=== PATIENT | male | born 1950 | race Caucasian/White ===

== ENCOUNTER 2016-12-23 15:35 | Inpatient (IN) | payer MEDICARE ==
[2016-12-23] MEDS ORDERED: SODIUM CHLORIDE 0.9% 500 ML IV STA (17:02)
[2016-12-23] MEDS ORDERED: SODIUM CHLORIDE 0.9% 1,000 ML IV ONE (17:07)
[2016-12-23] MEDS ORDERED: HYDROmorphone 1 MG/ML 1 ML SYRINGE IVP STA ×2 (17:08→18:46)
--- NOTE | 2016-12-23 17:34 | XR ---
EXAMINATION TYPE: XR KUB DATE OF EXAM: 12/23/2016 5:26 PM COMPARISON: NONE INDICATION: Abdomen pain TECHNIQUE: Single view abdomen upright view FINDINGS: There is a nonspecific bowel gas pattern with air within small bowel loops in the left midabdomen. Si gnificant colonic bowel gas is not evident. No suspicious air-fluid levels or differential air-fluid levels are present. No free air is present. Psoas margins are normal. Calcification overlies the inferior left renal region. Surgical clips are within the left abdomen. IMPRESSION: 1. Nonspecific abdomen with small bowel loops containing air within the left midabdomen.
[2016-12-23] MEDS ORDERED: ONDANSETRON 4 MG/2 ML VIAL IVP STA (17:59)
[2016-12-23 18:08] LABS: Basophils % (A) 0 %; CH 31.3; CHCM 34.3; Eosinophils # (A) 0.1 k/uL (0-0.7); Eosinophils % (A) 1 %; HCT 44.7 % (39.0-53.0); HDW 2.77; Luc # (Auto) 0.11; Luc % (Auto) 1; Lymphocytes # (A) 1.1 k/uL (1.0-4.8); Lymphocytes % (A) 7 %; MCH 30.7 pg (25.0-35.0); MCHC 33.5 g/dL (31.0-37.0); MCV 91.8 fL (80.0-100.0); Mean Platelet Volume 6.9; Monocytes # (A) 0.4 k/uL (0-1.0); Monocytes % (A) 3 %; Neutrophils # (A) 13.6 k/uL (1.3-7.7); Neutrophils % (A) 88 %; RBC 4.87 m/uL (4.30-5.90); RDW 13.3 % (11.5-15.5); WBC 15.3 k/uL (3.8-10.6); WBC (Perox) 14.87
--- NOTE | 2016-12-23 18:12 | ED ---
Abdominal Pain HPI - General Chief Complaint: Abdominal Pain Stated Complaint: Abd Pain/Vomiting Time Seen by Provider: 12/23/16 17:01 Source: patient, RN notes reviewed Mode of arrival: ambulatory Limitations: no limitations - History of Present Illness Initial Comments: This a 66-year-old male present emergency department for nausea vomiting abdominal pain. Patient's symptoms primary started last night and progressed until today. Patient states he has these recurrent bouts of this every few months. Patient has been admitted for dehydration the past. Patient is concerned about dehydration secondary to having one kidney from nephrectomy from renal cancer. Patient denies any dysuria, hematuria. Patient denies constipation but states didn't slightly diarrhea. Patient denies chest pain, shortness breath, headache, dizziness. - Related Data Home Medications Medication Instructions Recorded Confirmed Clopidogrel [Plavix] 75 mg PO DAILY 05/29/15 12/23/16 Gabapentin 600 mg PO TID 05/29/15 12/23/16 Levothyroxine Sodium [Synthroid] 125 mcg PO DAILY 05/29/15 12/23/16 Lutein 10 mg PO DAILY 05/29/15 12/23/16 Simvastatin [Zocor] 20 mg PO HS 05/29/15 12/23/16 predniSONE 5 mg PO DAILY 05/29/15 12/23/16 Propylene Glycol/Peg 400/Pf 1 drop BOTH EYES BID PRN 10/23/15 12/23/16 [Systane 0.3-0.4% Eye Drops] fentaNYL 75MCG/HR PATCH [Duragesic 75 mcg TRANSDERM Q72H 10/23/15 12/23/16 75MCG/HR] traZODone HCL [Desyrel] 50 mg PO HS PRN 10/23/15 12/23/16 Allopurinol [Zyloprim] 300 mg PO DAILY 08/04/16 12/23/16 Losartan Potassium 100 mg PO DAILY 08/04/16 12/23/16 Acetaminophen-Codeine 300-30mg 1 tab PO DAILY PRN 12/23/16 12/23/16 [Tylenol w/codeine #3] Metoprolol Tartrate [Lopressor] 50 mg PO HS 12/23/16 12/23/16 Omeprazole 20 mg PO DAILY 12/23/16 12/23/16 Ondansetron [Zofran ODT] 8 mg PO Q8HR PRN 12/23/16 12/23/16 Allergies Allergy/AdvReac Type Severity Reaction Status Date / Time Sulfa (Sulfonamide Allergy Unknown Rash/Hives/ Verified 12/23/16 18:29 Antibiotics) Swelling Review of Systems ROS Statement: Those systems with pertinent positive or pertinent negative responses have been documented in the HPI. ROS Other: All systems not noted in ROS Statement are negative. Past Medical History Past Medical History: CVA/TIA, Hyperlipidemia, Hypertension, Musculoskeletal Disorder, Osteoarthritis (OA), Rheumatoid Arthritis (RA), Thyroid Disorder Additional Past Medical History / Comment(s): TIA (2002),CHRONIC RENAL FAILURE, - HEART MURMUR, BACK AND JOINT PAIN,DJD, HX OF GOUT , STATES HX OF THYROID TX WITH NUCLEAR MED., , STATES WEIGHT LOSS., MASS ON LEFT KIDNEY(HAD LT KIDNEY REMOVED 06/2015 D/T CANCER). 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 LEFT RADICAL NEPHRECTOMY JUN 2015, EGD Past Anesthesia/Blood Transfusion Reactions: No Reported Reaction Past Psychological History: No Psychological Hx Reported Additional Psychological History / Comment(s): PT IS INDEPENDANT, LIVES AT HOME WITH HIS .HAS 1 INDOOR DOG. 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 Smoking Status: Former smoker Past Alcohol Use History: Occasional Additional Past Alcohol Use History / Comment(s): STATES HE SMOKED CIGARS FOR A FEW YEARS WHEN CHILDREN WERE BORN. DRINKS 2-3 BEERS PER WEEK. Past Drug Use History: None Reported - Past Family History Father Family Medical History: Hypertension Additional Family Medical History / Comment(s): Gout Mother Family Medical History: Cancer, Memory Impairment Additional Family Medical History / Comment(s): BREAST CANCER Sister(s) Family Medical History: Cancer Additional Family Medical History / Comment(s): BREAST & BONE CANCER General Exam Limitations: no limitations General appearance: alert, in no apparent distress Head exam: Present: atraumatic, normocephalic, normal inspection Respiratory exam: Present: normal lung sounds bilaterally. Absent: respiratory distress, wheezes, rales, rhonchi, stridor Cardiovascular Exam: Present: regular rate, normal rhythm, normal heart sounds. Absent: systolic murmur, diastolic murmur, rubs, gallop, clicks GI/Abdominal exam: Present: soft, tenderness (mild to moderate diffuse), normal bowel sounds. Absent: distended, guarding, rebound, rigid Back exam: Absent: CVA tenderness (R), CVA tenderness (L) Course Vital Signs 12/23/16 15:55 Temperature 98.5 F Pulse Rate 79 Respiratory 20 Rate Blood Pressure 178/102 O2 Sat by Pulse 100 Oximetry Medical Decision Making - Lab Data Result diagrams: 12/23/16 17:54 12/23/16 17:54 Lab Results 12/23/16 12/23/16 Range/Units 17:54 17:54 WBC 15.3 H (3.8-10.6) k/uL RBC 4.87 (4.30-5.90) m/uL Hgb 15.0 (13.0-17.5) gm/dL Hct 44.7 (39.0-53.0) % MCV 91.8 (80.0-100.0) fL MCH 30.7 (25.0-35.0) pg MCHC 33.5 (31.0-37.0) g/dL RDW 13.3 (11.5-15.5) % Plt Count 288 (150-450) k/uL Neutrophils % 88 % Lymphocytes % 7 % Monocytes % 3 % Eosinophils % 1 % Basophils % 0 % Neutrophils # 13.6 H (1.3-7.7) k/uL Lymphocytes # 1.1 (1.0-4.8) k/uL Monocytes # 0.4 (0-1.0) k/uL Eosinophils # 0.1 (0-0.7) k/uL Basophils # 0.0 (0-0.2) k/uL Sodium 141 (137-145) mmol/L Potassium 4.4 (3.5-5.1) mmol/L Chloride 102 (98-107) mmol/L Carbon Dioxide 20 L (22-30) mmol/L Anion Gap 19 mmol/L BUN 22 H (9-20) mg/dL Creatinine 1.43 H (0.66-1.25) mg/dL Est GFR (MDRD) Af Amer >60 (>60 ml/min/1.73 sqM) Est GFR (MDRD) Non-Af 50 (>60 ml/min/1.73 sqM) Glucose 118 H (74-99) mg/dL Calcium 10.5 H (8.4-10.2) mg/dL Total Bilirubin 1.0 (0.2-1.3) mg/dL AST 38 (17-59) U/L ALT 18 L (21-72) U/L Alkaline Phosphatase 91 (38-126) U/L Total Protein 8.7 H (6.3-8.2) g/dL Albumin 5.2 H (3.5-5.0) g/dL Amylase 96 (30-110) U/L Lipase 164 (23-300) U/L Disposition Clinical Impression: Intractable nausea and vomiting, Dehydration, Diverticulitis Disposition: ADMITTED IP TO THIS [facility] Condition: Stable Referrals: Candace Butcher III, MD [Primary Care Provider] - 1-2 days
[2016-12-23 18:20] LABS: ALT 18 U/L (21-72); AST 38 U/L (17-59); Alkaline Phosphatase 91 U/L (38-126); Amylase 96 U/L (30-110); Anion Gap 19 mmol/L; Blood Urea Nitrogen 22 mg/dL (9-20); Calcium 10.5 mg/dL (8.4-10.2); Carbon Dioxide 20 mmol/L (22-30); Chloride 102 mmol/L (98-107); Glucose 118 mg/dL (74-99); Non-African American GFR(MDRD) 50 (>60 ml/min/1.73 sqM); Potassium 4.4 mmol/L (3.5-5.1); Sodium 141 mmol/L (137-145); Total Protein 8.7 g/dL (6.3-8.2)
--- NOTE | 2016-12-23 18:52 | CT ---
EXAMINATION TYPE: CT abdomen pelvis wo con DATE OF EXAM: 12/23/2016 6:32 PM COMPARISON: 08/03/2016 INDICATION: Abdominal pain, diarrhea, and vomiting. DLP: 2715 mGycm, Automated exposure control for dose reduction was used. CONTRAST: 0 mL of Omnipaque 300. Study performed without Oral Contrast TECHNIQUE: Axial images were obtained from above the diaphragm to the pubic rami in the axial plane a t 5 mm thick sections. Reconstructed images are reviewed on the computer in the coronal plane. FINDINGS: Limited CT sections are obtained the lung bases. The lung bases are clear. CT ABDOMEN: Liver: There are 2 hypodensities within the superior right lobe liver measuring 2.4 cm and 5 Hounsfie ld is 2.7 cm the Hounsfield units. The harris are somewhat irregular although this could be considered within the differential. Confirmation with ultrasound is recommended. Liver otherwise appears normal . Spleen: Calcified granuloma is at inferior hilum spleen otherwise appears unremarkable. Pancreas: Normal Adrenal glands: The adrenal glands are normal. Gallbladder: Normal Kidneys: \ Left kidney is surgically absent. Right kidney: No masses are evident. No hydronephrosis is present. No cysts are present. Delayed i mages were obtained through the kidneys, which remain unremarkable. Aorta: Vascular calcification is within the aorta. Inferior vena cava: Normal. CT PELVIS: There appear to be some diverticuli within the region of the cecum. Mild inflammatory changes present . Correlate for mild diverticulitis. Correlate with location of the patient's pain. Appendix: Normal as visualized. Urinary bladder: Decompressed with limited evaluation. Genitourinary structures: Prostate is visualized appears normal Osseous structures: No suspicious lytic or sclerotic lesions. Some mild facet degenerative changes pr esent. IMPRESSIONS: 1. A few diverticuli with some mild inflammatory changes in the right lower quadrant at the level of the cecum. Correlate for mild diverticulitis. 2. The adjacent appendix appears normal without adjacent inflammatory change. 3. Suspected hepatic cysts present previously. 4. Post left nephrectomy
[2016-12-23] MEDS ORDERED: metroNIDAZOLE-NS PMX 500 MG in SALINE 1 100ML.BAG IVPB STA (19:03)
[2016-12-23] MEDS ORDERED: LEVOFLOXACIN 500MG-D5W PMX 500 MG in DEXTROSE/WATER 1 100ML.BAG IVPB STA (19:03)
[2016-12-23] MEDS ORDERED: HYDROmorphone 1 MG/ML 1 ML SYRINGE IV PRN (19:08)
[2016-12-23] MEDS ORDERED: ONDANSETRON 4 MG/2 ML VIAL IVP PRN (19:08)
[2016-12-23] MEDS ORDERED: NALOXONE 0.4 MG/ML 1 ML VIAL IV PRN (19:08)
[2016-12-23] MEDS ORDERED: ACETAMINOPHEN TAB 500 MG TAB PO STA (19:21)
[2016-12-23] MEDS ORDERED: METOPROLOL TARTRATE 50 MG TAB PO STA (19:21)
[2016-12-23] MEDS ORDERED: ARTIFICIAL TEARS-HYPROMELLOSE DROPS 15 ML BTL BOTH EYES PRN (22:37)
[2016-12-23] MEDS ORDERED: traZODone HCL 50 MG TAB PO PRN (22:37)
[2016-12-23] MEDS ORDERED: HYDROmorphone 1 MG/ML 1 ML SYRINGE IVP PRN ×2 (22:45)
[2016-12-23] MEDS: SODIUM CHLORIDE 0.9% 1,000 ML IV SCH (23:04)
[2016-12-23] MEDS: GABAPENTIN 300 MG CAP PO SCH (23:44)
[2016-12-24] MEDS ORDERED: hydrALAZINE HCL 20 MG/ML 1 ML VIAL IVP PRN (00:18)
[2016-12-24] MEDS ORDERED: HYDROmorphone 1 MG/ML 1 ML SYRINGE IVP PRN (00:20)
[2016-12-24] MEDS: Acetaminophen-Codeine 300-30mg TAB PO PRN ×2 (02:56→13:39)
[2016-12-24 03:17] LABS: Appearance,Urine Clear (Clear); Bilirubin,Urine Negative (Negative); Glucose,Urine (UA) Negative (Negative); Ketones,Urine 2+ (Negative); Leukocyte Esterase,Urine Negative (Negative); Nitrite,Urine Negative (Negative); Protein,Urine Trace (Negative); Specific Gravity,Urine 1.015 (1.001-1.035); UA Billing (MACRO vs. MICRO) CHEM; Urobilinogen,Urine <2.0 mg/dL (<2.0)
[2016-12-24] MEDS: SODIUM CHLORIDE 0.9% 1,000 ML IV SCH ×2 (05:51→16:00)
[2016-12-24] MEDS: LEVOTHYROXINE 125 MCG TAB PO SCH (05:51)
[2016-12-24] MEDS ORDERED: NON-FORMULARY DRUG (Lutein [Lutein] 10 MG) PO SCH (09:00)
[2016-12-24] MEDS: predniSONE 5 MG TAB PO SCH (09:07)
[2016-12-24] MEDS: LOSARTAN 50 MG TAB PO SCH (09:07)
[2016-12-24] MEDS: PANTOPRAZOLE 40 MG TABLET PO SCH (09:07)
[2016-12-24] MEDS: CLOPIDOGREL 75 MG TAB PO SCH (09:07)
[2016-12-24] MEDS: metroNIDAZOLE-NS PMX 500 MG in SALINE 1 100ML.BAG IVPB SCH ×3 (09:07→23:31)
[2016-12-24] MEDS: GABAPENTIN 300 MG CAP PO SCH ×3 (09:07→21:47)
[2016-12-24] MEDS: ALLOPURINOL 300 MG TAB PO SCH (09:07)
--- NOTE | 2016-12-24 19:17 | HP ---
DATE OF SERVICE: 12/24/2016 HISTORY OF PRESENT ILLNESS: Mr. Moise is a 66-year-old male with a past medical history of hypertension, hyperlipidemia, osteoarthritis, rheumatoid arthritis, thyroid disorder, coming to the hospital with a chief complaint of lower abdominal pain along with nausea and vomiting for the past 1 day. Patient states that he has been throwing up a couple of times and he is also worried that he might be dehydrated secondary to having only 1 kidney from a nephrectomy due to renal cell cancer in the past. Patient denies having any dysuria or hematuria. Patient denies having any diarrhea or constipation. He denies having any chest pain, shortness of breath, headache, dizziness. REVIEW OF SYSTEMS: Congestion. No fever, chills or rigors. RESPIRATORY: No cough. No difficulty in breathing. CARDIAC: No chest pain or palpitations. GI: As per HPI. : No dysuria or hematuria. HEMATOLOGIC: No history of easy bruising or recurrent infections. ENDOCRINE: Positive for thyroid disorder. IMMUNOLOGY/ALLERGY: No history of any chronic immune deficiencies. PSYCHIATRIC: No significant psychiatric history in the past. All 13 review of systems are done and negative except for the ones mentioned in the HPI. PAST MEDICAL HISTORY: Significant for hypertension and hyperlipidemia, musculoskeletal disorder, rheumatoid arthritis, thyroid disorder. PAST SURGICAL HISTORY: Positive for hemorrhoidectomy, amputation of the digits of the right hand from burs and skin graft in 1971, bunionectomy and left radical nephrectomy in June 2015. ALLERGIES TO SULFA DRUGS. Patient's home medications: 1. He is on Synthroid 100 mcg p.o. daily. 2. Gabapentin 600 mg p.o. 3 times a day. 3. Zocor 20 mg p.o. q.h.s. 4. Plavix 75 mg p.o. daily. 5. Prednisone 5 mg p.o. daily. 6. Lutein 10 mg p.o. daily. 7. Fentanyl patch 75 mcg q.72 hours. 8. GoLYTELY. 9. Trazodone 750 mg p.o. q.h.s. 10. Losartan 100 mg p.o. daily. 11. Allopurinol 300 mg p.o. daily. 12. Zofran 8 mg p.o. q.8 hours p.r.n. for his nausea and vomiting. 13. Omeprazole 20 mg p.o. daily. 14. Lopressor 50 mg p.o. q.h.s. 15. Tylenol No. 3, 1 tablet daily p.r.n. for pain. FAMILY HISTORY: Positive for breast cancer in his mother. SOCIAL HISTORY: He is a former smoker. Occasional alcohol and no history of intravenous drug abuse. On examination, patient's vitals: Blood pressure is 179/100, heart rate 67, respiratory rate 20, saturating at 100% on room air, temperature 100.3. GENERAL: The patient is a well-developed, well-nourished male; lying comfortably in bed, appears to be no acute distress. HEAD: Atraumatic, normocephalic. EYES: Pupils round and reactive to light. NECK: No JVD. No thyromegaly. CARDIOVASCULAR: S1, S2 heard. No additional sounds. RESPIRATORY: Bilateral breath sounds are positive. No wheeze or crackles. ABDOMEN: Soft. Tenderness positive in the suprapubic area and both in the right and left lower quadrants. Hyperactive bowel sounds. EXTREMITIES: No cyanosis. No clubbing. No edema. WELD FITTER: Alert, awake, oriented x3. No focal neurological deficits. SKIN: No rash. PSYCHIATRIC: Appropriate mood and affect. Patient's labs: White count of 15.3, hemoglobin is 15, platelets of 288. Sodium 141, potassium 4.4, chloride 102, bicarb 20, BUN 22, creatinine 1.43. UA is positive for trace protein and 2+ ketones. Patient also had CAT scan of his abdomen and pelvis showing diverticulitis with some mild inflammatory changes in the right lower quadrant at the level of cecum, correlate for mild diverticulitis and a suspected hepatic cyst present previously ASSESSMENT AND PLAN: 1. Sepsis secondary to acute diverticulitis. 2. Acute diverticulitis at the level of cecum. 3. Acute kidney injury, most likely secondary to dehydration. 4. History of renal cell cancer, status post left nephrectomy. 5. Hypothyroidism. 6. Hypertension. 7. Hyperlipidemia. 8. History of rheumatoid arthritis. 9. History of constipation. 10. History of gastroesophageal reflux disease. PLAN: The plan is to continue the patient on IV fluids and IV antibiotics in the form of Flagyl and Levaquin. Will continue with the rest of his home medication regimen. Patient shows some improvement in his lower abdominal symptoms. He is currently on a liquid diet. We will advance diet as tolerated. Anticipate discharge 24 to 48 hours.
[2016-12-24] MEDS ORDERED: Acetaminophen-Codeine 300-30mg TAB PO STA (21:04)
[2016-12-24] MEDS: METOPROLOL TARTRATE 50 MG TAB PO SCH (21:46)
[2016-12-24] MEDS: ATORVASTATIN 10 MG TAB PO SCH (21:46)
[2016-12-24] MEDS: LEVOFLOXACIN 500MG-D5W PMX 500 MG in DEXTROSE/WATER 1 100ML.BAG IVPB SCH (21:46)
[2016-12-25] MEDS: SODIUM CHLORIDE 0.9% 1,000 ML IV SCH ×3 (05:08→20:24)
[2016-12-25] MEDS: LEVOTHYROXINE 125 MCG TAB PO SCH (06:37)
[2016-12-25] MEDS: GABAPENTIN 300 MG CAP PO SCH ×3 (07:26→20:23)
[2016-12-25] MEDS: predniSONE 5 MG TAB PO SCH (07:26)
[2016-12-25] MEDS: CLOPIDOGREL 75 MG TAB PO SCH (07:26)
[2016-12-25] MEDS: metroNIDAZOLE-NS PMX 500 MG in SALINE 1 100ML.BAG IVPB SCH ×3 (07:26→23:54)
[2016-12-25] MEDS: ALLOPURINOL 300 MG TAB PO SCH (07:26)
[2016-12-25] MEDS: LOSARTAN 50 MG TAB PO SCH (07:26)
[2016-12-25] MEDS: PANTOPRAZOLE 40 MG TABLET PO SCH (07:26)
[2016-12-25] MEDS: Acetaminophen-Codeine 300-30mg TAB PO PRN ×2 (07:28→20:26)
[2016-12-25 09:43] LABS: Basophils % (A) 0 %; CH 30.9; CHCM 32.9; Eosinophils # (A) 0.2 k/uL (0-0.7); Eosinophils % (A) 3 %; HCT 38.3 % (39.0-53.0); HDW 2.63; HGB 12.5 gm/dL (13.0-17.5); Luc % (Auto) 1; Lymphocytes % (A) 12 %; MCH 30.8 pg (25.0-35.0); MCHC 32.6 g/dL (31.0-37.0); MCV 94.3 fL (80.0-100.0); Mean Platelet Volume 7.1; Monocytes # (A) 0.4 k/uL (0-1.0); Monocytes % (A) 5 %; Neutrophils # (A) 6.7 k/uL (1.3-7.7); Neutrophils % (A) 79 %; RBC 4.06 m/uL (4.30-5.90); RDW 13.2 % (11.5-15.5); WBC 8.5 k/uL (3.8-10.6); WBC (Perox) 8.89
[2016-12-25 10:06] LABS: Calcium 9.3 mg/dL (8.4-10.2); Potassium 4.5 mmol/L (3.5-5.1)
--- NOTE | 2016-12-25 18:39 | PN ---
DATE OF SERVICE: 12/25/2016 INTERVAL HISTORY: Mr. Moise is a 66-year-old male with a past medical history of hypertension, hyperlipidemia, osteoarthritis, and rheumatoid arthritis, thyroid disorder, admitted to the hospital with a chief complaint of lower abdominal pain, nausea and vomiting. The patient had a CT scan of the abdomen showing diverticulitis for which he is on IV antibiotics. Today the patient is lying comfortably in the bed. He is on a liquid diet and was able to tolerate it without any issues. He states that his abdominal pain is much better and his pain is 4/10 currently. Denies having any nausea, vomiting, or diarrhea. REVIEW OF SYSTEMS: CONSTITUTIONAL: Denies having fever, chills, or rigors. RESPIRATORY: No cough. No difficulty breathing. CARDIOVASCULAR: No chest pain or palpitations. : No dysuria or hematuria. Patient's medications have been reviewed. On examination, patient's vital signs temperature 99, heart rate 61, respiratory 20, blood pressure 156/75, saturating at 98% on room air. GENERAL EXAMINATION: Patient appears to be no acute distress. HEAD: Atraumatic. Normocephalic. EYES: Pupils round, and reactive to light. NECK: No JVD. No thyromegaly. CARDIOVASCULAR: S1, S2 heard. RESPIRATORY: Bilateral breath sounds are positive. No wheeze or crackles. ABDOMEN: Soft. No tenderness in the lower abdominal region. Bowel sounds are hyperactive. EXTREMITIES: No cyanosis, no clubbing, no edema. DIRECTOR OF SPECIAL SERVICES: Alert, awake and oriented x3. SKIN: No rashes. PSYCHIATRIC: Appropriate mood and affect. Patient's labs: White count of 8.5, hemoglobin is 12.5, platelets of 213. Sodium 144, potassium 4.5, chloride 110, bicarb 23, BUN 17, creatinine 1.45. ASSESSMENT AND PLAN: 1. Sepsis secondary to acute diverticulitis. 2. History of diverticulitis at the level of the cecum. 3. Chronic kidney disease stage III. 4. History of renal cell cancer, status post left nephrectomy. 5. Hypothyroidism. 6. Hypertension. 7. Hyperlipidemia. 8. History of rheumatoid arthritis. 9. History of constipation. 10. History of gastroesophageal reflux disease. PLAN: The plan is to continue the patient on IV antibiotics in the form of Levaquin and Flagyl. Patient is being escalated to soft diet and continue with the rest of his medication regimen and further recommendations to follow depending on the progress of the patient.
[2016-12-25] MEDS: METOPROLOL TARTRATE 50 MG TAB PO SCH (20:22)
[2016-12-25] MEDS: LEVOFLOXACIN 500MG-D5W PMX 500 MG in DEXTROSE/WATER 1 100ML.BAG IVPB SCH (20:22)
[2016-12-25] MEDS: ATORVASTATIN 10 MG TAB PO SCH (20:22)
[2016-12-26 00:13] VITALS: RESP 18
[2016-12-26] MEDS: Acetaminophen-Codeine 300-30mg TAB PO PRN (03:30)
[2016-12-26] MEDS: LEVOTHYROXINE 125 MCG TAB PO SCH (06:26)
[2016-12-26 07:43] VITALS: BP 137/83; PULSE 54; TEMP 98.5
[2016-12-26] MEDS: CLOPIDOGREL 75 MG TAB PO SCH (08:03)
[2016-12-26] MEDS: metroNIDAZOLE-NS PMX 500 MG in SALINE 1 100ML.BAG IVPB SCH (08:03)
[2016-12-26] MEDS: PANTOPRAZOLE 40 MG TABLET PO SCH (08:03)
[2016-12-26] MEDS: LOSARTAN 50 MG TAB PO SCH (08:03)
[2016-12-26] MEDS: SODIUM CHLORIDE 0.9% 1,000 ML IV SCH (08:03)
[2016-12-26] MEDS: GABAPENTIN 300 MG CAP PO SCH (08:04)
[2016-12-26] MEDS: ALLOPURINOL 300 MG TAB PO SCH (08:04)
[2016-12-26] MEDS: predniSONE 5 MG TAB PO SCH (08:04)
[2016-12-26 09:16] LABS: Anion Gap 11 mmol/L; Blood Urea Nitrogen 17 mg/dL (9-20); Calcium 9.1 mg/dL (8.4-10.2); Carbon Dioxide 24 mmol/L (22-30); Chloride 108 mmol/L (98-107); Glucose 125 mg/dL (74-99); Non-African American GFR(MDRD) 50 (>60 ml/min/1.73 sqM); Sodium 143 mmol/L (137-145)
[2016-12-26 09:32] LABS: Basophils % (A) 1 %; CH 31.1; CHCM 32.6; Eosinophils # (A) 0.3 k/uL (0-0.7); Eosinophils % (A) 4 %; HCT 39.7 % (39.0-53.0); HDW 2.63; HGB 12.6 gm/dL (13.0-17.5); Luc # (Auto) 0.12; Luc % (Auto) 2; Lymphocytes # (A) 1.2 k/uL (1.0-4.8); Lymphocytes % (A) 18 %; MCH 30.3 pg (25.0-35.0); MCHC 31.6 g/dL (31.0-37.0); MCV 95.7 fL (80.0-100.0); Mean Platelet Volume 7.1; Monocytes # (A) 0.3 k/uL (0-1.0); Monocytes % (A) 4 %; Neutrophils # (A) 4.6 k/uL (1.3-7.7); Neutrophils % (A) 71 %; RBC 4.15 m/uL (4.30-5.90); RDW 13.4 % (11.5-15.5); WBC 6.5 k/uL (3.8-10.6); WBC (Perox) 6.87
--- NOTE | 2016-12-26 12:06 | P.CONS ---
History of Present Illness - Reason for Consult Consult date: 12/25/16 - History of Present Illness The patient is a 66-year-old male who presented with lower abdominal pain as well as nausea and vomiting of [address] of the abdomen showed diverticulosis with mild inflammatory changes on the right side and cecum. The patient was admitted with the working diagnosis of acute diverticulitis and were asked to see him for concomitant management and future follow-up. The patient already feels improved compared to his admission and he still has some right lower abdominal pains. Has been tolerating liquid diet. Denies any bleeding. Review of Systems Constitutional: Denied fever, chills or unintentional weight loss Neurologic: Has history of headaches but no double vision or other sensory or motor changes. Has history of TIA HEENT. Normal Cardiopulmonary: Denied chest pains, shortness of breath or palpitations. History of HTN and hyperlipidemia Gastrointestinal: See present illness above Genitourinary: History of renal cell carcinoma status post nephrectomy Endocrine: No diabetes, has history of thyroid disease Musculoskeletal: No joint pain or swelling. Has history of OA and RA Skin: No rashes Psychiatric: No anxiety or depression Past Medical History Past Medical History: CVA/TIA, Hyperlipidemia, Hypertension, Musculoskeletal Disorder, Osteoarthritis (OA), Rheumatoid Arthritis (RA), Thyroid Disorder Additional Past Medical History / Comment(s): TIA (2002),CHRONIC RENAL FAILURE, - HEART MURMUR, BACK AND JOINT PAIN,DJD, HX OF GOUT , STATES HX OF THYROID TX WITH NUCLEAR MED., , , MASS ON LEFT KIDNEY(HAD LT KIDNEY REMOVED 06/2015 D/T CANCER). 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 LEFT RADICAL NEPHRECTOMY JUN 2015, EGD Past Anesthesia/Blood Transfusion Reactions: No Reported Reaction Past Psychological History: No Psychological Hx Reported Additional Psychological History / Comment(s): PT IS INDEPENDANT, LIVES AT HOME WITH HIS .HAS 1 INDOOR DOG. 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 Smoking Status: Former smoker Past Alcohol Use History: Occasional Additional Past Alcohol Use History / Comment(s): STATES HE SMOKED CIGARS FOR A FEW YEARS WHEN CHILDREN WERE BORN. DRINKS 2-3 BEERS PER WEEK. Past Drug Use History: None Reported - Past Family History Father Family Medical History: Hypertension Additional Family Medical History / Comment(s): Gout Mother Family Medical History: Cancer, Memory Impairment Additional Family Medical History / Comment(s): BREAST CANCER Sister(s) Family Medical History: Cancer Additional Family Medical History / Comment(s): BREAST & BONE CANCER Medications and Allergies Home Medications Medication Instructions Recorded Confirmed Type Clopidogrel [Plavix] 75 mg PO DAILY 05/29/15 12/23/16 History Gabapentin 600 mg PO TID 05/29/15 12/23/16 History Levothyroxine Sodium [Synthroid] 125 mcg PO DAILY 05/29/15 12/23/16 History Lutein 10 mg PO DAILY 05/29/15 12/23/16 History Simvastatin [Zocor] 20 mg PO HS 05/29/15 12/23/16 History predniSONE 5 mg PO DAILY 05/29/15 12/23/16 History Propylene Glycol/Peg 400/Pf 1 drop BOTH EYES BID PRN 10/23/15 12/23/16 History [Systane 0.3-0.4% Eye Drops] fentaNYL 75MCG/HR PATCH [Duragesic 75 mcg TRANSDERM Q72H 10/23/15 12/23/16 History 75MCG/HR] traZODone HCL [Desyrel] 50 mg PO HS PRN 10/23/15 12/23/16 History Allopurinol [Zyloprim] 300 mg PO DAILY 08/04/16 12/23/16 History Losartan Potassium 100 mg PO DAILY 08/04/16 12/23/16 History Acetaminophen-Codeine 300-30mg 1 tab PO DAILY PRN 12/23/16 12/23/16 History [Tylenol w/codeine #3] Metoprolol Tartrate [Lopressor] 50 mg PO HS 12/23/16 12/23/16 History Omeprazole 20 mg PO DAILY 12/23/16 12/23/16 History Ondansetron [Zofran ODT] 8 mg PO Q8HR PRN 12/23/16 12/23/16 History Allergies Allergy/AdvReac Type Severity Reaction Status Date / Time Sulfa (Sulfonamide Allergy Unknown Rash/Hives/ Verified 12/23/16 18:29 Antibiotics) Swelling Physical Exam Vitals: Vital Signs Temp Pulse Resp BP Pulse Ox 12/25/16 20:22 72 144/77 12/25/16 15:00 99.0 F 61 20 156/75 98 12/25/16 07:00 98.5 F 56 L 20 141/76 98 Intake and Output 12/25/16 12/25/16 12/25/16 06:59 14:59 22:59 Intake Total 100 960 Balance 100 960 Intake: Oral 100 960 Other: Voiding Method Toilet Toilet Toilet # Voids 1 2 General: Appeared stated age, very pleasant, in no acute distress Head and neck: Normocephalic and atraumatic. Conjunctivae pink and sclerae not icteric. No masses in the neck or tracheal shifts. No adenopathy or thyromegaly Lungs: Clear to auscultation with no dullness to percussion Heart: Regular, no abnormal sounds, murmurs, gallops or friction rubs Abdomen: Soft. Mild tenderness in the right lower quadrant no guarding or rebound. Bowel sounds present. No masses felt on her again or any organomegalies Extremities: No clubbing, cyanosis or edema Neurologic: Alert and oriented 3. Cranial nerves grossly intact. No gross sensory or motor abnormalities. Results CBC & Chem 7: 12/26/16 08:18 12/26/16 08:18 Labs: Abnormal Lab Results - Last 24 Hours (Table) 12/25/16 12/25/16 Range/Units 09:13 09:13 RBC 4.06 L (4.30-5.90) m/uL Hgb 12.5 L (13.0-17.5) gm/dL Hct 38.3 L (39.0-53.0) % Chloride 110 H (98-107) mmol/L Creatinine 1.45 H (0.66-1.25) mg/dL Microbiology - Last 24 Hours (Table) 12/23/16 19:52 Blood Culture - Preliminary Blood No Growth after 24 hours Assessment and Plan Plan: This 66-year-old male presenting with clinical picture consistent with acute diverticulitis. He is already responding to current management with antibiotics and tolerating liquid diet. Agree with your current management. Will continue with the same and I would recommend a colonoscopy in around 6-8 weeks.
--- NOTE | 2016-12-27 20:07 | DS ---
DATE OF ADMISSION: 12/23/2016 DATE OF DISCHARGE: 12/26/2016 FINAL DIAGNOSES: 1. Acute diverticulitis with possible acute sepsis, present on admission. 2. History of diverticulitis at the level of the cecum. 3. History of renal cell cancer status post left nephrectomy. 4. Hypothyroidism. 5. Hypertension, essential. 6. Hyperlipidemia. 7. History of rheumatoid arthritis. 8. History of constipation. 9. History of gastroesophageal reflux disease. 10. FULL CODE. DISCHARGE DISPOSITION: Patient will be discharged in a stable condition with guarded prognosis. This 66-year-old gentleman with a past medical history of multiple medical problems, admitted to the hospital with features of acute diverticulitis and sepsis. The patient treated with antibiotics. Improved significantly. Gastroenterology saw the patient. On exam, vital signs stable. CARDIOVASCULAR: S1, S2 muffled. ABDOMEN: Soft. CENTRAL NERVOUS SYSTEM: No focal deficits. LABORATORY DATA: WBC normal at 6.5, creatinine 1.41. DISCHARGE MEDICATIONS AND ADVICE: 1. Diet is cardiac. 2. Activity limited until follow-up. 3. Follow-up with Dr. Butcher in 2 to 3 days. 4. Follow up with Dr. Nava as advised. Medications will be as follows: 1. Tylenol #3 1 tablet p.o. daily p.r.n. 2. Zyloprim 300 mg p.o. daily. 3. Cipro 500 mg p.o. b.i.d. for one week. 4. Plavix 75 milligrams p.o. daily. 5. Fentanyl patch 70 mcg q.72h. 6. Gabapentin 600 mg p.o. t.i.d. 7. Synthroid 125 mcg p.o. daily. 8. Losartan 100 mg p.o. daily. 9. Lutein 10 mg p.o. daily. 10. Lopressor 50 mg p.o. q.h.s. 11. Flagyl 500 mg p.o. t.i.d. for one week. 12. Omeprazole 20 mg p.o. daily. 13. Zofran 8 mg p.o. q.8 p.r.n. 14. Prednisone 5 mg p.o. daily. 15. glycol one drop both eyes. 16. Zocor 20 mg q.h.s. 17. Trazodone 50 mg q.h.s. p.r.n. Once again, the patient will be discharged in a stable condition with guarded prognosis. DIOR
== END 2016-12-26 12:12 | disposition home or self-care (01) | DRG 872 ==
LOC: EC 15:35 → 4MS4W 19:32
PROVIDERS: ADMIT Internal Medicine; ATTEND Internal Medicine
DX: A41.9 Sepsis, unspecified organism (principal); N17.9 Acute kidney failure, unspecified; K57.32 Diverticulitis of large intestine without perforation or abscess without bleeding; N18.3 Chronic kidney disease, stage 3 (moderate); I12.9 Hypertensive chronic kidney disease with stage 1 through stage 4 chronic kidney disease, or unspecified chronic kidney disease; E78.5 Hyperlipidemia, unspecified; M06.9 Rheumatoid arthritis, unspecified; M19.91 Primary osteoarthritis, unspecified site; K21.9 Gastro-esophageal reflux disease without esophagitis; E03.9 Hypothyroidism, unspecified; M20.001 Unspecified deformity of right finger(s); Z85.528 Personal history of other malignant neoplasm of kidney; Z90.5 Acquired absence of kidney; Z88.2 Allergy status to sulfonamides; Z79.51 Long term (current) use of inhaled steroids; Z79.891 Long term (current) use of opiate analgesic; Z79.02 Long term (current) use of antithrombotics/antiplatelets; Z79.899 Other long term (current) drug therapy; Z87.891 Personal history of nicotine dependence; Z86.73 Personal history of transient ischemic attack (TIA), and cerebral infarction without residual deficits; M10.9 Gout, unspecified; E86.0 Dehydration
CPT/HCPCS: 36415; 74000; 74176; 80048; 80053; 81003; 82150; 83690; 85025; 87040

== ENCOUNTER 2017-02-24 21:37 | Inpatient (IN) | payer MEDICARE ==
[2017-02-24] MEDS ORDERED: HYDROmorphone 1 MG/ML 1 ML SYRINGE IVP STA (22:45)
[2017-02-24] MEDS ORDERED: SODIUM CHLORIDE 0.9% 1,000 ML IV STA (22:45)
[2017-02-24] MEDS ORDERED: ONDANSETRON 4 MG/2 ML VIAL IVP STA (22:45)
[2017-02-24] MEDS ORDERED: RX INFO: IV CONTRAST WAS GIVEN 1 EACH MISC MISCELLANE PRN (22:45)
--- NOTE | 2017-02-24 23:00 | ED ---
General Adult HPI - General Chief complaint: Nausea/Vomiting/Diarrhea Stated complaint: bronchitis/vomiting Time Seen by Provider: 02/24/17 22:36 Source: patient, RN notes reviewed Mode of arrival: ambulatory Limitations: no limitations - History of Present Illness Initial comments: 67-year-old male presents to the emergency department with a chief complaint of nausea vomiting and abdominal pain. Patient has had these symptoms for the past day. Patient states his upper abdomen hurts that he isn't throwing up. Patient states she is currently in a straight antibiotic for bronchitis that he was diagnosed with a few days ago. Patient does admit to history of diverticulitis. Patient states he hasn't had any fever chills with this. Patient states that he just does not feel very well and he was concerned. Patient denies any changes in bowel or bladder habits or any flank pain. Patient denies any recent fever, chills, shortness of breath, chest pain, back pain, numbness or tingling, dysuria or hematuria, constipation or diarrhea, headaches or visual changes, or any other current symptoms. - Related Data Home Medications Medication Instructions Recorded Confirmed Clopidogrel [Plavix] 75 mg PO DAILY 05/29/15 12/23/16 Gabapentin 600 mg PO TID 05/29/15 12/23/16 Levothyroxine Sodium [Synthroid] 125 mcg PO DAILY 05/29/15 12/23/16 Lutein 10 mg PO DAILY 05/29/15 12/23/16 Simvastatin [Zocor] 20 mg PO HS 05/29/15 12/23/16 predniSONE 5 mg PO DAILY 05/29/15 12/23/16 Propylene Glycol/Peg 400/Pf 1 drop BOTH EYES BID PRN 10/23/15 12/23/16 [Systane 0.3-0.4% Eye Drops] fentaNYL 75MCG/HR PATCH [Duragesic 75 mcg TRANSDERM Q72H 10/23/15 12/23/16 75MCG/HR] traZODone HCL [Desyrel] 50 mg PO HS PRN 10/23/15 12/23/16 Allopurinol [Zyloprim] 300 mg PO DAILY 08/04/16 12/23/16 Losartan Potassium 100 mg PO DAILY 08/04/16 12/23/16 Acetaminophen-Codeine 300-30mg 1 tab PO DAILY PRN 12/23/16 12/23/16 [Tylenol w/codeine #3] Metoprolol Tartrate [Lopressor] 50 mg PO HS 12/23/16 12/23/16 Omeprazole 20 mg PO DAILY 12/23/16 12/23/16 Ondansetron [Zofran ODT] 8 mg PO Q8HR PRN 12/23/16 12/23/16 Previous Rx's Medication Instructions Recorded Ciprofloxacin HCl [Cipro] 500 mg PO Q12HR #14 tablet 12/26/16 metroNIDAZOLE [Flagyl] 500 mg PO TID #21 tab 12/26/16 Allergies Allergy/AdvReac Type Severity Reaction Status Date / Time Sulfa (Sulfonamide Allergy Unknown Rash/Hives/ Verified 02/24/17 22:12 Antibiotics) Swelling Review of Systems ROS Statement: Those systems with pertinent positive or pertinent negative responses have been documented in the HPI. ROS Other: All systems not noted in ROS Statement are negative. Past Medical History Past Medical History: CVA/TIA, Hyperlipidemia, Hypertension, Musculoskeletal Disorder, Osteoarthritis (OA), Rheumatoid Arthritis (RA), Thyroid Disorder Additional Past Medical History / Comment(s): TIA (2002),CHRONIC RENAL FAILURE, - HEART MURMUR, BACK AND JOINT PAIN,DJD, HX OF GOUT , STATES HX OF THYROID TX WITH NUCLEAR MED., , , MASS ON LEFT KIDNEY(HAD LT KIDNEY REMOVED 06/2015 D/T CANCER). 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 LEFT RADICAL NEPHRECTOMY JUN 2015, EGD Past Anesthesia/Blood Transfusion Reactions: No Reported Reaction Past Psychological History: No Psychological Hx Reported Smoking Status: Former smoker Past Alcohol Use History: Occasional Past Drug Use History: None Reported - Past Family History Father Family Medical History: Hypertension Additional Family Medical History / Comment(s): Gout Mother Family Medical History: Cancer, Memory Impairment Additional Family Medical History / Comment(s): BREAST CANCER Sister(s) Family Medical History: Cancer Additional Family Medical History / Comment(s): BREAST & BONE CANCER General Exam - General Exam Comments Initial Comments: General: The patient is awake and alert, in no distress, and does not appear acutely ill. Eye: Pupils are equal, round and reactive to light, extra-ocular movements are intact; there is normal conjunctiva bilaterally. No signs of icterus. Ears, nose, mouth and throat: There are moist mucous membranes and no oral lesions. Neck: The neck is supple, there is no tenderness. Cardiovascular: There is a regular rate and rhythm. No murmur, rub or gallop is appreciated. Respiratory: Lungs are clear to auscultation, respirations are non-labored, breath sounds are equal. No wheezes, stridor, rales, or rhonchi. Gastrointestinal: Soft, non-distended, non-tender abdomen without masses or organomegaly noted. There is no rebound or guarding present. No CVA tenderness. Bowel sounds are unremarkable. Back: There is no tenderness to palpation in the midline. There is no obvious deformity. No rashes noted. Musculoskeletal: Normal ROM, no tenderness, There is no pedal edema. There is no calf tenderness or swelling. Sensation intact. Pulses equal bilaterally 2+. Neurological: CN II-XII intact, There are no obvious motor or sensory deficits. Coordination appears grossly intact. Speech is normal. Skin: Skin is warm and dry and no rashes or lesions are noted. Psychiatric: Cooperative, appropriate mood & affect, normal judgment. Limitations: no limitations Course Vital Signs 02/24/17 02/24/17 22:09 23:54 Temperature 99.1 F 98.3 F Pulse Rate 63 70 Respiratory 18 16 Rate Blood Pressure 181/90 132/67 O2 Sat by Pulse 100 99 Oximetry Medical Decision Making - Medical Decision Making 67-year-old male presents emergency department with a chief complaint of abdominal pain nausea vomiting. At this time patient's CAT scan is showing suspicion for diverticulitis. The patient has a mildly elevated lactic acid. This is most likely due to the vomiting and not dealing with sepsis at this time. This time the patient does not meet sepsis criteria. This time patient will be started on antibiotics and he will be admitted for continued care. Patient is agreeable with this plan. [facility] - Lab Data Result diagrams: 02/25/17 00:04 02/25/17 00:04 Lab Results 02/24/17 02/24/17 02/25/17 Range/Units 00:04 23:00 00:04 WBC 9.8 (3.8-10.6) k/uL RBC 4.13 L (4.30-5.90) m/uL Hgb 12.7 L (13.0-17.5) gm/dL Hct 36.5 L (39.0-53.0) % MCV 88.2 D (80.0-100.0) fL MCH 30.7 (25.0-35.0) pg MCHC 34.8 (31.0-37.0) g/dL RDW 13.1 (11.5-15.5) % Plt Count 261 (150-450) k/uL Neutrophils % 82 % Lymphocytes % 11 % Monocytes % 6 % Eosinophils % 0 % Basophils % 0 % Neutrophils # 8.1 H (1.3-7.7) k/uL Lymphocytes # 1.0 (1.0-4.8) k/uL Monocytes # 0.6 (0-1.0) k/uL Eosinophils # 0.0 (0-0.7) k/uL Basophils # 0.0 (0-0.2) k/uL PT (9.0-12.0) sec INR (<1.2) APTT (22.0-30.0) sec Sodium (137-145) mmol/L Potassium (3.5-5.1) mmol/L Chloride (98-107) mmol/L Carbon Dioxide (22-30) mmol/L Anion Gap mmol/L BUN (9-20) mg/dL Creatinine (0.66-1.25) mg/dL Est GFR (MDRD) Af Amer (>60 ml/min/1.73 sqM) Est GFR (MDRD) Non-Af (>60 ml/min/1.73 sqM) Glucose (74-99) mg/dL Plasma Lactic Acid Yusuf (0.7-2.0) mmol/L Calcium (8.4-10.2) mg/dL Total Bilirubin (0.2-1.3) mg/dL AST (17-59) U/L ALT (21-72) U/L Alkaline Phosphatase (38-126) U/L Total Protein (6.3-8.2) g/dL Albumin (3.5-5.0) g/dL Urine Color Yellow Urine Appearance Clear (Clear) Urine pH 7.0 (5.0-8.0) Ur Specific [place] 1.017 (1.001-1.035) Urine Protein Trace H (Negative) Urine Glucose (UA) Negative (Negative) Urine Ketones Trace H (Negative) Urine Blood Negative (Negative) Urine Nitrite Negative (Negative) Urine Bilirubin Negative (Negative) Urine Urobilinogen <2.0 (<2.0) mg/dL Ur Leukocyte Esterase Negative (Negative) Blood Type O Positive Blood Type Recheck No Antibody Screen NEGATIVE Spec Expiration Date 02/27/2017230302/25/17 02/25/17 02/25/17 Range/Units 00:04 00:04 00:04 WBC (3.8-10.6) k/uL RBC (4.30-5.90) m/uL Hgb (13.0-17.5) gm/dL Hct (39.0-53.0) % MCV (80.0-100.0) fL MCH (25.0-35.0) pg MCHC (31.0-37.0) g/dL RDW (11.5-15.5) % Plt Count (150-450) k/uL Neutrophils % % Lymphocytes % % Monocytes % % Eosinophils % % Basophils % % Neutrophils # (1.3-7.7) k/uL Lymphocytes # (1.0-4.8) k/uL Monocytes # (0-1.0) k/uL Eosinophils # (0-0.7) k/uL Basophils # (0-0.2) k/uL PT 10.8 (9.0-12.0) sec INR 1.1 (<1.2) APTT 18.0 L (22.0-30.0) sec Sodium 143 (137-145) mmol/L Potassium 4.0 (3.5-5.1) mmol/L Chloride 107 (98-107) mmol/L Carbon Dioxide 21 L (22-30) mmol/L Anion Gap 15 mmol/L BUN 22 H (9-20) mg/dL Creatinine 1.70 H (0.66-1.25) mg/dL Est GFR (MDRD) Af Amer 49 (>60 ml/min/1.73 sqM) Est GFR (MDRD) Non-Af 41 (>60 ml/min/1.73 sqM) Glucose 123 H (74-99) mg/dL Plasma Lactic Acid Yusuf 2.4 H* (0.7-2.0) mmol/L Calcium 9.7 (8.4-10.2) mg/dL Total Bilirubin 0.6 (0.2-1.3) mg/dL AST 26 (17-59) U/L ALT 31 (21-72) U/L Alkaline Phosphatase 84 (38-126) U/L Total Protein 6.8 (6.3-8.2) g/dL Albumin 4.2 (3.5-5.0) g/dL Urine Color Urine Appearance (Clear) Urine pH (5.0-8.0) Ur Specific [place] (1.001-1.035) Urine Protein (Negative) Urine Glucose (UA) (Negative) Urine Ketones (Negative) Urine Blood (Negative) Urine Nitrite (Negative) Urine Bilirubin (Negative) Urine Urobilinogen (<2.0) mg/dL Ur Leukocyte Esterase (Negative) Blood Type Blood Type Recheck Antibody Screen Spec Expiration Date - Radiology Data Radiology results: report reviewed, image reviewed Disposition Clinical Impression: Acute diverticulitis, Elevated lactic acid level, Pulmonary nodule Disposition: ADMITTED IP TO THIS [facility] Condition: Stable Referrals: Candace Butcher III, MD [Primary Care Provider] - 1-2 days Time of Disposition: : Decision Date: 02/25/17 Decision Time: :
[2017-02-24 23:12] LABS: Appearance,Urine Clear (Clear); Bilirubin,Urine Negative (Negative); Glucose,Urine (UA) Negative (Negative); Ketones,Urine Trace (Negative); Leukocyte Esterase,Urine Negative (Negative); Nitrite,Urine Negative (Negative); Protein,Urine Trace (Negative); Specific Gravity,Urine 1.017 (1.001-1.035); UA Billing (MACRO vs. MICRO) CHEM; Urobilinogen,Urine <2.0 mg/dL (<2.0)
[2017-02-25 00:24] LABS: Calcium 9.7 mg/dL (8.4-10.2); Total Bilirubin 0.6 mg/dL (0.2-1.3); Total Protein 6.8 g/dL (6.3-8.2)
[2017-02-25 00:27] LABS: Basophils % (A) 0 %; CH 30.6; CHCM 34.8; Eosinophils % (A) 0 %; HCT 36.5 % (39.0-53.0); HGB 12.7 gm/dL (13.0-17.5); Luc # (Auto) 0.12; Luc % (Auto) 1; Lymphocytes % (A) 11 %; MCH 30.7 pg (25.0-35.0); MCHC 34.8 g/dL (31.0-37.0); Mean Platelet Volume 7.1; Monocytes # (A) 0.6 k/uL (0-1.0); Monocytes % (A) 6 %; Neutrophils # (A) 8.1 k/uL (1.3-7.7); Neutrophils % (A) 82 %; RBC 4.13 m/uL (4.30-5.90); RDW 13.1 % (11.5-15.5); WBC 9.8 k/uL (3.8-10.6)
[2017-02-25 00:35] LABS: MCV 88.2 fL (80.0-100.0)
[2017-02-25 00:38] LABS: INR 1.1 (<1.2); Prothrombin Time 10.8 sec (9.0-12.0)
[2017-02-25] MEDS ORDERED: METOCLOPRAMIDE 5 MG/ML 2 ML VIAL IVP STA (01:06)
[2017-02-25] MEDS ORDERED: SODIUM CHLORIDE 0.9% 500 ML IV STA (01:06)
[2017-02-25] MEDS ORDERED: FAMOTIDINE 20 MG/2 ML VIAL IV STA ×2 (02:06→02:09)
--- NOTE | 2017-02-25 02:13 | CT ---
EXAM: CT Abdomen and Pelvis Without Intravenous Contrast CLINICAL HISTORY: Reason: Pain TECHNIQUE: Axial computed tomography images of the abdomen and pelvis without intravenous contrast. CTDI is 5.8 mGy and DLP is 275.9 mGy-cm. This CT exam was performed using one or more of the following dose reduction techniques: automated exposure control, adjustment of the mA and/or kV according to patient size, and/or use of iterative reconstruction technique. COMPARISON: CT abdomen and pelvis 12/23/2016. FINDINGS: Lower thorax: 24 x 14 x 12 mm right lower lobe nodule with a few adjacent micronodules. Subtle groundglass opacities in the perihilar right lower lobe. Although findings may be infectious/inflammatory, clinical correlation and follow-up for resolution recommended to exclude a neoplastic process. ABDOMEN: Liver: Hepatic cysts. Otherwise, unremarkable. Gallbladder and bile ducts: Unremarkable. No calcified stones. No ductal dilation. Pancreas: Unremarkable. No ductal dilation. Spleen: Accessory splenule. Otherwise, unremarkable. Adrenals: Unremarkable right adrenal gland. Absent left adrenal gland. Kidneys and ureters: Malrotated right kidney with a slightly more prominent extrarenal pelvis compared to prior exam. Normal size ureter. No radiopaque obstructing stone. Persistent mild nonspecific perinephric fat stranding; recommend correlation with urinalysis if concern for pyelonephritis. Absent left kidney. Stomach and bowel: Mild fat stranding surrounding the ascending colon suggestive of a low-grade diverticulitis. No evidence for perforation or abscess. Appendix: No findings to suggest acute appendicitis. PELVIS: Bladder: Unremarkable. No stones. Reproductive: Unremarkable as visualized. ABDOMEN and PELVIS: Intraperitoneal space: Unremarkable. No free air. No significant fluid collection. Bones/joints: Mild degenerative changes of the osseous structures. No acute fracture. Soft tissues: Unremarkable. Vasculature: Mild atherosclerotic calcifications of the aorta and major branch vessels. No abdominal aortic aneurysm. Lymph nodes: Unremarkable. No enlarged lymph nodes. IMPRESSION: 1. 24 x 14 x 12 mm right lower lobe nodule with a few adjacent micronodules. Subtle groundglass opacities in the perihilar right lower lobe. Although findings may be infectious/inflammatory, clinical correlation and follow-up for resolution recommended to exclude a neoplastic process. 2. Mild fat stranding surrounding the ascending colon suggestive of a low-grade diverticulitis. No evidence for perforation or abscess. 3. Malrotated right kidney with a slightly more prominent extrarenal pelvis compared to prior exam. Normal size ureter. No radiopaque obstructing stone. Persistent mild nonspecific perinephric fat stranding; recommend correlation with urinalysis if concern for pyelonephritis. 4. Left nephrectomy and adrenalectomy.
--- NOTE | 2017-02-25 02:17 | XR ---
EXAM: XR Chest, 2 Views CLINICAL HISTORY: Reason: cough TECHNIQUE: Frontal and lateral views of the chest. COMPARISON: Chest x-ray 01/09/2016, CT of the abdomen and pelvis 02/25/2017. FINDINGS: Lungs: Subtle right basilar airspace disease better visualized on concurrent CT of the abdomen and pelvis. Pleural space: Unremarkable. No pneumothorax. Heart: Unremarkable. No cardiomegaly. Mediastinum: Unremarkable. Bones/joints: Unremarkable. IMPRESSION: Subtle right basilar airspace disease better visualized on concurrent CT of the abdomen and pelvis.
[2017-02-25] MEDS ORDERED: IBUPROFEN 400 MG TAB PO PRN (02:27)
[2017-02-25] MEDS ORDERED: NALOXONE 0.4 MG/ML 1 ML VIAL IV PRN (02:27)
[2017-02-25] MEDS ORDERED: ONDANSETRON 4 MG/2 ML VIAL IVP PRN (02:27)
[2017-02-25] MEDS ORDERED: HYDROmorphone 1 MG/ML 1 ML SYRINGE IV PRN (02:27)
[2017-02-25] MEDS ORDERED: ACETAMINOPHEN TAB 325 MG TAB PO PRN (02:27)
[2017-02-25] MEDS ORDERED: LEVOFLOXACIN 750MG-D5W PMX 750 MG in DEXTROSE/WATER 1 150ML.BAG IVPB STA (02:28)
[2017-02-25] MEDS ORDERED: SODIUM CHLORIDE 0.9% 1,000 ML IV SCH (02:30)
[2017-02-25] MEDS ORDERED: metroNIDAZOLE-NS PMX 500 MG in SALINE 1 100ML.BAG IVPB STA (02:49)
[2017-02-25] MEDS: HYDROcodone/APAP 5-325MG 1 EACH TAB PO PRN ×2 (03:15→08:38)
[2017-02-25 03:47] VITALS: BMI 21.5
[2017-02-25 08:36] VITALS: BP 106/63; PULSE 76; RESP 14; TEMP 98
[2017-02-25] MEDS ORDERED: FAMOTIDINE 20 MG TAB PO SCH (09:00)
--- NOTE | 2017-02-25 11:09 | CT ---
EXAMINATION TYPE: CT brain wo con DATE OF EXAM: 02/25/2017 COMPARISON: 10/25/2015 HISTORY: ARAUJO CT DLP: 1052.[address] of the brain was performed. The ventricles, basal cisterns and sulci overlying the cerebral convexities demonstrate mild enlargem ent. Stable anterior middle cranial fossa arachnoid cyst. There is no evidence for intracranial hemorrhage or sulcal effacement. There is decreased attenuation about the periventricular white matter and deep white matter of both c erebral hemispheres, compatible with chronic small vessel ischemia. Differential diagnosis does inclu de demyelination. No mass effects are seen.No midline shift. Osseous calvarium is intact. If symptoms persist consider MRI. IMPRESSION: 1. Age related atrophic and chronic small vessel ischemic change without acute intracranial process s een at this time.
--- NOTE | 2017-02-25 11:47 | P.HPIM ---
History of Present Illness 67-year-old male presents to the emergency department with a chief complaint of nausea vomiting and abdominal pain. Patient has had these symptoms for the past day. Patient states his upper abdomen hurts that he isn't throwing up. Patient does admit to history of diverticulitis. Patient states he hasn't had any fever chills with this. Patient states that he just does not feel very well and he was concerned. Patient denies any changes in bowel or bladder habits or any flank pain. Patient denies any recent fever, chills, shortness of breath, chest pain, back pain, numbness or tingling, dysuria or hematuria, constipation or diarrhea, headaches or visual changes, or any other current symptoms. Patient is found to have mild diverticulitis in the on the right side and patient's abdominal pain is in the suprapubic area and right lower quadrant. UA is essentially within normal limits patient is significant improvement in pain. Patient was given IV fluids overnight and patient will be discharged today. Patient had a CT of the head because of his 3 months history of headache and concerns of metastatic disease to the brain CT of the head is essentially negative. Patient is found to have a nodular lesion in the lung for which patient will follow with Dr. Taylor as outpatient. Patient was made aware of these findings. Review of Systems REVIEW OF SYSTEMS: CONSTITUTIONAL: No fever, no malaise, no fatigue. HEENT: No recent visual problems or hearing problems. Denied any sore throat. CARDIOVASCULAR: No chest pain, orthopnea, PND, no palpitations, no syncope. PULMONARY: No shortness of breath, no cough, no hemoptysis. GASTROINTESTINAL: As described in HPI NEUROLOGICAL: No headaches, no weakness, no numbness. HEMATOLOGICAL: Denies any bleeding or petechiae. GENITOURINARY: Denies any burning micturition, frequency, or urgency. MUSCULOSKELETAL/RHEUMATOLOGICAL: Denies any joint pain, swelling, or any muscle pain. ENDOCRINE: Denies any polyuria or polydipsia. The rest of the 14-point review of systems is negative. Past Medical History Past Medical History: CVA/TIA, Hyperlipidemia, Hypertension, Musculoskeletal Disorder, Osteoarthritis (OA), Rheumatoid Arthritis (RA), Thyroid Disorder Additional Past Medical History / Comment(s): TIA (2002),CHRONIC RENAL FAILURE, - HEART MURMUR, BACK AND JOINT PAIN,DJD, HX OF GOUT , STATES HX OF THYROID TX WITH NUCLEAR MED., , , MASS ON LEFT KIDNEY(HAD LT KIDNEY REMOVED 06/2015 D/T CANCER). 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 LEFT RADICAL NEPHRECTOMY JUN 2015, EGD Past Anesthesia/Blood Transfusion Reactions: No Reported Reaction Past Psychological History: No Psychological Hx Reported Additional Psychological History / Comment(s): PT IS INDEPENDANT, LIVES AT HOME WITH HIS .HAS 1 INDOOR DOG. 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 Smoking Status: Former smoker Past Alcohol Use History: Occasional Additional Past Alcohol Use History / Comment(s): STATES HE SMOKED CIGARS FOR A FEW YEARS WHEN CHILDREN WERE BORN. DRINKS 2-3 BEERS PER WEEK. Past Drug Use History: None Reported - Past Family History Father Family Medical History: Hypertension Additional Family Medical History / Comment(s): Gout Mother Family Medical History: Cancer, Memory Impairment Additional Family Medical History / Comment(s): BREAST CANCER Sister(s) Family Medical History: Cancer Additional Family Medical History / Comment(s): BREAST & BONE CANCER Medications and Allergies Home Medications Medication Instructions Recorded Confirmed Type Clopidogrel [Plavix] 75 mg PO DAILY 05/29/15 12/23/16 History Gabapentin 600 mg PO TID 05/29/15 12/23/16 History Levothyroxine Sodium [Synthroid] 125 mcg PO DAILY 05/29/15 12/23/16 History Lutein 10 mg PO DAILY 05/29/15 12/23/16 History Simvastatin [Zocor] 20 mg PO HS 05/29/15 12/23/16 History predniSONE 5 mg PO DAILY 05/29/15 12/23/16 History Propylene Glycol/Peg 400/Pf 1 drop BOTH EYES BID PRN 10/23/15 12/23/16 History [Systane 0.3-0.4% Eye Drops] fentaNYL 75MCG/HR PATCH [Duragesic 75 mcg TRANSDERM Q72H 10/23/15 12/23/16 History 75MCG/HR] traZODone HCL [Desyrel] 50 mg PO HS PRN 10/23/15 12/23/16 History Allopurinol [Zyloprim] 300 mg PO DAILY 08/04/16 12/23/16 History Losartan Potassium 100 mg PO DAILY 08/04/16 12/23/16 History Acetaminophen-Codeine 300-30mg 1 tab PO DAILY PRN 12/23/16 12/23/16 History [Tylenol w/codeine #3] Metoprolol Tartrate [Lopressor] 50 mg PO HS 12/23/16 12/23/16 History Omeprazole 20 mg PO DAILY 12/23/16 12/23/16 History Ondansetron [Zofran ODT] 8 mg PO Q8HR PRN 12/23/16 12/23/16 History Allergies Allergy/AdvReac Type Severity Reaction Status Date / Time Sulfa (Sulfonamide Allergy Unknown Rash/Hives/ Verified 02/24/17 22:12 Antibiotics) Swelling Physical Exam Vitals: Vital Signs Temp Pulse Pulse Resp BP BP Pulse Ox 02/25/17 07:00 98 F 76 14 106/63 100 02/25/17 03:31 98.3 F 78 16 134/68 100 02/25/17 03:00 97.6 F 62 16 172/78 98 02/25/17 02:59 97.9 F 68 16 118/60 97 02/25/17 02:39 97.8 F 70 16 128/67 98 02/24/17 23:54 98.3 F 70 16 132/67 99 02/24/17 22:09 99.1 F 63 18 181/90 100 Intake and Output 02/24/17 02/25/17 02/25/17 22:59 06:59 14:59 Other: # Voids 1 3 Weight 68.039 kg 68.039 kg PHYSICAL EXAMINATION: GENERAL: The patient is alert and oriented x3, not in any acute distress. Well developed, well nourished. HEENT: Pupils are round and equally reacting to light. EOMI. No scleral icterus. No conjunctival pallor. Normocephalic, atraumatic. No pharyngeal erythema. No thyromegaly. CARDIOVASCULAR: S1 and S2 present. No murmurs, rubs, or gallops. PULMONARY: Chest is clear to auscultation, no wheezing or crackles. ABDOMEN: Soft, nontender, nondistended, normoactive bowel sounds. No palpable organomegaly. MUSCULOSKELETAL: No joint swelling or deformity. EXTREMITIES: No cyanosis, clubbing, or pedal edema. NEUROLOGICAL: Gross neurological examination did not reveal any focal deficits. SKIN: No rashes. Results CBC & Chem 7: 02/25/17 00:04 02/25/17 00:04 Labs: Abnormal Lab Results - Last 24 Hours (Table) 02/24/17 02/25/17 02/25/17 Range/Units 23:00 00:04 00:04 RBC 4.13 L (4.30-5.90) m/uL Hgb 12.7 L (13.0-17.5) gm/dL Hct 36.5 L (39.0-53.0) % Neutrophils # 8.1 H (1.3-7.7) k/uL APTT (22.0-30.0) sec Carbon Dioxide 21 L (22-30) mmol/L BUN 22 H (9-20) mg/dL Creatinine 1.70 H (0.66-1.25) mg/dL Glucose 123 H (74-99) mg/dL Plasma Lactic Acid Yusuf (0.7-2.0) mmol/L Urine Protein Trace H (Negative) Urine Ketones Trace H (Negative) 02/25/17 02/25/17 Range/Units 00:04 00:04 RBC (4.30-5.90) m/uL Hgb (13.0-17.5) gm/dL Hct (39.0-53.0) % Neutrophils # (1.3-7.7) k/uL APTT 18.0 L (22.0-30.0) sec Carbon Dioxide (22-30) mmol/L BUN (9-20) mg/dL Creatinine (0.66-1.25) mg/dL Glucose (74-99) mg/dL Plasma Lactic Acid Yusuf 2.4 H* (0.7-2.0) mmol/L Urine Protein (Negative) Urine Ketones (Negative) Microbiology - Last 24 Hours (Table) 02/24/17 23:00 Urine Culture - Preliminary Urine,Voided Thrombosis Risk Factor Assmnt - Choose All That Apply Each Risk Factor Represents 2 Points: Age 61-74 years Thrombosis Risk Factor Assessment Total Risk Factor Score: 2 Thrombosis Risk Factor Assessment Level: Low Risk Assessment and Plan Plan: 1 abdominal pain and nausea vomiting: Secondary to possible diverticulitis patient will be discharged on 5 days of antibiotic metronidazole and levofloxacin. Patient's symptoms completely resolved at this point of time. #2 acute renal failure on chronic kidney disease stage III: Patient chronic kidney disease secondary to possible hypertensive nephrosclerosis and acute renal failure is secondary to prerenal azotemia from intravascular volume depletion which appears to have improved. Patient baseline creatinine is 1.4 when he came in it was 1.7. #3 nodular lesion in the lung: Patient will follow Dr. Taylor for that and patient was made aware of these findings, this can be a metastatic disease from his renal cell cancer. Which stated to be further looked into. As an outpatient #4 hypothyroidism #5 gastroesophageal reflux disease #6 essential hypertension
--- NOTE | 2017-02-25 11:48 | P.DS ---
Providers Date of admission: 02/25/17 02:25 Attending physician: James Garza Primary care physician: Candace Yao [facility] Course: Please refer to HPI Patient Condition at Discharge: Stable Plan - Discharge Summary New Discharge Prescriptions: New Levofloxacin [Levaquin] 500 mg PO DAILY #5 tab metroNIDAZOLE [Flagyl] 500 mg PO TID #15 tab Discontinued Ciprofloxacin HCl [Cipro] 500 mg PO Q12HR #14 tablet metroNIDAZOLE [Flagyl] 500 mg PO TID #21 tab No Action Levothyroxine Sodium [Synthroid] 125 mcg PO DAILY Gabapentin 600 mg PO TID Simvastatin [Zocor] 20 mg PO HS Clopidogrel [Plavix] 75 mg PO DAILY predniSONE 5 mg PO DAILY Lutein 10 mg PO DAILY fentaNYL 75MCG/HR PATCH [Duragesic 75MCG/HR] 75 mcg TRANSDERM Q72H Propylene Glycol/Peg 400/Pf [Systane 0.3-0.4% Eye Drops] 1 drop BOTH EYES BID PRN PRN Reason: Dry Eye(S) traZODone HCL [Desyrel] 50 mg PO HS PRN PRN Reason: Insomnia Losartan Potassium 100 mg PO DAILY Allopurinol [Zyloprim] 300 mg PO DAILY Ondansetron [Zofran ODT] 8 mg PO Q8HR PRN PRN Reason: Nausea Omeprazole 20 mg PO DAILY Metoprolol Tartrate [Lopressor] 50 mg PO HS Acetaminophen-Codeine 300-30mg [Tylenol w/codeine #3] 1 tab PO DAILY PRN PRN Reason: Headache Discharge Medication List Clopidogrel [Plavix] 75 mg PO DAILY 05/29/15 [History] Gabapentin 600 mg PO TID 05/29/15 [History] Levothyroxine Sodium [Synthroid] 125 mcg PO DAILY 05/29/15 [History] Lutein 10 mg PO DAILY 05/29/15 [History] Simvastatin [Zocor] 20 mg PO HS 05/29/15 [History] predniSONE 5 mg PO DAILY 05/29/15 [History] Propylene Glycol/Peg 400/Pf [Systane 0.3-0.4% Eye Drops] 1 drop BOTH EYES BID PRN 10/23/15 [History] fentaNYL 75MCG/HR PATCH [Duragesic 75MCG/HR] 75 mcg TRANSDERM Q72H 10/23/15 [ History] traZODone HCL [Desyrel] 50 mg PO HS PRN 10/23/15 [History] Allopurinol [Zyloprim] 300 mg PO DAILY 08/04/16 [History] Losartan Potassium 100 mg PO DAILY 08/04/16 [History] Acetaminophen-Codeine 300-30mg [Tylenol w/codeine #3] 1 tab PO DAILY PRN [History] Metoprolol Tartrate [Lopressor] 50 mg PO HS 12/23/16 [History] Omeprazole 20 mg PO DAILY 12/23/16 [History] Ondansetron [Zofran ODT] 8 mg PO Q8HR PRN 12/23/16 [History] Levofloxacin [Levaquin] 500 mg PO DAILY #5 tab 02/25/17 [Rx] metroNIDAZOLE [Flagyl] 500 mg PO TID #15 tab 02/25/17 [Rx] Follow up Appointment(s)/Referral(s): Candace Butcher III, MD [Primary Care Provider] - 3 Days Earnest Taylor MD [STAFF PHYSICIAN] - 1 Week Discharge Disposition: HOME SELF-CARE
[2017-02-25] MEDS ORDERED: metroNIDAZOLE-NS PMX 500 MG in SALINE 1 100ML.BAG IVPB SCH (16:00)
[2017-02-26] MEDS ORDERED: LEVOFLOXACIN 750MG-D5W PMX 750 MG in DEXTROSE/WATER 1 150ML.BAG IVPB SCH (09:00)
== END 2017-02-25 13:25 | disposition home or self-care (01) | DRG 392 ==
LOC: EC 21:37 → 5ONC 02-25 02:25
PROVIDERS: ADMIT Internal Medicine; ATTEND Internal Medicine
DX: K57.32 Diverticulitis of large intestine without perforation or abscess without bleeding (principal); N17.9 Acute kidney failure, unspecified; E78.5 Hyperlipidemia, unspecified; Z86.73 Personal history of transient ischemic attack (TIA), and cerebral infarction without residual deficits; Z87.891 Personal history of nicotine dependence; M06.9 Rheumatoid arthritis, unspecified; M19.91 Primary osteoarthritis, unspecified site; M10.9 Gout, unspecified; J40 Bronchitis, not specified as acute or chronic; I12.9 Hypertensive chronic kidney disease with stage 1 through stage 4 chronic kidney disease, or unspecified chronic kidney disease; N18.3 Chronic kidney disease, stage 3 (moderate); E03.9 Hypothyroidism, unspecified; K21.9 Gastro-esophageal reflux disease without esophagitis; R91.1 Solitary pulmonary nodule; Z89.021 Acquired absence of right finger(s); Z79.02 Long term (current) use of antithrombotics/antiplatelets; Z79.52 Long term (current) use of systemic steroids; Z79.899 Other long term (current) drug therapy; Z90.5 Acquired absence of kidney; Z85.528 Personal history of other malignant neoplasm of kidney; Z88.2 Allergy status to sulfonamides
CPT/HCPCS: 36415; 70450; 71020; 74176; 80053; 81003; 83605; 85025; 85610; 85730; 86850; 86900; 86901; 87040; 87086

== ENCOUNTER → 2017-03-10 | Outpatient (CLI) | payer MEDICARE ==
--- NOTE | 2017-03-10 12:05 | CT ---
EXAMINATION TYPE: CT chest wo con DATE OF EXAM: 03/10/2017 COMPARISON: Chest radiograph dated 02/25/[address] abdomen pelvis dated 02/23/2017 HISTORY: Other non specific abnormal finding of lung CT DLP: 187.30 mGycm. Automated Exposure Control for Dose Reduction was Utilized. TECHNIQUE: CT scan of the thorax is performed without IV contrast. FINDINGS: LUNGS: Within the posterior basilar segment of the right lower lobe there is a 7 mm spiculated solid pulmonary nodule the context subpleural surface creating mild reactive pleural thickening. Adjacent t o this on series 4 image 53 there is a focal area of groundglass opacity measuring 1.0 cm. Lateral to the inferior aspect of the solid pulmonary nodule there is a cluster of nodular opacities all measur ing 1 mm also seen within the right lower lobe on series 4 image 56 and series 6 image 39 near the di aphragmatic inferior pleural surface. All of these findings have decreased in density in comparison t o the prior examination and the previously seen right infrahilar groundglass opacity has resolved. Es sentially 2 mm pulmonary nodule present within the right lower lobe on series 4 image 48 was not visu alized on the prior exam given the region of interest. Subtle and mild underlying central emphysemato us changes are seen in the lung apices. There is no pleural effusion or pneumothorax seen. The trac heobronchial tree is patent. MEDIASTINUM: Lack of IV contrast is noted to limit evaluation for mediastinal and especially hilar ad enopathy, however there are no definitive greater than 1 cm hilar or mediastinal lymph nodes. No ca rdiomegaly or pericardial effusion is seen. OTHER: Surgical clips are seen in the right retroperitoneum and there is surgical absence of the left kidney. Fluid attenuated hepatic cysts appear stable. IMPRESSION: Spiculated, solid 7 mm right lower lobe pulmonary nodule with adjacent pleural reaction a nd adjacent smaller nodules as well as focal groundglass opacity. These have decreased in density fro m the prior exam and there is resolution of the previously seen adjacent right infrahilar groundglass opacity. Therefore the possibility of inflammatory/infectious pulmonary nodules are possible. Given this, short-term follow-up examination is recommended in 3-6 months for reevaluation. 2. No evidence of hilar adenopathy.
== END | disposition home or self-care (01) ==
LOC: RADCTMAIN 11:03
PROVIDERS: ATTEND Family Medicine
DX: R91.8 Other nonspecific abnormal finding of lung field (principal)
CPT/HCPCS: 71250

== ENCOUNTER → 2017-05-08 | Outpatient (CLI) | payer MEDICARE ==
--- NOTE | 2017-05-08 10:11 | NM ---
EXAMINATION TYPE: NM gastric emptying study DATE OF EXAM: 05/08/2017 COMPARISON: NONE HISTORY: Nausea and vomiting Following administration of 1.5 mCi Tc 99m Sulfur Colloid with 1 cup of oatmeal projection images of the abdomen were obtained 5 minutes post ingestion. When possible, both anterior and posterior projec tion images were obtained to allow the calculation of the geometric mean activity. Clearance: 64 % Half-life: 6 min Gastroesophagel reflux: None IMPRESSION: Gastric emptying: No evidence of delayed gastric emptying Gastroesophageal reflux: None Gastric emptying normal percentage values: 30 minutes: <70% of retention (> 30% emptying) suggests abnormally fast emptying. 60 minutes: <90% retention (>10% emptying) is normal; less than 30% retention (>70% emptying) suggest s abnormally rapid empying. 90 minutes: <65% retention (> 35% emptying) is normal. 120 minutes: <60% retention (> 40% emptying) is normal. 180 minutes: <30% retention (> 70% emptying) is normal. Gastric emptying T-1/2: Solid: The normal range is 60-105 minutes Liquid only: Normal range is 10-45 minutes. Liquid only-children: At 60 minutes, normal range is 44-58 % . Liquid only-infants: At 60 minutes, normal range is 32-64 %. Additional references: Gastric Emptying Scintigraphy [email or web address]://[email or web address]
== END | disposition home or self-care (01) ==
LOC: RADNMMAIN 06:48
PROVIDERS: ATTEND Internal Medicine Gastroenterology
DX: R11.2 Nausea with vomiting, unspecified (principal)
CPT/HCPCS: 78264; A9541

== ENCOUNTER 2017-06-05 13:45 | Inpatient (IN) | payer MEDICARE ==
[2017-06-05] MEDS ORDERED: SODIUM CHLORIDE 0.9% 1,000 ML IV STA (14:43)
[2017-06-05] MEDS ORDERED: ONDANSETRON 4 MG/2 ML VIAL IVP STA (14:43)
[2017-06-05] MEDS ORDERED: HYDROmorphone 1 MG/ML 1 ML SYRINGE IVP STA ×2 (14:43→18:45)
[2017-06-05] MEDS ORDERED: SODIUM CHLORIDE 0.9% 500 ML IV STA ×2 (14:43→17:14)
--- NOTE | 2017-06-05 15:01 | ED ---
Abdominal Pain HPI - General Chief Complaint: Abdominal Pain Stated Complaint: Abd Pain Time Seen by Provider: 06/05/17 14:38 Source: patient, RN notes reviewed Mode of arrival: wheelchair Limitations: no limitations - History of Present Illness Initial Comments: This is a 67-year-old male with a history of diverticulitis also a history of left nephrectomy for renal cell cancer in the past who states she's had to 3 days of mid abdominal pain with multiple episodes of nausea vomiting perhaps as many as 20. He's had fevers chills no sweats he states she's had no diarrhea he had a normal bowel movement this morning. The pain he states is 10/10 right now. He does feel somewhat different than his previous episode of diverticulitis. He states he hasn't had no history kidney stones. He voices no other complaints this time he has had decreased intake of fluids and food and doesn't show lightheaded. Does complain of a headache MD Complaint: abdominal pain - Related Data Home Medications Medication Instructions Recorded Confirmed Clopidogrel [Plavix] 75 mg PO DAILY 05/29/15 06/05/17 Levothyroxine Sodium [Synthroid] 125 mcg PO DAILY 05/29/15 06/05/17 Lutein 10 mg PO DAILY 05/29/15 06/05/17 Simvastatin [Zocor] 20 mg PO HS 05/29/15 06/05/17 traZODone HCL [Desyrel] 50 mg PO HS PRN 10/23/15 06/05/17 Losartan Potassium 100 mg PO DAILY 08/04/16 06/05/17 Metoprolol Tartrate [Lopressor] 50 mg PO HS 12/23/16 06/05/17 Omeprazole 20 mg PO DAILY 12/23/16 06/05/17 fentaNYL 25MCG/HR PATCH [Duragesic 1 patch TRANSDERM Q72H 06/05/17 06/05/17 25MCG/HR] Allergies Allergy/AdvReac Type Severity Reaction Status Date / Time Sulfa (Sulfonamide Allergy Unknown Rash/Hives/ Verified 06/05/17 15:20 Antibiotics) Swelling Review of Systems ROS Statement: Those systems with pertinent positive or pertinent negative responses have been documented in the HPI. ROS Other: All systems not noted in ROS Statement are negative. Past Medical History Past Medical History: CVA/TIA, Hyperlipidemia, Hypertension, Musculoskeletal Disorder, Osteoarthritis (OA), Rheumatoid Arthritis (RA), Thyroid Disorder Additional Past Medical History / Comment(s): TIA (2002),CHRONIC RENAL FAILURE, - HEART MURMUR, BACK AND JOINT PAIN,DJD, HX OF GOUT , STATES HX OF THYROID TX WITH NUCLEAR MED., , , MASS ON LEFT KIDNEY(HAD LT KIDNEY REMOVED 06/2015 D/T CANCER). 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 LEFT RADICAL NEPHRECTOMY JUN 2015, EGD Past Anesthesia/Blood Transfusion Reactions: No Reported Reaction Past Psychological History: No Psychological Hx Reported Smoking Status: Former smoker Past Alcohol Use History: None Reported Past Drug Use History: None Reported - Past Family History Father Family Medical History: Hypertension Additional Family Medical History / Comment(s): Gout Mother Family Medical History: Cancer, Memory Impairment Additional Family Medical History / Comment(s): BREAST CANCER Sister(s) Family Medical History: Cancer Additional Family Medical History / Comment(s): BREAST & BONE CANCER General Exam - General Exam Comments Initial Comments: This is a well-developed well-nourished awake alert oriented 3 male Limitations: no limitations General appearance: alert, in no apparent distress Head exam: Present: atraumatic, normocephalic, normal inspection Eye exam: Present: normal appearance, PERRL, EOMI. Absent: scleral icterus, conjunctival injection, periorbital swelling ENT exam: Present: mucous membranes dry Neck exam: Present: normal inspection. Absent: tenderness, meningismus, lymphadenopathy Respiratory exam: Present: normal lung sounds bilaterally. Absent: respiratory distress, wheezes, rales, rhonchi, stridor Cardiovascular Exam: Present: regular rate, normal rhythm, normal heart sounds. Absent: systolic murmur, diastolic murmur, rubs, gallop, clicks GI/Abdominal exam: Present: soft, tenderness (Mid abdominal tenderness with some voluntary guarding no definite rebound), normal bowel sounds. Absent: distended, guarding, rebound, rigid Rectal exam: Present: deferred Extremities exam: Present: normal inspection, full ROM, normal capillary refill. Absent: tenderness, pedal edema, joint swelling, calf tenderness Back exam: Present: normal inspection Neurological exam: Present: alert, oriented X3, CN II-XII intact Psychiatric exam: Present: normal affect, normal mood Skin exam: Present: warm, dry, intact, normal color. Absent: rash Course Vital Signs 06/05/17 06/05/17 06/05/17 14:01 16:21 18:55 Temperature 100.1 F H 98.9 F 98.3 F Pulse Rate 62 65 68 Respiratory 18 16 18 Rate Blood Pressure 182/89 137/81 195/94 O2 Sat by Pulse 100 99 98 Oximetry Medical Decision Making - Medical Decision Making Patient in transfer pain medications and he still has persistent pain he will be admitted with GI consultation. He does not seem to have a surgical abdomen at this time GI will be consulted - Lab Data Result diagrams: 06/05/17 15:12 06/05/17 15:12 Lab Results 06/05/17 06/05/17 06/05/17 Range/Units 15:12 15:12 15:12 WBC 9.5 (3.8-10.6) k/uL RBC 4.55 (4.30-5.90) m/uL Hgb 14.3 (13.0-17.5) gm/dL Hct 42.1 (39.0-53.0) % MCV 92.5 (80.0-100.0) fL MCH 31.5 (25.0-35.0) pg MCHC 34.0 (31.0-37.0) g/dL RDW 12.4 (11.5-15.5) % Plt Count 268 (150-450) k/uL Neutrophils % 82 % Lymphocytes % 11 % Monocytes % 5 % Eosinophils % 1 % Basophils % 0 % Neutrophils # 7.9 H (1.3-7.7) k/uL Lymphocytes # 1.0 (1.0-4.8) k/uL Monocytes # 0.5 (0-1.0) k/uL Eosinophils # 0.1 (0-0.7) k/uL Basophils # 0.0 (0-0.2) k/uL Sodium 139 (137-145) mmol/L Potassium 4.3 (3.5-5.1) mmol/L Chloride 100 (98-107) mmol/L Carbon Dioxide 23 (22-30) mmol/L Anion Gap 16 mmol/L BUN 19 (9-20) mg/dL Creatinine 1.46 H (0.66-1.25) mg/dL Est GFR (MDRD) Af Amer 59 (>60 ml/min/1.73 sqM) Est GFR (MDRD) Non-Af 48 (>60 ml/min/1.73 sqM) Glucose 104 H (74-99) mg/dL Lactic Ac Sepsis Rflx Plasma Lactic Acid Yusuf 2.6 H* (0.7-2.0) mmol/L Calcium 10.0 (8.4-10.2) mg/dL Total Bilirubin 0.9 (0.2-1.3) mg/dL AST 38 (17-59) U/L ALT 28 (21-72) U/L Alkaline Phosphatase 93 (38-126) U/L Total Protein 8.4 H (6.3-8.2) g/dL Albumin 5.1 H (3.5-5.0) g/dL Amylase 100 (30-110) U/L Lipase 97 (23-300) U/L Urine Color Urine Appearance (Clear) Urine pH (5.0-8.0) Ur Specific [place] (1.001-1.035) Urine Protein (Negative) Urine Glucose (UA) (Negative) Urine Ketones (Negative) Urine Blood (Negative) Urine Nitrite (Negative) Urine Bilirubin (Negative) Urine Urobilinogen (<2.0) mg/dL Ur Leukocyte Esterase (Negative) 06/05/17 06/05/17 Range/Units 16:01 16:10 WBC (3.8-10.6) k/uL RBC (4.30-5.90) m/uL Hgb (13.0-17.5) gm/dL Hct (39.0-53.0) % MCV (80.0-100.0) fL MCH (25.0-35.0) pg MCHC (31.0-37.0) g/dL RDW (11.5-15.5) % Plt Count (150-450) k/uL Neutrophils % % Lymphocytes % % Monocytes % % Eosinophils % % Basophils % % Neutrophils # (1.3-7.7) k/uL Lymphocytes # (1.0-4.8) k/uL Monocytes # (0-1.0) k/uL Eosinophils # (0-0.7) k/uL Basophils # (0-0.2) k/uL Sodium (137-145) mmol/L Potassium (3.5-5.1) mmol/L Chloride (98-107) mmol/L Carbon Dioxide (22-30) mmol/L Anion Gap mmol/L BUN (9-20) mg/dL Creatinine (0.66-1.25) mg/dL Est GFR (MDRD) Af Amer (>60 ml/min/1.73 sqM) Est GFR (MDRD) Non-Af (>60 ml/min/1.73 sqM) Glucose (74-99) mg/dL Lactic Ac Sepsis Rflx Y Plasma Lactic Acid Yusuf (0.7-2.0) mmol/L Calcium (8.4-10.2) mg/dL Total Bilirubin (0.2-1.3) mg/dL AST (17-59) U/L ALT (21-72) U/L Alkaline Phosphatase (38-126) U/L Total Protein (6.3-8.2) g/dL Albumin (3.5-5.0) g/dL Amylase (30-110) U/L Lipase (23-300) U/L Urine Color Yellow Urine Appearance Clear (Clear) Urine pH 7.0 (5.0-8.0) Ur Specific [place] 1.018 (1.001-1.035) Urine Protein Trace H (Negative) Urine Glucose (UA) Negative (Negative) Urine Ketones 1+ H (Negative) Urine Blood Negative (Negative) Urine Nitrite Negative (Negative) Urine Bilirubin Negative (Negative) Urine Urobilinogen <2.0 (<2.0) mg/dL Ur Leukocyte Esterase Negative (Negative) - Radiology Data Radiology results: image reviewed Interpreted by me: I did review the imaging and reports no evidence of acute findings to explain the patient's current presentation. Disposition Clinical Impression: Intractable abdominal pain Disposition: ADMITTED IP TO THIS HOSP Condition: Stable Referrals: Candace Butcher III, MD [Primary Care Provider] - 1-2 days
[2017-06-05 15:57] LABS: Potassium 4.3 mmol/L (3.5-5.1); Total Bilirubin 0.9 mg/dL (0.2-1.3); Total Protein 8.4 g/dL (6.3-8.2)
--- NOTE | 2017-06-05 15:57 | XR ---
EXAMINATION TYPE: XR KUB DATE OF EXAM: 06/05/2017 COMPARISON: 01/08/2016 HISTORY: Abdominal pain TECHNIQUE: One view abdominal series FINDINGS: The osseous structures are intact. The bowel gas pattern is nonspecific. Postsurgical changes are no sukhdeep. Hypertrophic and degenerative change of the spine. Arthropathy of the hips. Calcification along the inferior margin the right pelvic basin is nonspecific.. IMPRESSION: 1. Nonspecific abdomen.
[2017-06-05 15:59] LABS: Basophils % (A) 0 %; CH 31.9; CHCM 34.6; Eosinophils # (A) 0.1 k/uL (0-0.7); Eosinophils % (A) 1 %; HCT 42.1 % (39.0-53.0); HDW 2.86; HGB 14.3 gm/dL (13.0-17.5); Luc # (Auto) 0.07; Luc % (Auto) 1; Lymphocytes % (A) 11 %; MCH 31.5 pg (25.0-35.0); MCV 92.5 fL (80.0-100.0); Monocytes # (A) 0.5 k/uL (0-1.0); Monocytes % (A) 5 %; Neutrophils # (A) 7.9 k/uL (1.3-7.7); Neutrophils % (A) 82 %; RBC 4.55 m/uL (4.30-5.90); RDW 12.4 % (11.5-15.5); WBC 9.5 k/uL (3.8-10.6); WBC (Perox) 9.06
[2017-06-05 16:22] LABS: Appearance,Urine Clear (Clear); Bilirubin,Urine Negative (Negative); Glucose,Urine (UA) Negative (Negative); Ketones,Urine 1+ (Negative); Leukocyte Esterase,Urine Negative (Negative); Nitrite,Urine Negative (Negative); Protein,Urine Trace (Negative); Specific Gravity,Urine 1.018 (1.001-1.035); UA Billing (MACRO vs. MICRO) CHEM; Urobilinogen,Urine <2.0 mg/dL (<2.0)
--- NOTE | 2017-06-05 16:56 | CT ---
EXAMINATION TYPE: CT abdomen pelvis wo con DATE OF EXAM: 06/05/2017 COMPARISON: NONE INDICATION: Umbilical area pain DLP: 554 mGycm, Automated exposure control for dose reduction was used. CONTRAST: 0 mL of Omnipaque 350. Study performed without Oral Contrast TECHNIQUE: Axial images were obtained from above the diaphragm to the pubic rami in the axial plane a t 5 mm thick sections. Reconstructed images are reviewed on the computer in the coronal plane. FINDINGS: Limited CT sections are obtained the lung bases. The lung bases are clear. CT ABDOMEN: Liver: There are 2 large cysts on the superior lateral right lobe liver measuring 1.8 cm and 5 Hounsf ield units and 2.6 cm and 0 Hounsfield units. An additional hypodensity may be present measuring 0.5 cm near the ligamentum teres could be an additional cyst.. Spleen: Normal Pancreas: Normal Adrenal glands: The adrenal glands are normal. Left adrenal gland is difficult to identify due to the left nephrectomy. Gallbladder: Normal Kidneys: Left kidney is been surgically removed. The right kidney appears unremarkable without masses cysts or hydronephrosis. There is some malrotation present.. No renal stones are identified. No hydr oureter is evident. Aorta: Vascular calcification is within the aorta. Inferior vena cava: Normal. CT PELVIS: Loops of bowel within the abdomen and pelvis are normal. Study is performed without oral contrast limiting evaluation of the loops of bowel. Appendix: Not identified Urinary bladder: Decompressed with limited evaluation. Some wall thickening is not excluded which can be related to the decompression. Other abnormality is not excluded. Genitourinary structures: Prostate appears slightly prominent. Osseous structures: No suspicious lytic or sclerotic lesions. No suspicious adenopathy is evident. IMPRESSIONS: 1. Status post left nephrectomy. No recurrent masses or metastatic disease is identified. 2. Noncontrast study appears unremarkable. No suspicious changes to account for periumbilical pain is identified. 3. Hepatic cysts.
[2017-06-05] MEDS ORDERED: KETOROLAC 30 MG/ML 1 ML VIAL IVP STA (17:38)
[2017-06-05] MEDS ORDERED: DICYCLOMINE 10 MG/ML 2 ML AMP IM STA (18:08)
[2017-06-05] MEDS ORDERED: LORazepam 2 MG/ML INJ IV STA (18:45)
[2017-06-05] MEDS ORDERED: NALOXONE 0.4 MG/ML 1 ML VIAL IV PRN (19:11)
[2017-06-05 21:01] VITALS: BMI 20.8
[2017-06-05] MEDS: traZODone HCL 50 MG TAB PO PRN (22:17)
[2017-06-05] MEDS: SODIUM CHLORIDE 0.9% 1,000 ML IV SCH (22:17)
[2017-06-05] MEDS: METOPROLOL TARTRATE 50 MG TAB PO SCH (22:17)
[2017-06-06] MEDS: ONDANSETRON 4 MG/2 ML VIAL IVP PRN ×3 (00:08→14:28)
[2017-06-06] MEDS: HYDROmorphone 1 MG/ML 1 ML SYRINGE IVP PRN ×7 (00:08→22:29)
[2017-06-06 02:14] LABS: Appearance,Urine Clear (Clear); Bilirubin,Urine Negative (Negative); Glucose,Urine (UA) Negative (Negative); Ketones,Urine Trace (Negative); Leukocyte Esterase,Urine Negative (Negative); Nitrite,Urine Negative (Negative); PH, Urine 6.5 (5.0-8.0); Protein,Urine Negative (Negative); Specific Gravity,Urine 1.011 (1.001-1.035); UA Billing (MACRO vs. MICRO) CHEM; Urobilinogen,Urine <2.0 mg/dL (<2.0)
--- NOTE | 2017-06-06 05:52 | HP ---
HISTORY AND PHYSICAL DATE OF SERVICE: 06/05/2017 CHIEF COMPLAINT: Abdominal pain. HISTORY OF PRESENT ILLNESS: This 67-year-old gentleman with a past medical history of multiple medical problems including hypertension, hyperlipidemia, history of rheumatoid arthritis, history of osteoarthritis being followed by Dr. Butcher in the outpatient setting also had previous nausea and vomiting. The patient was recently admitted about 3 months ago in [facility] with complaints of the features of diverticulitis and chronic kidney disease was recently admitted with complaints abdominal pain, nausea, vomiting and possibility of diverticulitis was considered. The patient was discharged on antibiotics. Currently patient was complaining of recurrent nausea, vomiting, and reporting additional 10 to 15 pounds of weight loss and plasma lactic acid found to be 2.6, creatinine was found to be 1.46. The patient admitted for further evaluation and treatment. There is no history of fever, rigors. No history of headache, loss of consciousness or seizures. PAST MEDICAL HISTORY: History of CVA, TIA, hypertension, hyperlipidemia, history of DJD, history of hemorrhoidectomy. MEDICATIONS: Medications prior to admission include: 1. Lopressor 50 mg q.h.s. 2. Lutein 10 mg daily. 3. Losartan 100 mg daily. 4. Synthroid 125 mcg p.o. daily. 5. Plavix 75 mg daily. 6. Desyrel 50 mg q.h.s. 7. Duragesic patch q.72 hours. 8. Zocor 20 mg q.h.s. 9. Omeprazole 20 mg daily. ALLERGIES: SULFA. FAMILY HISTORY: History of cancer, memory impairment, breast cancer. SOCIAL HISTORY: Previous history of smoking. Occasional alcohol intake. No substance abuse. REVIEW OF SYSTEMS: ENT: No diminished hearing or diminished vision. CARDIOVASCULAR SYSTEM: No angina. RESPIRATORY SYSTEM: As mentioned earlier. GI: As mentioned earlier. : No dysuria. NERVOUS SYSTEM: No numbness or weakness. ALLERGY/IMMUNOLOGY: No asthma or hayfever. MUSCULOSKELETAL: As mentioned earlier. HEMATOLOGY: No history of anemia. ENDOCRINE: No history of diabetes. CONSTITUTIONAL: As mentioned earlier. DERMATOLOGY: Negative. RHEUMATOLOGY: Negative. PSYCHIATRY: As mentioned earlier. PHYSICAL EXAM: Patient is alert and oriented x3. Pulse is 71, blood pressure 120/74, respiration 16, temperature 97.7, pulse ox 100% on room air. HEENT: Conjunctivae normal. Oral mucosa moist. Neck is no jugular venous distention. No carotid bruit. No lymph node enlargement. CARDIOVASCULAR: S1 and S2 muffled. No S3, no S4. RESPIRATORY: Breath sounds diminished at the bases. No rhonchi, no crackles. ABDOMEN: Soft, status post surgery for kidney surgery, kidney removal on the left side. Otherwise minimal tenderness and discomfort in the epigastrium. No mass palpable. No ascites. LEGS: No edema, no swelling. NERVOUS SYSTEM: Higher functions as mentioned earlier. Moves all 4 limbs. No focal motor or sensory deficits. LYMPHATICS: No lymphadenopathy of the neck, axillae or groin. SKIN: No ulcers, rashes or bleeding. LABS: CBC within normal limits. Sodium 139, potassium 43. Creatinine is 1.46. Lactic acid 2.6. ASSESSMENT: 1. Recurrent nausea and vomiting for evaluation, rule out acute gastritis. 2. Acute renal failure possibly prerenal uremia. 3. Increased plasma lactic acid, improved with secondary dehydration, improved with hydration. 4. Hypertension. 5. Hyperlipidemia. 6. Degenerative joint disease. 7. Rheumatoid arthritis. 8. History of hypothyroidism. 9. History of chronic renal failure stage III. RECOMMENDATION AND DISCUSSION: Recommend continue the current medication, continue symptomatic treatment. Otherwise at this time I would also recommend proton pump inhibitors. Gastroenterology consultation for consideration of endoscopies upper and lower. Otherwise repeat labs will be ordered. CAT scan noted. The overall prognosis guarded because of the multiple complex medical issues, which I discussed at length with the patient at bedside. See orders for details. Further recommendations to follow. Please send a copy of dictation forwarded to Dr. Butcher also who is the primary physician. Home medications will be continued. MMODL / IJN: [id number] / [facility]
[2017-06-06] MEDS: LEVOTHYROXINE 125 MCG TAB PO SCH (06:29)
[2017-06-06] MEDS: SODIUM CHLORIDE 0.9% 1,000 ML IV SCH ×3 (06:30→20:12)
[2017-06-06] MEDS: LOSARTAN 50 MG TAB PO SCH (07:28)
[2017-06-06] MEDS: PANTOPRAZOLE 40 MG/10 ML VIAL IV SCH (07:28)
[2017-06-06] MEDS: CLOPIDOGREL 75 MG TAB PO SCH (07:28)
[2017-06-06] MEDS ORDERED: NON-FORMULARY DRUG (Lutein [Lutein] 10 MG) PO SCH (09:00)
[2017-06-06 09:38] LABS: Basophils % (A) 1 %; CH 31.6; CHCM 33.4; Eosinophils # (A) 0.2 k/uL (0-0.7); Eosinophils % (A) 4 %; HCT 36.2 % (39.0-53.0); HGB 11.6 gm/dL (13.0-17.5); Luc # (Auto) 0.11; Luc % (Auto) 2; Lymphocytes # (A) 1.4 k/uL (1.0-4.8); Lymphocytes % (A) 25 %; MCH 30.5 pg (25.0-35.0); MCV 95.2 fL (80.0-100.0); Mean Platelet Volume 6.6; Monocytes # (A) 0.4 k/uL (0-1.0); Monocytes % (A) 8 %; Neutrophils # (A) 3.4 k/uL (1.3-7.7); Neutrophils % (A) 61 %; RDW 12.4 % (11.5-15.5); WBC 5.6 k/uL (3.8-10.6); WBC (Perox) 5.87
[2017-06-06 10:33] LABS: Anion Gap 7 mmol/L; Blood Urea Nitrogen 17 mg/dL (9-20); C Reactive Protein <5.0 mg/L (<10.0); Calcium 8.6 mg/dL (8.4-10.2); Carbon Dioxide 23 mmol/L (22-30); Chloride 109 mmol/L (98-107); Glucose 79 mg/dL (74-99); Non-African American GFR(MDRD) 55 (>60 ml/min/1.73 sqM); Potassium 4.4 mmol/L (3.5-5.1); Sodium 139 mmol/L (137-145)
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
--- NOTE | 2017-06-06 13:12 | CT ---
EXAMINATION TYPE: CT brain wo con DATE OF EXAM: 06/06/2017 COMPARISON: 02/25/2017 HISTORY: 67-year-old male Headache TECHNIQUE: Examination was done in axial plane without intravenous contrast. Coronal and sagittal r econstructions performed. CT DLP: 1121 mGycm Automated exposure control for dose reduction was used. FINDINGS: There is no evidence of acute intracranial hemorrhage, acute ischemic changes, or extra-axial fluid collection. There is no effacement of cerebral sulci or basal subarachnoid cisterns. There is no hy drocephalus. There is no midline shift. Amador-white matter distinction is preserved. CSF density lesion along the anterior aspect of the left middle cranial fossa measures 4.2 x 2.0 x 3. 3 cm, unchanged from 02/25/2017. Mild adjacent mass effect onto the left temporal lobe. No herniation or midline shift. Mild patchy periventricular white matter hypodensities are unchanged likely relating to chronic small vessel ischemic disease. Leftward nasal septal deviation. Orbits and globes are intact. Mastoid air cells well pneumatized IMPRESSION: Stable 4.2 cm arachnoid cyst in the left middle cranial fossa. Similar slight mass effect onto the ad jacent temporal lobe parenchyma. No acute intracranial abnormality seen.
[2017-06-06 13:34] LABS: Erythrocyte Sedimentation Rate 8 mm/hr (0-15)
--- NOTE | 2017-06-06 16:54 | P.PN ---
Subjective Progress Note Date: 06/06/17 Progress note being dictated for Dr. Mota. Interval history: This a 67-year-old gentleman admitted with recurrent nausea vomiting, possible acute gastritis, acute renal failure and multiple other medical issues in a patient with history of renal cell carcinoma with nephrectomy, diverticulosis. Maintained on gentle IV fluid hydration with improving renal function, 1.3. Complains of umbilical discomfort, radiating up to mid epigastric region with fluctuating intensities, persistent nausea. Evaluated by GI with recommendations noted. T-max 100.1, normal WBC. Hemoglobin 11.6. Denies chest pain, palpitations or increasing shortness of breath. Complained of headache this morning, brain CT nonacute. Objective - Vital Signs Vital signs: Vital Signs Temp 97.2 F L 06/06/17 15:22 Pulse 55 L 06/06/17 15:22 Resp 15 06/06/17 15:22 BP 133/83 06/06/17 15:22 Pulse Ox 98 06/06/17 15:22 Intake & Output 06/05/17 06/06/17 06/06/17 18:59 06:59 18:59 Weight 63.503 kg 66 kg 66 kg Other: Voiding Method Toilet Toilet Urinal Urinal # Voids 1 2 - Exam PHYSICAL EXAM: VITAL SIGNS: [As above] GENERAL: Sitting up in bed, no acute distress HEENT: Conjunctivae normal. eyes normal. NECK: No JVD. No thyroid enlargement. No LNs CARDIOVASCULAR: S1, S2 muffled. No murmur RESPIRATION: Breath sounds diminished in the bases. No rhonchi or crackles. No bronchial breathing. ABDOMEN: Soft, nondistended, minimal umbilicus tenderness . No guarding. no masses palpable.Bowel sounds heard. LEGS: No edema. no swelling PSYCHIATRY: Alert and oriented -3, mood and affect normal. NERVOUS SYSTEM: Cranial N 2-12 grossly normal. Moves all 4 limbs. Diffuse weakness No focal deficits. No sensory deficit. Skin: no ulcer no rash Joints: No active swelling. No inflammation. Lymphatic system. No LN neck axilla or groin. - Labs CBC & Chem 7: 06/06/17 09:09 06/06/17 09:06 Labs: Abnormal Lab Results - Last 24 Hours (Table) 06/06/17 06/06/17 06/06/17 Range/Units 01:45 09:06 09:09 RBC 3.80 L (4.30-5.90) m/uL Hgb 11.6 L (13.0-17.5) gm/dL Hct 36.2 L (39.0-53.0) % Chloride 109 H (98-107) mmol/L Creatinine 1.30 H (0.66-1.25) mg/dL Urine Ketones Trace H (Negative) Urine Opiates Screen Detected H (NotDetected) U Benzodiazepines Scrn Detected H (NotDetected) U Marijuana (THC) Screen Detected H (NotDetected) Assessment and Plan Assessment: 1. [ Recurrent nausea, vomiting for evaluation, rule out acute gastritis]. 2. [ Acute renal failure possibly prerenal, uremia]. 3. [ Increased plasma lactic acid, with secondary dehydration, improved with IV fluid hydration]. 4. [ Hypertension]. 5. [ Hyperlipidemia]. 6. [ Chronic renal failure, stage III]. Plan: Plan: Continue on current medication regime, PPI, monitoring and symptomatic treatment. EGD pending. Close monitoring of hemoglobin, renal function with repeat labs ordered for a.m. Follow closely with GI. Further recommendations to follow. The impression and plan of care has been dictated as directed. : I performed a history and examination of this patient, discussed the same with the dictator. I agree with the dictator's note ,documented as a scribe. Any additional findings or plans will be noted.
[2017-06-06] MEDS: ATORVASTATIN 10 MG TAB PO SCH (20:12)
[2017-06-06] MEDS: METOPROLOL TARTRATE 50 MG TAB PO SCH (20:13)
[2017-06-06] MEDS: traZODone HCL 50 MG TAB PO PRN (21:35)
[2017-06-07] MEDS: SODIUM CHLORIDE 0.9% 1,000 ML IV SCH ×3 (05:21→20:09)
[2017-06-07] MEDS: LACTATED RINGERS 1,000 ML IV SCH (06:21)
[2017-06-07] MEDS: HYDROmorphone 1 MG/ML 1 ML SYRINGE IVP PRN ×5 (08:26→23:37)
[2017-06-07] MEDS: ONDANSETRON 4 MG/2 ML VIAL IVP PRN ×2 (08:26→16:33)
[2017-06-07 08:27] LABS: Basophils % (A) 1 %; CH 31.2; CHCM 32.9; Eosinophils # (A) 0.2 k/uL (0-0.7); Eosinophils % (A) 5 %; HCT 36.4 % (39.0-53.0); HDW 2.59; HGB 11.4 gm/dL (13.0-17.5); Luc # (Auto) 0.09; Luc % (Auto) 2; Lymphocytes % (A) 22 %; MCH 29.8 pg (25.0-35.0); MCHC 31.3 g/dL (31.0-37.0); MCV 95.3 fL (80.0-100.0); Mean Platelet Volume 7.5; Monocytes # (A) 0.3 k/uL (0-1.0); Monocytes % (A) 7 %; Neutrophils % (A) 64 %; RBC 3.82 m/uL (4.30-5.90); RDW 13.7 % (11.5-15.5); WBC 4.7 k/uL (3.8-10.6); WBC (Perox) 4.79
[2017-06-07 08:32] LABS: Anion Gap 6 mmol/L; Blood Urea Nitrogen 12 mg/dL (9-20); Calcium 8.3 mg/dL (8.4-10.2); Carbon Dioxide 24 mmol/L (22-30); Chloride 110 mmol/L (98-107); Glucose 82 mg/dL (74-99); Non-African American GFR(MDRD) 54 (>60 ml/min/1.73 sqM); Potassium 3.8 mmol/L (3.5-5.1); Sodium 140 mmol/L (137-145)
[2017-06-07] MEDS: PANTOPRAZOLE 40 MG/10 ML VIAL IV SCH (09:00)
[2017-06-07] MEDS: CLOPIDOGREL 75 MG TAB PO SCH (09:38)
[2017-06-07] MEDS: LEVOTHYROXINE 125 MCG TAB PO SCH (09:38)
[2017-06-07] MEDS: LOSARTAN 50 MG TAB PO SCH (09:39)
[2017-06-07] MEDS ORDERED: PROPOFOL 10 MG/ML 20 ML VIAL IV ONE (11:58)
[2017-06-07] MEDS ORDERED: LIDOCAINE 1% INJ 10MG/ML (20 ML MDV) ONE (11:58)
[2017-06-07] MEDS ORDERED: IV FLUID CONTINUATION 1,000 ML IV ONE (11:59)
--- NOTE | 2017-06-07 12:16 | P.PCN ---
Date of Procedure: 06/07/17 Procedure(s) Performed: BRIEF HISTORY: Patient is a 67-year-old, pleasant, white male, scheduled for an upper endoscopy as a part of evaluation of diffuse abdominal pain mostly in the periumbilical area for the last 1 year duration. He has almost 40 pound weight loss since onset of the symptoms. Recent CT of abdomen and pelvis was unremarkable. He is hence scheduled for an upper endoscopy to evaluate further. PROCEDURE PERFORMED: Esophagogastroduodenoscopy and biopsy. PREOPERATIVE DIAGNOSIS: . Chronic periumbilical abdominal pain and progressive weight loss of 1 year duration. IV sedation per anesthesia. PROCEDURE: After informed consent was obtained, the patient was brought into the endoscopy unit. IV sedation was administered by Anesthesia under continuous monitoring. Initially the Olympus GIF-140 video endoscope was inserted into the mouth. Esophagus intubated without any difficulty. It was gradually advanced into the stomach and duodenum and carefully examined. The bulb and the second part of the duodenum appeared normal. Biopsies were done from this area to rule out celiac disease. The scope at this time was withdrawn to the stomach, adequately insufflated with air, and upon careful examination, mucosa of the antrum, had mild patchy areas of erythema and biopsies were done from this area. The body, cardia and the fundus appeared normal. The scope was then withdrawn into the esophagus. The GE junction was located at 39 cm from the incisors. The esophagus appeared normal. There were no erosions or ulcerations seen and the patient tolerated the procedure well. IMPRESSION: 1. Mild antral gastritis. 2. No evidence of esophagitis, peptic ulcer disease or gastric outlet obstruction. RECOMMENDATIONS: The findings of this examination were discussed with the patient . At this time will schedule him for a small bowel series to investigate further and if this is negative ,will consider a CTA to rule out chronic mesenteric ischemia.
--- NOTE | 2017-06-07 13:21 | XR ---
EXAMINATION TYPE: XR KUB DATE OF EXAM: 06/07/2017 COMPARISON: 06/05/2017 HISTORY: Pain TECHNIQUE: One view abdominal series FINDINGS: The osseous structures are intact. The bowel gas pattern is nonspecific. There is dilated small and large bowel loops extending into the pelvis. Air is seen in the rectum. Arthropathy of the hips. Vasc ular calcifications. Previous surgery noted. Degenerative change of the spine. IMPRESSION: 1. Dilated small and large bowel loops have progressed from the previous exam. Ileus or enteritis in the differential. Partial obstructive pattern not excluded.
--- NOTE | 2017-06-07 14:55 | MR ---
EXAMINATION TYPE: MR brain wo con DATE OF EXAM: 06/07/2017 COMPARISON: CT brain from yesterday. MRI brain from January 23, 2016 HISTORY: arachnoid cyst- mass effect admitted for headache with nausea and vomiting and abnormal rece nt CT. TECHNIQUE: Multiplanar, multisequence imaging of the brain and brainstem is performed without IV cont rast. FINDINGS: Diffusion weighted images demonstrate no evidence of a recent infarct or other diffusion abnormality. The ventricular system and cisternal spaces are normal in size and appearance. The brain volume is a ge appropriate. There is redemonstration of scattered foci of T2 hyperintensity seen throughout the d eep and periventricular white matter. Lesions are nonspecific in appearance and distribution. There i s redemonstration of anterior middle cranial fossa lesion isointense to CSF with mass effect on anter ior aspect of the temporal lobe, this measures 3.5 cm transversely by 2.6 cm anterior posterior dimen [place] on axial image 12 x 3.2 cm craniocaudal dimension on coronal image 9, lesion is consistent with moderate size arachnoid cyst without significant change from prior MRI January 23, 2016. Midline structures demonstrate normal morphology. The craniocervical junction appears within normal limits. Normal vascular flow voids are present. The visualized sinuses are clear and the globes are i ntact. IMPRESSION: Stable moderate size anterior left temporal arachnoid cyst. Stable mild nonspecific white matter changes. No suspicious new findings since prior MRI.
[2017-06-07] MEDS: ATORVASTATIN 10 MG TAB PO SCH (20:09)
[2017-06-07] MEDS: METOPROLOL TARTRATE 50 MG TAB PO SCH (20:09)
[2017-06-07] MEDS ORDERED: ARTIFICIAL TEARS-HYPROMELLOSE DROPS 15 ML BTL BOTH EYES PRN (23:45)
[2017-06-08] MEDS: SODIUM CHLORIDE 0.9% 1,000 ML IV SCH ×3 (03:53→18:42)
[2017-06-08] MEDS: LACTATED RINGERS 1,000 ML IV SCH (05:42)
[2017-06-08] MEDS: LEVOTHYROXINE 125 MCG TAB PO SCH (06:15)
[2017-06-08] MEDS: PANTOPRAZOLE 40 MG/10 ML VIAL IV SCH (07:34)
[2017-06-08] MEDS: LOSARTAN 50 MG TAB PO SCH (07:34)
[2017-06-08] MEDS: CLOPIDOGREL 75 MG TAB PO SCH (07:34)
--- NOTE | 2017-06-08 08:10 | P.PN ---
Subjective Progress Note Date: 06/07/17 Progress note being dictated for Dr. Mota. Interval history: This a 67-year-old gentleman admitted with recurrent nausea vomiting, possible acute gastritis, acute renal failure and multiple other medical issues in a patient with history of renal cell carcinoma with nephrectomy, diverticulosis. Maintained on gentle IV fluid hydration with improving renal function, 1.3. Complains of umbilical discomfort, radiating up to mid epigastric region with fluctuating intensities, persistent nausea. Evaluated by GI with recommendations noted. T-max 100.1, normal WBC. Hemoglobin 11.6. Denies chest pain, palpitations or increasing shortness of breath. 06/07/2017. Persistent periumbilical abdominal pain. Maintained on IV fluid hydration, creatinine remains at 1.3. KUB reporting progressed dilated small and large bowel loops, possible ileus, enteritis or partial obstruction. Underwent EGD with GI, reporting mild antral gastritis, no esophagitis peptic ulcer disease or gastric outlet obstruction. Brain CT reporting stable 4.2 cm arachnoid cyst in the left middle cranial fossa, similar slight mass effect of the adjacent temporal lobe parenychema. No acute intracranial abnormality noted. MRI pending. Review of systems: CONSTITUTIONAL: No fever, no malaise, positive fatigue. HEENT: No recent visual problems or hearing problems. Denied any sore throat. CARDIOVASCULAR: No chest pain, orthopnea, PND, no palpitations, no syncope. PULMONARY: No shortness of breath, no cough, no hemoptysis. GASTROINTESTINAL: No diarrhea, no nausea, no vomiting, . Umbilical Active Medications Artificial Tears (Artificial Tear Drops) 1 drops BOTH EYES TID PRN PRN Reason: Dry Eye(s) Atorvastatin Calcium (Lipitor) 10 mg PO HS [facility] Last Admin: 06/07/17 20:09 Dose: 10 mg Clopidogrel Bisulfate (Plavix) 75 mg PO DAILY [facility] Last Admin: 06/08/17 07:34 Dose: 75 mg Fentanyl (Duragesic 25mcg/Hr Patch) 1 patch TRANSDERM Q72H [facility] Last Admin: 06/06/17 07:28 Dose: 1 patch Hydromorphone HCl (Dilaudid) 1 mg IVP Q3HR PRN PRN Reason: Severe Pain Last Admin: 06/07/17 23:37 Dose: 1 mg Sodium Chloride (Saline 0.9%) 1,000 mls @ 125 mls/hr IV .Q8H [facility] Last Admin: 06/08/17 03:53 Dose: 125 mls/hr Lactated Ringer's (Lactated Ringers) 1,000 mls @ 20 mls/hr IV .Q24H [facility] Last Admin: 06/08/17 05:42 Dose: Not Given Levothyroxine Sodium (Synthroid) 125 mcg PO DAILY@0630 [facility] Last Admin: 06/08/17 06:15 Dose: 125 mcg Losartan Potassium (Cozaar) 100 mg PO DAILY [facility] Last Admin: 06/08/17 07:34 Dose: 100 mg Metoprolol Tartrate (Lopressor) 50 mg PO HS [facility] Last Admin: 06/07/17 20:09 Dose: 50 mg Naloxone HCl (Narcan) 0.2 mg IV Q2M PRN PRN Reason: Opioid Reversal Ondansetron HCl (Zofran) 4 mg IVP Q8HR PRN PRN Reason: Nausea And Vomiting Last Admin: 06/07/17 16:33 Dose: 4 mg Pantoprazole Sodium (Protonix) 40 mg IV DAILY [facility] Last Admin: 06/08/17 07:34 Dose: 40 mg Trazodone HCl (Desyrel) 50 mg PO HS PRN PRN Reason: Insomnia Last Admin: 06/06/17 21:35 Dose: 50 mg abdominal pain. Normoactive bowel sounds. NEUROLOGICAL: No headaches, no weakness, no numbness. HEMATOLOGICAL: Denies any bleeding or petechiae. GENITOURINARY: Denies any burning micturition, frequency, or urgency. MUSCULOSKELETAL/RHEUMATOLOGICAL: Denies any joint pain, swelling, or any muscle pain. ENDOCRINE: Denies any polyuria or polydipsia. PSYCHIATRIC: No anxiety, no depression The rest of the 14 point review of systems is negative Objective - Vital Signs Vital signs: Vital Signs Temp 96.9 F L 06/07/17 12:00 Pulse 66 06/07/17 12:00 Resp 18 06/07/17 12:00 BP 146/74 06/07/17 12:00 Pulse Ox 98 06/07/17 12:00 Intake & Output 06/06/17 06/07/17 06/07/17 18:59 06:59 18:59 Intake Total 500 200 Balance 500 200 Weight 66 kg Intake: IV 200 Oral 500 Other: Voiding Method Toilet Toilet Urinal Urinal # Voids 2 2 - Exam PHYSICAL EXAM: VITAL SIGNS: [As above] GENERAL: Sitting up in bed, no acute distress HEENT: Conjunctivae normal. eyes normal. NECK: No JVD. No thyroid enlargement. No LNs CARDIOVASCULAR: S1, S2 muffled. No murmur RESPIRATION: Breath sounds diminished in the bases. No rhonchi or crackles. No bronchial breathing. ABDOMEN: Soft, nondistended, minimal umbilicus tenderness . No guarding. no masses palpable.Bowel sounds heard. LEGS: No edema. no swelling PSYCHIATRY: Alert and oriented -3, mood and affect normal. NERVOUS SYSTEM: Cranial N 2-12 grossly normal. Moves all 4 limbs. Diffuse weakness No focal deficits. No sensory deficit. Skin: no ulcer no rash Joints: No active swelling. No inflammation. Lymphatic system. No LN neck axilla or groin. - Labs CBC & Chem 7: 06/07/17 08:01 06/07/17 08:01 Labs: Abnormal Lab Results - Last 24 Hours (Table) 06/07/17 06/07/17 Range/Units 08:01 08:01 RBC 3.82 L (4.30-5.90) m/uL Hgb 11.4 L (13.0-17.5) gm/dL Hct 36.4 L (39.0-53.0) % Chloride 110 H (98-107) mmol/L Creatinine 1.32 H (0.66-1.25) mg/dL Calcium 8.3 L (8.4-10.2) mg/dL Microbiology - Last 24 Hours (Table) 06/05/17 15:12 Blood Culture - Preliminary Blood No Growth after 24 hours Assessment and Plan Assessment: 1. [ Recurrent nausea, vomiting for evaluation, mild antral gastritis as per EGD. No esophagitis, peptic ulcer disease or gastric outlet obstruction.]. 2. [ Acute renal failure possibly prerenal, uremia]. 3. [ Increased plasma lactic acid, with secondary dehydration, improved with IV fluid hydration]. 4. [ Hypertension]. 5. [ Hyperlipidemia]. 6. [ Chronic renal failure, stage III]. Plan: Plan: Continue on current medication regime, PPI, monitoring and symptomatic treatment. MRI pending. ESR, CRP ordered. Small bowel series from possible CTA to rule out chronic mesenteric ischemia as per GI .Close monitoring of hemoglobin, renal function with repeat labs ordered for a.m. Follow closely with GI. Further recommendations to follow. The impression and plan of care has been dictated as directed. : I performed a history and examination of this patient, discussed the same with the dictator. I agree with the dictator's note ,documented as a scribe. Any additional findings or plans will be noted.
--- NOTE | 2017-06-08 09:02 | CONS ---
CONSULTATION DATE OF CONSULTATION: 06/07/2017 CHIEF COMPLAINT: Headache. HISTORY OF PRESENT ILLNESS: The patient is a pleasant 67-year-old, male, who is being evaluated today on 06/07/2017 by the Neurology Service per the request of Dr. Mota for headaches. The patient states that he has been having frequent headaches for several years. The headaches are almost daily and they occur in the frontal region. He describes them as a pressure pain and rates them anywhere from 5 to 10/10 in intensity when present. He denies any associated symptoms with the headaches. He has been worked up in the past according to him and it showed "a benign finding". A CT scan of the brain was done on this admission which showed evidence of an arachnoid cyst in the hoahaoism region measuring approximately 4 cm. This was felt to be unchanged when compared to his February 2017 study. An MRI of the brain was done, which showed similar findings. His CBC showed mild anemia with a hemoglobin of 11.5 and hematocrit of 36% and his basic metabolic profile was normal except for slightly elevated creatinine at 1.32. His urinalysis was negative and his urine drug screen was positive for opiates, benzodiazepine, and marijuana. The patient was admitted to [facility] for abdominal pain and he is being worked up for this by Gastroenterology. He did not come to the emergency room for the headaches. He does report a history of hypertension, which is mildly to moderately controlled on medications. His blood pressure does run up to 160s systolically on medications. PAST MEDICAL HISTORY: Recurrent headaches, history of transient ischemic attacks, hypertension, dyslipidemia, degenerative joint disease, history of hemorrhoidectomy. He also has history of hypothyroidism, gastroesophageal reflux disease, and dyslipidemia. FAMILY HISTORY: Positive for cancer. SOCIAL HISTORY: The patient is a former smoker. He occasionally drinks alcohol. He denies any drug use. HOME MEDICATIONS: Reviewed in the chart. ALLERGIES: SULFA DRUGS. REVIEW OF SYSTEMS: CONSTITUTIONAL: Negative. EYES: Negative. ENT: Negative. CARDIOVASCULAR: Negative. RESPIRATORY: Negative. NEUROLOGICAL: As mentioned above. GASTROINTESTINAL: As mentioned above. GENITOURINARY: Negative. ENDOCRINE: Positive for hypothyroidism. DERMATOLOGICAL: Negative. MUSCULOSKELETAL: Positive for occasional joint pain and low back pain. PSYCHIATRIC: Negative. PHYSICAL EXAM: Vital signs show a temperature of 96.6, pulse 71, respiration 16, blood pressure 160/85. GENERAL APPEARANCE: The patient is a well-developed male, who appears to be in no acute distress. HEENT: Normocephalic, atraumatic, no facial asymmetry is seen. Neck is supple with no masses felt. CARDIOVASCULAR: Regular rate and rhythm. ABDOMEN: Nontender, nondistended. EXTREMITIES: Showed no edema or clubbing. NEUROLOGICAL EXAM: The patient is alert, aware and oriented x3. Speech and language are normal. Strength is full in all 4 extremities. Sensory exam was normal to light touch in all 4 extremities. No tremors or seizure-like activity is seen. No facial asymmetry is noticed on cranial nerve testing. IMPRESSION: 1. Recurrent headaches. 2. Arachnoid cyst. 3. Abdominal pain. 4. Renal insufficiency. RECOMMENDATION: The patient's CT scan of the brain and MRI of the brain findings are benign. I do not believe his arachnoid cyst is causing his headaches. His headaches are mostly frontal and is either idiopathic or due to uncontrolled hypertension. His blood pressure does frequently run into the 160s systolically. I do recommend medication adjustments. If he continues to have frequent headaches, further outpatient treatments will be discussed with him, including SPG blocks. No further inpatient neurological workup is needed. I will continue to follow with you as needed. Thank you for allowing me to participate in the care of your patient. If you have any questions, please feel free to contact me. MMODL / IJN: [id number] /
--- NOTE | 2017-06-08 10:14 | P.PN ---
Subjective Progress Note Date: 06/08/17 Progress note being dictated for Dr. Mota. Interval history: This a 67-year-old gentleman admitted with recurrent nausea vomiting, possible acute gastritis, acute renal failure and multiple other medical issues in a patient with history of renal cell carcinoma with nephrectomy, diverticulosis. Maintained on gentle IV fluid hydration with improving renal function, 1.3. Complains of umbilical discomfort, radiating up to mid epigastric region with fluctuating intensities, persistent nausea. Evaluated by GI with recommendations noted. T-max 100.1, normal WBC. Hemoglobin 11.6. Denies chest pain, palpitations or increasing shortness of breath. 06/07/2017. Persistent periumbilical abdominal pain. Maintained on IV fluid hydration, creatinine remains at 1.3. KUB reporting progressed dilated small and large bowel loops, possible ileus, enteritis or partial obstruction. Underwent EGD with GI, reporting mild antral gastritis, no esophagitis peptic ulcer disease or gastric outlet obstruction. Brain CT reporting stable 4.2 cm arachnoid cyst in the left middle cranial fossa, similar slight mass effect of the adjacent temporal lobe parenychema. No acute intracranial abnormality noted. MRI pending. 06/08/2017 NPO, awaiting small bowel follow-through this morning. ESR, CRP WNL. Brain MRI reporting stable arachnoid cyst, stable mild nonspecific white matter changes, no suspicious findings compared to prior MRI of January 2016. Afebrile. Review of systems: CONSTITUTIONAL: No fever, no malaise, positive fatigue. HEENT: No recent visual problems or hearing problems. Denied any sore throat. CARDIOVASCULAR: No chest pain, orthopnea, PND, no palpitations, no syncope. PULMONARY: No shortness of breath, no cough, no hemoptysis. GASTROINTESTINAL: No diarrhea, no nausea, no vomiting, . Umbilical abdominal pain. Normoactive bowel sounds. NEUROLOGICAL: No headaches, no weakness, no numbness. HEMATOLOGICAL: Denies any bleeding or petechiae. GENITOURINARY: Denies any burning micturition, frequency, or urgency. MUSCULOSKELETAL/RHEUMATOLOGICAL: Denies any joint pain, swelling, or any muscle pain. ENDOCRINE: Denies any polyuria or polydipsia. PSYCHIATRIC: No anxiety, no depression The rest of the 14 point review of systems is negative Active Medications Generic Name Dose Route Start Last Admin Trade Name Freq PRN Reason Stop Dose Admin Artificial Tears 1 drops 06/07/17 23:45 Artificial Tear Drops BOTH EYES TID PRN Dry Eye(s) Atorvastatin Calcium 10 mg 06/06/17 21:00 06/07/17 20:09 Lipitor PO 10 mg HS [facility] Administration Clopidogrel Bisulfate 75 mg 06/06/17 09:00 06/08/17 07:34 Plavix PO 75 mg DAILY [facility] Administration Fentanyl 1 patch 06/06/17 09:00 06/06/17 07:28 Duragesic 25mcg/Hr Patch TRANSDERM 1 patch Q72H [facility] Administration Hydromorphone HCl 1 mg 06/05/17 19:11 06/07/17 23:37 Dilaudid IVP 1 mg Q3HR PRN Administration Severe Pain Sodium Chloride 1,000 mls @ 125 mls/hr 06/05/17 19:15 06/08/17 03:53 Saline 0.9% IV 125 mls/hr .Q8H [facility] Administration Lactated Ringer's 1,000 mls @ 20 mls/hr 06/07/17 06:12 06/08/17 05:42 Lactated Ringers IV Not Given .Q24H [facility] Levothyroxine Sodium 125 mcg 06/06/17 06:30 06/08/17 06:15 Synthroid PO 125 mcg DAILY@0630 [facility] Administration Losartan Potassium 100 mg 06/06/17 09:00 06/08/17 07:34 Cozaar PO 100 mg DAILY [facility] Administration Metoprolol Tartrate 50 mg 06/05/17 21:45 06/07/17 20:09 Lopressor PO 50 mg HS [facility] Administration Naloxone HCl 0.2 mg 06/05/17 19:11 Narcan IV Q2M PRN Opioid Reversal Ondansetron HCl 4 mg 06/05/17 19:11 06/07/17 16:33 Zofran IVP 4 mg Q8HR PRN Administration Nausea And Vomiting Pantoprazole Sodium 40 mg 06/06/17 09:00 06/08/17 07:34 Protonix IV 40 mg DAILY [facility] Administration Trazodone HCl 50 mg 06/05/17 21:31 06/06/17 21:35 Desyrel PO 50 mg HS PRN Administration Insomnia Objective - Vital Signs Vital signs: Vital Signs Temp 98.2 F 06/08/17 07:00 Pulse 57 L 06/08/17 07:00 Resp 16 06/08/17 07:00 BP 142/83 06/08/17 07:00 Pulse Ox 98 06/08/17 07:00 Intake & Output 06/07/17 06/08/17 06/08/17 18:59 06:59 18:59 Intake Total 200 0 Output Total 200 Balance 200 -200 Intake: IV 200 Oral 0 Output: Urine 200 Other: Voiding Method Toilet Urinal # Voids 1 2 - Exam PHYSICAL EXAM: VITAL SIGNS: [As above] GENERAL: Sitting up in bed, no acute distress HEENT: Conjunctivae normal. eyes normal. NECK: No JVD. No thyroid enlargement. No LNs CARDIOVASCULAR: S1, S2 muffled. No murmur RESPIRATION: Breath sounds diminished in the bases. No rhonchi or crackles. No bronchial breathing. ABDOMEN: Soft, nondistended, minimal umbilicus tenderness . No guarding. no masses palpable.Bowel sounds heard. LEGS: No edema. no swelling PSYCHIATRY: Alert and oriented -3, mood and affect normal. NERVOUS SYSTEM: Cranial N 2-12 grossly normal. Moves all 4 limbs. Diffuse weakness No focal deficits. No sensory deficit. Skin: no ulcer no rash Joints: No active swelling. No inflammation. Lymphatic system. No LN neck axilla or groin. - Labs CBC & Chem 7: 06/07/17 08:01 06/07/17 08:01 Labs: Microbiology - Last 24 Hours (Table) 06/05/17 15:12 Blood Culture - Preliminary Blood No Growth after 48 hours Assessment and Plan Assessment: 1. [ Recurrent nausea, vomiting for evaluation, mild antral gastritis as per EGD. No esophagitis, peptic ulcer disease or gastric outlet obstruction.]. 2. [ Acute renal failure possibly prerenal, uremia]. 3. [ Increased plasma lactic acid, with secondary dehydration, improved with IV fluid hydration]. 4. [ Hypertension]. 5. [ Hyperlipidemia]. 6. [ Chronic renal failure, stage III]. Plan: Plan: Continue on current medication regime, PPI, monitoring and symptomatic treatment. Labs pending Small bowel follow-through pending. Close monitoring of renal function with repeat labs ordered for a.m. Follow closely with GI. Further recommendations to follow. The impression and plan of care has been dictated as directed. : I performed a history and examination of this patient, discussed the same with the dictator. I agree with the dictator's note ,documented as a scribe. Any additional findings or plans will be noted.
[2017-06-08] MEDS: ONDANSETRON 4 MG/2 ML VIAL IVP PRN ×2 (10:40→19:32)
[2017-06-08] MEDS: HYDROmorphone 1 MG/ML 1 ML SYRINGE IVP PRN ×3 (10:43→19:30)
--- NOTE | 2017-06-08 11:22 | FL ---
Small bowel follow-through HISTORY: Periumbilical abdominal pain, weight loss 57 seconds of fluoroscopy time supplied 6 images obtained The animal stunner film shows surgical clips in left hemiabdomen. Vascular calcifications are present. Followi ng ingestion of barium there is normal transit within the small bowel. Small bowel folds are normal. There is no obstruction to flow or extravasation, no evident fistula formation. No fixation of bowel loops. Terminal ileum is normal. IMPRESSION: There is no evident obstruction.
[2017-06-08 11:34] LABS: Basophils % (A) 1 %; CH 31.9; Eosinophils # (A) 0.2 k/uL (0-0.7); Eosinophils % (A) 4 %; HCT 38.5 % (39.0-53.0); HDW 2.82; HGB 12.6 gm/dL (13.0-17.5); Luc # (Auto) 0.09; Luc % (Auto) 1; Lymphocytes # (A) 1.1 k/uL (1.0-4.8); Lymphocytes % (A) 17 %; MCH 30.8 pg (25.0-35.0); MCHC 32.7 g/dL (31.0-37.0); MCV 94.1 fL (80.0-100.0); Mean Platelet Volume 6.7; Monocytes # (A) 0.4 k/uL (0-1.0); Monocytes % (A) 6 %; Neutrophils # (A) 4.5 k/uL (1.3-7.7); Neutrophils % (A) 72 %; RBC 4.09 m/uL (4.30-5.90); RDW 12.3 % (11.5-15.5); WBC 6.3 k/uL (3.8-10.6); WBC (Perox) 6.51
[2017-06-08 12:06] LABS: Anion Gap 8 mmol/L; Blood Urea Nitrogen 9 mg/dL (9-20); Calcium 8.7 mg/dL (8.4-10.2); Carbon Dioxide 26 mmol/L (22-30); Chloride 106 mmol/L (98-107); Glucose 81 mg/dL (74-99); Non-African American GFR(MDRD) 55 (>60 ml/min/1.73 sqM); Potassium 4.4 mmol/L (3.5-5.1); Sodium 140 mmol/L (137-145)
--- NOTE | 2017-06-08 13:15 | P.PN ---
Subjective Progress Note Date: 06/08/17 Principal diagnosis: Periumbilical abdominal pain Two-year history of intermittent chronic abdominal pain mostly in the periumbilical region. Status post EGD yesterday with evidence of mild antral gastritis. No evidence of peptic ulcer disease or gastric outlet obstruction. Small bowel series no evidence of obstruction. Pain is still present mildly improved. Objective - Vital Signs Vital signs: Vital Signs Temp 98.2 F 06/08/17 07:00 Pulse 57 L 06/08/17 07:00 Resp 16 06/08/17 07:00 BP 142/83 06/08/17 07:00 Pulse Ox 98 06/08/17 07:00 Intake & Output 06/07/17 06/08/17 06/08/17 18:59 06:59 18:59 Intake Total 200 0 Output Total 200 Balance 200 -200 Weight 66 kg Intake: IV 200 Oral 0 Output: Urine 200 Other: Voiding Method Toilet Urinal # Voids 1 2 - Exam General appearance: The patient is alert, oriented, in no acute distress. HET: Head is normocephalic and atraumatic. Pupils are equal and reactive. Oropharynx is clear without lesions. Neck: Supple without lymphadenopathy. Trachea midline. Heart: S1 S2. Regular rate and rhythm. Lungs: No crackles or wheezes are heard. Abdomen: Soft, mild periumbilical tenderness, nondistended with bowel sounds. No peritoneal signs. No palpable organomegaly or masses. Extremities: Normal skin color and turgor. No cyanosis, rash, ulceration, clubbing, or edema. Radial and pedal pulses are 2/4 bilaterally. Neurological: No focal deficits. Strength and sensation are grossly intact. - Labs CBC & Chem 7: 06/08/17 11:15 06/08/17 11:15 Labs: Abnormal Lab Results - Last 24 Hours (Table) 06/08/17 06/08/17 Range/Units 11:15 11:15 RBC 4.09 L (4.30-5.90) m/uL Hgb 12.6 L (13.0-17.5) gm/dL Hct 38.5 L (39.0-53.0) % Creatinine 1.30 H (0.66-1.25) mg/dL Microbiology - Last 24 Hours (Table) 06/05/17 15:12 Blood Culture - Preliminary Blood No Growth after 48 hours Assessment and Plan (1) Abdominal pain Narrative/Plan: 67-year-old male with history of diverticulosis renal cell carcinoma with nephrectomy admitted with persistent periumbilical abdominal pain 2 years duration with intermittent nausea vomiting without bleeding. Etiology of pain is unclear. Differentials to consider is vascular abnormalities such as nonocclusive mesenteric ischemia. Status post EGD with no evidence of peptic ulcer disease or gastric outlet obstruction. Small bowel series no evidence of obstruction. Current Visit: No Status: Acute Code(s): R10.9 - UNSPECIFIED ABDOMINAL PAIN SNOMED Code(s): 40954424 Plan: 1. CT angiography not preferred secondary to history of nephrectomy and creatinine 1.3. today. Will order MRA abdomen. Case discussed with radiologist Dr. Burns. 2. Diet as tolerated. 3. We'll continue to follow. Assessment and plan a care discussed with Dr. Nava
--- NOTE | 2017-06-08 15:55 | MR ---
MR angiogram of the abdomen without contrast history: Periumbilical pain Multiplanar multisequence imaging obtained through the abdominal aorta. Patient refused intravenous c ontrast. Correlation to CT scan 06/05/2017. Extensive artifact present on the exam. Abdominal aorta is patent. Inferior vena cava is patent. Lack of contrast limits the evaluation howev er. Celiac axis and superior mesenteric artery are thought to be patent, difficult to exclude proxima l stenosis on the basis of this exam however. Patient is status post left nephrectomy. Right kidney shows probable extrarenal pelvis. Cystic foci a re present within the liver as noted on CT. IMPRESSION: Exam is limited by lack of contrast.
--- NOTE | 2017-06-08 17:29 | PN ---
PROGRESS NOTE DATE OF SERVICE: 06/08/2017 This 67-year-old gentleman admitted with recurrent nausea is being closely monitored. Seen and evaluated the patient with the nurse practitioner. Please see nurse practitioner notes and impression documented as scribe for further information. The Ct scan of the brain noted. The patient also had a MRI angio which was limited because of the lack of contrast at this time. Small-bowel follow-through x-ray was also done which showed no evidence of any obstruction. MMODL / IJN: [id number] /
[2017-06-08] MEDS: ATORVASTATIN 10 MG TAB PO SCH (21:08)
[2017-06-08] MEDS: METOPROLOL TARTRATE 50 MG TAB PO SCH (21:08)
[2017-06-09] MEDS: ONDANSETRON 4 MG/2 ML VIAL IVP PRN ×3 (04:50→21:41)
[2017-06-09] MEDS: HYDROmorphone 1 MG/ML 1 ML SYRINGE IVP PRN ×7 (04:50→23:01)
[2017-06-09] MEDS: LEVOTHYROXINE 125 MCG TAB PO SCH (06:47)
[2017-06-09] MEDS: SODIUM CHLORIDE 0.9% 1,000 ML IV SCH ×3 (06:48→20:01)
[2017-06-09] MEDS: LACTATED RINGERS 1,000 ML IV SCH (06:49)
[2017-06-09] MEDS: PANTOPRAZOLE 40 MG/10 ML VIAL IV SCH (07:37)
[2017-06-09] MEDS: CLOPIDOGREL 75 MG TAB PO SCH (07:37)
[2017-06-09] MEDS: LOSARTAN 50 MG TAB PO SCH (07:37)
[2017-06-09 07:57] LABS: Basophils % (A) 1 %; CH 31.5; CHCM 34.1; Eosinophils # (A) 0.3 k/uL (0-0.7); Eosinophils % (A) 6 %; HCT 34.4 % (39.0-53.0); HDW 2.84; HGB 11.2 gm/dL (13.0-17.5); Luc # (Auto) 0.08; Luc % (Auto) 2; Lymphocytes # (A) 1.2 k/uL (1.0-4.8); Lymphocytes % (A) 24 %; MCH 30.3 pg (25.0-35.0); MCHC 32.6 g/dL (31.0-37.0); MCV 92.8 fL (80.0-100.0); Mean Platelet Volume 7.3; Monocytes # (A) 0.5 k/uL (0-1.0); Monocytes % (A) 9 %; Neutrophils % (A) 59 %; RBC 3.71 m/uL (4.30-5.90); RDW 12.3 % (11.5-15.5); WBC (Perox) 5.12
[2017-06-09 08:55] LABS: Anion Gap 5 mmol/L; Blood Urea Nitrogen 8 mg/dL (9-20); Calcium 8.1 mg/dL (8.4-10.2); Carbon Dioxide 27 mmol/L (22-30); Chloride 108 mmol/L (98-107); Glucose 76 mg/dL (74-99); Non-African American GFR(MDRD) 53 (>60 ml/min/1.73 sqM); Potassium 3.9 mmol/L (3.5-5.1); Sodium 140 mmol/L (137-145)
[2017-06-09] MEDS ORDERED: ACETAMINOPHEN TAB 325 MG TAB PO PRN (09:46)
[2017-06-09] MEDS: ATORVASTATIN 10 MG TAB PO SCH (20:00)
[2017-06-09] MEDS: METOPROLOL TARTRATE 50 MG TAB PO SCH (20:00)
[2017-06-09] MEDS: traZODone HCL 50 MG TAB PO PRN (23:35)
[2017-06-10] MEDS: SODIUM CHLORIDE 0.9% 1,000 ML IV SCH ×2 (03:53→07:46)
[2017-06-10] MEDS: LACTATED RINGERS 1,000 ML IV SCH (05:40)
[2017-06-10] MEDS: LEVOTHYROXINE 125 MCG TAB PO SCH (06:39)
[2017-06-10] MEDS: HYDROmorphone 1 MG/ML 1 ML SYRINGE IVP PRN ×3 (06:40→13:41)
[2017-06-10] MEDS: CLOPIDOGREL 75 MG TAB PO SCH (07:46)
[2017-06-10] MEDS: LOSARTAN 50 MG TAB PO SCH (07:46)
[2017-06-10] MEDS: ONDANSETRON 4 MG/2 ML VIAL IVP PRN (07:46)
[2017-06-10] MEDS: PANTOPRAZOLE 40 MG/10 ML VIAL IV SCH (07:46)
[2017-06-10 07:55] VITALS: BP 112/59; PULSE 76; RESP 16; TEMP 97.4
[2017-06-10 08:09] LABS: Basophils % (A) 1 %; CH 31.6; Eosinophils # (A) 0.2 k/uL (0-0.7); Eosinophils % (A) 5 %; HCT 34.4 % (39.0-53.0); HDW 2.88; HGB 11.2 gm/dL (13.0-17.5); Luc # (Auto) 0.09; Luc % (Auto) 2; Lymphocytes # (A) 1.2 k/uL (1.0-4.8); Lymphocytes % (A) 23 %; MCH 30.5 pg (25.0-35.0); MCHC 32.6 g/dL (31.0-37.0); MCV 93.4 fL (80.0-100.0); Mean Platelet Volume 6.9; Monocytes # (A) 0.4 k/uL (0-1.0); Monocytes % (A) 8 %; Neutrophils % (A) 62 %; RBC 3.68 m/uL (4.30-5.90); RDW 12.3 % (11.5-15.5); WBC 4.9 k/uL (3.8-10.6); WBC (Perox) 5.13
[2017-06-10 08:27] LABS: Anion Gap 6 mmol/L; Blood Urea Nitrogen 9 mg/dL (9-20); Calcium 8.4 mg/dL (8.4-10.2); Carbon Dioxide 29 mmol/L (22-30); Chloride 105 mmol/L (98-107); Glucose 79 mg/dL (74-99); Non-African American GFR(MDRD) 54 (>60 ml/min/1.73 sqM); Potassium 3.8 mmol/L (3.5-5.1); Sodium 140 mmol/L (137-145)
--- NOTE | 2017-06-10 09:19 | PN ---
PROGRESS NOTE DATE OF SERVICE: June 10, 2017. REQUESTING PHYSICIAN: Dr. Mota. Patient is a 67-year-old pleasant white male admitted to the hospital with chronic epigastric periumbilical abdominal pain associated with nausea, progressive weight loss on and off for the last several months duration. He lost 30 pounds since the beginning of this year. As a part of workup, he had an upper endoscopy done by me 3 days ago showed mild gastritis. Subsequently, he had a small bowel series that was normal. He had a CT of the abdomen and pelvis at the time of admission the hospital that was unremarkable. He also had MR angiogram to evaluate for chronic mesenteric ischemia and though it was a limited study it was unremarkable. The patient states that he has poor appetite. He feels like his mouth is dry. He complains of some early satiety. This morning he is feeling better. PHYSICAL EXAMINATION: Appears comfortable, no apparent distress. VITAL SIGNS: Stable. Blood pressure is 135/51, pulse 58, temperature 97.8. HEENT Examination unremarkable. Conjunctivae pink. Sclerae anicteric. Oral cavity no lesions. Neck: No jugular venous distention or lymph node enlargement. Chest was clear to auscultation. HEART: Regular rate and rhythm. ABDOMEN: Soft, nontender, nondistended. Bowel sounds are positive. No organomegaly. Extremities no pedal edema. Skin no rashes. NEUROLOGIC: Alert and oriented x3. No focal deficits. LABS: WBC 4.9, hemoglobin 11.2, platelets are normal. Basic metabolic panel is within normal limits. IMPRESSION: Chronic postprandial abdominal pain with intermittent nausea, decreased appetite and progressive weight loss of 30 pounds since the onset of these symptoms a year ago. The patient had recent EGD, small bowel series, CT of the abdomen as well as MRA of the abdomen results with the patient. All workup so far has been negative. The patient is somewhat better today. RECOMMENDATION: He can be discharged home with outpatient follow up in 2-3 weeks. In the meantime, I advised him to be on small frequent meals, try to take some nutritional supplements in the form of Ensure every day and he will be seen in the office in 3-4 weeks. Thank you for this consultation. MMODL / IJN: [id number] /
--- NOTE | 2017-06-10 11:54 | P.PN ---
Subjective Progress Note Date: 06/09/17 Principal diagnosis: Abdominal pain Interval history: This a 67-year-old gentleman admitted with recurrent nausea vomiting, possible acute gastritis, acute renal failure and multiple other medical issues in a patient with history of renal cell carcinoma with nephrectomy, diverticulosis. Maintained on gentle IV fluid hydration with improving renal function, 1.3. Complains of umbilical discomfort, radiating up to mid epigastric region with fluctuating intensities, persistent nausea. Evaluated by GI with recommendations noted. T-max 100.1, normal WBC. Hemoglobin 11.6. Denies chest pain, palpitations or increasing shortness of breath. 06/07/2017. Persistent periumbilical abdominal pain. Maintained on IV fluid hydration, creatinine remains at 1.3. KUB reporting progressed dilated small and large bowel loops, possible ileus, enteritis or partial obstruction. Underwent EGD with GI, reporting mild antral gastritis, no esophagitis peptic ulcer disease or gastric outlet obstruction. Brain CT reporting stable 4.2 cm arachnoid cyst in the left middle cranial fossa, similar slight mass effect of the adjacent temporal lobe parenychema. No acute intracranial abnormality noted. MRI pending. 06/08/2017 NPO, awaiting small bowel follow-through this morning. ESR, CRP WNL. Brain MRI reporting stable arachnoid cyst, stable mild nonspecific white matter changes, no suspicious findings compared to prior MRI of January 2016. Afebrile. 06/09/2017 Patient was started on clear liquid diet. MRA of the abdomen for possible mesenteric ischemia is limited study but unremarkable. Nausea and abdominal pain is better. We'll advance her diet as tolerated. GI is following. No fever no chills. No acute overnight issues. All other review of systems negative except above Current medications reviewed. Objective - Vital Signs Vital signs: Vital Signs Temp 96.8 F L 06/09/17 18:31 Pulse 60 06/09/17 18:31 Resp 18 06/09/17 18:31 BP 152/94 06/09/17 18:31 Pulse Ox 100 06/09/17 18:31 Intake & Output 06/09/17 06/09/17 06/10/17 06:59 18:59 06:59 Intake Total 590 Balance 590 Intake: Oral 590 Other: Voiding Method Toilet Urinal # Voids 3 1 - Exam GENERAL: Sitting up in bed, no acute distress HEENT: Conjunctivae normal. eyes normal. NECK: No JVD. No thyroid enlargement. No LNs CARDIOVASCULAR: S1, S2 muffled. No murmur RESPIRATION: Breath sounds diminished in the bases. No rhonchi or crackles. No bronchial breathing. ABDOMEN: Soft, nondistended, minimal umbilicus tenderness . No guarding. no masses palpable.Bowel sounds heard. LEGS: No edema. no swelling PSYCHIATRY: Alert and oriented -3, mood and affect normal. NERVOUS SYSTEM: Cranial N 2-12 grossly normal. Moves all 4 limbs. Diffuse weakness No focal deficits. No sensory deficit. Skin: no ulcer no rash Joints: No active swelling. No inflammation. Lymphatic system. No LN neck axilla or groin. - Labs CBC & Chem 7: 06/10/17 07:38 06/10/17 07:38 Labs: Abnormal Lab Results - Last 24 Hours (Table) 06/09/17 06/09/17 Range/Units 07:27 07:27 RBC 3.71 L (4.30-5.90) m/uL Hgb 11.2 L (13.0-17.5) gm/dL Hct 34.4 L (39.0-53.0) % Chloride 108 H (98-107) mmol/L BUN 8 L (9-20) mg/dL Creatinine 1.35 H (0.66-1.25) mg/dL Calcium 8.1 L (8.4-10.2) mg/dL Microbiology - Last 24 Hours (Table) 06/05/17 15:12 Blood Culture - Preliminary Blood No Growth after 96 hours Assessment and Plan Assessment: 1. [ Recurrent nausea, vomiting and periumbilical abdominal pain., mild antral gastritis as per EGD. No esophagitis, peptic ulcer disease or gastric outlet obstruction.]. Patient had small bowel follow-through and MRA of the abdomen negative for any mesenteric ischemia. 2. [ Acute renal failure possibly prerenal, uremia]. 3. [ Increased plasma lactic acid, with secondary dehydration, improved with IV fluid hydration]. 4. [ Hypertension]. 5. [ Hyperlipidemia]. 6. [ Chronic renal failure, stage III]. Plan: Plan: Continue on current medication regime, PPI, monitoring and symptomatic treatment. . Close monitoring of renal function with repeat labs ordered for a.m. Follow closely with GI. Patient was started on liquid diet and advance as tolerated. Patient advised to take smaller quantities more frequently. Further recommendations to follow. Time with Patient: Greater than 30
--- NOTE | 2017-07-24 22:11 | P.DS ---
Providers Date of admission: 06/07/17 08:09 Expected date of discharge: 06/10/17 Attending physician: Obi Mota Consults: 06/05/17 19:12 Consult Physician Routine Consulting Provider: Lenora Nava Consult Reason/Comments: Intractable abdominal pain Do you want consulting provider notified?: Yes 06/07/17 11:29 Consult Physician Routine Consulting Provider: Christopher Mcguire Consult Reason/Comments: arachnoid cyst, mass effect?? Do you want consulting provider notified?: Yes Primary care physician: Candace Yao [facility] Course: Discharge diagnosis 1. [ Recurrent nausea, vomiting and periumbilical abdominal pain., mild antral gastritis as per EGD. No esophagitis, peptic ulcer disease or gastric outlet obstruction.]. Patient had small bowel follow-through and MRA of the abdomen negative for any mesenteric ischemia. 2. [ Acute renal failure possibly prerenal, uremia]. 3. [ Increased plasma lactic acid, with secondary dehydration, improved with IV fluid hydration]. 4. [ Hypertension]. 5. [ Hyperlipidemia]. 6. [ Chronic renal failure, stage III]. Hospital course Interval history: with history of renal cell carcinoma with nephrectomy, diverticulosis. Maintained on gentle IV fluid hydration with improving renal function, 1.3. Complains of umbilical discomfort, radiating up to mid epigastric region with fluctuating intensities, persistent nausea. Evaluated by GI with recommendations noted. T-max 100.1, normal WBC. Hemoglobin 11.6. Denies chest pain, palpitations or increasing shortness of breath. 06/07/2017. Persistent periumbilical abdominal pain. Maintained on IV fluid hydration, creatinine remains at 1.3. KUB reporting progressed dilated small and large bowel loops, possible ileus, enteritis or partial obstruction. Underwent EGD with GI, reporting mild antral gastritis, no esophagitis peptic ulcer disease or gastric outlet obstruction. Brain CT reporting stable 4.2 cm arachnoid cyst in the left middle cranial fossa, similar slight mass effect of the adjacent temporal lobe parenychema. No acute intracranial abnormality noted. MRI pending. 06/08/2017 NPO, awaiting small bowel follow-through this morning. ESR, CRP WNL. Brain MRI reporting stable arachnoid cyst, stable mild nonspecific white matter changes, no suspicious findings compared to prior MRI of January 2016. Afebrile. 06/09/2017 Patient was started on clear liquid diet. MRA of the abdomen for possible mesenteric ischemia is limited study but unremarkable. Nausea and abdominal pain is better. We'll advance her diet as tolerated. GI is following. No fever no chills. No acute overnight issues. All other review of systems negative except above Discharge physical examination was done. Patient Condition at Discharge: Stable Plan - Discharge Summary New Discharge Prescriptions: Continue Levothyroxine Sodium [Synthroid] 125 mcg PO DAILY Simvastatin [Zocor] 20 mg PO HS Clopidogrel [Plavix] 75 mg PO DAILY Lutein 10 mg PO DAILY traZODone HCL [Desyrel] 50 mg PO HS PRN PRN Reason: Insomnia Losartan Potassium 100 mg PO DAILY Omeprazole 20 mg PO DAILY Metoprolol Tartrate [Lopressor] 50 mg PO HS fentaNYL 25MCG/HR PATCH [Duragesic 25MCG/HR] 1 patch TRANSDERM Q72H Discharge Medication List Clopidogrel [Plavix] 75 mg PO DAILY 05/29/15 [History] Levothyroxine Sodium [Synthroid] 125 mcg PO DAILY 05/29/15 [History] Lutein 10 mg PO DAILY 05/29/15 [History] Simvastatin [Zocor] 20 mg PO HS 05/29/15 [History] traZODone HCL [Desyrel] 50 mg PO HS PRN 10/23/15 [History] Losartan Potassium 100 mg PO DAILY 08/04/16 [History] Metoprolol Tartrate [Lopressor] 50 mg PO HS 12/23/16 [History] Omeprazole 20 mg PO DAILY 12/23/16 [History] fentaNYL 25MCG/HR PATCH [Duragesic 25MCG/HR] 1 patch TRANSDERM Q72H 06/05/17 [ History] Follow up Appointment(s)/Referral(s): Candace Butcher III, MD [Primary Care Provider] - 1-2 days Lenora Nava MD [STAFF PHYSICIAN] - 3 Weeks Christopher Mcguire MD [STAFF PHYSICIAN] - 1 Week Patient Instructions/Handouts: Acute Abdominal Pain (DC) Discharge Disposition: HOME SELF-CARE
== END 2017-06-10 14:22 | disposition home or self-care (01) | DRG 392 ==
LOC: EC 13:45 → 4MS4W 19:11 → OBSVTOIN 06-07 08:09
PROVIDERS: ADMIT Hospitalist; ATTEND Hospitalist
PROC: 0DB98ZX Excision of Duodenum, Via Natural or Artificial Opening Endoscopic, Diagnostic (ICD-10-PCS; principal; 2017-06-07 13:40)
DX: K29.60 Other gastritis without bleeding (principal); N17.9 Acute kidney failure, unspecified; K76.89 Other specified diseases of liver; I12.9 Hypertensive chronic kidney disease with stage 1 through stage 4 chronic kidney disease, or unspecified chronic kidney disease; E03.9 Hypothyroidism, unspecified; D64.9 Anemia, unspecified; E78.5 Hyperlipidemia, unspecified; E86.0 Dehydration; G89.29 Other chronic pain; G93.0 Cerebral cysts; K21.9 Gastro-esophageal reflux disease without esophagitis; M06.9 Rheumatoid arthritis, unspecified; M10.9 Gout, unspecified; M19.90 Unspecified osteoarthritis, unspecified site; N18.3 Chronic kidney disease, stage 3 (moderate); Z79.02 Long term (current) use of antithrombotics/antiplatelets; Z79.899 Other long term (current) drug therapy; Z80.3 Family history of malignant neoplasm of breast; Z80.8 Family history of malignant neoplasm of other organs or systems; Z82.49 Family history of ischemic heart disease and other diseases of the circulatory system; Z85.528 Personal history of other malignant neoplasm of kidney; Z86.73 Personal history of transient ischemic attack (TIA), and cerebral infarction without residual deficits; Z87.891 Personal history of nicotine dependence; Z90.5 Acquired absence of kidney; Z88.2 Allergy status to sulfonamides
CPT/HCPCS: 36415; 43239; 70450; 70551; 74000; 74176; 74185; 74250; 80048; 80053; 80306; 81003; 82150; 83605; 83690; 85025; 85652; 86140; 87040; 88305; 88342; 96361; 96372; 96374; 96375; 96376; 99285

== ENCOUNTER → 2017-11-14 | Outpatient (CLI) | payer MEDICARE ==
--- NOTE | 2017-11-14 11:28 | US ---
EXAMINATION TYPE: US kidneys/renal and bladder DATE OF EXAM: 11/14/2017 COMPARISON: CT 06/05/2017 and ultrasound 07/27/2016 CLINICAL HISTORY: 67-year-old maleN18.3 chronic kidney disease stage 3, left nephrectomy due to renal CA 2014 Technique: Multiple sonographic images of the kidneys and bladder are obtained. FINDINGS: Right Kidney: 12.7 x 3.8 x 4.4 cm with stable extrarenal pelvis. No calyceal dilatation to suggest h ydronephrosis. There is a 7 mm mid pole cortical cyst and a 4 mm lower pole cortical cyst. Left Kidney: surgically removed Slightly trabeculated bladder wall appearance with mild circumferential wall thickening measuring up to 6.5 mm. Only the right ureteral jet is visualized. Small amount of residual post void bladder volu me. Post Void Residual Volume: 7.8 mL IMPRESSION: 1. Stable extrarenal pelvis on the right. No calyceal dilatation to suggest hydronephrosis. A couple small cortical cysts measuring up to 7 mm. 2. Left kidney surgically absent. The left renal fossa shows no gross abnormality by ultrasound. 3. Somewhat trabeculated and thick-walled appearance to the bladder. This could reflect cystitis or c hronic bladder wall hypertrophy. 4. Small amount of residual post void bladder volume (8 mL), within acceptable limits.
== END | disposition home or self-care (01) ==
LOC: RADUSWWP 10:20
PROVIDERS: ATTEND Urology
DX: N28.1 Cyst of kidney, acquired (principal); N18.3 Chronic kidney disease, stage 3 (moderate); N32.89 Other specified disorders of bladder; Z90.5 Acquired absence of kidney
CPT/HCPCS: 76770

== ENCOUNTER 2018-10-20 15:24 | Emergency (ER) | payer MEDICARE ==
[2018-10-20] MEDS ORDERED: ONDANSETRON 4 MG/2 ML VIAL IVP STA ×2 (15:40→16:48)
[2018-10-20] MEDS ORDERED: SODIUM CHLORIDE 0.9% 1,000 ML IV STA (15:40)
[2018-10-20] MEDS ORDERED: diphenhydrAMINE 50 MG/ML 1 ML VIAL IVP STA (15:47)
[2018-10-20] MEDS ORDERED: MORPHINE SULFATE 2 MG/ML SYRINGE IVP ONE (15:47)
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
[2018-10-20 16:32] LABS: Basophils % (A) 0 %; Eosinophils # (A) 0.1 k/uL (0-0.7); Eosinophils % (A) 1 %; HCT 49.4 % (39.0-53.0); HGB 16.1 gm/dL (13.0-17.5); Lymphocytes # (A) 1.5 k/uL (1.0-4.8); Lymphocytes % (A) 11 %; MCH 30.2 pg (25.0-35.0); MCHC 32.6 g/dL (31.0-37.0); MCV 92.7 fL (80.0-100.0); Mean Platelet Volume 7.2; Monocytes % (A) 7 %; Neutrophils # (A) 10.7 k/uL (1.3-7.7); Neutrophils % (A) 79 %; Platelet Count 257 k/uL (150-450); RBC 5.33 m/uL (4.30-5.90); RDW 12.8 % (11.5-15.5); WBC 13.5 k/uL (3.8-10.6)
[2018-10-20 16:44] LABS: Albumin 4.6 g/dL (3.5-5.0); Calcium 9.5 mg/dL (8.4-10.2); Potassium 4.4 mmol/L (3.5-5.1); Total Bilirubin 1.1 mg/dL (0.2-1.3); Total Protein 7.6 g/dL (6.3-8.2)
[2018-10-20 16:48] VITALS: PULSE 72; RESP 18
[2018-10-20] MEDS ORDERED: PROMETHAZINE INJ 25 MG in SODIUM CHLORIDE 0.9% 50 ML IVPB STA (16:48)
[2018-10-20] MEDS ORDERED: LORazepam 2 MG/ML INJ IV STA (16:48)
[2018-10-20] MEDS ORDERED: SODIUM CHLORIDE 0.9% 1,000 ML IV ONE (17:31)
--- NOTE | 2018-10-20 18:06 | CT ---
EXAMINATION TYPE: CT abdomen pelvis wo con DATE OF EXAM: 10/20/2018 COMPARISON: 06/05/2017 HISTORY: Abdominal pain and nausea. CT DLP: 442.9 mGycm Automated exposure control for dose reduction was used. TECHNIQUE: Helical acquisition of images was performed from the lung bases through the pelvis. FINDINGS: There is subsegmental atelectasis at the lung bases. Heart size is normal but there is no pleural eff usion. There is no pericardial effusion. There are cysts in the superior right lobe of the liver that measure up to 3.5 cm. Unchanged. Bile ducts are not dilated. Gallbladder appears normal. Spleen appe ars normal. Stomach appears within normal limits. There is no pancreatic mass. There are numerous jordan gical clips in the upper abdomen. Right kidney shows no hydronephrosis. Ureters not dilated. Left kid karen is absent. There is no retroperitoneal adenopathy. Bladder distends smoothly. There is no inguinal hernia. There is no free fluid in the pelvis. There are a few sigmoid diverticula. There is no sign of diverticuli tis. There is mild right-sided perinephric fat stranding. There is no mesenteric edema. There is no e vidence of a bowel obstruction. There is no free fluid in the pelvis. There is no evidence of free ai r. There is no ascites. Lumbar spine is intact. There is probably old right-sided pubic rami healed f ractures. The appendix appears normal. IMPRESSION: LEFT NEPHRECTOMY. SIGMOID DIVERTICULOSIS WITHOUT SIGN OF DIVERTICULITIS. RIGHT KIDNEY SHOWS NO SIGN OF OBSTRUCTION. NO SIGN OF ACUTE ABDOMEN AND PELVIS. THERE IS RIGHT-SIDED PERINEPHRIC FAT STRANDING UNCHANGED COMPARED TO OLD EXAM.
[2018-10-20 18:52] VITALS: BP 157/109; TEMP 98
== END 2018-10-20 18:55 | disposition home or self-care (01) ==
LOC: EC 15:24
DX: E86.0 Dehydration (principal); R11.2 Nausea with vomiting, unspecified; E78.5 Hyperlipidemia, unspecified; M06.9 Rheumatoid arthritis, unspecified; I12.9 Hypertensive chronic kidney disease with stage 1 through stage 4 chronic kidney disease, or unspecified chronic kidney disease; N18.9 Chronic kidney disease, unspecified; E07.9 Disorder of thyroid, unspecified; Z79.02 Long term (current) use of antithrombotics/antiplatelets; Z79.899 Other long term (current) drug therapy; Z79.51 Long term (current) use of inhaled steroids; Z88.2 Allergy status to sulfonamides; Z87.891 Personal history of nicotine dependence; Z86.73 Personal history of transient ischemic attack (TIA), and cerebral infarction without residual deficits; Z90.5 Acquired absence of kidney
CPT/HCPCS: 36415; 80053; 83690; 85025; 74176; 99284; 96374; 96375 ×4; 96376; 96361 ×2; J2060; J1200; J2550; J2405; J2270

== ENCOUNTER → 2019-04-15 | Outpatient (CLI) | payer MEDICARE ==
--- NOTE | 2019-04-15 10:53 | MR ---
EXAMINATION TYPE: MR brain wo con DATE OF EXAM: 04/15/2019 COMPARISON: 06/07/2017 HISTORY: ARAUJO, Cerebral cysts TECHNIQUE: T1-weighted sagittal, T2, FLAIR, and diffusion axial, and T2 coronal coronal views of the brain are submitted. FINDINGS: There is no evidence of acute ischemia. The ventricles, basal cisterns, and sulci overlying the conv exities are consistent with the patient's age. There is no mass effect. Craniocervical junction maintained. Sella turcica has a normal appearance. Nonspecific foci of abnorm al signal the white matter are seen. No cerebellopontine angle mass. Within the left anterior temporal fossa there is a stable 3.4 x 2.6 c m arachnoid cyst with compression of the adjacent left temporal cortex. Changes of chronic sinusitis noted. IMPRESSION: 1. Stable left temporal fossa arachnoid cyst unchanged in appearance from prior exam. 2. Stable nonspecific white matter changes. Differential diagnosis includes remote microvascular isch emia. Other etiologies including hypertension, migraine headaches or demyelinating processes not enti rely excluded.
== END | disposition home or self-care (01) ==
LOC: RADMRIMAIN 08:38
PROVIDERS: ATTEND Family Medicine
DX: G93.0 Cerebral cysts (principal); R90.89 Other abnormal findings on diagnostic imaging of central nervous system
CPT/HCPCS: 70551

== ENCOUNTER → 2019-04-25 | Outpatient (CLI) | payer MEDICARE ==
--- NOTE | 2019-04-26 10:00 | ECHOF ---
Referral Reason:R01.1 cardiac murmur MEASUREMENTS -------- HEIGHT: 177.8 cm WEIGHT: 74.8 kg BP: 164/86 RVIDd: 3.2 cm (< 3.3) IVSd: 1.2 cm (0.6 - 1.1) LVIDd: 4.1 cm (3.9 - 5.3) LVPWd: 1.0 cm (0.6 - 1.1) IVSs: 1.5 cm LVIDs: 2.7 cm LVPWs: 1.6 cm LA Diam: 2.9 cm (2.7 - 3.8) LAESV Index (A-L): 23.98 ml/m Ao Diam: 3.3 cm (2.0 - 3.7) AV Cusp: 1.0 cm (1.5 - 2.6) MV EXCURSION: 15.510 mm (> 18.000) MV EF SLOPE: 63 mm/s (70 - 150) EPSS: 0.7 cm MV E Kd: 0.75 m/s MV DecT: 209 ms MV A Kd: 0.98 m/s MV E/A Ratio: 0.77 AV maxP.30 mmHg AV meanP.01 mmHg RAP: 5.00 mmHg RVSP: 26.03 mmHg TAPSE: 24.34 mm FINDINGS -------- Sinus rhythm. This was a technically good study. The left ventricular size is normal. There is borderline concentric left ventricular hypertrophy. Overall left ventricular systolic function is normal with, an EF between 55 - 60 %. The diastolic filling pattern is normal for the age of the patient 8.46. The right ventricle is normal in size. Normal LA size by volume 22+/-6 ml/m2. The right atrial size is normal. Interatrial and interventricular septum intact. There is moderate aortic valve sclerosis. There is mild aortic stenosis present. Peak/mean gradie nt across the Aortic Valve is 31.30mmHg / 19.01mmHg. Mild mitral annular calcification present. There is trace to mild mitral regurgitation. Mild tricuspid regurgitation present. Right ventricular systolic pressure is normal at < 35 mmHg. Trace/mild (physiologic) pulmonic regurgitation. The aortic root size is normal. Normal inferior vena cava with normal inspiratory collapse consistent with estimated right atrial pre ssure of 5 mmHg. There is no pericardial effusion. CONCLUSIONS -------- 1. Sinus rhythm. 2. This was a technically good study. 3. The left ventricular size is normal. 4. There is borderline concentric left ventricular hypertrophy. 5. Overall left ventricular systolic function is normal with, an EF between 55 - 60 %. 6. The diastolic filling pattern is normal for the age of the patient 8.46 7. Normal LA size by volume 22+/-6 ml/m2. 8. There is moderate aortic valve sclerosis. 9. There is mild aortic stenosis present. 10. Peak/mean gradient across the Aortic Valve is 31.30mmHg / 19.01mmHg. 11. Mild mitral annular calcification present. 12. There is trace to mild mitral regurgitation. 13. Mild tricuspid regurgitation present. 14. Right ventricular systolic pressure is normal at < 35 mmHg. 15. Trace/mild (physiologic) pulmonic regurgitation. 16. The aortic root size is normal. 17. Normal inferior vena cava with normal inspiratory collapse consistent with estimated right atrial pressure of 5 mmHg. 18. There is no pericardial effusion. AUTOMOTIVE WORKER: Dania Rivas RDCS
== END | disposition home or self-care (01) ==
LOC: RADECHMAIN 16:06
PROVIDERS: ATTEND Family Medicine
DX: I08.1 Rheumatic disorders of both mitral and tricuspid valves (principal)
CPT/HCPCS: 93306

== ENCOUNTER 2019-07-29 10:05 | Emergency (ER) | payer MEDICARE ==
[2019-07-29 10:12] VITALS: TEMP 97.4
[2019-07-29] MEDS ORDERED: SODIUM CHLORIDE 0.9% 500 ML 500 ML IV STA ×2 (10:28→12:11)
--- NOTE | 2019-07-29 11:05 | CT ---
EXAMINATION TYPE: CT abdomen pelvis wo con DATE OF EXAM: 07/29/2019 COMPARISON: 10/20/2018 HISTORY: Abdominal pain and vomiting. CT DLP: 420.3 mGycm Examination of the solid and hollow viscera is limited given the lack of contrast. FINDINGS: LUNG BASES: No evidence for nodule. No evidence for infiltrate. LIVER/GB: The gallbladder is unremarkable. Hepatic cystic changes redemonstrated. PANCREAS: No pancreatic mass identified. No inflammatory process seen. SPLEEN: No evidence for splenomegaly. No intrasplenic lesions seen. ADRENALS: No adrenal nodules identified. No evidence for thickening. KIDNEYS: Solitary right kidney. 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 No evidence f or renal mass. No nephrolithiasis. No hydronephrosis. BOWEL: There is wall thickening and distention of jejunal loops with surrounding mild inflammatory ch marlene. Correlate for nonspecific small bowel enteritis. I do not see evidence for perforation or absce ss at this time. Remaining small and large bowel are of normal caliber. Lymph nodes: No evidence for adenopathy greater than 1 cm. Abdominal aorta: Atheromatous changes seen. No evidence for aneurysm. Genital organs: No significant abnormality. Other: No significant abnormality. IMPRESSION: There is wall thickening and distention of jejunal loops with surrounding mild inflammatory change. C orrelate for nonspecific small bowel enteritis. I do not see evidence for perforation or abscess at t his time.
[2019-07-29] MEDS ORDERED: MORPHINE SULFATE 4 MG/ML SYRINGE IV STA (11:14)
[2019-07-29 11:29] LABS: Basophils % (A) 0 %; Eosinophils # (A) 0.1 k/uL (0-0.7); Eosinophils % (A) 1 %; HCT 42.2 % (39.0-53.0); HGB 14.3 gm/dL (13.0-17.5); Lymphocytes # (A) 0.8 k/uL (1.0-4.8); Lymphocytes % (A) 4 %; MCH 31.9 pg (25.0-35.0); MCHC 33.8 g/dL (31.0-37.0); MCV 94.2 fL (80.0-100.0); Monocytes # (A) 0.9 k/uL (0-1.0); Monocytes % (A) 5 %; Neutrophils # (A) 15.6 k/uL (1.3-7.7); Neutrophils % (A) 89 %; Platelet Count 245 k/uL (150-450); RBC 4.48 m/uL (4.30-5.90); RDW 12.9 % (11.5-15.5); WBC 17.6 k/uL (3.8-10.6)
[2019-07-29 11:35] LABS: Albumin 3.8 g/dL (3.5-5.0); Calcium 8.6 mg/dL (8.4-10.2); Total Bilirubin 0.9 mg/dL (0.2-1.3); Total Protein 6.5 g/dL (6.3-8.2)
[2019-07-29 11:51] LABS: Potassium 4.4 mmol/L (3.5-5.1)
[2019-07-29] MEDS ORDERED: ONDANSETRON 4 MG/2 ML VIAL IVP STA (12:56)
[2019-07-29 13:58] LABS: Appearance,Urine Clear (Clear); Bilirubin,Urine Negative (Negative); Blood,Urine Trace (Negative); Color,Urine Yellow; Glucose,Urine (UA) Negative (Negative); Hyaline Casts,Urine 13 /lpf (0-2); Ketones,Urine Trace (Negative); Leukocyte Esterase,Urine Negative (Negative); Mucus,Urine Rare /hpf; Nitrite,Urine Negative (Negative); PH, Urine 5.5 (5.0-8.0); Protein,Urine 1+ (Negative); RBC,Urine 2 /hpf (0-5); Specific Gravity,Urine 1.026 (1.001-1.035); Urobilinogen,Urine <2.0 mg/dL (<2.0); WBC,Urine 1 /hpf (0-5)
[2019-07-29] MEDS ORDERED: DICYCLOMINE 20 MG TAB PO STA (14:19)
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
[2019-07-29] MEDS ORDERED: ONDANSETRON 4 MG ODT STARTER PACK 2 TAB BTL PO STA ×2 (14:48→14:56)
[2019-07-29] MEDS ORDERED: ACET/COD 300 MG/30 MG STARTER PACK 6 TAB BTL PO STA (14:48)
[2019-07-29 14:50] VITALS: BP 151/96; PULSE 82
[2019-07-29 14:59] VITALS: RESP 20
== END 2019-07-29 15:01 | disposition home or self-care (01) ==
LOC: EC 10:05
DX: R11.2 Nausea with vomiting, unspecified (principal); R19.7 Diarrhea, unspecified; R10.30 Lower abdominal pain, unspecified; E78.5 Hyperlipidemia, unspecified; I12.9 Hypertensive chronic kidney disease with stage 1 through stage 4 chronic kidney disease, or unspecified chronic kidney disease; N18.9 Chronic kidney disease, unspecified; Z79.02 Long term (current) use of antithrombotics/antiplatelets; Z79.890 Hormone replacement therapy; Z79.899 Other long term (current) drug therapy; Z79.51 Long term (current) use of inhaled steroids; Z88.2 Allergy status to sulfonamides; Z86.73 Personal history of transient ischemic attack (TIA), and cerebral infarction without residual deficits; Z87.891 Personal history of nicotine dependence; Z90.5 Acquired absence of kidney
CPT/HCPCS: 36415; 93005; 80053; 82150; 83605; 83690; 85025; 81001; 74176; 99285; 96374; 96375; J2270; J2405; S0119

== ENCOUNTER 2019-08-01 10:08 | Inpatient (IN) | payer MEDICARE ==
[2019-08-01] MEDS ORDERED: MORPHINE SULFATE 4 MG/ML SYRINGE IVP STA (11:29)
[2019-08-01] MEDS ORDERED: SODIUM CHLORIDE 0.9% 1,000 ML IV ONE (11:29)
[2019-08-01] MEDS ORDERED: ONDANSETRON 4 MG/2 ML VIAL IVP STA (11:29)
[2019-08-01] MEDS ORDERED: SODIUM CHLORIDE 0.9% 1,000 ML IV SCH (11:30)
[2019-08-01 11:35] LABS: Appearance,Urine Clear (Clear); Bilirubin,Urine 1+ (Negative); Blood,Urine Negative (Negative); Color,Urine Yellow; Glucose,Urine (UA) Negative (Negative); Ketones,Urine 2+ (Negative); Leukocyte Esterase,Urine Negative (Negative); Nitrite,Urine Negative (Negative); Protein,Urine 1+ (Negative); RBC,Urine 1 /hpf (0-5); Specific Gravity,Urine 1.025 (1.001-1.035); WBC,Urine 2 /hpf (0-5)
[2019-08-01 11:37] LABS: Basophils % (A) 0 %; Eosinophils # (A) 0.1 k/uL (0-0.7); Eosinophils % (A) 1 %; HCT 32.5 % (39.0-53.0); Lymphocytes # (A) 0.9 k/uL (1.0-4.8); Lymphocytes % (A) 5 %; MCH 31.7 pg (25.0-35.0); MCHC 34.2 g/dL (31.0-37.0); MCV 92.8 fL (80.0-100.0); Mean Platelet Volume 7.7; Monocytes # (A) 0.8 k/uL (0-1.0); Monocytes % (A) 5 %; Neutrophils # (A) 15.6 k/uL (1.3-7.7); Neutrophils % (A) 88 %; Platelet Count 352 k/uL (150-450); RDW 12.7 % (11.5-15.5); WBC 17.7 k/uL (3.8-10.6)
[2019-08-01 11:42] LABS: HGB 11.1 gm/dL (13.0-17.5)
[2019-08-01 11:44] LABS: Albumin 3.3 g/dL (3.5-5.0); Calcium 8.5 mg/dL (8.4-10.2); Potassium 4.5 mmol/L (3.5-5.1); Total Bilirubin 0.6 mg/dL (0.2-1.3); Total Protein 5.8 g/dL (6.3-8.2)
--- NOTE | 2019-08-01 12:23 | US ---
EXAMINATION TYPE: US abdomen limited DATE OF EXAM: 08/01/2019 COMPARISON: NONE CLINICAL HISTORY: R sided abdominal pain. RUQ pain EXAM MEASUREMENTS: Liver Length: 17.6 cm Gallbladder Wall: .3 cm CBD: .6 cm Right Kidney: 13.1 x 4.4 x 4.2 cm Pancreas: obscured by overlying bowel gas Liver: 2 anechoic lesions seen right lobe. 1. 2.3 x 2.9 x 2.4 cm. 2. 2.4 x 3.3 x 3.2 cm. Gallbladder: No stones seen Evidence for sonographic Zamora's sign: No CBD: wnl Right Kidney: Anechoic area mid to lower pole 3.6 x 1.9 x 1.9cm. IMPRESSION: 1. There are 2 septated cyst noted within the right lobe of the liver corresponding to the. 2. Simple right renal cyst. 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 CBD measures at the upper limits of normal with no definite gallstones identified. Gallbladder wal l measures 3 mm at the upper normal limits of normal in thickness correlate clinically.
[2019-08-01] MEDS ORDERED: PANTOPRAZOLE 40 MG/10 ML VIAL IVP STA (13:21)
[2019-08-01] MEDS ORDERED: HYDROmorphone 0.5 MG/0.5 ML SYRINGE IVP STA (13:22)
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
--- NOTE | 2019-08-01 13:27 | CT ---
EXAMINATION TYPE: CT abdomen pelvis wo con DATE OF EXAM: 08/01/2019 COMPARISON: Prior CT 07/29/2019 HISTORY: Abd pain CT DLP: 437.2 mGycm Automated exposure control for dose reduction was used. TECHNIQUE: Helical acquisition of images from the lung bases through the pelvis. FINDINGS: There is some increased density within the mesenteric fat the left upper quadrant, some non specific nonenlarged lymph nodes are present, axial image #29, 28 and 30. LUNG BASES: Some minimal dependent basilar atelectatic changes AORTA: No significant abnormality is appreciataed. LIVER/GB: No significant interval change is appreciated, cystic foci are again noted within the liver , largest within the right lobe at the dome laterally measures approximately 4 cm. PANCREAS: No significant abnormality is seen. SPLEEN: No significant abnormality is seen. ADRENALS: No significant abnormality is seen. KIDNEYS: No significant interval change is seen, the left kidney is absent, surgical clips are presen t. The right kidney is malrotated, there is some prominence of right renal pelvis as on prior. There is some perinephric stranding on the right. REPRODUCTIVE ORGANS: Prostate is stable. URINARY BLADDER: No significant abnormality is seen. BOWEL: No significant interval change is seen. Diverticular change associated with the colon. Fluid- filled loops of small bowel are again noted. Small bowel folds show thickening. FREE AIR: No Free Air is visible. ASCITES: None visible. PELVIC ADENOPATHY: None visualized. RETROPERITONEAL ADENOPATHY: No Retroperitoneal Adenopathy visible. OSSEOUS STRUCTURES: Old traumatic change noted to the pelvis, synovial thickening along the ramus on the right. Degenerative disc changes in the visualized spine, there is a spinal curvature. IMPRESSION: FINDINGS MAY REPRESENT ENTERITIS, FINDINGS ARE SIMILAR TO PRIOR EXAM. CORRELATE TO EXCLUDE ISCHEMIA. Correlate to exclude urinary tract infection.
[2019-08-01] MEDS ORDERED: PIPERACILLIN-TAZOBACTAM 3.375 GM in SODIUM CHLORIDE 0.9% 100 ML IVPB STA (14:13)
[2019-08-01] MEDS ORDERED: NALOXONE 0.4 MG/ML 1 ML VIAL IV PRN (14:21)
[2019-08-01] MEDS ORDERED: SIMETHICONE 80 MG CHEWABLE PO PRN (17:24)
[2019-08-01] MEDS ORDERED: SIMETHICONE 80 MG CHEWABLE PO SCH (18:00)
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
[2019-08-01] MEDS ORDERED: hydrALAZINE HCL 20 MG/ML 1 ML VIAL IVP PRN (18:50)
[2019-08-01] MEDS: SODIUM CHLORIDE 0.9% 1,000 ML IV SCH (19:12)
[2019-08-01] MEDS: HYDROmorphone 0.5 MG/0.5 ML SYRINGE IVP PRN (20:20)
[2019-08-01] MEDS: PANTOPRAZOLE 40 MG/10 ML VIAL IVP SCH (20:20)
[2019-08-01] MEDS ORDERED: predniSONE 1 MG TAB PO SCH (21:00)
[2019-08-01 21:06] LABS: Basophils % (A) 0 %; Eosinophils # (A) 0.2 k/uL (0-0.7); Eosinophils % (A) 2 %; HCT 30.6 % (39.0-53.0); HGB 10.1 gm/dL (13.0-17.5); Hypochromasia Slight; Lymphocytes # (A) 1.3 k/uL (1.0-4.8); Lymphocytes % (A) 10 %; MCH 32.5 pg (25.0-35.0); Mean Platelet Volume 8.9; Monocytes # (A) 0.7 k/uL (0-1.0); Monocytes % (A) 5 %; Neutrophils # (A) 10.9 k/uL (1.3-7.7); Neutrophils % (A) 82 %; Platelet Count 247 k/uL (150-450); RDW 12.9 % (11.5-15.5); WBC 13.3 k/uL (3.8-10.6)
[2019-08-01 21:13] LABS: MCV 98.6 fL (80.0-100.0)
[2019-08-01] MEDS: PIPERACILLIN-TAZOBACTAM 3.375 GM in SODIUM CHLORIDE 0.9% 100 ML IVPB SCH (21:50)
[2019-08-01] MEDS: ONDANSETRON 4 MG/2 ML VIAL IVP PRN (21:58)
[2019-08-02] MEDS: LEVOTHYROXINE 125 MCG TAB PO SCH (05:01)
[2019-08-02] MEDS: SODIUM CHLORIDE 0.9% 1,000 ML IV SCH ×2 (05:02→21:25)
[2019-08-02] MEDS: ONDANSETRON 4 MG/2 ML VIAL IVP PRN ×3 (07:30→22:30)
[2019-08-02] MEDS: PANTOPRAZOLE 40 MG/10 ML VIAL IVP SCH (07:31)
[2019-08-02] MEDS: HYDROmorphone 0.5 MG/0.5 ML SYRINGE IVP PRN ×4 (07:35→21:33)
[2019-08-02] MEDS: PIPERACILLIN-TAZOBACTAM 3.375 GM in SODIUM CHLORIDE 0.9% 100 ML IVPB SCH ×3 (07:35→23:26)
[2019-08-02 08:18] LABS: Calcium 8.1 mg/dL (8.4-10.2); Potassium 4.5 mmol/L (3.5-5.1)
[2019-08-02] MEDS ORDERED: LOSARTAN 50 MG TAB PO SCH (09:00)
[2019-08-02] MEDS ORDERED: CLOPIDOGREL 75 MG TAB PO SCH (09:00)
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
--- NOTE | 2019-08-02 17:47 | CONS ---
CONSULTATION DATE OF DICTATION: 08/02/2019 REASON FOR CONSULTATION: Abdominal pain, nausea, vomiting and coffee-ground emesis. HISTORY OF PRESENT ILLNESS: The patient is a 69-year-old pleasant white male who was admitted to the hospital with abdominal pain for the last one-week duration. The patient states that the pain is mostly in the lower abdomen radiating to the right side of the abdomen into the right upper quadrant area associated with multiple episodes of nausea, vomiting and coffee- ground emesis. All these symptoms have been going on for the last one-week duration. His symptoms are worse with eating. He denies any fever, chills or night sweats. He denies any significant change in his bowel habits. However, for the last one week he has been having some constipation. He denies any rectal bleeding or melena. He came to the emergency room 3 days ago and had a CT of the abdomen and pelvis done that showed possible enteritis. He denies any prior history of peptic ulcer disease or recent NSAID use. PAST MEDICAL HISTORY: His past medical history is significant for: 1. Hypertension. 2. Hypothyroidism. 3. Hyperlipidemia. 4. History of CVA in the past. 5. Rheumatoid arthritis. 6. Degenerative joint disease. 7. History of TIA in the past. PAST SURGICAL HISTORY: 1. Hemorrhoidectomy. 2. 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 3. Bunionectomy. 4. Left radical nephrectomy. 5. EGD in 2017. 6. Colonoscopy in 2012. SOCIAL HISTORY: Former smoker. Occasional alcohol use. MEDICATIONS AT THIS TIME: 1. Plavix. 2. Synthroid. 3. Zocor. 4. Desyrel. 5. Zyloprim. 6. Zofran. 7. Prednisone. 8. Tylenol No. 3. 9. Losartan. ALLERGIES: SULFA. FAMILY HISTORY: Father with hypertension and mother with breast cancer. REVIEW OF SYSTEMS: CARDIOPULMONARY: He denies any chest pain or shortness of breath. GENITOURINARY: No dysuria or hematuria. MUSCULOSKELETAL: Unremarkable. SKIN: Unremarkable. ENDOCRINE: Unremarkable. PSYCHIATRIC: Unremarkable. NEUROLOGY: Unremarkable. ENT/VISION: Unremarkable. CONSTITUTIONAL: No recent weight loss. No fever, chills, night sweats. PHYSICAL EXAMINATION: He appears comfortable. No apparent distress. Vital signs are stable. Blood pressure is 133/86, pulse rate 86, temperature 99.1. HEENT examination unremarkable. Conjunctivae pink. Sclerae anicteric. Oral cavity no lesions. NECK: No JVD or lymph node enlargement. CHEST: Clear to auscultation. HEART: Regular rate and rhythm. ABDOMEN: Soft. There was very minimal tenderness in the right upper quadrant area, in the right side of the abdomen as well as in the suprapubic area. No rebound or rigidity. EXTREMITIES: No pedal edema. SKIN: No rashes. NEUROLOGIC: Alert and oriented x3. No focal deficits. LABS: WBC 17.7, hemoglobin 11.1, platelets normal. Basic metabolic panel showed a BUN of 39, creatinine 1.38. Amylase and lipase are normal. ALT, AST, T-bilirubin and alkaline phosphatase are normal. Today WBC is 13.3, hemoglobin 10.1, BUN 25, creatinine 1.4. Stool occult blood is negative. IMPRESSION: 1. This is a patient who presented to the hospital with lower abdominal pain radiating to the right side of the abdomen and right upper quadrant area for the last 5-6 days' duration associated with multiple episodes of nausea, vomiting, and he had some coffee-ground emesis yesterday. CT of the abdomen done about 4 days ago when he came to the emergency room showed evidence of possible enteritis. At this time the possibility of peptic ulcer disease cannot be excluded. Last EGD was in 2017 that showed gastritis. 2. Mild anemia. 3. Mild elevation of BUN and creatinine consistent with chronic kidney disease. RECOMMENDATIONS: 1. Continue with IV Protonix 40 mg q.12 hours. 2. Clear liquid diet. 3. CBC tomorrow morning. 4. Will proceed with an EGD tomorrow, and if the EGD is negative, we will consider colonoscopy during this hospitalization or on an outpatient basis to investigate the abdominal pain. Plan was discussed with the patient. He is agreeable to it. Thank you for this consultation. MMODL / IJN: [id number] /
[2019-08-02] MEDS: traZODone HCL 50 MG TAB PO PRN (22:33)
[2019-08-03] MEDS: LEVOTHYROXINE 125 MCG TAB PO SCH (05:38)
[2019-08-03 07:48] LABS: Calcium 8.2 mg/dL (8.4-10.2); Potassium 3.9 mmol/L (3.5-5.1)
[2019-08-03 07:55] LABS: Basophils % (A) 1 %; Eosinophils # (A) 0.4 k/uL (0-0.7); Eosinophils % (A) 5 %; HCT 25.9 % (39.0-53.0); HGB 8.7 gm/dL (13.0-17.5); Lymphocytes # (A) 1.7 k/uL (1.0-4.8); Lymphocytes % (A) 20 %; MCH 31.7 pg (25.0-35.0); MCHC 33.8 g/dL (31.0-37.0); Mean Platelet Volume 7.4; Monocytes # (A) 0.6 k/uL (0-1.0); Monocytes % (A) 7 %; Neutrophils # (A) 5.7 k/uL (1.3-7.7); Neutrophils % (A) 67 %; Platelet Count 284 k/uL (150-450); RBC 2.75 m/uL (4.30-5.90); RDW 12.8 % (11.5-15.5); WBC 8.6 k/uL (3.8-10.6)
[2019-08-03] MEDS: PIPERACILLIN-TAZOBACTAM 3.375 GM in SODIUM CHLORIDE 0.9% 100 ML IVPB SCH ×2 (09:11→16:26)
[2019-08-03] MEDS: PANTOPRAZOLE 40 MG/10 ML VIAL IVP SCH (09:11)
[2019-08-03] MEDS: ONDANSETRON 4 MG/2 ML VIAL IVP PRN ×2 (09:16→17:20)
[2019-08-03] MEDS: HYDROmorphone 0.5 MG/0.5 ML SYRINGE IVP PRN ×3 (09:16→17:20)
[2019-08-03] MEDS: SODIUM CHLORIDE 0.9% 1,000 ML IV SCH ×2 (09:17→21:28)
[2019-08-03] MEDS ORDERED: IV FLUID CONTINUATION 1,000 ML IV ONE (12:20)
[2019-08-03] MEDS ORDERED: PROPOFOL 10 MG/ML 20 ML VIAL IV ONE (12:21)
[2019-08-03] MEDS ORDERED: LIDOCAINE 1% INJ 10MG/ML (20 ML MDV) ONE (12:21)
--- NOTE | 2019-08-03 12:50 | P.PCN ---
Date of Procedure: 08/03/19 Description of Procedure: BRIEF HISTORY: Patient is a 5-6 days duration with multiple episodes of nausea and vomiting and coffee-ground emesis noted yesterday. CT of the abdomen to 4 days ago in the emergency department showed possible enteritis this time EGD is planned to rule out peptic ulcer disease. PROCEDURE PERFORMED: Esophagogastroduodenoscopy with biopsy. PREOPERATIVE DIAGNOSIS: Coffee-ground emesis, anemia acute blood loss. ESTIMATED BLOOD LOSS: Minimal. IV sedation per anesthesia. PROCEDURE: After informed consent was obtained, the patient was brought into the endoscopy unit. IV sedation was administered by Anesthesia under continuous monitoring. Initially the Olympus GIF-190 video endoscope was inserted into the mouth. Esophagus intubated without any difficulty. It was gradually advanced into the stomach and duodenum and carefully examined. The bulb and the second part of the duodenum appeared grossly normal except for some mild scattered erythema suggestive of mild duodenitis which was biopsied. The scope at this time was withdrawn to the stomach, adequately insufflated with air, and upon careful examination, mucosa of the antrum, body, cardia and the fundus appeared grossly normal except for some punctate erythema and superficial erosions suggestive of moderate gastritis with biopsies of the antrum and body taken. The scope was then withdrawn into the esophagus. The GE junction was located at 42 cm from the incisors. The esophagus was significant for 3 cm of LA grade B distal esophagitis. The patient tolerated the procedure well. IMPRESSION: 1. No active bleeding or old blood. 2. Moderate gastritis antrum and body biopsied. 3. Mild duodenitis biopsied. 4. LA grade B distal esophagitis.. RECOMMENDATIONS: The findings of this examination were discussed with the patient. Okay to resume regular diet. Suspicion is for esophagitis and Teresita-Jensen tear in the setting of retching. Extensive discussion with the patient would like to proceed with medical management. Continue Protonix 40 mg twice daily. No plans for colonoscopy at this time, however if further signs or symptoms develop we'll reevaluate at that time.
--- NOTE | 2019-08-03 13:25 | P.PN ---
Subjective Progress Note Date: 08/03/19 CHIEF COMPLAINT: Chronic abdominal pain HISTORY OF PRESENT ILLNESS: The patient is a 61-year-old male with history of chronic abdominal pain. He had previous workup including small bowel follow-through, EGD, ultrasound of the abdomen in 2017, 2 years ago for similar complaints. Today he completed an upper endoscopy. He reports primarily right sided pain worse in the right upper quadrant. He confirms decreased tolerance with foods with fats. He denies any left sided pain. "I love to eat nuts!" He reports thirst. I have urinating well. ROS: No fevers or chills. No new chest pain. No productive sputum PHYSICAL EXAM: VITAL SIGNS: Reviewed CONSTITUTIONAL: Well developed and in no acute distress. EYES: Conjuctivae without sclera icterus. Extraocular movements grossly intact. HEAD, EARS, NOSE, THROAT: Moist buccal mucosa. Head is atraumatic, normocephalic. Hears conversational speech. No nasal drainage. NECK: Supple. Prior thyroid surgery. RESPIRATORY: Non-labored respirations and equal bilateral excursions. CARDIOVASCULAR: Palpable 2+ radial pulses. Regular rate. Regular rhythm. ABDOMEN: Soft. No peritonitis. Well healed left upper quadrant incision without hernia. MUSCULOSKELETAL: No gross deformity of the lower extremities noted. No clubbing. No cyanosis. SKIN: Good skin turgor. Well perfused. NEUROLOGIC: Cranial nerves I through XII grossly intact. No focal or lateralizing signs. PSYCH: Appropriate affect. Alert and oriented to person, place and time. CLINICAL LABS: White blood cell count normal and improved from yesterday over 13,000. STUDIES: CT of the abdomen pelvis independently reviewed demonstrating features of diverticulosis of the ascending colon. No evidence of acute diverticulitis. The rugal folds of the stomach was thickened. No evidence of large hiatal hernia found. Contrast identified to the cecum. Gallbladder was distended. This is my personal interpretation. Ultrasound of the gallbladder also independently reviewed demonstrating abnormal fold of the gallbladder with thickened gallbladder wall 3 mm which is diagnost ic. Also, large at least 2 liver cysts identified. REPORT: CT of the abdomen report reviewed consistent with multiple renal and liver cysts. Gastroenteritis presumed. MEDICAL RECORDS: Medical records of the last 2 years including diagnostic studies reviewed demonstrating prior upper endoscopy without gastric outlet obstruction. EGD from this morning confirms erosive esophagitis, no ulcers. ASSESSMENT: 1. Chronic abdominal pain, right upper and right lower. 2. Thickened gallbladder wall consistent per ultrasound 3. Diverticulosis of the hepatic flexure, ascending colon PLAN: 1. Recommend HIDA scan with presentation of pain and thickened gallbladder wall for which chronic cholecystitis cannot be excluded. 2. May start liquid diet. Objective - Vital Signs Vital signs: Vital Signs Temp 98.2 F 08/03/19 07:00 Pulse 70 08/03/19 09:21 Resp 15 08/03/19 09:21 BP 152/81 08/03/19 07:00 Pulse Ox 100 08/03/19 07:00 Intake & Output 08/02/19 08/03/19 08/03/19 18:59 06:59 18:59 Intake Total 950 1062.5 Balance 950 1062.5 Intake: Intake, IV Titration 400 1062.5 Amount Piperacillin-Tazobactam 3 100 200 .375 gm In Sodium Chloride 0.9% 100 ml @ 25 mls/hr IVPB Q8HR [facility] Rx# :[id number] Sodium Chloride 0.9% 1, 300 862.5 000 ml @ 75 mls/hr IV . [id number] [facility] Rx#:[id number] Oral 550 Other: Voiding Method Toilet Toilet Toilet # Voids 3 2 - Labs CBC & Chem 7: 08/03/19 06:54 08/03/19 06:54 Labs: Abnormal Lab Results - Last 24 Hours (Table) 08/03/19 08/03/19 Range/Units 06:54 06:54 RBC 2.75 L (4.30-5.90) m/uL Hgb 8.7 L (13.0-17.5) gm/dL Hct 25.9 L (39.0-53.0) % Creatinine 1.56 H (0.66-1.25) mg/dL Calcium 8.2 L (8.4-10.2) mg/dL Microbiology - Last 24 Hours (Table) 08/01/19 15:15 Blood Culture - Preliminary Blood No Growth after 24 hours Assessment and Plan (1) Hepatic cyst Current Visit: Yes Status: Acute Code(s): K76.89 - OTHER SPECIFIED DISEASES OF LIVER SNOMED Code(s): 46547463 (2) Renal cyst Current Visit: Yes Status: Acute Code(s): N28.1 - CYST OF KIDNEY, ACQUIRED SNOMED Code(s): 421100984 (3) Intractable abdominal pain Current Visit: Yes Status: Acute Code(s): R10.9 - UNSPECIFIED ABDOMINAL PAIN SNOMED Code(s): 63387595 (4) Dehydration Current Visit: No Status: Acute Code(s): E86.0 - DEHYDRATION SNOMED Code(s): 18414372 (5) Epigastric abdominal pain Current Visit: No Status: Acute Code(s): R10.13 - EPIGASTRIC PAIN SNOMED Code(s): 01152343 (6) Right upper quadrant abdominal pain Current Visit: Yes Status: Acute Code(s): R10.11 - RIGHT UPPER QUADRANT PAIN SNOMED Code(s): 803268274 (7) Cholecystitis Current Visit: Yes Status: Acute Code(s): K81.9 - CHOLECYSTITIS, UNSPECIFIED SNOMED Code(s): 87328048
[2019-08-03] MEDS: PANTOPRAZOLE 40 MG TABLET PO SCH (17:20)
--- NOTE | 2019-08-03 17:41 | P.PN ---
Subjective Progress Note Date: 08/02/19 Principal diagnosis: Abdominal pain Acute anemia Acute renal injury Leukocytosis 69-year-old male patient admitted to the hospital with abdominal pain ongoing for a week; CT of the abdomen was done which revealed antritis and possible peptic ulcer disease; patient blood work also revealed hemoglobin drop raising concern for possible bleeding peptic ulcer disease in setting of chronic steroid use; patient is admitted to the hospital for GI and surgical evaluation 08/02/2019 Patient is seen and evaluated in room at bedside; continues to complain of ri ght-sided abdominal pain Vital signs are reviewed and remained stable Blood work reveals a white blood count of 13.3, hemoglobin of 10.1 and platelet count of 247; sodium of 134, potassium 4.5, BUN of 25 and creatinine of 1.40 Patient has been evaluated by surgery and is not recommended any surgical intervention; patient will be started on clear liquid diet with a plan to keep patient nothing by mouth at midnight for possible EGD tomorrow with GI Objective - Vital Signs Vital signs: Vital Signs Temp 98.5 F 08/02/19 07:00 Pulse 74 08/02/19 07:00 Resp 17 08/02/19 07:00 BP 137/80 08/02/19 07:00 Pulse Ox 97 08/02/19 07:00 Intake & Output 08/01/19 08/02/19 08/02/19 18:59 06:59 18:59 Intake Total 20 Balance 20 Weight 67.132 kg Intake: Oral 20 Other: Voiding Method Toilet # Voids 1 - Exam GENERAL: The patient is alert and oriented x3, not in any acute distress. Well developed, well nourished. HEENT: Pupils are round and equally reacting to light. EOMI. No scleral icterus. No conjunctival pallor. Normocephalic, atraumatic. No pharyngeal erythema. No thyromegaly. CARDIOVASCULAR: S1 and S2 present. No murmurs, rubs, or gallops. PULMONARY: Chest is clear to auscultation, no wheezing or crackles. ABDOMEN: Soft, nontender, nondistended, normoactive bowel sounds. No palpable organomegaly. MUSCULOSKELETAL: No joint swelling or deformity. EXTREMITIES: No cyanosis, clubbing, or pedal edema. NEUROLOGICAL: Gross neurological examination did not reveal any focal deficits. SKIN: No rashes. - Labs CBC & Chem 7: 08/03/19 06:54 08/03/19 06:54 Labs: Abnormal Lab Results - Last 24 Hours (Table) 08/01/19 08/01/19 08/01/19 Range/Units 11:03 11:03 11:07 WBC 17.7 H (3.8-10.6) k/uL RBC 3.50 L (4.30-5.90) m/uL Hgb 11.1 L D (13.0-17.5) gm/dL Hct 32.5 L (39.0-53.0) % Neutrophils # 15.6 H (1.3-7.7) k/uL Lymphocytes # 0.9 L (1.0-4.8) k/uL Sodium 132 L (137-145) mmol/L Chloride 97 L (98-107) mmol/L BUN 39 H (9-20) mg/dL Creatinine 1.38 H (0.66-1.25) mg/dL Glucose 102 H (74-99) mg/dL Calcium (8.4-10.2) mg/dL Total Protein 5.8 L (6.3-8.2) g/dL Albumin 3.3 L (3.5-5.0) g/dL Urine Protein 1+ H (Negative) Urine Ketones 2+ H (Negative) Urine Bilirubin 1+ H (Negative) 08/01/19 08/02/19 Range/Units 19:19 07:25 WBC 13.3 H (3.8-10.6) k/uL RBC 3.10 L (4.30-5.90) m/uL Hgb 10.1 L (13.0-17.5) gm/dL Hct 30.6 L (39.0-53.0) % Neutrophils # 10.9 H (1.3-7.7) k/uL Lymphocytes # (1.0-4.8) k/uL Sodium 134 L (137-145) mmol/L Chloride (98-107) mmol/L BUN 25 H (9-20) mg/dL Creatinine 1.40 H (0.66-1.25) mg/dL Glucose (74-99) mg/dL Calcium 8.1 L (8.4-10.2) mg/dL Total Protein (6.3-8.2) g/dL Albumin (3.5-5.0) g/dL Urine Protein (Negative) Urine Ketones (Negative) Urine Bilirubin (Negative) Assessment and Plan Assessment: 1. Abdominal pain; etiology unclear; enteritis versus bleeding peptic ulcer disease - We will start patient on IV Protonix 40 mg twice a day; monitor H&H every 12 hours; monitor for stool occult blood; type crossmatch and transfuse if hemoglobin is less than 8 - Consult GI for further evaluation 2. Acute anemia; rule out acute blood loss; as above we will monitor H&H every 12 hours; monitor for stool occult blood; type and crossmatch and transfuse if hemoglobin is less than 8; hold off on oral dose of steroids 3. Leukocytosis; reactive versus infectious; patient was given 1 dose of IV Zosyn in ED; we will consult pharmacy to dose Zosyn due to acute renal injury; we will monitor CBC, pro-calcitonin, CRP and lactic acid levels 4. Acute renal injury; IV fluids normal saline at rate of 75 mL an hour; monitor strict NORBERTO's, daily weights, renal function and electrolytes; avoid nephrotoxins and hypotension 5. Hypertension; we will hold off on LUCHO inhibitor's due to acute renal failure; monitor blood pressure closely and will order IV hydralazine to be used when necessary 6. Hyperlipidemia; hold off on oral statin therapy 7. 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 Hypothyroidism; levothyroxin 125 MCG daily DVT prophylaxis; SCDs only due to anemia CODE STATUS; full code Time with Patient: Greater than 30
[2019-08-04] MEDS: PIPERACILLIN-TAZOBACTAM 3.375 GM in SODIUM CHLORIDE 0.9% 100 ML IVPB SCH ×4 (00:01→23:53)
[2019-08-04] MEDS: SODIUM CHLORIDE 0.9% 1,000 ML IV SCH (00:03)
[2019-08-04] MEDS: LEVOTHYROXINE 125 MCG TAB PO SCH (05:27)
[2019-08-04 07:40] LABS: Basophils % (A) 1 %; Eosinophils # (A) 0.4 k/uL (0-0.7); Eosinophils % (A) 4 %; HCT 27.9 % (39.0-53.0); HGB 9.1 gm/dL (13.0-17.5); Lymphocytes # (A) 1.6 k/uL (1.0-4.8); Lymphocytes % (A) 16 %; MCH 30.8 pg (25.0-35.0); MCHC 32.7 g/dL (31.0-37.0); MCV 94.2 fL (80.0-100.0); Mean Platelet Volume 6.9; Monocytes # (A) 0.4 k/uL (0-1.0); Monocytes % (A) 4 %; Neutrophils # (A) 7.4 k/uL (1.3-7.7); Neutrophils % (A) 75 %; Platelet Count 326 k/uL (150-450); RBC 2.96 m/uL (4.30-5.90); WBC 9.9 k/uL (3.8-10.6)
[2019-08-04 08:19] LABS: Calcium 8.1 mg/dL (8.4-10.2); Potassium 3.9 mmol/L (3.5-5.1)
--- NOTE | 2019-08-04 09:03 | NM ---
Nuclear medicine hepatobiliary scan. HISTORY: Pain. DOSAGE: The patient received 1.4 micrograms of CCK and 4.8 mCi of Technetium 99m Choletec. FINDINGS: There is heterogeneous hepatic extraction. The gallbladder is seen by 30 minutes. There i s biliary to bowel clearance by 30 minutes. Ejection fraction is 85%. IMPRESSION: 1. Normal filling of the gallbladder with no diagnostic evidence of cholecystitis. 2. Ejection fraction of 85% can occasionally be seen with hyperdynamic gallbladder correlate clinical ly. 3. Heterogeneous hepatic extraction likely related to the hepatic cysts noted by recent CT scan
[2019-08-04] MEDS: PANTOPRAZOLE 40 MG TABLET PO SCH ×2 (09:32→17:10)
[2019-08-04] MEDS: HYDROmorphone 0.5 MG/0.5 ML SYRINGE IVP PRN ×3 (09:32→22:01)
--- NOTE | 2019-08-04 12:02 | P.PN ---
Subjective Progress Note Date: 08/03/19 Principal diagnosis: Abdominal pain Acute anemia Acute renal injury Leukocytosis 69-year-old male patient admitted to the hospital with abdominal pain ongoing for a week; CT of the abdomen was done which revealed antritis and possible peptic ulcer disease; patient blood work also revealed hemoglobin drop raising concern for possible bleeding peptic ulcer disease in setting of chronic steroid use; patient is admitted to the hospital for GI and surgical evaluation 08/02/2019 Patient is seen and evaluated in room at bedside; continues to complain of ri ght-sided abdominal pain Vital signs are reviewed and remained stable Blood work reveals a white blood count of 13.3, hemoglobin of 10.1 and platelet count of 247; sodium of 134, potassium 4.5, BUN of 25 and creatinine of 1.40 Patient has been evaluated by surgery and is not recommended any surgical intervention; patient will be started on clear liquid diet with a plan to keep patient nothing by mouth at midnight for possible EGD tomorrow with GI 08/03/2019 patient is s/p EGD; 1. No active bleeding or old blood. 2. Moderate gastritis antrum and body biopsied. 3. Mild duodenitis biopsied. 4. LA grade B distal esophagitis.. The findings discussed with the patient. Started regular diet. Suspicion is for esophagitis and Teresita-Jensen tear in the setting of retching. Continue Protonix 40 mg twice daily. No plans for colonoscopy at this time, however if further signs or symptoms develop we'll reevaluate at that time. DC in next 24 hrs Objective - Vital Signs Vital signs: Vital Signs Temp 98.3 F 08/03/19 14:25 Pulse 71 08/03/19 14:25 Resp 16 08/03/19 14:25 BP 167/90 08/03/19 14:25 Pulse Ox 99 08/03/19 14:25 Intake & Output 08/02/19 08/03/19 08/03/19 18:59 06:59 18:59 Intake Total 950 1062.5 725 Balance 950 1062.5 725 Intake: IV 100 Intake, IV Titration 400 1062.5 625 Amount Piperacillin-Tazobactam 3 100 200 100 .375 gm In Sodium Chloride 0.9% 100 ml @ 25 mls/hr IVPB Q8HR [facility] Rx# :[id number] Sodium Chloride 0.9% 1, 300 862.5 525 000 ml @ 75 mls/hr IV . [id number] [facility] Rx#:[id number] Oral 550 Other: Voiding Method Toilet Toilet Toilet # Voids 3 2 - Exam GENERAL: The patient is alert and oriented x3, not in any acute distress. Well developed, well nourished. HEENT: Pupils are round and equally reacting to light. EOMI. No scleral icterus. No conjunctival pallor. Normocephalic, atraumatic. No pharyngeal erythema. No thyromegaly. CARDIOVASCULAR: S1 and S2 present. No murmurs, rubs, or gallops. PULMONARY: Chest is clear to auscultation, no wheezing or crackles. ABDOMEN: Soft, nontender, nondistended, normoactive bowel sounds. No palpable organomegaly. MUSCULOSKELETAL: No joint swelling or deformity. EXTREMITIES: No cyanosis, clubbing, or pedal edema. NEUROLOGICAL: Gross neurological examination did not reveal any focal deficits. SKIN: No rashes. - Labs CBC & Chem 7: 08/04/19 06:59 08/04/19 06:59 Labs: Abnormal Lab Results - Last 24 Hours (Table) 08/03/19 08/03/19 Range/Units 06:54 06:54 RBC 2.75 L (4.30-5.90) m/uL Hgb 8.7 L (13.0-17.5) gm/dL Hct 25.9 L (39.0-53.0) % Creatinine 1.56 H (0.66-1.25) mg/dL Calcium 8.2 L (8.4-10.2) mg/dL Microbiology - Last 24 Hours (Table) 08/01/19 15:15 Blood Culture - Preliminary Blood No Growth after 48 hours Assessment and Plan Assessment: 1. Abdominal pain; etiology unclear; enteritis versus bleeding peptic ulcer disease - We will start patient on IV Protonix 40 mg twice a day; monitor H&H every 12 hours; monitor for stool occult blood; type crossmatch and transfuse if hemoglobin is less than 8 - Consult GI for further evaluation 2. Acute anemia; rule out acute blood loss; as above we will monitor H&H every 12 hours; monitor for stool occult blood; type and crossmatch and transfuse if hemoglobin is less than 8; hold off on oral dose of steroids 3. Leukocytosis; reactive versus infectious; patient was given 1 dose of IV Zosyn in ED; we will consult pharmacy to dose Zosyn due to acute renal injury; we will monitor CBC, pro-calcitonin, CRP and lactic acid levels 4. Acute renal injury; IV fluids normal saline at rate of 75 mL an hour; monitor strict NORBERTO's, daily weights, renal function and electrolytes; avoid nephrotoxins and hypotension 5. Hypertension; we will hold off on LUCHO inhibitor's due to acute renal failure; monitor blood pressure closely and will order IV hydralazine to be used when necessary 6. Hyperlipidemia; hold off on oral statin therapy 7. 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 Hypothyroidism; levothyroxin 125 MCG daily DVT prophylaxis; SCDs only due to anemia CODE STATUS; full code Time with Patient: Greater than 30
--- NOTE | 2019-08-04 14:14 | P.PN ---
Subjective Progress Note Date: 08/04/19 CHIEF COMPLAINT: Chronic abdominal pain HISTORY OF PRESENT ILLNESS: The patient is a 61-year-old male with history of chronic abdominal pain. Family is at bedside. He reports chronic nausea with right upper quadrant pain that radiates to the lower abdomen. No vomiting today. He ate a turkey sandwich. ROS: No fevers or chills. No new chest pain. No productive sputum PHYSICAL EXAM: VITAL SIGNS: Reviewed CONSTITUTIONAL: Well developed and in no acute distress. EYES: Conjuctivae without sclera icterus. Extraocular movements grossly intact. HEAD, EARS, NOSE, THROAT: Moist buccal mucosa. Head is atraumatic, normocephalic. Hears conversational speech. No nasal drainage. RESPIRATORY: Non-labored respirations and equal bilateral excursions. CARDIOVASCULAR: Palpable 2+ radial pulses. Regular rate. Regular rhythm. ABDOMEN: Soft. No peritonitis. Well healed left upper quadrant incision without hernia. Tender along right upper qudrant and supra-pubic MUSCULOSKELETAL: No gross deformity of the lower extremities noted. No clubbing. No cyanosis. SKIN: Good skin turgor. Well perfused. NEUROLOGIC: Cranial nerves I through XII grossly intact. No focal or lateralizing signs. PSYCH: Appropriate affect. Alert and oriented to person, place and time. CLINICAL LABS: White blood cell count normal REPORT: HIDA scan reviewed with hyperdynamic gallbladder over 85% ASSESSMENT: 1. Chronic abdominal pain, right upper and right lower. 2. Thickened gallbladder wall consistent per ultrasound 3. Diverticulosis of the hepatic flexure, ascending colon 4. Hyperdynamic gallbladder 5. Suprabic pain PLAN: 1. Recommend trial of high fat diet otherwise abdominal pain is stable 2. US of bladder for supra-pubic pain Objective - Vital Signs Vital signs: Vital Signs Temp 98.3 F 08/04/19 07:00 Pulse 72 08/04/19 07:00 Resp 16 08/04/19 09:40 BP 136/84 08/04/19 07:00 Pulse Ox 99 08/04/19 07:00 Intake & Output 08/03/19 08/04/19 08/04/19 18:59 06:59 18:59 Intake Total 725 Balance 725 Intake: IV 100 Intake, IV Titration 625 Amount Piperacillin-Tazobactam 3 100 .375 gm In Sodium Chloride 0.9% 100 ml @ 25 mls/hr IVPB Q8HR [facility] Rx# :[id number] Sodium Chloride 0.9% 1, 525 000 ml @ 75 mls/hr IV . [id number] [facility] Rx#:[id number] Other: Voiding Method Toilet Toilet # Voids 1 - Labs CBC & Chem 7: 08/04/19 06:59 08/04/19 06:59 Labs: Abnormal Lab Results - Last 24 Hours (Table) 08/04/19 08/04/19 Range/Units 06:59 06:59 RBC 2.96 L (4.30-5.90) m/uL Hgb 9.1 L (13.0-17.5) gm/dL Hct 27.9 L (39.0-53.0) % Creatinine 1.52 H (0.66-1.25) mg/dL Calcium 8.1 L (8.4-10.2) mg/dL Microbiology - Last 24 Hours (Table) 08/01/19 15:15 Blood Culture - Preliminary Blood No Growth after 48 hours Assessment and Plan (1) Hepatic cyst Current Visit: Yes Status: Acute Code(s): K76.89 - OTHER SPECIFIED DISEASES OF LIVER SNOMED Code(s): 01281940 (2) Renal cyst Current Visit: Yes Status: Acute Code(s): N28.1 - CYST OF KIDNEY, ACQUIRED SNOMED Code(s): 495214137 (3) Intractable abdominal pain Current Visit: Yes Status: Acute Code(s): R10.9 - UNSPECIFIED ABDOMINAL PAIN SNOMED Code(s): 14522399 (4) Dehydration Current Visit: No Status: Acute Code(s): E86.0 - DEHYDRATION SNOMED Code(s): 82776410 (5) Epigastric abdominal pain Current Visit: No Status: Acute Code(s): R10.13 - EPIGASTRIC PAIN SNOMED Code(s): 33693287 (6) Right upper quadrant abdominal pain Current Visit: Yes Status: Acute Code(s): R10.11 - RIGHT UPPER QUADRANT PAIN SNOMED Code(s): 259100513 (7) Cholecystitis Current Visit: Yes Status: Acute Code(s): K81.9 - CHOLECYSTITIS, UNSPECIFIED SNOMED Code(s): 62826371
[2019-08-04] MEDS: ONDANSETRON 4 MG/2 ML VIAL IVP PRN ×2 (15:58→23:53)
--- NOTE | 2019-08-04 17:37 | US ---
EXAMINATION TYPE: US kidneys/renal and bladder DATE OF EXAM: 08/04/2019 COMPARISON: CT & US 2019 11/14/2017 CLINICAL HISTORY: renal insufficiency, suprapubic pain. Nausea, left kidney removed, exam done alisha morton EXAM MEASUREMENTS: Right Kidney: 13.2 x 5.6 x 4.6 cm Right Kidney: multiple small cortical cysts, 5.3 x 3.0 x 2.3cm cystic area mid pole Left Kidney: surgically absent Bladder: not fully distended, wall appears irregular and thickened Bilateral Jet seen: no There is no evidence for hydronephrosis at this point in time. No nephrolithiasis is seen. No sterling s are identified. The urinary bladder is anechoic. Bilateral ureteral jets are seen. IMPRESSION: There is urinary bladder wall thickening similar to old exam. No evidence of a solid renal mass or ob struction.
[2019-08-05] MEDS: HYDROmorphone 0.5 MG/0.5 ML SYRINGE IVP PRN ×2 (05:46→08:52)
[2019-08-05] MEDS: LEVOTHYROXINE 125 MCG TAB PO SCH (05:46)
[2019-08-05] MEDS: SODIUM CHLORIDE 0.9% 1,000 ML IV SCH ×6 (06:52→23:18)
[2019-08-05] MEDS: PIPERACILLIN-TAZOBACTAM 3.375 GM in SODIUM CHLORIDE 0.9% 100 ML IVPB SCH ×2 (08:10→15:15)
[2019-08-05] MEDS: PANTOPRAZOLE 40 MG TABLET PO SCH ×2 (08:10→17:39)
[2019-08-05] MEDS: ONDANSETRON 4 MG/2 ML VIAL IVP PRN ×3 (08:10→23:11)
--- NOTE | 2019-08-05 09:04 | P.DS ---
Providers Date of admission: 08/03/19 08:40 Expected date of discharge: 08/04/19 Attending physician: Preet Galvez MD Consults: 08/01/19 14:22 Consult Physician Routine Consulting Provider: Lenora Nava Consult Reason/Comments: intractable abdominal pain, concern peptic ulcer Do you want consulting provider notified?: Yes 08/01/19 14:31 Consult Physician Routine Consulting Provider: Raúl Alves Consult Reason/Comments: abdominal pain Do you want consulting provider notified?: Yes Primary care physician: Candace Yao [facility] Hospital Course: Abdominal pain Acute anemia Acute renal injury Leukocytosis 69-year-old male patient admitted to the hospital with abdominal pain ongoing for a week; CT of the abdomen was done which revealed antritis and possible peptic ulcer disease; patient blood work also revealed hemoglobin drop raising concern for possible bleeding peptic ulcer disease in setting of chronic steroid use; patient is admitted to the hospital for GI and surgical evaluation 08/02/2019 Patient is seen and evaluated in room at bedside; continues to complain of right-sided abdominal pain Vital signs are reviewed and remained stable Blood work reveals a white blood count of 13.3, hemoglobin of 10.1 and platelet count of 247; sodium of 134, potassium 4.5, BUN of 25 and creatinine of 1.40 Patient has been evaluated by surgery and is not recommended any surgical intervention; patient will be started on clear liquid diet with a plan to keep patient nothing by mouth at midnight for possible EGD tomorrow with GI 08/03/2019 patient is s/p EGD; 1. No active bleeding or old blood. 2. Moderate gastritis antrum and body biopsied. 3. Mild duodenitis biopsied. 4. LA grade B distal esophagitis.. The findings discussed with the patient. Started regular diet. Suspicion is for esophagitis and Teresita-Jensen tear in the setting of retching. Continue Protonix 40 mg twice daily. No plans for colonoscopy at this time, however if further signs or symptoms develop we'll reevaluate at that time. DC in next 24 hrs Patient Condition at Discharge: Stable Plan - Discharge Summary Discharge Rx Participant: Yes New Discharge Prescriptions: New Pantoprazole [Protonix] 40 mg PO AC-BID #30 tablet. Continue Levothyroxine Sodium [Synthroid] 125 mcg PO DAILY Simvastatin [Zocor] 20 mg PO HS Clopidogrel [Plavix] 75 mg PO DAILY traZODone HCL [Desyrel] 50 mg PO HS PRN PRN Reason: Insomnia predniSONE 1 mg PO BID Ondansetron [Zofran ODT] 4 mg PO TID PRN PRN Reason: Nausea Allopurinol [Zyloprim] 300 mg PO DAILY Promethazine HCl 12.5 mg PO QID PRN PRN Reason: Nausea Acetaminophen-Codeine 300-30mg [Tylenol w/codeine #3] 1 tab PO TID PRN PRN Reason: Pain Lutein (Unknown Dose) 1 tab PO DAILY Losartan Potassium 100 mg PO DAILY Discharge Medication List Clopidogrel [Plavix] 75 mg PO DAILY 05/29/15 [History] Levothyroxine Sodium [Synthroid] 125 mcg PO DAILY 05/29/15 [History] Simvastatin [Zocor] 20 mg PO HS 05/29/15 [History] traZODone HCL [Desyrel] 50 mg PO HS PRN 10/23/15 [History] Allopurinol [Zyloprim] 300 mg PO DAILY 10/20/18 [History] Ondansetron [Zofran ODT] 4 mg PO TID PRN 10/20/18 [History] Promethazine HCl 12.5 mg PO QID PRN 10/20/18 [History] predniSONE 1 mg PO BID 10/20/18 [History] Acetaminophen-Codeine 300-30mg [Tylenol w/codeine #3] 1 tab PO TID PRN 08/01/19 [History] Losartan Potassium 100 mg PO DAILY 08/01/19 [History] Lutein (Unknown Dose) 1 tab PO DAILY 08/01/19 [History] Pantoprazole [Protonix] 40 mg PO AC-BID #30 tablet. 08/04/19 [Rx] Follow up Appointment(s)/Referral(s): Candace Butcher III, MD [Primary Care Provider] - 1-2 days Discharge Disposition: HOME SELF-CARE
--- NOTE | 2019-08-05 10:40 | P.PN ---
<Starr Conley - Last Filed: 08/05/19 10:40> Subjective Progress Note Date: 08/05/19 CHIEF COMPLAINT: abdominal pain HISTORY OF PRESENT ILLNESS: Patient examined this morning at the bedside. He reports increased pain yesterday after consuming a high fat meal. Patient ate a greasy cheeseburger and reports pain about 30 minutes after eating. Denies nausea or vomiting. Abdominal pain is tolerable this morning. PHYSICAL EXAM: VITAL SIGNS: Reviewed GENERAL: Well-developed in no acute distress. HEENT: No sclera icterus. Extraocular movements grossly intact. Moist buccal mucosa. Head is atraumatic, normocephalic. Hears conversational speech. No nasal drainage. NECK: Supple without lymphadenopathy. CHEST: Non-labored respirations and equal bilateral excursions. CARDIOVASCULAR: Regular rate with regular rhythm. Palpable 2+ radial pulses. ABDOMEN: Soft. Nondistended. Tenderness upon palpation right lower quadrant and suprapubic region. No peritoneal signs. MUSCULOSKELETAL: No clubbing or cyanosis NEUROLOGIC: No focal or lateralizing signs. Cranial nerves II through XII grossly intact. PSYCH: Appropriate affect. Alert and oriented to person, place and time. SKIN: Well perfused. Good skin turgor. ASSESSMENT: 1. Right sided abdominal pain 2. Chronic abdominal pain and nausea, etiology unknown 3. Isolated episode of dark brown/black emesis with recent drop in hemoglobin, possible acute blood loss anemia, S/P EGD revealing erosive esophagitis, no ulcers 4. Dysphagia 5. Possible enteritis per CT scan, diverticulosis of hepatic flexure and descending colon 6. Chronic steroid use 7. Thickened gallbladder wall per ultrasound, hyperdynamic gallbladder per HIDA scan PLAN: -Continue diet as tolerated -Patient would like to discuss possible cholecystectomy versus nonoperative man agement in further detail with Dr. Peck this afternoon Nurse practitioner note has been reviewed by physician. Signing provider agrees with the documented findings, assessment, and plan of care. Objective - Vital Signs Vital signs: Vital Signs Temp 98.5 F 08/05/19 07:00 Pulse 57 L 08/05/19 07:00 Resp 16 08/05/19 07:00 BP 122/78 08/05/19 07:00 Pulse Ox 96 08/05/19 07:00 Intake & Output 12/29/19 12/30/19 12/30/19 18:59 06:59 18:59 Intake Total 1025 Balance 1025 Intake: Intake, IV Titration 675 Amount Sodium Chloride 0.9% 1, 675 000 ml @ 75 mls/hr IV . [id number] [facility] Rx#:[id number] Oral 350 Other: Voiding Method Toilet Toilet # Voids 1 - Labs CBC & Chem 7: 08/04/19 06:59 08/04/19 06:59 Labs: Microbiology - Last 24 Hours (Table) 08/01/19 15:15 Blood Culture - Preliminary Blood No Growth after 72 hours <Raúl Alves - Last Filed: 08/05/19 16:50> Subjective As above. Patient returned to the hospital with a recurrent mid abdominal discomfort associated with nausea and vomiting. CAT scan shows persistent if not increased regional enteritis involving proximal jejunum with some surrounding inflammatory changes. Discussed with GI. Consideration for short course of steroid therapy discussed. Patient has history of underlying rheumatoid arthritis and has been on steroids in the past. I'm not convinced at this time the patient's symptoms would be corrected with cholecystectomy. Hopefully can discharge after initiation of steroid therapy with plans for GI outpatient follow-up and workup. Objective - Vital Signs Vital signs: Vital Signs Temp 98.1 F 08/05/19 14:15 Pulse 78 08/05/19 14:15 Resp 17 08/05/19 16:00 BP 136/80 08/05/19 14:15 Pulse Ox 96 08/05/19 14:15 Intake & Output 08/04/19 08/05/19 08/05/19 18:59 06:59 18:59 Intake Total 1025 Balance 1025 Intake: Intake, IV Titration 675 Amount Sodium Chloride 0.9% 1, 675 000 ml @ 75 mls/hr IV . [id number] Rx#:[id number] Oral 350 Other: Voiding Method Toilet Toilet # Voids 1 1 - Labs CBC & Chem 7: 08/04/19 06:59 08/04/19 06:59 Labs: Microbiology - Last 24 Hours (Table) 08/01/19 15:15 Blood Culture - Preliminary Blood No Growth after 72 hours
[2019-08-05] MEDS: HYDROcodone/APAP 5-325MG 1 EACH TAB PO PRN ×3 (11:22→23:11)
--- NOTE | 2019-08-05 15:11 | CDI ---
Documentation Clarification Form Date: 08/05/2019 03:03:20 PM From: Nupur FisherDEE barnes, CCDS Admit Date: 08/03/2019 08:40:00 AM Patient Name: Micky Moise Visit Number: [id number] Discharge Date: ATTENTION: The Clinical Documentation Specialists (CDI) and [facility] Coding Staff appreciate your assistance in clarifying documentation. Please respond to the clarification below the line at the bottom and electronically sign. The CDI & [facility] Coding staff will review the response and follow-up if needed. Please note: Queries are made part of the Legal Health Record. If you have any questions, please contact the author of this message via ITS. Dr. Shahnaz Oleary or Dr. Vance Maurer: Per the GI consult: " Mild elevation of BUN and creatinine consistent with chronic kidney disease." Per the 08/01 H/P: Chronic renal failure is documented. History/Risk Factors: TIA, Hyperlipidemia, Hypertension, OA, RA, Hypothyroid, CKD? Kidney CA, Former smoker. Clinical Indicators: Presented with RUQ abdominal pain, nausea, vomiting & diarrhea x1 week, diagnosed with possible gastritis, esophagitis, duodenitis & enteritis. Also diagnosed with dehydration & CITLALLI. GFR: 52 - 52 - 45 - 47 BUN: 39 - 25 - 17 - 14 Creatinine: 1.38 - 1.40 - 1.56 - 1.52 Treatment: IV Ms, IV Zofran, IV fluid bolus, IV PPI In order to capture the severity of condition, please clarify if the condition signifies: CKD Stage 1 (GFR > 90) CKD Stage 2 (GFR 60-89) CKD Stage 3 (GFR 30-59) Other, please specify Unable to determine (Last Revision: November 2017) CKD Stage 3 MTDD
--- NOTE | 2019-08-05 18:18 | P.PN ---
Progress Note - Text Progress Note Date: 08/05/19 Patient reports symptoms exacerbated with eating fatty foods. Recommend food diary journal. I do not recommend cholecystectomy at this time. Recommend additional work-up as outpatient for which the patient agreed.
[2019-08-05] MEDS ORDERED: methylPREDNISolone SOD SUCCI 40 MG/ML 1 ML VIAL IV STA (21:42)
--- NOTE | 2019-08-05 22:30 | P.PN ---
Subjective Progress Note Date: 08/05/19 Principal diagnosis: Coffee-ground emesis, nausea and vomiting, enteritis Patient is seen lying in bed and sleeping abdominal pain is somewhat improved. Tolerating diet. No further episodes of vomiting or coffee-ground emesis. Objective - Vital Signs Vital signs: Vital Signs Temp 98.1 F 08/05/19 14:15 Pulse 78 08/05/19 14:15 Resp 17 08/05/19 16:00 BP 136/80 08/05/19 14:15 Pulse Ox 96 08/05/19 14:15 Intake & Output 08/05/19 08/05/19 08/06/19 06:59 18:59 06:59 Other: Voiding Method Toilet # Voids 1 1 - Exam On physical examination, patient appears comfortable in no apparent distress. HEAD: Normocephalic, atraumatic. EYES: No scleral icterus. No conjunctival injection. MOUTH: No lesions, tongue midline. NECK: Trachea midline, no gross abnormalities. ABDOMEN: Soft, obese. Bowel sounds are positive. No organomegaly. No guarding or rigidity. EXTREMITIES: No pedal edema. SKIN: No rashes, no jaundice. NEUROLOGIC: Alert and oriented x3. No focal deficits. - Labs CBC & Chem 7: 08/04/19 06:59 08/04/19 06:59 Labs: Microbiology - Last 24 Hours (Table) 08/01/19 15:15 Blood Culture - Preliminary Blood No Growth after 96 hours Assessment and Plan (1) Intractable nausea and vomiting Narrative/Plan: Patient presenting with complaints of intractable nausea and vomiting with reports of coffee-ground emesis. Taken for EGD with findings of esophagitis, gastritis and duodenitis with no active bleeding or old blood noted. Current Visit: No Status: Acute Code(s): R11.2 - NAUSEA WITH VOMITING, UNSPECIFIED SNOMED Code(s): 044622390 (2) Abdominal pain Narrative/Plan: Patient with presentation of nausea vomiting and abdominal pain with computed tomography scan concerning for enteritis with thickening of the jejunum noted. Currently being treated with antibiotic therapy. We'll start a trial of steroid therapy with a taper to help with symptoms in case of a component of inflammatory disease contributing to symptoms in a patient. Current Visit: No Status: Acute Code(s): R10.9 - UNSPECIFIED ABDOMINAL PAIN SNOMED Code(s): 43204564 (3) GERD (gastroesophageal reflux disease) Current Visit: No Status: Acute Code(s): K21.9 - GASTRO-ESOPHAGEAL REFLUX DISEASE WITHOUT ESOPHAGITIS SNOMED Code(s): 665075571 Plan: Supportive care Okay for diet Recommend discharge with Protonix 40 mg twice daily and given findings of esophagitis, gastritis and duodenitis Patient given an initial dose of IV Solu-Medrol, and will start a steroid taper tomorrow would recommend initiation at 40 mg prednisone daily be decreased by 10 mg every 5 days until complete Okay for discharge when otherwise medically stable, thank you for allowing us to participate in care of the patient
[2019-08-06] MEDS: PIPERACILLIN-TAZOBACTAM 3.375 GM in SODIUM CHLORIDE 0.9% 100 ML IVPB SCH ×4 (00:07→23:12)
[2019-08-06] MEDS: HYDROcodone/APAP 5-325MG 1 EACH TAB PO PRN ×4 (03:27→21:16)
[2019-08-06] MEDS: traZODone HCL 50 MG TAB PO PRN ×2 (03:30→21:16)
[2019-08-06] MEDS: LEVOTHYROXINE 125 MCG TAB PO SCH (04:44)
[2019-08-06] MEDS: PANTOPRAZOLE 40 MG TABLET PO SCH ×2 (08:56→17:34)
[2019-08-06] MEDS: predniSONE 20 MG TAB PO SCH (08:56)
[2019-08-06] MEDS: ONDANSETRON 4 MG/2 ML VIAL IVP PRN ×2 (09:34→17:34)
--- NOTE | 2019-08-06 10:29 | P.PN ---
<Starr Conley - Last Filed: 08/06/19 10:25> Subjective Progress Note Date: 08/06/19 CHIEF COMPLAINT: abdominal pain HISTORY OF PRESENT ILLNESS: Patient examined this morning at the bedside with Dr. Peck. Patient was evaluated yesterday by Dr. Alves and Dr. Peck. He was started on steroids per recommendations of Dr. Alves. Patient reports feeling worse since initiation of steroids. He feels worse today in comparison to yesterday. He reports abdominal discomfort after eating eggs and potatoes this morning. He thought he was having gas pains and reports ambulating this morning to try to help relieve the pain. He reports eating a pork chop yesterday for dinner that also gave him increased pain and nausea. PHYSICAL EXAM: VITAL SIGNS: Reviewed GENERAL: Well-developed in no acute distress. HEENT: No sclera icterus. Extraocular movements grossly intact. Moist buccal mucosa. Head is atraumatic, normocephalic. Hears conversational speech. No nasal drainage. NECK: Supple without lymphadenopathy. CHEST: Non-labored respirations and equal bilateral excursions. CARDIOVASCULAR: Regular rate with regular rhythm. Palpable 2+ radial pulses. ABDOMEN: Soft. Nondistended. Tenderness upon palpation right lower quadrant and suprapubic region. No peritoneal signs. MUSCULOSKELETAL: No clubbing or cyanosis NEUROLOGIC: No focal or lateralizing signs. Cranial nerves II through XII grossly intact. PSYCH: Appropriate affect. Alert and oriented to person, place and time. SKIN: Well perfused. Good skin turgor. ASSESSMENT: 1. Right sided abdominal pain 2. Chronic abdominal pain and nausea, etiology unknown 3. Isolated episode of dark brown/black emesis with recent drop in hemoglobin, possible acute blood loss anemia, S/P EGD revealing erosive esophagitis, no ulcers 4. Dysphagia 5. Possible enteritis per CT scan, diverticulosis of hepatic flexure and descending colon 6. Chronic steroid use 7. Thickened gallbladder wall per ultrasound, hyperdynamic gallbladder per HIDA scan PLAN: -Change diet to low fat diet -Dr. Peck discussed outpatient follow up with patient. Patient may either follow up outpatient with Dr. Peck for possible cholecystectomy in the future or he may follow up with Dr. Alves outpatient. The patient was encouraged to speak with his family and decide on which surgeon he would like to follow up with. Nurse practitioner note has been reviewed by physician. Signing provider agrees with the documented findings, assessment, and plan of care. Objective - Vital Signs Vital signs: Vital Signs Temp 97.7 F 08/06/19 07:00 Pulse 80 08/06/19 07:00 Resp 18 08/06/19 07:00 BP 138/78 08/06/19 07:00 Pulse Ox 97 08/06/19 07:00 Intake & Output 08/05/19 08/06/19 08/06/19 18:59 06:59 18:59 Other: Voiding Method Toilet # Voids 1 1 - Labs CBC & Chem 7: 08/04/19 06:59 08/04/19 06:59 Labs: Microbiology - Last 24 Hours (Table) 08/01/19 15:15 Blood Culture - Preliminary Blood No Growth after 96 hours <Ifrah Peck N - Last Filed: 08/07/19 11:58> Subjective As above. No surgical intervention upon this admission. Objective - Vital Signs Vital signs: Vital Signs Temp 98.5 F 08/07/19 07:00 Pulse 82 08/07/19 09:44 Resp 12 08/07/19 09:44 BP 135/80 08/07/19 07:00 Pulse Ox 98 08/07/19 07:00 Intake & Output 08/06/19 08/07/19 08/07/19 18:59 06:59 18:59 Intake Total 700 450 Output Total 200 Balance 700 250 Intake: Intake, IV Titration 450 Amount Sodium Chloride 0.9% 1, 450 000 ml @ 75 mls/hr IV . [id number] [facility] Rx#:[id number] Oral 700 Output: Urine/Stool Mix 200 Other: Voiding Method Toilet Toilet # Voids 3 1 - Labs CBC & Chem 7: 08/07/19 06:20 08/07/19 06:20 Labs: Abnormal Lab Results - Last 24 Hours (Table) 08/07/19 08/07/19 Range/Units 06:20 06:20 WBC 22.7 H (3.8-10.6) k/uL RBC 2.33 L (4.30-5.90) m/uL Hgb 7.2 L D (13.0-17.5) gm/dL Hct 22.3 L (39.0-53.0) % Plt Count 463 H (150-450) k/uL Neutrophils # 20.8 H (1.3-7.7) k/uL BUN 26 H (9-20) mg/dL Creatinine 1.79 H (0.66-1.25) mg/dL Calcium 8.3 L (8.4-10.2) mg/dL Microbiology - Last 24 Hours (Table) 08/01/19 15:15 Blood Culture - Preliminary Blood No Growth after 120 hours Assessment and Plan (1) Hepatic cyst Current Visit: Yes Status: Acute Code(s): K76.89 - OTHER SPECIFIED DISEASES OF LIVER SNOMED Code(s): 17455546 (2) Renal cyst Current Visit: Yes Status: Acute Code(s): N28.1 - CYST OF KIDNEY, ACQUIRED SNOMED Code(s): 568504336 (3) Intractable abdominal pain Current Visit: Yes Status: Acute Code(s): R10.9 - UNSPECIFIED ABDOMINAL PAIN SNOMED Code(s): 96423879 (4) Dehydration Current Visit: No Status: Acute Code(s): E86.0 - DEHYDRATION SNOMED Code(s ): 34382372 (5) Epigastric abdominal pain Current Visit: No Status: Acute Code(s): R10.13 - EPIGASTRIC PAIN SNOMED Code(s): 96596754 (6) Right upper quadrant abdominal pain Current Visit: Yes Status: Acute Code(s): R10.11 - RIGHT UPPER QUADRANT PAIN SNOMED Code(s): 725616499 (7) Cholecystitis Current Visit: Yes Status: Acute Code(s): K81.9 - CHOLECYSTITIS, UNSPECIFIED SNOMED Code(s): 30595150
[2019-08-06] MEDS: SODIUM CHLORIDE 0.9% 1,000 ML IV SCH ×2 (14:48→23:15)
[2019-08-06] MEDS: HYDROmorphone 0.5 MG/0.5 ML SYRINGE IVP PRN ×2 (19:32→22:22)
--- NOTE | 2019-08-06 23:36 | P.PN ---
Subjective Progress Note Date: 08/05/19 Principal diagnosis: Abdominal pain Enteritis Nausea vomiting 69-year-old male patient admitted to the hospital with abdominal pain ongoing for a week; CT of the abdomen was done which revealed antritis and possible peptic ulcer disease; patient blood work also revealed hemoglobin drop raising concern for possible bleeding peptic ulcer disease in setting of chronic steroid use; patient is admitted to the hospital for GI and surgical evaluation 08/02/2019 Patient is seen and evaluated in room at bedside; continues to complain of right-sided abdominal pain Vital signs are reviewed and remained stable Blood work reveals a white blood count of 13.3, hemoglobin of 10.1 and platelet count of 247; sodium of 134, potassium 4.5, BUN of 25 and creatinine of 1.40 Patient has been evaluated by surgery and is not recommended any surgical intervention; patient will be started on clear liquid diet with a plan to keep patient nothing by mouth at midnight for possible EGD tomorrow with GI 08/03/2019 patient is s/p EGD; 1. No active bleeding or old blood. 2. Moderate gastritis antrum and body biopsied. 3. Mild duodenitis biopsied. 4. LA grade B distal esophagitis.. The findings discussed with the patient. Started regular diet. Suspicion is for esophagitis and Teresita-Jensen tear in the setting of retching. Continue Protonix 40 mg twice daily. No plans for colonoscopy at this time, however if further signs or symptoms develop we'll reevaluate at that time. 08/05/2019 Patient is still complaining of lower abdominal pain and tenderness. CT of the abdominal pelvis showed concerning for enteritis and thickening of the jejunum was noted. Patient is currently being treated for with antibiotics in the form of Zosyn. General surgery is planning to start on prednisone tapering course. Case of a component of inflammatory disease contributing to symptoms. Patient is being continued on Protonix as well. Gastroenterology and general surgery is following. Patient has been afebrile. No nausea or vomiting. No chest pain or shortness of breath.. Current medications reviewed. Objective - Vital Signs Vital signs: Vital Signs Temp 98.1 F 08/05/19 14:15 Pulse 78 08/05/19 14:15 Resp 17 08/05/19 16:00 BP 136/80 08/05/19 14:15 Pulse Ox 96 08/05/19 14:15 Intake & Output 08/04/19 08/05/19 08/05/19 18:59 06:59 18:59 Intake Total 1025 Balance 1025 Intake: Intake, IV Titration 675 Amount Sodium Chloride 0.9% 1, 675 000 ml @ 75 mls/hr IV . [id number] [facility] Rx#:[id number] Oral 350 Other: Voiding Method Toilet Toilet # Voids 1 1 - Exam PHYSICAL EXAMINATION: Patient is lying in the bed comfortably, no acute distress, awake alert and oriented.. HEENT: Normocephalic. Neck is supple. Pupils reactive. Nostrils clear. Oral cavity is moist. Ears reveal no drainage. Neck reveals no JVD, carotid bruits, or thyromegaly. CHEST EXAMINATION: Trachea is central. Symmetrical expansion. Lung calderón clear to auscultation and percussion. CARDIAC: Normal S1, S2 with no gallops. No murmurs ABDOMEN: Soft. Minimal lower abdominal tenderness. No guarding no rigidity. Bowel sounds normal. No organomegaly. No abdominal bruits. Extremities: reveal no edema. No clubbing or cyanosis Neurologically awake, alert, oriented x3 with well-coordinated movements. No focal deficits noted Skin: No rash or skin lesions. Psychiatric: Coperative. Nonsuicidal Musculoskeletal: No joint swelling or deformity. Normal range of motion. - Labs CBC & Chem 7: 08/04/19 06:59 08/04/19 06:59 Labs: Microbiology - Last 24 Hours (Table) 08/01/19 15:15 Blood Culture - Preliminary Blood No Growth after 96 hours Assessment and Plan Assessment: 1. Lower Abdominal pain; possible enteritis with thickening of the jejunum and the CT abdomen. - Patient will be continued on antibiotics in the form of Zosyn and was started on steroids. Gastroenterology is following. 2. Mild Acute blood loss anemia; status post EGD showed moderate gastritis and duodenitis. 3. Leukocytosis; resolved now. 4. Acute renal injury; IV fluids normal saline at rate of 75 mL an hour; gilma tor strict NORBERTO's, daily weights, renal function and electrolytes; avoid nephrotoxins and hypotension 5. Hypertension; we will hold off on LUCHO inhibitor's due to acute renal failure; monitor blood pressure closely and will order IV hydralazine to be used when necessary 6. Hyperlipidemia; hold off on oral statin therapy 7. 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 Hypothyroidism; levothyroxin 125 MCG daily DVT prophylaxis; SCDs only due to anemia CODE STATUS; full code Time with Patient: Greater than 30
--- NOTE | 2019-08-06 23:38 | P.PN ---
Subjective Progress Note Date: 08/06/19 Principal diagnosis: Abdominal pain Enteritis Nausea vomiting 69-year-old male patient admitted to the hospital with abdominal pain ongoing for a week; CT of the abdomen was done which revealed antritis and possible peptic ulcer disease; patient blood work also revealed hemoglobin drop raising concern for possible bleeding peptic ulcer disease in setting of chronic steroid use; patient is admitted to the hospital for GI and surgical evaluation 08/02/2019 Patient is seen and evaluated in room at bedside; continues to complain of right-sided abdominal pain Vital signs are reviewed and remained stable Blood work reveals a white blood count of 13.3, hemoglobin of 10.1 and platelet count of 247; sodium of 134, potassium 4.5, BUN of 25 and creatinine of 1.40 Patient has been evaluated by surgery and is not recommended any surgical intervention; patient will be started on clear liquid diet with a plan to keep patient nothing by mouth at midnight for possible EGD tomorrow with GI 08/03/2019 patient is s/p EGD; 1. No active bleeding or old blood. 2. Moderate gastritis antrum and body biopsied. 3. Mild duodenitis biopsied. 4. LA grade B distal esophagitis.. The findings discussed with the patient. Started regular diet. Suspicion is for esophagitis and Teresita-Jensen tear in the setting of retching. Continue Protonix 40 mg twice daily. No plans for colonoscopy at this time, however if further signs or symptoms develop we'll reevaluate at that time. 08/05/2019 Patient is still complaining of lower abdominal pain and tenderness. CT of the abdominal pelvis showed concerning for enteritis and thickening of the jejunum was noted. Patient is currently being treated for with antibiotics in the form of Zosyn. General surgery is planning to start on prednisone tapering course. Case of a component of inflammatory disease contributing to symptoms. Patient is being continued on Protonix as well. Gastroenterology and general surgery is following. Patient has been afebrile. No nausea or vomiting. No chest pain or shortness of breath.. 08/06/2019 Patient says that his lower abdominal pain is better today. No complaints of nausea vomiting. Patient has been afebrile. Tolerating oral diet. No complaints of chest pain or shortness of breath. Patient is being continued on antibiotics in the form of Zosyn and also on steroids. Continue with PPI.. Continue on gentle hydration. Monitor H&H. Repeat CBC and BMP tomorrow. Current medications reviewed. Active Medications Hydrocodone Bitart/Acetaminophen (Ewen 5-325) 1 each PO Q4HR PRN PRN Reason: Pain Last Admin: 08/06/19 21:16 Dose: 1 each Documented by: Hydralazine HCl (Apresoline) 10 mg IVP Q6HR PRN PRN Reason: Blood Pressure - High Hydromorphone HCl (Dilaudid) 0.5 mg IVP Q3HR PRN PRN Reason: Moderate Pain Last Admin: 08/06/19 22:22 Dose: 0.5 mg Documented by: Piperacillin Sod/Tazobactam (Sod 3.375 gm/ Sodium Chloride) 100 mls @ 25 mls/hr IVPB Q8HR [facility] Last Admin: 08/06/19 23:12 Dose: 25 mls/hr Documented by: Sodium Chloride (Saline 0.9%) 1,000 mls @ 75 mls/hr IV .[id number] [facility] Last Admin: 08/06/19 23:15 Dose: 75 mls/hr Documented by: Levothyroxine Sodium (Synthroid) 125 mcg PO 0630 [facility] Last Admin: 08/06/19 04:44 Dose: 125 mcg Documented by: Naloxone HCl (Narcan) 0.2 mg IV Q2M PRN PRN Reason: Opioid Reversal Ondansetron HCl (Zofran) 4 mg IVP Q8HR PRN PRN Reason: Nausea And Vomiting Last Admin: 08/06/19 17:34 Dose: 4 mg Documented by: Pantoprazole Sodium (Protonix) 40 mg PO AC-BID [facility] Last Admin: 08/06/19 17:34 Dose: 40 mg Documented by: Prednisone () 40 mg PO DAILY [facility] Last Admin: 08/06/19 08:56 Dose: 40 mg Documented by: Simethicone (Mylicon Chew) 80 mg PO QID PRN PRN Reason: GI Upset Last Admin: 08/02/19 04:56 Dose: 80 mg Documented by: Trazodone HCl (Desyrel) 50 mg PO HS PRN PRN Reason: Insomnia Last Admin: 08/06/19 21:16 Dose: 50 mg Documented by: Objective - Vital Signs Vital signs: Vital Signs Temp 98.2 F 08/06/19 14:59 Pulse 86 08/06/19 14:59 Resp 18 08/06/19 14:59 BP 122/79 08/06/19 14:59 Pulse Ox 97 08/06/19 14:59 Intake & Output 08/06/19 08/06/19 08/07/19 06:59 18:59 06:59 Intake Total 700 Balance 700 Intake: Oral 700 Other: Voiding Method Toilet # Voids 1 3 - Exam PHYSICAL EXAMINATION: Patient is lying in the bed comfortably, no acute distress, awake alert and oriented.. HEENT: Normocephalic. Neck is supple. Pupils reactive. Nostrils clear. Oral cavity is moist. Ears reveal no drainage. Neck reveals no JVD, carotid bruits, or thyromegaly. CHEST EXAMINATION: Trachea is central. Symmetrical expansion. Lung calderón clear to auscultation and percussion. CARDIAC: Normal S1, S2 with no gallops. No murmurs ABDOMEN: Soft. Minimal lower abdominal tenderness. No guarding no rigidity. Bowel sounds normal. No organomegaly. No abdominal bruits. Extremities: reveal no edema. No clubbing or cyanosis Neurologically awake, alert, oriented x3 with well-coordinated movements. No focal deficits noted Skin: No rash or skin lesions. Psychiatric: Coperative. Nonsuicidal Musculoskeletal: No joint swelling or deformity. Normal range of motion. - Labs CBC & Chem 7: 08/04/19 06:59 08/04/19 06:59 Labs: Microbiology - Last 24 Hours (Table) 08/01/19 15:15 Blood Culture - Preliminary Blood No Growth after 120 hours Assessment and Plan Assessment: 1. Lower Abdominal pain; possible enteritis with thickening of the jejunum and the CT abdomen. - Patient will be continued on antibiotics in the form of Zosyn and was started on steroids. Gastroenterology is following. 2. Mild Acute blood loss anemia; status post EGD showed moderate gastritis and duodenitis. 3. Leukocytosis; resolved now. 4. Acute renal injury; IV fluids normal saline at rate of 75 mL an hour; monitor strict NORBERTO's, daily weights, renal function and electrolytes; avoid nephrotoxins and hypotension 5. Hypertension; we will hold off on LUCHO inhibitor's due to acute renal failure; monitor blood pressure closely and will order IV hydralazine to be used when necessary 6. Hyperlipidemia; hold off on oral statin therapy 7. 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 Hypothyroidism; levothyroxin 125 MCG daily DVT prophylaxis; SCDs only due to anemia CODE STATUS; full code Time with Patient: Greater than 30
[2019-08-07] MEDS: LEVOTHYROXINE 125 MCG TAB PO SCH (06:08)
[2019-08-07 07:29] LABS: Basophils % (A) 0 %; Eosinophils # (A) 0.1 k/uL (0-0.7); Eosinophils % (A) 0 %; HCT 22.3 % (39.0-53.0); Lymphocytes # (A) 1.1 k/uL (1.0-4.8); Lymphocytes % (A) 5 %; MCH 30.8 pg (25.0-35.0); MCHC 32.2 g/dL (31.0-37.0); MCV 95.7 fL (80.0-100.0); Mean Platelet Volume 7.6; Monocytes # (A) 0.6 k/uL (0-1.0); Monocytes % (A) 3 %; Neutrophils # (A) 20.8 k/uL (1.3-7.7); Neutrophils % (A) 91 %; Platelet Count 463 k/uL (150-450); RBC 2.33 m/uL (4.30-5.90); RDW 13.7 % (11.5-15.5); WBC 22.7 k/uL (3.8-10.6)
[2019-08-07 07:33] LABS: HGB 7.2 gm/dL (13.0-17.5)
[2019-08-07 07:38] LABS: Calcium 8.3 mg/dL (8.4-10.2); Potassium 4.3 mmol/L (3.5-5.1)
[2019-08-07] MEDS: PANTOPRAZOLE 40 MG TABLET PO SCH ×2 (09:40→17:26)
[2019-08-07] MEDS: predniSONE 20 MG TAB PO SCH (09:40)
[2019-08-07] MEDS: PIPERACILLIN-TAZOBACTAM 3.375 GM in SODIUM CHLORIDE 0.9% 100 ML IVPB SCH ×2 (09:40→16:11)
[2019-08-07] MEDS: HYDROcodone/APAP 5-325MG 1 EACH TAB PO PRN ×2 (13:13→17:26)
--- NOTE | 2019-08-07 13:29 | P.PN ---
Subjective Progress Note Date: 08/07/19 CHIEF COMPLAINT: Chronic abdominal pain HISTORY OF PRESENT ILLNESS: The patient is a 61-year-old male with history of chronic abdominal pain. He reports improvement of his symptoms after being placed on a low fat diet. He feels much better from yesterday. He has mild nausea but moderately improved. ROS: No fevers or chills. No new chest pain. No productive sputum PHYSICAL EXAM: VITAL SIGNS: Reviewed CONSTITUTIONAL: Well developed and in no acute distress. EYES: Conjuctivae without sclera icterus. Extraocular movements grossly intact. HEAD, EARS, NOSE, THROAT: Moist buccal mucosa. Head is atraumatic, normocephalic. Hears conversational speech. No nasal drainage. RESPIRATORY: Non-labored respirations and equal bilateral excursions. CARDIOVASCULAR: Palpable 2+ radial pulses. Regular rate. Regular rhythm. ABDOMEN: Soft. No peritonitis. Mild tenderness lower abdomen. MUSCULOSKELETAL: No gross deformity of the lower extremities noted. No clubbing. No cyanosis. SKIN: Good skin turgor. Well perfused. NEUROLOGIC: Cranial nerves I through XII grossly intact. No focal or later alizing signs. PSYCH: Appropriate affect. Alert and oriented to person, place and time. CLINICAL LABS: White blood cell count now elevated from 9000 over 22,000 with shift. Hemoglobin dropped from 9-7.5. Platelets elevated at 463. Creatinine elevated 1.4-1.79 ASSESSMENT: 1. Chronic abdominal pain, right upper and right lower, improved. 2. Thickened gallbladder wall consistent per ultrasound 3. Diverticulosis of the hepatic flexure, ascending colon 4. Hyperdynamic gallbladder 5. Suprabic pain 6. Leukocytosis PLAN: 1. Nausea and right upper quadrant pain improved following start of low fat diet. 2. Continue steroid for rheumatoid disease. 3. Patient to follow up with GI/Dr. Alves as outpatient. Objective - Vital Signs Vital signs: Vital Signs Temp 98.5 F 08/07/19 07:00 Pulse 82 08/07/19 09:44 Resp 12 08/07/19 09:44 BP 135/80 08/07/19 07:00 Pulse Ox 98 08/07/19 07:00 Intake & Output 08/06/19 08/07/19 08/07/19 18:59 06:59 18:59 Intake Total 700 450 Output Total 200 Balance 700 250 Intake: Intake, IV Titration 450 Amount Sodium Chloride 0.9% 1, 450 000 ml @ 75 mls/hr IV . [id number] [facility] Rx#:[id number] Oral 700 Output: Urine/Stool Mix 200 Other: Voiding Method Toilet Toilet # Voids 3 1 - Labs CBC & Chem 7: 08/07/19 06:20 08/07/19 06:20 Labs: Abnormal Lab Results - Last 24 Hours (Table) 08/07/19 08/07/19 Range/Units 06:20 06:20 WBC 22.7 H (3.8-10.6) k/uL RBC 2.33 L (4.30-5.90) m/uL Hgb 7.2 L D (13.0-17.5) gm/dL Hct 22.3 L (39.0-53.0) % Plt Count 463 H (150-450) k/uL Neutrophils # 20.8 H (1.3-7.7) k/uL BUN 26 H (9-20) mg/dL Creatinine 1.79 H (0.66-1.25) mg/dL Calcium 8.3 L (8.4-10.2) mg/dL Microbiology - Last 24 Hours (Table) 08/01/19 15:15 Blood Culture - Preliminary Blood No Growth after 120 hours Assessment and Plan (1) Hepatic cyst Current Visit: Yes Status: Acute Code(s): K76.89 - OTHER SPECIFIED DISEASES OF LIVER SNOMED Code(s): 31616342 (2) Renal cyst Current Visit: Yes Status: Acute Code(s): N28.1 - CYST OF KIDNEY, ACQUIRED SNOMED Code(s): 644953813 (3) Intractable abdominal pain Current Visit: Yes Status: Acute Code(s): R10.9 - UNSPECIFIED ABDOMINAL PAIN SNOMED Code(s): 15321146 (4) Dehydration Current Visit: No Status: Acute Code(s): E86.0 - DEHYDRATION SNOMED Code(s): 91672779 (5) Epigastric abdominal pain Current Visit: No Status: Acute Code(s): R10.13 - EPIGASTRIC PAIN SNOMED Code(s): 55229521 (6) Right upper quadrant abdominal pain Current Visit: Yes Status: Acute Code(s): R10.11 - RIGHT UPPER QUADRANT PAIN SNOMED Code(s): 599598285 (7) Cholecystitis Current Visit: Yes Status: Acute Code(s): K81.9 - CHOLECYSTITIS, UNSPECIFIED SNOMED Code(s): 23941484
[2019-08-08] MEDS: PIPERACILLIN-TAZOBACTAM 3.375 GM in SODIUM CHLORIDE 0.9% 100 ML IVPB SCH ×3 (00:30→15:43)
--- NOTE | 2019-08-08 00:52 | P.PN ---
Subjective Progress Note Date: 08/07/19 Principal diagnosis: Abdominal pain Enteritis Nausea vomiting 69-year-old male patient admitted to the hospital with abdominal pain ongoing for a week; CT of the abdomen was done which revealed antritis and possible peptic ulcer disease; patient blood work also revealed hemoglobin drop raising concern for possible bleeding peptic ulcer disease in setting of chronic steroid use; patient is admitted to the hospital for GI and surgical evaluation 08/02/2019 Patient is seen and evaluated in room at bedside; continues to complain of right-sided abdominal pain Vital signs are reviewed and remained stable Blood work reveals a white blood count of 13.3, hemoglobin of 10.1 and platelet count of 247; sodium of 134, potassium 4.5, BUN of 25 and creatinine of 1.40 Patient has been evaluated by surgery and is not recommended any surgical intervention; patient will be started on clear liquid diet with a plan to keep patient nothing by mouth at midnight for possible EGD tomorrow with GI 08/03/2019 patient is s/p EGD; 1. No active bleeding or old blood. 2. Moderate gastritis antrum and body biopsied. 3. Mild duodenitis biopsied. 4. LA grade B distal esophagitis.. The findings discussed with the patient. Started regular diet. Suspicion is for esophagitis and Teresita-Jensen tear in the setting of retching. Continue Protonix 40 mg twice daily. No plans for colonoscopy at this time, however if further signs or symptoms develop we'll reevaluate at that time. 08/05/2019 Patient is still complaining of lower abdominal pain and tenderness. CT of the abdominal pelvis showed concerning for enteritis and thickening of the jejunum was noted. Patient is currently being treated for with antibiotics in the form of Zosyn. General surgery is planning to start on prednisone tapering course. Case of a component of inflammatory disease contributing to symptoms. Patient is being continued on Protonix as well. Gastroenterology and general surgery is following. Patient has been afebrile. No nausea or vomiting. No chest pain or shortness of breath.. 08/06/2019 Patient says that his lower abdominal pain is better today. No complaints of nausea vomiting. Patient has been afebrile. Tolerating oral diet. No complaints of chest pain or shortness of breath. Patient is being continued on antibiotics in the form of Zosyn and also on steroids. Continue with PPI.. Continue on gentle hydration. Monitor H&H. Repeat CBC and BMP tomorrow. 08/07/2019 Patient says that his lower abdominal pain is much improved today. Tolerating oral diet with low-fat diet. Patient is afebrile. Clinically improving. Otherwise leukocytosis with WBC count 22.1. Creatinine level increased to 1.79. Patient is being continued on prednisone 40 mg daily. Also on antibiotics in the form of Zosyn. Continued on IV hydration and follow-up labs tomorrow. Anticipate discharge in next 24 hours with more clinical improvement and improvement of creatinine level. Current medications reviewed. Active Medications Hydrocodone Bitart/Acetaminophen ([place] 5-325) 1 each PO Q4HR PRN PRN Reason: Pain Last Admin: 08/06/19 21:16 Dose: 1 each Documented by: Hydralazine HCl (Apresoline) 10 mg IVP Q6HR PRN PRN Reason: Blood Pressure - High Hydromorphone HCl (Dilaudid) 0.5 mg IVP Q3HR PRN PRN Reason: Moderate Pain Last Admin: 08/06/19 22:22 Dose: 0.5 mg Documented by: Piperacillin Sod/Tazobactam (Sod 3.375 gm/ Sodium Chloride) 100 mls @ 25 mls/hr IVPB Q8HR [facility] Last Admin: 08/06/19 23:12 Dose: 25 mls/hr Documented by: Sodium Chloride (Saline 0.9%) 1,000 mls @ 75 mls/hr IV .[id number] [facility] Last Admin: 08/06/19 23:15 Dose: 75 mls/hr Documented by: Levothyroxine Sodium (Synthroid) 125 mcg PO 0630 [facility] Last Admin: 08/06/19 04:44 Dose: 125 mcg Documented by: Naloxone HCl (Narcan) 0.2 mg IV Q2M PRN PRN Reason: Opioid Reversal Ondansetron HCl (Zofran) 4 mg IVP Q8HR PRN PRN Reason: Nausea And Vomiting Last Admin: 08/06/19 17:34 Dose: 4 mg Documented by: Pantoprazole Sodium (Protonix) 40 mg PO AC-BID [facility] Last Admin: 08/06/19 17:34 Dose: 40 mg Documented by: Prednisone () 40 mg PO DAILY [facility] Last Admin: 08/06/19 08:56 Dose: 40 mg Documented by: Simethicone (Mylicon Chew) 80 mg PO QID PRN PRN Reason: GI Upset Last Admin: 08/02/19 04:56 Dose: 80 mg Documented by: Trazodone HCl (Desyrel) 50 mg PO HS PRN PRN Reason: Insomnia Last Admin: 08/06/19 21:16 Dose: 50 mg Documented by: Objective - Vital Signs Vital signs: Vital Signs Temp 98 F 08/07/19 15:00 Pulse 81 08/07/19 15:00 Resp 12 08/07/19 15:00 BP 138/67 08/07/19 15:00 Pulse Ox 98 08/07/19 15:00 Intake & Output 08/07/19 08/07/19 08/08/19 06:59 18:59 06:59 Intake Total 450 100 Output Total 200 Balance 250 100 Intake: Intake, IV Titration 450 100 Amount Piperacillin-Tazobactam 3 100 .375 gm In Sodium Chloride 0.9% 100 ml @ 25 mls/hr IVPB Q8HR [facility] Rx# :[id number] Sodium Chloride 0.9% 1, 450 000 ml @ 75 mls/hr IV . [id number] [facility] Rx#:[id number] Output: Urine/Stool Mix 200 Other: Voiding Method Toilet Toilet # Voids 1 - Exam PHYSICAL EXAMINATION: Patient is lying in the bed comfortably, no acute distress, awake alert and oriented.. HEENT: Normocephalic. Neck is supple. Pupils reactive. Nostrils clear. Oral cavity is moist. Ears reveal no drainage. Neck reveals no JVD, carotid bruits, or thyromegaly. CHEST EXAMINATION: Trachea is central. Symmetrical expansion. Lung calderón clear to auscultation and percussion. CARDIAC: Normal S1, S2 with no gallops. No murmurs ABDOMEN: Soft. Minimal lower abdominal tenderness. No guarding no rigidity. Bowel sounds normal. No organomegaly. No abdominal bruits. Extremities: reveal no edema. No clubbing or cyanosis Neurologically awake, alert, oriented x3 with well-coordinated movements. No focal deficits noted Skin: No rash or skin lesions. Psychiatric: Coperative. Nonsuicidal Musculoskeletal: No joint swelling or deformity. Normal range of motion. - Labs CBC & Chem 7: 08/07/19 06:20 08/07/19 06:20 Labs: Abnormal Lab Results - Last 24 Hours (Table) 08/07/19 08/07/19 Range/Units 06:20 06:20 WBC 22.7 H (3.8-10.6) k/uL RBC 2.33 L (4.30-5.90) m/uL Hgb 7.2 L D (13.0-17.5) gm/dL Hct 22.3 L (39.0-53.0) % Plt Count 463 H (150-450) k/uL Neutrophils # 20.8 H (1.3-7.7) k/uL BUN 26 H (9-20) mg/dL Creatinine 1.79 H (0.66-1.25) mg/dL Calcium 8.3 L (8.4-10.2) mg/dL Microbiology - Last 24 Hours (Table) 08/01/19 15:15 Blood Culture - Final Blood No Growth after 144 hours Assessment and Plan Assessment: 1. Lower Abdominal pain; possible enteritis with thickening of the jejunum and the CT abdomen. - Patient will be continued on antibiotics in the form of Zosyn and was started on steroids. Gastroenterology is following. 2. Mild Acute blood loss anemia; status post EGD showed moderate gastritis and duodenitis. 3. Leukocytosis; resolved now. 4. Acute renal injury; IV fluids normal saline at rate of 75 mL an hour; mon itor strict NORBERTO's, daily weights, renal function and electrolytes; avoid nephrotoxins and hypotension 5. Hypertension; we will hold off on LUCHO inhibitor's due to acute renal failure; monitor blood pressure closely and will order IV hydralazine to be used when necessary 6. Hyperlipidemia; hold off on oral statin therapy 7. 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 Hypothyroidism; levothyroxin 125 MCG daily DVT prophylaxis; SCDs only due to anemia CODE STATUS; full code Time with Patient: Greater than 30
[2019-08-08] MEDS: ONDANSETRON 4 MG/2 ML VIAL IVP PRN ×2 (01:58→22:48)
[2019-08-08] MEDS: HYDROcodone/APAP 5-325MG 1 EACH TAB PO PRN ×4 (01:58→22:48)
[2019-08-08] MEDS: SODIUM CHLORIDE 0.9% 1,000 ML IV SCH ×2 (07:17→20:22)
[2019-08-08] MEDS: PANTOPRAZOLE 40 MG TABLET PO SCH (08:17)
[2019-08-08] MEDS: LEVOTHYROXINE 125 MCG TAB PO SCH (08:17)
[2019-08-08] MEDS: predniSONE 20 MG TAB PO SCH (08:17)
[2019-08-08 08:43] LABS: Potassium 4.3 mmol/L (3.5-5.1)
[2019-08-08 08:55] LABS: Basophils # (A) 0.1 k/uL (0-0.2); Basophils % (A) 1 %; Eosinophils # (A) 0.1 k/uL (0-0.7); Eosinophils % (A) 0 %; Lymphocytes # (A) 1.8 k/uL (1.0-4.8); Lymphocytes % (A) 9 %; MCH 30.8 pg (25.0-35.0); MCHC 31.7 g/dL (31.0-37.0); Mean Platelet Volume 7.7; Monocytes # (A) 0.6 k/uL (0-1.0); Monocytes % (A) 3 %; Neutrophils # (A) 17.1 k/uL (1.3-7.7); Neutrophils % (A) 86 %; Platelet Count 449 k/uL (150-450); RBC 1.73 m/uL (4.30-5.90); RDW 14.1 % (11.5-15.5); WBC 19.9 k/uL (3.8-10.6)
[2019-08-08 09:04] LABS: HCT 16.8 % (39.0-53.0)
[2019-08-08 09:06] LABS: HGB 5.3 gm/dL (13.0-17.5)
[2019-08-08 09:59] LABS: Basophils % (A) 0 %; Eosinophils # (A) 0.1 k/uL (0-0.7); Eosinophils % (A) 1 %; Lymphocytes # (A) 1.9 k/uL (1.0-4.8); Lymphocytes % (A) 11 %; MCHC 32.2 g/dL (31.0-37.0); MCV 96.4 fL (80.0-100.0); Mean Platelet Volume 7.9; Monocytes # (A) 0.6 k/uL (0-1.0); Monocytes % (A) 4 %; Neutrophils # (A) 14.4 k/uL (1.3-7.7); Neutrophils % (A) 83 %; Platelet Count 433 k/uL (150-450); RBC 1.79 m/uL (4.30-5.90); RDW 14.5 % (11.5-15.5); WBC 17.2 k/uL (3.8-10.6)
[2019-08-08 10:07] LABS: HCT 17.2 % (39.0-53.0); HGB 5.6 gm/dL (13.0-17.5)
[2019-08-08] MEDS: PANTOPRAZOLE 40 MG/10 ML VIAL IVP SCH ×2 (15:09→22:47)
[2019-08-08 23:11] LABS: Basophils % (A) 0 %; Eosinophils % (A) 0 %; HGB 5.9 gm/dL (13.0-17.5); Lymphocytes # (A) 1.2 k/uL (1.0-4.8); Lymphocytes % (A) 5 %; MCH 30.2 pg (25.0-35.0); MCHC 31.9 g/dL (31.0-37.0); MCV 94.6 fL (80.0-100.0); Mean Platelet Volume 7.5; Monocytes # (A) 0.5 k/uL (0-1.0); Monocytes % (A) 2 %; Neutrophils % (A) 92 %; Platelet Count 468 k/uL (150-450); RBC 1.95 m/uL (4.30-5.90)
[2019-08-08 23:12] LABS: HCT 18.4 % (39.0-53.0)
[2019-08-09 00:51] LABS: Basophils % (A) 0 %; Eosinophils % (A) 0 %; HGB 5.3 gm/dL (13.0-17.5); Lymphocytes # (A) 1.1 k/uL (1.0-4.8); Lymphocytes % (A) 6 %; MCH 30.2 pg (25.0-35.0); MCHC 31.9 g/dL (31.0-37.0); MCV 94.6 fL (80.0-100.0); Monocytes # (A) 0.6 k/uL (0-1.0); Monocytes % (A) 3 %; Neutrophils # (A) 17.4 k/uL (1.3-7.7); Neutrophils % (A) 90 %; Platelet Count 412 k/uL (150-450); RBC 1.74 m/uL (4.30-5.90); WBC 19.3 k/uL (3.8-10.6)
[2019-08-09 00:52] LABS: HCT 16.5 % (39.0-53.0)
[2019-08-09] MEDS: LEVOTHYROXINE 125 MCG TAB PO SCH (05:11)
[2019-08-09] MEDS: SODIUM CHLORIDE 0.9% 1,000 ML IV SCH ×2 (05:12→20:09)
[2019-08-09] MEDS ORDERED: FUROSEMIDE 10 MG/ML 2 ML VIAL IV ONE (06:50)
[2019-08-09] MEDS: HYDROmorphone 0.5 MG/0.5 ML SYRINGE IVP PRN ×2 (06:57→12:11)
[2019-08-09 07:00] LABS: Basophils % (A) 0 %; Eosinophils # (A) 0.1 k/uL (0-0.7); Eosinophils % (A) 0 %; Lymphocytes # (A) 2.1 k/uL (1.0-4.8); Lymphocytes % (A) 10 %; MCH 32.3 pg (25.0-35.0); MCHC 34.5 g/dL (31.0-37.0); MCV 93.7 fL (80.0-100.0); Mean Platelet Volume 7.3; Monocytes # (A) 0.7 k/uL (0-1.0); Monocytes % (A) 4 %; Neutrophils # (A) 17.9 k/uL (1.3-7.7); Neutrophils % (A) 85 %; Platelet Count 476 k/uL (150-450); RBC 2.35 m/uL (4.30-5.90); RDW 14.9 % (11.5-15.5); WBC 20.9 k/uL (3.8-10.6)
[2019-08-09 07:03] LABS: HGB 7.6 gm/dL (13.0-17.5)
[2019-08-09 07:04] LABS: Calcium 8.5 mg/dL (8.4-10.2); Potassium 4.1 mmol/L (3.5-5.1)
[2019-08-09] MEDS: predniSONE 20 MG TAB PO SCH (08:06)
[2019-08-09] MEDS: PANTOPRAZOLE 40 MG/10 ML VIAL IVP SCH ×2 (08:06→20:09)
[2019-08-09] MEDS: ONDANSETRON 4 MG/2 ML VIAL IVP PRN ×2 (12:11→20:09)
[2019-08-09 13:30] LABS: Basophils % (A) 0 %; Eosinophils # (A) 0.1 k/uL (0-0.7); Eosinophils % (A) 0 %; HCT 22.8 % (39.0-53.0); HGB 7.5 gm/dL (13.0-17.5); Lymphocytes # (A) 1.1 k/uL (1.0-4.8); Lymphocytes % (A) 5 %; MCH 31.1 pg (25.0-35.0); MCHC 32.9 g/dL (31.0-37.0); MCV 94.6 fL (80.0-100.0); Mean Platelet Volume 7.3; Monocytes # (A) 0.5 k/uL (0-1.0); Monocytes % (A) 2 %; Neutrophils # (A) 19.7 k/uL (1.3-7.7); Neutrophils % (A) 92 %; Platelet Count 468 k/uL (150-450); RBC 2.41 m/uL (4.30-5.90); RDW 15.2 % (11.5-15.5); WBC 21.5 k/uL (3.8-10.6)
--- NOTE | 2019-08-09 15:28 | P.PN ---
Subjective Progress Note Date: 08/08/19 Principal diagnosis: Abdominal pain Enteritis Nausea vomiting 69-year-old male patient admitted to the hospital with abdominal pain ongoing for a week; CT of the abdomen was done which revealed antritis and possible peptic ulcer disease; patient blood work also revealed hemoglobin drop raising concern for possible bleeding peptic ulcer disease in setting of chronic steroid use; patient is admitted to the hospital for GI and surgical evaluation 08/02/2019 Patient is seen and evaluated in room at bedside; continues to complain of right-sided abdominal pain Vital signs are reviewed and remained stable Blood work reveals a white blood count of 13.3, hemoglobin of 10.1 and platelet count of 247; sodium of 134, potassium 4.5, BUN of 25 and creatinine of 1.40 Patient has been evaluated by surgery and is not recommended any surgical intervention; patient will be started on clear liquid diet with a plan to keep patient nothing by mouth at midnight for possible EGD tomorrow with GI 08/03/2019 patient is s/p EGD; 1. No active bleeding or old blood. 2. Moderate gastritis antrum and body biopsied. 3. Mild duodenitis biopsied. 4. LA grade B distal esophagitis.. The findings discussed with the patient. Started regular diet. Suspicion is for esophagitis and Teresita-Jensen tear in the setting of retching. Continue Protonix 40 mg twice daily. No plans for colonoscopy at this time, however if further signs or symptoms develop we'll reevaluate at that time. 08/05/2019 Patient is still complaining of lower abdominal pain and tenderness. CT of the abdominal pelvis showed concerning for enteritis and thickening of the jejunum was noted. Patient is currently being treated for with antibiotics in the form of Zosyn. General surgery is planning to start on prednisone tapering course. Case of a component of inflammatory disease contributing to symptoms. Patient is being continued on Protonix as well. Gastroenterology and general surgery is following. Patient has been afebrile. No nausea or vomiting. No chest pain or shortness of breath.. 08/06/2019 Patient says that his lower abdominal pain is better today. No complaints of nausea vomiting. Patient has been afebrile. Tolerating oral diet. No complaints of chest pain or shortness of breath. Patient is being continued on antibiotics in the form of Zosyn and also on steroids. Continue with PPI.. Continue on gentle hydration. Monitor H&H. Repeat CBC and BMP tomorrow. 08/07/2019 Patient says that his lower abdominal pain is much improved today. Tolerating oral diet with low-fat diet. Patient is afebrile. Clinically improving. Otherwise leukocytosis with WBC count 22.1. Creatinine level increased to 1.79. Patient is being continued on prednisone 40 mg daily. Also on antibiotics in the form of Zosyn. Continued on IV hydration and follow-up labs tomorrow. Anticipate discharge in next 24 hours with more clinical improvement and improvement of creatinine level. 08/08/2019 Patient is complaining of generalized weakness and tiredness. Hemoglobin dropped to 5.3. Repeat hemoglobin is 5.6. Patient did have dark stools this morning. Patient will be transfused with 1 unit of PRBC. Otherwise her abdominal discomfort is much improved. Patient is being continued on IV antibiotics in the form of Zosyn and also on prednisone 40 mg daily. Patient feels nauseated and does not want to eat today. We will increase IV fluids to 75 mL per hour. Gastroenterology was notified. Current medications reviewed. Active Medications Hydrocodone Bitart/Acetaminophen ([place] 5-325) 1 each PO Q4HR PRN PRN Reason: Pain Last Admin: 08/06/19 21:16 Dose: 1 each Documented by: Hydralazine HCl (Apresoline) 10 mg IVP Q6HR PRN PRN Reason: Blood Pressure - High Hydromorphone HCl (Dilaudid) 0.5 mg IVP Q3HR PRN PRN Reason: Moderate Pain Last Admin: 08/06/19 22:22 Dose: 0.5 mg Documented by: Piperacillin Sod/Tazobactam (Sod 3.375 gm/ Sodium Chloride) 100 mls @ 25 mls/hr IVPB Q8HR [facility] Last Admin: 08/06/19 23:12 Dose: 25 mls/hr Documented by: Sodium Chloride (Saline 0.9%) 1,000 mls @ 75 mls/hr IV .[id number] [facility] Last Admin: 08/06/19 23:15 Dose: 75 mls/hr Documented by: Levothyroxine Sodium (Synthroid) 125 mcg PO 0630 [facility] Last Admin: 08/06/19 04:44 Dose: 125 mcg Documented by: Naloxone HCl (Narcan) 0.2 mg IV Q2M PRN PRN Reason: Opioid Reversal Ondansetron HCl (Zofran) 4 mg IVP Q8HR PRN PRN Reason: Nausea And Vomiting Last Admin: 08/06/19 17:34 Dose: 4 mg Documented by: Pantoprazole Sodium (Protonix) 40 mg PO AC-BID [facility] Last Admin: 08/06/19 17:34 Dose: 40 mg Documented by: Prednisone () 40 mg PO DAILY [facility] Last Admin: 08/06/19 08:56 Dose: 40 mg Documented by: Simethicone (Mylicon Chew) 80 mg PO QID PRN PRN Reason: GI Upset Last Admin: 08/02/19 04:56 Dose: 80 mg Documented by: Trazodone HCl (Desyrel) 50 mg PO HS PRN PRN Reason: Insomnia Last Admin: 08/06/19 21:16 Dose: 50 mg Documented by: Objective - Vital Signs Vital signs: Vital Signs Temp 98.4 F 08/08/19 15:08 Pulse 83 08/08/19 15:08 Resp 16 08/08/19 15:08 BP 122/77 08/08/19 15:08 Pulse Ox 98 08/08/19 15:08 Intake & Output 08/08/19 08/08/19 08/09/19 06:59 18:59 06:59 Intake Total 560 1060 Output Total 2 Balance 558 1060 Intake: IV 160 0.9 Normal Saline 160 Intake, IV Titration 400 450 Amount Piperacillin-Tazobactam 3 100 .375 gm In Sodium Chloride 0.9% 100 ml @ 25 mls/hr IVPB Q8HR [facility] Rx# :[id number] Sodium Chloride 0.9% 1, 400 350 000 ml @ 50 mls/hr IV . Q20H [facility] Rx#:[id number] Oral 300 Blood Product 310 Rc Cpda-1 Unit 310 [id number] Output: Urine 2 Other: Voiding Method Toilet Toilet # Voids 2 - Exam PHYSICAL EXAMINATION: Patient is lying in the bed comfortably, no acute distress, awake alert and oriented.. HEENT: Normocephalic. Neck is supple. Pupils reactive. Nostrils clear. Oral cavity is moist. Ears reveal no drainage. Neck reveals no JVD, carotid bruits, or thyromegaly. CHEST EXAMINATION: Trachea is central. Symmetrical expansion. Lung calderón clear to auscultation and percussion. CARDIAC: Normal S1, S2 with no gallops. No murmurs ABDOMEN: Soft. Minimal lower abdominal tenderness. No guarding no rigidity. Bowel sounds normal. No organomegaly. No abdominal bruits. Extremities: reveal no edema. No clubbing or cyanosis Neurologically awake, alert, oriented x3 with well-coordinated movements. No focal deficits noted Skin: No rash or skin lesions. Psychiatric: Coperative. Nonsuicidal Musculoskeletal: No joint swelling or deformity. Normal range of motion. - Labs CBC & Chem 7: 08/09/19 12:23 08/09/19 06:17 Labs: Abnormal Lab Results - Last 24 Hours (Table) 08/08/19 08/08/19 08/08/19 Range/Units 07:06 07:06 09:36 WBC 19.9 H 17.2 H (3.8-10.6) k/uL RBC 1.73 L 1.79 L (4.30-5.90) m/uL Hgb 5.3 L* D 5.6 L* (13.0-17.5) gm/dL Hct 16.8 L* 17.2 L* (39.0-53.0) % Neutrophils # 17.1 H 14.4 H (1.3-7.7) k/uL BUN 39 H (9-20) mg/dL Creatinine 1.77 H (0.66-1.25) mg/dL Calcium 8.0 L (8.4-10.2) mg/dL Crossmatch 08/08/19 Range/Units 09:36 WBC (3.8-10.6) k/uL RBC (4.30-5.90) m/uL Hgb (13.0-17.5) gm/dL Hct (39.0-53.0) % Neutrophils # (1.3-7.7) k/uL BUN (9-20) mg/dL Creatinine (0.66-1.25) mg/dL Calcium (8.4-10.2) mg/dL Crossmatch See Detail Microbiology - Last 24 Hours (Table) 08/01/19 15:15 Blood Culture - Final Blood No Growth after 144 hours Assessment and Plan Assessment: 1. Lower Abdominal pain; possible enteritis with thickening of the jejunum and the CT abdomen. - Patient will be continued on antibiotics in the form of Zosyn and was started on steroids. Gastroenterology is following. 2. Acute blood loss anemia; due to GI bleed. status post EGD showed moderate gastritis and duodenitis. 3. Leukocytosis; resolved now. 4. Acute renal injury; IV fluids normal saline at rate of 75 mL an hour; monitor strict NORBERTO's, daily weights, renal function and electrolytes; avoid nephrotoxins and hypotension 5. Hypertension; we will hold off on LUCHO inhibitor's due to acute renal failure; monitor blood pressure closely and will order IV hydralazine to be used when necessary 6. Hyperlipidemia; hold off on oral statin therapy 7. 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 Hypothyroidism; levothyroxin 125 MCG daily DVT prophylaxis; SCDs only due to anemia CODE STATUS; full code Time with Patient: Greater than 30
[2019-08-09 16:12] VITALS: BMI 21.8
[2019-08-09 18:43] LABS: Basophils % (A) 0 %; Eosinophils # (A) 0.1 k/uL (0-0.7); Eosinophils % (A) 0 %; HCT 23.3 % (39.0-53.0); HGB 7.5 gm/dL (13.0-17.5); Lymphocytes % (A) 5 %; MCH 30.5 pg (25.0-35.0); MCHC 32.3 g/dL (31.0-37.0); MCV 94.6 fL (80.0-100.0); Monocytes # (A) 0.3 k/uL (0-1.0); Monocytes % (A) 1 %; Neutrophils # (A) 20.2 k/uL (1.3-7.7); Neutrophils % (A) 94 %; Platelet Count 477 k/uL (150-450); RBC 2.46 m/uL (4.30-5.90); RDW 15.3 % (11.5-15.5); WBC 21.6 k/uL (3.8-10.6)
[2019-08-09] MEDS: HYDROcodone/APAP 5-325MG 1 EACH TAB PO PRN (22:43)
[2019-08-09] MEDS: traZODone HCL 50 MG TAB PO PRN (22:43)
--- NOTE | 2019-08-10 00:23 | P.PN ---
Subjective Progress Note Date: 08/09/19 Principal diagnosis: Abdominal pain Enteritis Nausea vomiting 69-year-old male patient admitted to the hospital with abdominal pain ongoing for a week; CT of the abdomen was done which revealed antritis and possible peptic ulcer disease; patient blood work also revealed hemoglobin drop raising concern for possible bleeding peptic ulcer disease in setting of chronic steroid use; patient is admitted to the hospital for GI and surgical evaluation 08/02/2019 Patient is seen and evaluated in room at bedside; continues to complain of right-sided abdominal pain Vital signs are reviewed and remained stable Blood work reveals a white blood count of 13.3, hemoglobin of 10.1 and platelet count of 247; sodium of 134, potassium 4.5, BUN of 25 and creatinine of 1.40 Patient has been evaluated by surgery and is not recommended any surgical intervention; patient will be started on clear liquid diet with a plan to keep patient nothing by mouth at midnight for possible EGD tomorrow with GI 08/03/2019 patient is s/p EGD; 1. No active bleeding or old blood. 2. Moderate gastritis antrum and body biopsied. 3. Mild duodenitis biopsied. 4. LA grade B distal esophagitis.. The findings discussed with the patient. Started regular diet. Suspicion is for esophagitis and Teresita-Jensen tear in the setting of retching. Continue Protonix 40 mg twice daily. No plans for colonoscopy at this time, however if further signs or symptoms develop we'll reevaluate at that time. 08/05/2019 Patient is still complaining of lower abdominal pain and tenderness. CT of the abdominal pelvis showed concerning for enteritis and thickening of the jejunum was noted. Patient is currently being treated for with antibiotics in the form of Zosyn. General surgery is planning to start on prednisone tapering course. Case of a component of inflammatory disease contributing to symptoms. Patient is being continued on Protonix as well. Gastroenterology and general surgery is following. Patient has been afebrile. No nausea or vomiting. No chest pain or shortness of breath.. 08/06/2019 Patient says that his lower abdominal pain is better today. No complaints of nausea vomiting. Patient has been afebrile. Tolerating oral diet. No complaints of chest pain or shortness of breath. Patient is being continued on antibiotics in the form of Zosyn and also on steroids. Continue with PPI.. Continue on gentle hydration. Monitor H&H. Repeat CBC and BMP tomorrow. 08/07/2019 Patient says that his lower abdominal pain is much improved today. Tolerating oral diet with low-fat diet. Patient is afebrile. Clinically improving. Otherwise leukocytosis with WBC count 22.1. Creatinine level increased to 1.79. Patient is being continued on prednisone 40 mg daily. Also on antibiotics in the form of Zosyn. Continued on IV hydration and follow-up labs tomorrow. Anticipate discharge in next 24 hours with more clinical improvement and improvement of creatinine level. 08/08/2019 Patient is complaining of generalized weakness and tiredness. Hemoglobin dropped to 5.3. Repeat hemoglobin is 5.6. Patient did have dark stools this morning. Patient will be transfused with 1 unit of PRBC. Otherwise her abdominal discomfort is much improved. Patient is being continued on IV antibiotics in the form of Zosyn and also on prednisone 40 mg daily. Patient feels nauseated and does not want to eat today. We will increase IV fluids to 75 mL per hour. Gastroenterology was notified. 08/09/2019 Patient is more awake and oriented. Feels better today. Hemoglobin went up to 7.6. Denied any further episodes of dark stools. No nausea vomiting or abdominal pain. Patient is being continued on IV antibiotics. Prednisone tapering dose starting 40 mg daily and decrease by 10 mg every 5 days. Diet will be advanced and monitor H&H tomorrow. Anticipate discharge if hemoglobin is stable tomorrow Current medications reviewed. Active Medications Hydrocodone Bitart/Acetaminophen ([place] 5-325) 1 each PO Q4HR PRN PRN Reason: Pain Last Admin: 08/06/19 21:16 Dose: 1 each Documented by: Hydralazine HCl (Apresoline) 10 mg IVP Q6HR PRN PRN Reason: Blood Pressure - High Hydromorphone HCl (Dilaudid) 0.5 mg IVP Q3HR PRN PRN Reason: Moderate Pain Last Admin: 08/06/19 22:22 Dose: 0.5 mg Documented by: Piperacillin Sod/Tazobactam (Sod 3.375 gm/ Sodium Chloride) 100 mls @ 25 mls/hr IVPB Q8HR [facility] Last Admin: 08/06/19 23:12 Dose: 25 mls/hr Documented by: Sodium Chloride (Saline 0.9%) 1,000 mls @ 75 mls/hr IV .[id number] [facility] Last Admin: 08/06/19 23:15 Dose: 75 mls/hr Documented by: Levothyroxine Sodium (Synthroid) 125 mcg PO 0630 [facility] Last Admin: 08/06/19 04:44 Dose: 125 mcg Documented by: Naloxone HCl (Narcan) 0.2 mg IV Q2M PRN PRN Reason: Opioid Reversal Ondansetron HCl (Zofran) 4 mg IVP Q8HR PRN PRN Reason: Nausea And Vomiting Last Admin: 08/06/19 17:34 Dose: 4 mg Documented by: Pantoprazole Sodium (Protonix) 40 mg PO AC-BID [facility] Last Admin: 08/06/19 17:34 Dose: 40 mg Documented by: Prednisone () 40 mg PO DAILY [facility] Last Admin: 08/06/19 08:56 Dose: 40 mg Documented by: Simethicone (Mylicon Chew) 80 mg PO QID PRN PRN Reason: GI Upset Last Admin: 08/02/19 04:56 Dose: 80 mg Documented by: Trazodone HCl (Desyrel) 50 mg PO HS PRN PRN Reason: Insomnia Last Admin: 08/06/19 21:16 Dose: 50 mg Documented by: Objective - Vital Signs Vital signs: Vital Signs Temp 97.8 F 08/09/19 15:00 Pulse 76 08/09/19 15:00 Resp 15 08/09/19 15:00 BP 132/83 08/09/19 15:00 Pulse Ox 100 08/09/19 15:00 Intake & Output 08/08/19 08/09/19 08/09/19 18:59 06:59 18:59 Intake Total 1060 310 250 Balance 1060 310 250 Intake: Intake, IV Titration 450 Amount Piperacillin-Tazobactam 3 100 .375 gm In Sodium Chloride 0.9% 100 ml @ 25 mls/hr IVPB Q8HR [facility] Rx# :[id number] Sodium Chloride 0.9% 1, 350 000 ml @ 50 mls/hr IV . Q20H [facility] Rx#:[id number] Oral 300 250 Blood Product 310 310 Rc Cpda-1 Unit 310 [id number] Rc Cpda-1 Unit 310 [id number] Other: Voiding Method Toilet Toilet # Voids 1 - Exam PHYSICAL EXAMINATION: Patient is lying in the bed comfortably, no acute distress, awake alert and oriented.. HEENT: Normocephalic. Neck is supple. Pupils reactive. Nostrils clear. Oral cavity is moist. Ears reveal no drainage. Neck reveals no JVD, carotid bruits, or thyromegaly. CHEST EXAMINATION: Trachea is central. Symmetrical expansion. Lung calderón clear to auscultation and percussion. CARDIAC: Normal S1, S2 with no gallops. No murmurs ABDOMEN: Soft. Minimal lower abdominal tenderness. No guarding no rigidity. Bowel sounds normal. No organomegaly. No abdominal bruits. Extremities: reveal no edema. No clubbing or cyanosis Neurologically awake, alert, oriented x3 with well-coordinated movements. No focal deficits noted Skin: No rash or skin lesions. Psychiatric: Coperative. Nonsuicidal Musculoskeletal: No joint swelling or deformity. Normal range of motion. - Labs CBC & Chem 7: 08/09/19 18:17 08/09/19 06:17 Labs: Abnormal Lab Results - Last 24 Hours (Table) 08/08/19 08/08/19 08/09/19 Range/Units 09:36 22:52 00:23 WBC 23.0 H 19.3 H (3.8-10.6) k/uL RBC 1.95 L 1.74 L (4.30-5.90) m/uL Hgb 5.9 L* 5.3 L* (13.0-17.5) gm/dL Hct 18.4 L* 16.5 L* (39.0-53.0) % Plt Count 468 H (150-450) k/uL Neutrophils # 21.0 H 17.4 H (1.3-7.7) k/uL BUN (9-20) mg/dL Creatinine (0.66-1.25) mg/dL Crossmatch See Detail 08/09/19 08/09/19 08/09/19 Range/Units 06:17 06:17 12:23 WBC 20.9 H 21.5 H (3.8-10.6) k/uL RBC 2.35 L 2.41 L (4.30-5.90) m/uL Hgb 7.6 L D 7.5 L (13.0-17.5) gm/dL Hct 22.0 L 22.8 L (39.0-53.0) % Plt Count 476 H 468 H (150-450) k/uL Neutrophils # 17.9 H 19.7 H (1.3-7.7) k/uL BUN 38 H (9-20) mg/dL Creatinine 1.58 H (0.66-1.25) mg/dL Crossmatch Assessment and Plan Assessment: 1. Lower Abdominal pain; possible enteritis with thickening of the jejunum and the CT abdomen. - Patient will be continued on antibiotics in the form of Zosyn and was started on steroids. Gastroenterology is following. 2. Acute blood loss anemia; due to GI bleed. status post EGD showed moderate gastritis and duodenitis. 3. Leukocytosis; resolved now. 4. Acute renal injury; IV fluids normal saline at rate of 75 mL an hour; monitor strict NORBERTO's, daily weights, renal function and electrolytes; avoid nephrotoxins and hypotension 5. Hypertension; we will hold off on LUCHO inhibitor's due to acute renal failure; monitor blood pressure closely and will order IV hydralazine to be used when necessary 6. Hyperlipidemia; hold off on oral statin therapy 7. 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 Hypothyroidism; levothyroxin 125 MCG daily DVT prophylaxis; SCDs only due to anemia CODE STATUS; full code Time with Patient: Greater than 30
[2019-08-10] MEDS: ONDANSETRON 4 MG/2 ML VIAL IVP PRN ×2 (03:52→20:45)
[2019-08-10] MEDS: LEVOTHYROXINE 125 MCG TAB PO SCH (05:11)
[2019-08-10 06:29] LABS: Basophils % (A) 0 %; Eosinophils # (A) 0.1 k/uL (0-0.7); Eosinophils % (A) 0 %; HCT 20.8 % (39.0-53.0); Lymphocytes # (A) 1.7 k/uL (1.0-4.8); Lymphocytes % (A) 12 %; MCH 30.2 pg (25.0-35.0); MCHC 31.8 g/dL (31.0-37.0); Mean Platelet Volume 7.4; Monocytes # (A) 0.7 k/uL (0-1.0); Monocytes % (A) 5 %; Neutrophils # (A) 12.3 k/uL (1.3-7.7); Neutrophils % (A) 82 %; Platelet Count 481 k/uL (150-450); RBC 2.19 m/uL (4.30-5.90); RDW 15.8 % (11.5-15.5)
[2019-08-10 06:38] LABS: Calcium 8.2 mg/dL (8.4-10.2); Potassium 4.7 mmol/L (3.5-5.1)
[2019-08-10 06:44] LABS: HGB 6.6 gm/dL (13.0-17.5)
[2019-08-10] MEDS: predniSONE 20 MG TAB PO SCH (09:46)
[2019-08-10] MEDS: PANTOPRAZOLE 40 MG/10 ML VIAL IVP SCH ×2 (09:46→20:45)
[2019-08-10] MEDS: HYDROmorphone 0.5 MG/0.5 ML SYRINGE IVP PRN ×3 (09:47→20:45)
[2019-08-10] MEDS ORDERED: FUROSEMIDE 10 MG/ML 2 ML VIAL IV ONE (11:04)
[2019-08-10] MEDS: SODIUM CHLORIDE 0.9% 1,000 ML IV SCH (17:25)
[2019-08-10 22:03] LABS: Anisocytosis Slight; Basophils # (A) 0.1 k/uL (0-0.2); Basophils % (A) 0 %; Eosinophils # (A) 0.1 k/uL (0-0.7); Eosinophils % (A) 0 %; HCT 28.6 % (39.0-53.0); Lymphocytes # (A) 0.9 k/uL (1.0-4.8); Lymphocytes % (A) 6 %; MCH 30.2 pg (25.0-35.0); MCHC 32.7 g/dL (31.0-37.0); MCV 92.5 fL (80.0-100.0); Mean Platelet Volume 7.1; Monocytes # (A) 0.6 k/uL (0-1.0); Monocytes % (A) 4 %; Neutrophils # (A) 14.6 k/uL (1.3-7.7); Neutrophils % (A) 90 %; Platelet Count 548 k/uL (150-450); RBC 3.09 m/uL (4.30-5.90); RDW 16.3 % (11.5-15.5); WBC 16.2 k/uL (3.8-10.6)
[2019-08-10 22:08] LABS: HGB 9.3 gm/dL (13.0-17.5)
--- NOTE | 2019-08-10 23:43 | P.PN ---
Subjective Progress Note Date: 08/10/19 Principal diagnosis: Abdominal pain Enteritis Nausea vomiting 69-year-old male patient admitted to the hospital with abdominal pain ongoing for a week; CT of the abdomen was done which revealed antritis and possible peptic ulcer disease; patient blood work also revealed hemoglobin drop raising concern for possible bleeding peptic ulcer disease in setting of chronic steroid use; patient is admitted to the hospital for GI and surgical evaluation 08/02/2019 Patient is seen and evaluated in room at bedside; continues to complain of right-sided abdominal pain Vital signs are reviewed and remained stable Blood work reveals a white blood count of 13.3, hemoglobin of 10.1 and platelet count of 247; sodium of 134, potassium 4.5, BUN of 25 and creatinine of 1.40 Patient has been evaluated by surgery and is not recommended any surgical intervention; patient will be started on clear liquid diet with a plan to keep patient nothing by mouth at midnight for possible EGD tomorrow with GI 08/03/2019 patient is s/p EGD; 1. No active bleeding or old blood. 2. Moderate gastritis antrum and body biopsied. 3. Mild duodenitis biopsied. 4. LA grade B distal esophagitis.. The findings discussed with the patient. Started regular diet. Suspicion is for esophagitis and Teresita-Jensen tear in the setting of retching. Continue Protonix 40 mg twice daily. No plans for colonoscopy at this time, however if further signs or symptoms develop we'll reevaluate at that time. 08/05/2019 Patient is still complaining of lower abdominal pain and tenderness. CT of the abdominal pelvis showed concerning for enteritis and thickening of the jejunum was noted. Patient is currently being treated for with antibiotics in the form of Zosyn. General surgery is planning to start on prednisone tapering course. Case of a component of inflammatory disease contributing to symptoms. Patient is being continued on Protonix as well. Gastroenterology and general surgery is following. Patient has been afebrile. No nausea or vomiting. No chest pain or shortness of breath.. 08/06/2019 Patient says that his lower abdominal pain is better today. No complaints of nausea vomiting. Patient has been afebrile. Tolerating oral diet. No complaints of chest pain or shortness of breath. Patient is being continued on antibiotics in the form of Zosyn and also on steroids. Continue with PPI.. Continue on gentle hydration. Monitor H&H. Repeat CBC and BMP tomorrow. 08/07/2019 Patient says that his lower abdominal pain is much improved today. Tolerating oral diet with low-fat diet. Patient is afebrile. Clinically improving. Otherwise leukocytosis with WBC count 22.1. Creatinine level increased to 1.79. Patient is being continued on prednisone 40 mg daily. Also on antibiotics in the form of Zosyn. Continued on IV hydration and follow-up labs tomorrow. Anticipate discharge in next 24 hours with more clinical improvement and improvement of creatinine level. 08/08/2019 Patient is complaining of generalized weakness and tiredness. Hemoglobin dropped to 5.3. Repeat hemoglobin is 5.6. Patient did have dark stools this morning. Patient will be transfused with 1 unit of PRBC. Otherwise her abdominal discomfort is much improved. Patient is being continued on IV antibiotics in the form of Zosyn and also on prednisone 40 mg daily. Patient feels nauseated and does not want to eat today. We will increase IV fluids to 75 mL per hour. Gastroenterology was notified. 08/09/2019 Patient is more awake and oriented. Feels better today. Hemoglobin went up to 7.6. Denied any further episodes of dark stools. No nausea vomiting or abdominal pain. Patient is being continued on IV antibiotics. Prednisone tapering dose starting 40 mg daily and decrease by 10 mg every 5 days. Diet will be advanced and monitor H&H tomorrow. Anticipate discharge if hemoglobin is stable tomorrow. 08/10/2019 Patient's hemoglobin dropped down to 6.6 again today. Patient did have bowel movement with dark stools today morning again. Patient will be transfused with 1 unit of PRBC. Patient is being continued on Protonix and is also on steroids, prednisone 40 mg daily. Decrease to 30 mg daily now for another 5 days. Due to continuous drop in hemoglobin and bleeding, discussed with the patient regarding option of transferring to another tertiary care facility for GI evaluation but patient wishes to stay here for now. If further bleeding occurs patient will be transferred to tertiary care facility for GI evaluation. Will discuss with general surgery as well. Patient will be continued on liquid diet and IV hydration. Current medications reviewed. Active Medications Hydrocodone Bitart/Acetaminophen ([place] 5-325) 1 each PO Q4HR PRN PRN Reason: Pain Last Admin: 08/06/19 21:16 Dose: 1 each Documented by: Hydralazine HCl (Apresoline) 10 mg IVP Q6HR PRN PRN Reason: Blood Pressure - High Hydromorphone HCl (Dilaudid) 0.5 mg IVP Q3HR PRN PRN Reason: Moderate Pain Last Admin: 08/06/19 22:22 Dose: 0.5 mg Documented by: Piperacillin Sod/Tazobactam (Sod 3.375 gm/ Sodium Chloride) 100 mls @ 25 mls/hr IVPB Q8HR [facility] Last Admin: 08/06/19 23:12 Dose: 25 mls/hr Documented by: Sodium Chloride (Saline 0.9%) 1,000 mls @ 75 mls/hr IV .[id number] [facility] Last Admin: 08/06/19 23:15 Dose: 75 mls/hr Documented by: Levothyroxine Sodium (Synthroid) 125 mcg PO 0630 [facility] Last Admin: 08/06/19 04:44 Dose: 125 mcg Documented by: Naloxone HCl (Narcan) 0.2 mg IV Q2M PRN PRN Reason: Opioid Reversal Ondansetron HCl (Zofran) 4 mg IVP Q8HR PRN PRN Reason: Nausea And Vomiting Last Admin: 08/06/19 17:34 Dose: 4 mg Documented by: Pantoprazole Sodium (Protonix) 40 mg PO AC-BID [facility] Last Admin: 08/06/19 17:34 Dose: 40 mg Documented by: Prednisone () 40 mg PO DAILY [facility] Last Admin: 08/06/19 08:56 Dose: 40 mg Documented by: Simethicone (Mylicon Chew) 80 mg PO QID PRN PRN Reason: GI Upset Last Admin: 08/02/19 04:56 Dose: 80 mg Documented by: Trazodone HCl (Desyrel) 50 mg PO HS PRN PRN Reason: Insomnia Last Admin: 08/06/19 21:16 Dose: 50 mg Documented by: Objective - Vital Signs Vital signs: Vital Signs Temp 97.8 F 08/10/19 17:20 Pulse 72 08/10/19 17:20 Resp 14 08/10/19 17:20 BP 139/82 08/10/19 17:20 Pulse Ox 100 08/10/19 17:20 Intake & Output 08/09/19 08/10/19 08/10/19 18:59 06:59 18:59 Intake Total 566 097 2757 Balance 818 254 7448 Weight 67.132 kg Intake: Intake, IV Titration 400 350 Amount Sodium Chloride 0.9% 1, 400 350 000 ml @ 50 mls/hr IV . Q20H [facility] Rx#:[id number] Oral 550 540 592 Blood Product 310 Rc As-1 Unit 310 [id number] Other: Voiding Method Toilet # Voids 3 # Bowel Movements 2 - Exam PHYSICAL EXAMINATION: Patient is lying in the bed comfortably, no acute distress, awake alert and oriented.. HEENT: Normocephalic. Neck is supple. Pupils reactive. Nostrils clear. Oral cavity is moist. Ears reveal no drainage. Neck reveals no JVD, carotid bruits, or thyromegaly. CHEST EXAMINATION: Trachea is central. Symmetrical expansion. Lung calderón clear to auscultation and percussion. CARDIAC: Normal S1, S2 with no gallops. No murmurs ABDOMEN: Soft. Minimal lower abdominal tenderness. No guarding no rigidity. Bowel sounds normal. No organomegaly. No abdominal bruits. Extremities: reveal no edema. No clubbing or cyanosis Neurologically awake, alert, oriented x3 with well-coordinated movements. No focal deficits noted Skin: No rash or skin lesions. Psychiatric: Coperative. Nonsuicidal Musculoskeletal: No joint swelling or deformity. Normal range of motion. - Labs CBC & Chem 7: 08/10/19 21:44 08/10/19 05:32 Labs: Abnormal Lab Results - Last 24 Hours (Table) 08/08/19 08/09/19 08/10/19 Range/Units 09:36 18:17 05:32 WBC 21.6 H 15.0 H (3.8-10.6) k/uL RBC 2.46 L 2.19 L (4.30-5.90) m/uL Hgb 7.5 L 6.6 L* (13.0-17.5) gm/dL Hct 23.3 L 20.8 L (39.0-53.0) % RDW 15.8 H (11.5-15.5) % Plt Count 477 H 481 H (150-450) k/uL Neutrophils # 20.2 H 12.3 H (1.3-7.7) k/uL BUN (9-20) mg/dL Creatinine (0.66-1.25) mg/dL Glucose (74-99) mg/dL Calcium (8.4-10.2) mg/dL Crossmatch See Detail 08/10/19 Range/Units 05:32 WBC (3.8-10.6) k/uL RBC (4.30-5.90) m/uL Hgb (13.0-17.5) gm/dL Hct (39.0-53.0) % RDW (11.5-15.5) % Plt Count (150-450) k/uL Neutrophils # (1.3-7.7) k/uL BUN 34 H (9-20) mg/dL Creatinine 1.68 H (0.66-1.25) mg/dL Glucose 71 L (74-99) mg/dL Calcium 8.2 L (8.4-10.2) mg/dL Crossmatch Assessment and Plan Assessment: 1. Lower Abdominal pain; possible enteritis with thickening of the jejunum and the CT abdomen. - Patient will be continued on antibiotics in the form of Zosyn and was started on steroids. Gastroenterology is following. 2. Acute blood loss anemia; due to GI bleed. status post EGD showed moderate gastritis and duodenitis. Patient is still having dark stools and drop in hemoglobin. Gastroenterology service was reconsulted for further evaluation. Consider tag ged RBC scan. 3. Leukocytosis; resolved now. 4. Acute renal injury; IV fluids normal saline at rate of 75 mL an hour; monitor strict NORBERTO's, daily weights, renal function and electrolytes; avoid ne phrotoxins and hypotension 5. Hypertension; we will hold off on LUCHO inhibitor's due to acute renal failure; monitor blood pressure closely and will order IV hydralazine to be used when necessary 6. Hyperlipidemia; hold off on oral statin therapy 7. 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 Hypothyroidism; levothyroxin 125 MCG daily DVT prophylaxis; SCDs only due to anemia CODE STATUS; full code Time with Patient: Greater than 30
[2019-08-11] MEDS: HYDROmorphone 0.5 MG/0.5 ML SYRINGE IVP PRN ×5 (00:40→20:43)
[2019-08-11] MEDS: traZODone HCL 50 MG TAB PO PRN ×2 (00:40→23:18)
[2019-08-11] MEDS: LEVOTHYROXINE 125 MCG TAB PO SCH (05:14)
[2019-08-11] MEDS: ONDANSETRON 4 MG/2 ML VIAL IVP PRN ×2 (05:15→17:34)
[2019-08-11 08:12] LABS: Anisocytosis Slight; Basophils % (A) 0 %; Eosinophils % (A) 0 %; HCT 23.8 % (39.0-53.0); HGB 7.9 gm/dL (13.0-17.5); Lymphocytes # (A) 1.6 k/uL (1.0-4.8); Lymphocytes % (A) 12 %; MCH 30.8 pg (25.0-35.0); MCHC 33.2 g/dL (31.0-37.0); MCV 92.9 fL (80.0-100.0); Mean Platelet Volume 7.3; Monocytes # (A) 0.7 k/uL (0-1.0); Monocytes % (A) 5 %; Neutrophils # (A) 10.8 k/uL (1.3-7.7); Neutrophils % (A) 81 %; Platelet Count 462 k/uL (150-450); RBC 2.56 m/uL (4.30-5.90); RDW 16.6 % (11.5-15.5); WBC 13.3 k/uL (3.8-10.6)
[2019-08-11] MEDS: predniSONE 20 MG TAB PO SCH (08:18)
[2019-08-11] MEDS: PANTOPRAZOLE 40 MG/10 ML VIAL IVP SCH ×2 (08:18→20:43)
[2019-08-11 08:29] LABS: Calcium 8.1 mg/dL (8.4-10.2); Potassium 4.5 mmol/L (3.5-5.1)
[2019-08-11] MEDS: SODIUM CHLORIDE 0.9% 1,000 ML IV SCH (09:29)
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
[2019-08-11 12:07] LABS: Anisocytosis Slight; HCT 26.8 % (39.0-53.0); HGB 8.7 gm/dL (13.0-17.5); MCH 30.6 pg (25.0-35.0); MCHC 32.5 g/dL (31.0-37.0); MCV 94.2 fL (80.0-100.0); Mean Platelet Volume 7.2; Platelet Count 464 k/uL (150-450); RBC 2.84 m/uL (4.30-5.90); RDW 16.5 % (11.5-15.5); WBC 14.9 k/uL (3.8-10.6)
[2019-08-11] MEDS ORDERED: FLUCONAZOLE 100 MG TAB PO SCH (14:30)
[2019-08-12] MEDS: HYDROmorphone 0.5 MG/0.5 ML SYRINGE IVP PRN ×3 (00:22→22:21)
--- NOTE | 2019-08-12 00:24 | P.PN ---
Subjective Progress Note Date: 08/11/19 Principal diagnosis: Abdominal pain Enteritis Nausea vomiting 69-year-old male patient admitted to the hospital with abdominal pain ongoing for a week; CT of the abdomen was done which revealed antritis and possible peptic ulcer disease; patient blood work also revealed hemoglobin drop raising concern for possible bleeding peptic ulcer disease in setting of chronic steroid use; patient is admitted to the hospital for GI and surgical evaluation 08/02/2019 Patient is seen and evaluated in room at bedside; continues to complain of right-sided abdominal pain Vital signs are reviewed and remained stable Blood work reveals a white blood count of 13.3, hemoglobin of 10.1 and platelet count of 247; sodium of 134, potassium 4.5, BUN of 25 and creatinine of 1.40 Patient has been evaluated by surgery and is not recommended any surgical intervention; patient will be started on clear liquid diet with a plan to keep patient nothing by mouth at midnight for possible EGD tomorrow with GI 08/03/2019 patient is s/p EGD; 1. No active bleeding or old blood. 2. Moderate gastritis antrum and body biopsied. 3. Mild duodenitis biopsied. 4. LA grade B distal esophagitis.. The findings discussed with the patient. Started regular diet. Suspicion is for esophagitis and Teresita-Jensen tear in the setting of retching. Continue Protonix 40 mg twice daily. No plans for colonoscopy at this time, however if further signs or symptoms develop we'll reevaluate at that time. 08/05/2019 Patient is still complaining of lower abdominal pain and tenderness. CT of the abdominal pelvis showed concerning for enteritis and thickening of the jejunum was noted. Patient is currently being treated for with antibiotics in the form of Zosyn. General surgery is planning to start on prednisone tapering course. Case of a component of inflammatory disease contributing to symptoms. Patient is being continued on Protonix as well. Gastroenterology and general surgery is following. Patient has been afebrile. No nausea or vomiting. No chest pain or shortness of breath.. 08/06/2019 Patient says that his lower abdominal pain is better today. No complaints of nausea vomiting. Patient has been afebrile. Tolerating oral diet. No complaints of chest pain or shortness of breath. Patient is being continued on antibiotics in the form of Zosyn and also on steroids. Continue with PPI.. Continue on gentle hydration. Monitor H&H. Repeat CBC and BMP tomorrow. 08/07/2019 Patient says that his lower abdominal pain is much improved today. Tolerating oral diet with low-fat diet. Patient is afebrile. Clinically improving. Otherwise leukocytosis with WBC count 22.1. Creatinine level increased to 1.79. Patient is being continued on prednisone 40 mg daily. Also on antibiotics in the form of Zosyn. Continued on IV hydration and follow-up labs tomorrow. Anticipate discharge in next 24 hours with more clinical improvement and improvement of creatinine level. 08/08/2019 Patient is complaining of generalized weakness and tiredness. Hemoglobin dropped to 5.3. Repeat hemoglobin is 5.6. Patient did have dark stools this morning. Patient will be transfused with 1 unit of PRBC. Otherwise her abdominal discomfort is much improved. Patient is being continued on IV antibiotics in the form of Zosyn and also on prednisone 40 mg daily. Patient feels nauseated and does not want to eat today. We will increase IV fluids to 75 mL per hour. Gastroenterology was notified. 08/09/2019 Patient is more awake and oriented. Feels better today. Hemoglobin went up to 7.6. Denied any further episodes of dark stools. No nausea vomiting or abdominal pain. Patient is being continued on IV antibiotics. Prednisone tapering dose starting 40 mg daily and decrease by 10 mg every 5 days. Diet will be advanced and monitor H&H tomorrow. Anticipate discharge if hemoglobin is stable tomorrow. 08/10/2019 Patient's hemoglobin dropped down to 6.6 again today. Patient did have bowel movement with dark stools today morning again. Patient will be transfused with 1 unit of PRBC. Patient is being continued on Protonix and is also on steroids, prednisone 40 mg daily. Decrease to 30 mg daily now for another 5 days. Due to continuous drop in hemoglobin and bleeding, discussed with the patient regarding option of transferring to another tertiary care facility for GI evaluation but patient wishes to stay here for now. If further bleeding occurs patient will be transferred to tertiary care facility for GI evaluation. Will discuss with general surgery as well. Patient will be continued on liquid diet and IV hydration. 08/11/2019 Hemoglobin did improve 7.9 today with 1 unit of PRBC yesterday.. Denied any bowel movement today. Due to recurrent dark-colored stools and drop in hemoglo bin general surgery is to repeat EGD. Patient is being continued on Protonix. Patient is PREDNISONE 30 MG DAILY FOR POSSIBLE UNDERLYING INFLAMMATORY BOWEL. Patient was seen by gastroenterology. Denied any complaints of chest pain or shortness of breath. Still having lower abdominal discomfort. No fever no chills. Tolerating oral diet. Current medications reviewed. Active Medications Hydrocodone Bitart/Acetaminophen ([place] 5-325) 1 each PO Q4HR PRN PRN Reason: Pain Last Admin: 08/06/19 21:16 Dose: 1 each Documented by: Hydralazine HCl (Apresoline) 10 mg IVP Q6HR PRN PRN Reason: Blood Pressure - High Hydromorphone HCl (Dilaudid) 0.5 mg IVP Q3HR PRN PRN Reason: Moderate Pain Last Admin: 08/06/19 22:22 Dose: 0.5 mg Documented by: Piperacillin Sod/Tazobactam (Sod 3.375 gm/ Sodium Chloride) 100 mls @ 25 mls/hr IVPB Q8HR [facility] Last Admin: 08/06/19 23:12 Dose: 25 mls/hr Documented by: Sodium Chloride (Saline 0.9%) 1,000 mls @ 75 mls/hr IV .[id number] [facility] Last Admin: 08/06/19 23:15 Dose: 75 mls/hr Documented by: Levothyroxine Sodium (Synthroid) 125 mcg PO 0630 [facility] Last Admin: 08/06/19 04:44 Dose: 125 mcg Documented by: Naloxone HCl (Narcan) 0.2 mg IV Q2M PRN PRN Reason: Opioid Reversal Ondansetron HCl (Zofran) 4 mg IVP Q8HR PRN PRN Reason: Nausea And Vomiting Last Admin: 08/06/19 17:34 Dose: 4 mg Documented by: Pantoprazole Sodium (Protonix) 40 mg PO AC-BID [facility] Last Admin: 08/06/19 17:34 Dose: 40 mg Documented by: Prednisone () 40 mg PO DAILY [facility] Last Admin: 08/06/19 08:56 Dose: 40 mg Documented by: Simethicone (Mylicon Chew) 80 mg PO QID PRN PRN Reason: GI Upset Last Admin: 08/02/19 04:56 Dose: 80 mg Documented by: Trazodone HCl (Desyrel) 50 mg PO HS PRN PRN Reason: Insomnia Last Admin: 08/06/19 21:16 Dose: 50 mg Documented by: Objective - Vital Signs Vital signs: Vital Signs Temp 98.3 F 08/11/19 19:40 Pulse 80 08/11/19 19:40 Resp 12 08/11/19 19:40 BP 123/79 08/11/19 19:40 Pulse Ox 97 08/11/19 19:40 Intake & Output 08/11/19 08/11/19 08/12/19 06:59 18:59 06:59 Intake Total 800 975 Balance 800 975 Intake: Intake, IV Titration 650 350 Amount Sodium Chloride 0.9% 1, 650 350 000 ml @ 50 mls/hr IV . Q20H [facility]U Rx#:[id number] Oral 150 625 Other: Voiding Method Toilet Toilet Toilet # Voids 2 - Exam PHYSICAL EXAMINATION: Patient is lying in the bed comfortably, no acute distress, awake alert and oriented.. HEENT: Normocephalic. Neck is supple. Pupils reactive. Nostrils clear. Oral cavity is moist. Ears reveal no drainage. Neck reveals no JVD, carotid bruits, or thyromegaly. CHEST EXAMINATION: Trachea is central. Symmetrical expansion. Lung calderón clear to auscultation and percussion. CARDIAC: Normal S1, S2 with no gallops. No murmurs ABDOMEN: Soft. Minimal lower abdominal tenderness. No guarding no rigidity. Bowel sounds normal. No organomegaly. No abdominal bruits. Extremities: reveal no edema. No clubbing or cyanosis Neurologically awake, alert, oriented x3 with well-coordinated movements. No focal deficits noted Skin: No rash or skin lesions. Psychiatric: Coperative. Nonsuicidal Musculoskeletal: No joint swelling or deformity. Normal range of motion. - Labs CBC & Chem 7: 08/11/19 11:47 08/11/19 07:02 Labs: Abnormal Lab Results - Last 24 Hours (Table) 08/11/19 08/11/19 08/11/19 Range/Units 07:02 07:02 11:47 WBC 13.3 H 14.9 H (3.8-10.6) k/uL RBC 2.56 L 2.84 L (4.30-5.90) m/uL Hgb 7.9 L 8.7 L (13.0-17.5) gm/dL Hct 23.8 L 26.8 L (39.0-53.0) % RDW 16.6 H 16.5 H (11.5-15.5) % Plt Count 462 H 464 H (150-450) k/uL Neutrophils # 10.8 H (1.3-7.7) k/uL BUN 31 H (9-20) mg/dL Creatinine 1.72 H (0.66-1.25) mg/dL Glucose 73 L (74-99) mg/dL Calcium 8.1 L (8.4-10.2) mg/dL Assessment and Plan Assessment: 1. Lower Abdominal pain; possible enteritis with thickening of the jejunum and the CT abdomen. - Patient will be continued on antibiotics in the form of Zosyn and was started on steroids. Gastroenterology is following. 2. Acute blood loss anemia; due to GI bleed. status post EGD showed moderate gastritis and duodenitis. Patient is still having dark stools and drop in hemoglobin. Gastroenterology service was reconsulted for further evaluation. Consider tagged RBC scan. Repeat EGD as per general surgery tomorrow. 3. Leukocytosis; resolved now. 4. Acute renal injury; IV fluids normal saline at rate of 75 mL an hour; monitor strict NORBERTO's, daily weights, renal function and electrolytes; avoid nephrotoxins and hypotension 5. Hypertension; we will hold off on LUCHO inhibitor's due to acute renal failure; monitor blood pressure closely and will order IV hydralazine to be used when necessary 6. Hyperlipidemia; hold off on oral statin therapy 7. 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 Hypothyroidism; levothyroxin 125 MCG daily DVT prophylaxis; SCDs only due to anemia CODE STATUS; full code Time with Patient: Greater than 30
[2019-08-12] MEDS: LEVOTHYROXINE 125 MCG TAB PO SCH (05:31)
[2019-08-12 07:38] LABS: Anisocytosis Slight; Basophils % (A) 0 %; Eosinophils # (A) 0.1 k/uL (0-0.7); Eosinophils % (A) 1 %; HCT 23.4 % (39.0-53.0); HGB 7.7 gm/dL (13.0-17.5); Lymphocytes # (A) 1.7 k/uL (1.0-4.8); Lymphocytes % (A) 15 %; MCH 31.2 pg (25.0-35.0); MCHC 32.8 g/dL (31.0-37.0); MCV 94.9 fL (80.0-100.0); Mean Platelet Volume 7.2; Monocytes # (A) 0.7 k/uL (0-1.0); Monocytes % (A) 6 %; Neutrophils # (A) 8.6 k/uL (1.3-7.7); Neutrophils % (A) 77 %; Platelet Count 465 k/uL (150-450); RBC 2.47 m/uL (4.30-5.90); RDW 16.5 % (11.5-15.5); WBC 11.2 k/uL (3.8-10.6)
[2019-08-12 07:51] LABS: Calcium 8.1 mg/dL (8.4-10.2)
[2019-08-12] MEDS: PANTOPRAZOLE 40 MG/10 ML VIAL IVP SCH ×2 (08:44→20:47)
[2019-08-12] MEDS: predniSONE 20 MG TAB PO SCH (08:44)
[2019-08-12] MEDS ORDERED: PROPOFOL 10 MG/ML 20 ML VIAL IV ONE (10:38)
[2019-08-12] MEDS ORDERED: LIDOCAINE 1% INJ 10MG/ML (20 ML MDV) ONE (10:38)
[2019-08-12] MEDS ORDERED: IV FLUID CONTINUATION 800 ML IV ONE (10:41)
--- NOTE | 2019-08-12 11:07 | P.PCN ---
Date of Procedure: 08/12/19 Description of Procedure: BRIEF HISTORY: Patient is a 69-year-old male presenting with complaints of abdominal pain with CT findings suggestive of possible jejunal thickening and enteritis. He has been treated with prolonged antibiotic therapy as well as a trial of steroid therapy. On initial presentation patient did report coffee-ground emesis and dark stool. At that time EGD was performed which showed esophagitis, gastritis and duodenitis with suspicion for possible Teresita-Jensen tear. Since that time the patient had further fall in hemoglobin and repeat EGD was ordered for further evaluation. Patient unsure when his last colonoscopy was performed, believes approximately 5 years ago. PROCEDURE PERFORMED: Push enteroscopy. PREOPERATIVE DIAGNOSIS: Anemia acute blood loss, enteritis. ESTIMATED BLOOD LOSS: Minimal. IV sedation per anesthesia. PROCEDURE: After informed consent was obtained, the patient was brought into the endoscopy unit. IV sedation was administered by Anesthesia under continuous monitoring. Initially the Olympus GIF-190 video endoscope was inserted into the mouth. Esophagus intubated without any difficulty. It was gradually advanced into the stomach and duodenum and carefully examined. The enteroscope was pushed to approximately 55 cm past the pylorus. There was no evidence of old blood or active bleeding in the entire examined small bowel. Areas of the duodenum, stomach and distal esophagus which previously appeared inflamed showed improvement in overall appearance. The scope at this time was withdrawn to the stomach, adequately insufflated with air, and upon careful examination, mucosa of the antrum, body, cardia and the fundus appeared normal with improvement in previously seen inflammation in the antrum and body. The scope was then withdrawn into the esophagus. The GE junction was located at 39 cm from the incisors. The esophagus appeared normal. There were no erosions or ulcerations seen and the patient tolerated the procedure well. IMPRESSION: 1. No old blood, active bleeding or pathology to explain fall in hemoglobin. 2. Normal-appearing stomach, esophagus and small bowel with enteroscope advanced to 55 cm past the pylorus. RECOMMENDATIONS: The findings of this examination were discussed with the patient. Okay to resume diet. Okay to resume medications. If further fall in hemoglobin would recommend repeat colonoscopy prior to discharge otherwise if patient remains stable and follow-up in the outpatient setting.
[2019-08-12] MEDS: HYDROcodone/APAP 5-325MG 1 EACH TAB PO PRN (12:04)
--- NOTE | 2019-08-12 12:44 | P.PN ---
Subjective Progress Note Date: 08/12/19 CHIEF COMPLAINT: abdominal pain HISTORY OF PRESENT ILLNESS: Patient examined this morning at the bedside. He denies abdominal pain. Denies nausea or vomiting. Denies rectal bleeding. Hemoglobin 7.7. PHYSICAL EXAM: VITAL SIGNS: Reviewed GENERAL: Well-developed in no acute distress. HEENT: No sclera icterus. Extraocular movements grossly intact. Moist buccal mucosa. ABDOMEN: Soft. Nondistended. Nontender. No peritoneal signs. PSYCH: Appropriate affect. Alert and oriented to person, place and time. SKIN: Well perfused. Good skin turgor. ASSESSMENT: 1. Right sided abdominal pain 2. Chronic abdominal pain and nausea, etiology unknown 3. Isolated episode of dark brown/black emesis with recent drop in hemoglobin, possible acute blood loss anemia, S/P EGD revealing erosive esophagitis, no ulcers 4. Dysphagia 5. Possible enteritis per CT scan, diverticulosis of hepatic flexure and descending colon 6. Chronic steroid use 7. Thickened gallbladder wall per ultrasound, hyperdynamic gallbladder per HIDA scan PLAN: -Monitor hemoglobin -Patient scheduled for repeat EGD today with Dr. Rm -Continue low fat diet after EGD -Patient may follow up outpatient regarding his biliary dysfunction and hyperdynamic gallbladder Nurse practitioner note has been reviewed by physician. Signing provider agrees with the documented findings, assessment, and plan of care. Objective - Vital Signs Vital signs: Vital Signs Temp 98.5 F 08/12/19 07:00 Pulse 68 08/12/19 08:48 Resp 18 08/12/19 08:48 BP 122/75 08/12/19 07:00 Pulse Ox 99 08/12/19 07:00 Intake & Output 08/11/19 08/12/19 08/12/19 18:59 06:59 18:59 Intake Total 975 300 Balance 975 300 Intake: IV 300 Intake, IV Titration 350 Amount Sodium Chloride 0.9% 1, 350 000 ml @ 50 mls/hr IV . Q20H [facility] Rx#:[id number] Oral 625 Other: Voiding Method Toilet Toilet Toilet # Voids 1 - Labs CBC & Chem 7: 08/12/19 06:44 08/12/19 06:44 Labs: Abnormal Lab Results - Last 24 Hours (Table) 08/12/19 08/12/19 Range/Units 06:44 06:44 WBC 11.2 H (3.8-10.6) k/uL RBC 2.47 L (4.30-5.90) m/uL Hgb 7.7 L (13.0-17.5) gm/dL Hct 23.4 L (39.0-53.0) % RDW 16.5 H (11.5-15.5) % Plt Count 465 H (150-450) k/uL Neutrophils # 8.6 H (1.3-7.7) k/uL BUN 29 H (9-20) mg/dL Creatinine 1.70 H (0.66-1.25) mg/dL Calcium 8.1 L (8.4-10.2) mg/dL
--- NOTE | 2019-08-12 15:12 | PN ---
PROGRESS NOTE DATE OF SERVICE: 08/12/2019 Patient is a 69-year-old pleasant white male who was admitted to the hospital about 10 days ago complaining of lower abdominal pain radiating to the right upper quadrant area as well as epigastric area associated with nausea, vomiting, and coffee-ground emesis. His initial hemoglobin was 11.1 g/dL. He underwent an upper endoscopy by Dr. Rm in August 03 that revealed evidence of antral gastritis and mild esophagitis. Patient has been maintained on proton pump inhibitor since then. He continued to have worsening abdominal pain. He was seen by Dr. Peck, had gallbladder ultrasound done that was unremarkable, subsequently had a HIDA scan that showed ejection fraction of the gallbladder of 85%. In the meantime, patient continued to drop hemoglobin slowly as low as 5.6 g/dL. About 4 days ago, received a total of 3 units of PRBC transfusion and hemoglobin today is 7.7 g/dL. In the meantime, the patient had a repeat upper endoscopy by Dr. Rm today because of persistent black-colored stool. Upper endoscopy/vision enteroscopy was done and once again revealed antral gastritis with no active bleeding noted. In the meantime, following the procedure, the patient came to the floor and I was called by the nurse because of persistent left lower quadrant abdominal pain. He reports no nausea, vomiting. PHYSICAL EXAMINATION: Appears comfortable, in no apparent distress. VITAL SIGNS: Stable. Blood pressure is 122/75, pulse rate 68, temperature 95. HEENT: Examination unremarkable, conjunctivae are pink, sclerae nonicteric, oral cavity no lesions. NECK: No JVD or lymph node enlargement. CHEST: Clear to auscultation. HEART: Regular rate and rhythm. . ABDOMEN: Soft, there was tenderness in the left lower quadrant in the periumbilical area, but no rebound or rigidity. EXTREMITIES: No pedal edema. SKIN: No rashes. NEUROLOGIC: Alert and oriented x3. No focal deficits. LABS: From today, WBC 11.3, hemoglobin os 7.7, platelets 465. BUN 29, creatinine 1.7. blood was positive. IMPRESSION: 1. Acute onset of severe left lower quadrant abdominal pain that started 2 hours ago. Patient has been having intermittent abdominal pain for the last [address] of the abdomen at time of admission to the hospital showed mild enteritis. 2. Anemia with last drop in hemoglobin up to 5.5 requiring 3 units of PRBC transfusion. Today hemoglobin is 7.7 g/dL. He had an upper endoscopy on August 03 and a repeat upper endoscopy/vision fluoroscopy today. Both revealed gastritis with no evidence of active bleeding. 3. History of hypertension. RECOMMENDATION: Discussed with the patient regarding further management. Recommended colonoscopy to investigate his symptoms as well as anemia further. At this time, he will be scheduled for a colonoscopy tomorrow. Risks, benefits and complications explained. Thank you for this consultation. MMODL / IJN: [id number] /
--- NOTE | 2019-08-12 16:14 | P.PN ---
Subjective Progress Note Date: 08/12/19 Principal diagnosis: Abdominal pain Enteritis Nausea vomiting 69-year-old male patient admitted to the hospital with abdominal pain ongoing for a week; CT of the abdomen was done which revealed antritis and possible peptic ulcer disease; patient blood work also revealed hemoglobin drop raising concern for possible bleeding peptic ulcer disease in setting of chronic steroid use; patient is admitted to the hospital for GI and surgical evaluation 08/02/2019 Patient is seen and evaluated in room at bedside; continues to complain of right-sided abdominal pain Vital signs are reviewed and remained stable Blood work reveals a white blood count of 13.3, hemoglobin of 10.1 and platelet count of 247; sodium of 134, potassium 4.5, BUN of 25 and creatinine of 1.40 Patient has been evaluated by surgery and is not recommended any surgical intervention; patient will be started on clear liquid diet with a plan to keep patient nothing by mouth at midnight for possible EGD tomorrow with GI 08/03/2019 patient is s/p EGD; 1. No active bleeding or old blood. 2. Moderate gastritis antrum and body biopsied. 3. Mild duodenitis biopsied. 4. LA grade B distal esophagitis.. The findings discussed with the patient. Started regular diet. Suspicion is for esophagitis and Teresita-Jensen tear in the setting of retching. Continue Protonix 40 mg twice daily. No plans for colonoscopy at this time, however if further signs or symptoms develop we'll reevaluate at that time. 08/05/2019 Patient is still complaining of lower abdominal pain and tenderness. CT of the abdominal pelvis showed concerning for enteritis and thickening of the jejunum was noted. Patient is currently being treated for with antibiotics in the form of Zosyn. General surgery is planning to start on prednisone tapering course. Case of a component of inflammatory disease contributing to symptoms. Patient is being continued on Protonix as well. Gastroenterology and general surgery is following. Patient has been afebrile. No nausea or vomiting. No chest pain or shortness of breath.. 08/06/2019 Patient says that his lower abdominal pain is better today. No complaints of nausea vomiting. Patient has been afebrile. Tolerating oral diet. No complaints of chest pain or shortness of breath. Patient is being continued on antibiotics in the form of Zosyn and also on steroids. Continue with PPI.. Continue on gentle hydration. Monitor H&H. Repeat CBC and BMP tomorrow. 08/07/2019 Patient says that his lower abdominal pain is much improved today. Tolerating oral diet with low-fat diet. Patient is afebrile. Clinically improving. Otherwise leukocytosis with WBC count 22.1. Creatinine level increased to 1.79. Patient is being continued on prednisone 40 mg daily. Also on antibiotics in the form of Zosyn. Continued on IV hydration and follow-up labs tomorrow. Anticipate discharge in next 24 hours with more clinical improvement and improvement of creatinine level. 08/08/2019 Patient is complaining of generalized weakness and tiredness. Hemoglobin dropped to 5.3. Repeat hemoglobin is 5.6. Patient did have dark stools this morning. Patient will be transfused with 1 unit of PRBC. Otherwise her abdominal discomfort is much improved. Patient is being continued on IV antibiotics in the form of Zosyn and also on prednisone 40 mg daily. Patient feels nauseated and does not want to eat today. We will increase IV fluids to 75 mL per hour. Gastroenterology was notified. 08/09/2019 Patient is more awake and oriented. Feels better today. Hemoglobin went up to 7.6. Denied any further episodes of dark stools. No nausea vomiting or abdominal pain. Patient is being continued on IV antibiotics. Prednisone tapering dose starting 40 mg daily and decrease by 10 mg every 5 days. Diet will be advanced and monitor H&H tomorrow. Anticipate discharge if hemoglobin is stable tomorrow. 08/10/2019 Patient's hemoglobin dropped down to 6.6 again today. Patient did have bowel movement with dark stools today morning again. Patient will be transfused with 1 unit of PRBC. Patient is being continued on Protonix and is also on steroids, prednisone 40 mg daily. Decrease to 30 mg daily now for another 5 days. Due to continuous drop in hemoglobin and bleeding, discussed with the patient regarding option of transferring to another tertiary care facility for GI evaluation but patient wishes to stay here for now. If further bleeding occurs patient will be transferred to tertiary care facility for GI evaluation. Will discuss with general surgery as well. Patient will be continued on liquid diet and IV hydration. 08/11/2019 Hemoglobin did improve 7.9 today with 1 unit of PRBC yesterday.. Denied any bowel movement today. Due to recurrent dark-colored stools and drop in hemoglo bin general surgery is to repeat EGD. Patient is being continued on Protonix. Patient is PREDNISONE 30 MG DAILY FOR POSSIBLE UNDERLYING INFLAMMATORY BOWEL. Patient was seen by gastroenterology. Denied any complaints of chest pain or shortness of breath. Still having lower abdominal discomfort. No fever no chills. Tolerating oral diet. Current medications reviewed. 08/12/2019 Patient is lying in bed and is having some severe lower left abdominal pain with cramping is being closely monitored. Patient underwent an EGD this morning with Dr. Rm showing no active bleeding or pathology with a normal-appearing stomach, esophagus, and small bowel. Patient will be started on a colon prep and will be undergoing a colonoscopy tomorrow with GI. Objective - Vital Signs Vital signs: Vital Signs Temp 98.5 F 08/12/19 07:00 Pulse 68 08/12/19 08:48 Resp 18 08/12/19 08:48 BP 122/75 08/12/19 07:00 Pulse Ox 99 08/12/19 07:00 Intake & Output 08/11/19 08/12/19 08/12/19 18:59 06:59 18:59 Intake Total 975 650 Balance 975 650 Intake: IV 300 Intake, IV Titration 350 350 Amount Sodium Chloride 0.9% 1, 350 350 000 ml @ 50 mls/hr IV . Q20H [facility] Rx#:[id number] Oral 625 Other: Voiding Method Toilet Toilet Toilet # Voids 1 - Exam Patient is lying in the bed holding his lower left abdomen and appears to be in mild acute distress. Patient is awake alert and oriented.. HEENT: Normocephalic. Neck is supple. Pupils reactive. Nostrils clear. Oral cavity is moist. Ears reveal no drainage. Neck reveals no JVD, carotid bruits, or thyromegaly. CHEST EXAMINATION: Trachea is central. Symmetrical expansion. Lung calderón clear to auscultation and percussion. CARDIAC: Normal S1, S2 with no gallops. No murmurs ABDOMEN: Soft. Left lower abdominal tenderness upon palpation. No guarding no rigidity. Bowel sounds normal. No organomegaly. No abdominal bruits. Extremities: reveal no edema. No clubbing or cyanosis Neurologically awake, alert, oriented x3 with well-coordinated movements. No focal deficits noted Skin: No rash or skin lesions. Psychiatric: Cooperative. Non-suicidal Musculoskeletal: No joint swelling or deformity. Normal range of motion. - Labs CBC & Chem 7: 08/12/19 06:44 08/12/19 06:44 Labs: Abnormal Lab Results - Last 24 Hours (Table) 08/12/19 08/12/19 Range/Units 06:44 06:44 WBC 11.2 H (3.8-10.6) k/uL RBC 2.47 L (4.30-5.90) m/uL Hgb 7.7 L (13.0-17.5) gm/dL Hct 23.4 L (39.0-53.0) % RDW 16.5 H (11.5-15.5) % Plt Count 465 H (150-450) k/uL Neutrophils # 8.6 H (1.3-7.7) k/uL BUN 29 H (9-20) mg/dL Creatinine 1.70 H (0.66-1.25) mg/dL Calcium 8.1 L (8.4-10.2) mg/dL Assessment and Plan Assessment: 1. Lower Abdominal pain; possible enteritis with thickening of the jejunum and the CT abdomen. - Patient will be continued on antibiotics in the form of Zosyn and was started on steroids. Gastroenterology is following. 2. Acute blood loss anemia; due to GI bleed. status post EGD showed moderate gastritis and duodenitis. Patient is still having dark stools and drop in hemoglobin. Gastroenterology service was reconsulted for further evaluation. Consider tagged RBC scan. Repeat EGD as per general surgery tomorrow. 3. Leukocytosis; resolved now. 4. Acute renal injury; IV fluids normal saline at rate of 75 mL an hour; monitor strict NORBERTO's, daily weights, renal function and electrolytes; avoid nephrotoxins and hypotension 5. Hypertension; we will hold off on LUCHO inhibitor's due to acute renal failure; monitor blood pressure closely and will order IV hydralazine to be used when necessary 6. Hyperlipidemia; hold off on oral statin therapy 7. 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 Hypothyroidism; levothyroxin 125 MCG daily 9. DVT prophylaxis; SCDs only due to anemia 10. CODE STATUS; full code Plan: Patient underwent another EGD today showing no old blood, active bleeding, or pathology to explain the fall in hemoglobin with a normal-appearing stomach, esophagus, and small bowel. Patient continues to have severe lower abdominal pain and will undergo colonoscopy tomorrow with GI. Patient will start colonoscopy prep. Will repeat a.m. labs. Hemoglobin today was 7.7. Creatinine was 1.70. Surgery and GI are following. Further recommendations to follow.
[2019-08-12] MEDS ORDERED: PEG 3350-NA SULF,BICARB,CL/KCL 4,000 ML BOTTLE PO ONE (18:00)
[2019-08-12] MEDS: SODIUM CHLORIDE 0.9% 1,000 ML IV SCH (20:48)
[2019-08-13] MEDS: LEVOTHYROXINE 125 MCG TAB PO SCH (03:36)
[2019-08-13] MEDS: SODIUM CHLORIDE 0.9% 1,000 ML IV SCH (05:28)
[2019-08-13] MEDS: ONDANSETRON 4 MG/2 ML VIAL IVP PRN ×2 (05:28→19:26)
[2019-08-13] MEDS: HYDROmorphone 0.5 MG/0.5 ML SYRINGE IVP PRN ×2 (05:31→12:02)
[2019-08-13 07:56] LABS: Basophils % (A) 0 %; Eosinophils # (A) 0.1 k/uL (0-0.7); Eosinophils % (A) 1 %; HCT 25.4 % (39.0-53.0); HGB 8.3 gm/dL (13.0-17.5); Lymphocytes # (A) 2.4 k/uL (1.0-4.8); Lymphocytes % (A) 19 %; MCH 31.5 pg (25.0-35.0); MCHC 32.9 g/dL (31.0-37.0); MCV 95.8 fL (80.0-100.0); Mean Platelet Volume 7.1; Monocytes # (A) 0.7 k/uL (0-1.0); Monocytes % (A) 6 %; Neutrophils # (A) 9.2 k/uL (1.3-7.7); Neutrophils % (A) 74 %; Platelet Count 487 k/uL (150-450); RBC 2.65 m/uL (4.30-5.90); RDW 15.9 % (11.5-15.5); WBC 12.5 k/uL (3.8-10.6)
[2019-08-13 08:08] LABS: Calcium 8.3 mg/dL (8.4-10.2); Potassium 4.6 mmol/L (3.5-5.1)
[2019-08-13] MEDS: predniSONE 20 MG TAB PO SCH (08:46)
[2019-08-13] MEDS: PANTOPRAZOLE 40 MG/10 ML VIAL IVP SCH ×2 (08:57→20:46)
[2019-08-13] MEDS ORDERED: PROPOFOL 10 MG/ML 20 ML VIAL IV ONE (13:00)
[2019-08-13] MEDS ORDERED: IV FLUID CONTINUATION 1,000 ML IV ONE (13:02)
--- NOTE | 2019-08-13 13:11 | P.PN ---
Subjective Progress Note Date: 08/13/19 CHIEF COMPLAINT: abdominal pain HISTORY OF PRESENT ILLNESS: Patient examined this morning at the bedside. Patient underwent repeat EGD yesterday revealing no old blood or active bleeding. Normal-appearing stomach esophagus and small bowel. He denies abdominal pain. Denies nausea or vomiting. Denies rectal bleeding. Hemoglobin 8.3. PHYSICAL EXAM: VITAL SIGNS: Reviewed GENERAL: Well-developed in no acute distress. HEENT: No sclera icterus. Extraocular movements grossly intact. Moist buccal mucosa. ABDOMEN: Soft. Nondistended. Nontender. No peritoneal signs. PSYCH: Appropriate affect. Alert and oriented to person, place and time. SKIN: Well perfused. Good skin turgor. ASSESSMENT: 1. Right sided abdominal pain 2. Chronic abdominal pain and nausea, etiology unknown 3. Isolated episode of dark brown/black emesis with recent drop in hemoglobin, possible acute blood loss anemia, S/P EGD revealing erosive esophagitis, no ulcers 4. Dysphagia 5. Possible enteritis per CT scan, diverticulosis of hepatic flexure and descending colon 6. Chronic steroid use 7. Thickened gallbladder wall per ultrasound, hyperdynamic gallbladder per HIDA scan PLAN: -Monitor hemoglobin -Patient scheduled for colonoscopy today -Continue low fat diet after colonoscopy -Patient may follow up outpatient regarding his biliary dysfunction and hyperdynamic gallbladder Nurse practitioner note has been reviewed by physician. Signing provider agrees with the documented findings, assessment, and plan of care. Objective - Vital Signs Vital signs: Vital Signs Temp 98.3 F 08/13/19 07:00 Pulse 75 08/13/19 07:00 Resp 18 08/13/19 07:00 BP 128/80 08/13/19 07:00 Pulse Ox 91 L 08/13/19 07:00 Intake & Output 08/12/19 08/13/19 08/13/19 18:59 06:59 18:59 Intake Total 650 3110 Balance 650 3110 Intake: IV 300 Intake, IV Titration 350 410 Amount Sodium Chloride 0.9% 1, 350 410 000 ml @ 50 mls/hr IV . Q20H [facility] Rx#:[id number] Oral 2700 Other: Voiding Method Toilet - Labs CBC & Chem 7: 08/13/19 06:52 08/13/19 06:52 Labs: Abnormal Lab Results - Last 24 Hours (Table) 08/13/19 08/13/19 Range/Units 06:52 06:52 WBC 12.5 H (3.8-10.6) k/uL RBC 2.65 L (4.30-5.90) m/uL Hgb 8.3 L (13.0-17.5) gm/dL Hct 25.4 L (39.0-53.0) % RDW 15.9 H (11.5-15.5) % Plt Count 487 H (150-450) k/uL Neutrophils # 9.2 H (1.3-7.7) k/uL BUN 25 H (9-20) mg/dL Creatinine 1.46 H (0.66-1.25) mg/dL Calcium 8.3 L (8.4-10.2) mg/dL
--- NOTE | 2019-08-13 13:32 | P.PCN ---
Date of Procedure: 08/13/19 Procedure(s) Performed: BRIEF HISTORY: Patient is a 61-year-old pleasant male, scheduled for an elective colonoscopy as a part of evaluation of lower abdominal pain on and off for the last 2 weeks' duration. He was also having intermittent dark colored stool. He presents to the hospital with coffee-ground emesis and abdominal pain. He had an upper endoscopy done by Dr. Greene on August 03 which revealed mild gastritis and esophagitis. Subsequently he dropped his hemoglobin from 11-5.6 g/dL requiring 2 units of blood transfusion. Currently hemoglobin is 8.8 g/dL. He underwent a repeat upper endoscopy by Dr. Greene yesterday with a push enteroscopy that showed 16 and mild gastritis. His and scheduled for colonoscopy to evaluate further. PROCEDURE PERFORMED: Colonoscopy. PREOPERATIVE DIAGNOSIS: Lower abdominal pain and intermittent dark stools/severe. IV sedation per Anesthesia. PROCEDURE: After informed consent was obtained, the patient, was brought into the endoscopy unit. IV sedation was administered by Anesthesia under continuous monitoring. Digital rectal examination was normal. Initially the Olympus CF-160 flexible video colonoscope was then inserted in the rectum, gradually advanced into the cecum without any difficulty. Careful examination was performed as the scope was gradually being withdrawn. Ileocecal valve and the appendiceal orifice were visualized and appeared normal. Prep was excellent. Terminal ileum was normal. Mucosa of the cecum, ascending colon, transverse colon, descending colon, sigmoid colon, and rectum appeared normal. Retroflexion was performed in the rectum and no lesions were seen. Scattered sigmoidal diverticula seen The patient tolerated the procedure well. IMPRESSION: Normal-appearing colon from rectum to cecum with no evidence of colitis or colon rectal neoplasia. Normal-appearing terminal ileum. Scattered sigmoid diverticulosis. RECOMMENDATIONS: Findings of this examination were discussed with the patient. He will be scheduled for a small bowel capsule endoscopy today to complete workup of anemia/GI bleed and evaluate small bowel source of GI blood loss..
[2019-08-13] MEDS ORDERED: SIMETHICONE 40 MG/0.6 ML DROPS 2,000 MG/30 ML BOTTLE PO ONE (14:10)
--- NOTE | 2019-08-13 14:53 | P.PN ---
Subjective Progress Note Date: 08/13/19 Principal diagnosis: Abdominal pain Enteritis Nausea vomiting 69-year-old male patient admitted to the hospital with abdominal pain ongoing for a week; CT of the abdomen was done which revealed antritis and possible peptic ulcer disease; patient blood work also revealed hemoglobin drop raising concern for possible bleeding peptic ulcer disease in setting of chronic steroid use; patient is admitted to the hospital for GI and surgical evaluation 08/02/2019 Patient is seen and evaluated in room at bedside; continues to complain of right-sided abdominal pain Vital signs are reviewed and remained stable Blood work reveals a white blood count of 13.3, hemoglobin of 10.1 and platelet count of 247; sodium of 134, potassium 4.5, BUN of 25 and creatinine of 1.40 Patient has been evaluated by surgery and is not recommended any surgical intervention; patient will be started on clear liquid diet with a plan to keep patient nothing by mouth at midnight for possible EGD tomorrow with GI 08/03/2019 patient is s/p EGD; 1. No active bleeding or old blood. 2. Moderate gastritis antrum and body biopsied. 3. Mild duodenitis biopsied. 4. LA grade B distal esophagitis.. The findings discussed with the patient. Started regular diet. Suspicion is for esophagitis and Teresita-Jensen tear in the setting of retching. Continue Protonix 40 mg twice daily. No plans for colonoscopy at this time, however if further signs or symptoms develop we'll reevaluate at that time. 08/05/2019 Patient is still complaining of lower abdominal pain and tenderness. CT of the abdominal pelvis showed concerning for enteritis and thickening of the jejunum was noted. Patient is currently being treated for with antibiotics in the form of Zosyn. General surgery is planning to start on prednisone tapering course. Case of a component of inflammatory disease contributing to symptoms. Patient is being continued on Protonix as well. Gastroenterology and general surgery is following. Patient has been afebrile. No nausea or vomiting. No chest pain or shortness of breath.. 08/06/2019 Patient says that his lower abdominal pain is better today. No complaints of nausea vomiting. Patient has been afebrile. Tolerating oral diet. No complaints of chest pain or shortness of breath. Patient is being continued on antibiotics in the form of Zosyn and also on steroids. Continue with PPI.. Continue on gentle hydration. Monitor H&H. Repeat CBC and BMP tomorrow. 08/07/2019 Patient says that his lower abdominal pain is much improved today. Tolerating oral diet with low-fat diet. Patient is afebrile. Clinically improving. Otherwise leukocytosis with WBC count 22.1. Creatinine level increased to 1.79. Patient is being continued on prednisone 40 mg daily. Also on antibiotics in the form of Zosyn. Continued on IV hydration and follow-up labs tomorrow. Anticipate discharge in next 24 hours with more clinical improvement and improvement of creatinine level. 08/08/2019 Patient is complaining of generalized weakness and tiredness. Hemoglobin dropped to 5.3. Repeat hemoglobin is 5.6. Patient did have dark stools this morning. Patient will be transfused with 1 unit of PRBC. Otherwise her abdominal discomfort is much improved. Patient is being continued on IV antibiotics in the form of Zosyn and also on prednisone 40 mg daily. Patient feels nauseated and does not want to eat today. We will increase IV fluids to 75 mL per hour. Gastroenterology was notified. 08/09/2019 Patient is more awake and oriented. Feels better today. Hemoglobin went up to 7.6. Denied any further episodes of dark stools. No nausea vomiting or abdominal pain. Patient is being continued on IV antibiotics. Prednisone tapering dose starting 40 mg daily and decrease by 10 mg every 5 days. Diet will be advanced and monitor H&H tomorrow. Anticipate discharge if hemoglobin is stable tomorrow. 08/10/2019 Patient's hemoglobin dropped down to 6.6 again today. Patient did have bowel movement with dark stools today morning again. Patient will be transfused with 1 unit of PRBC. Patient is being continued on Protonix and is also on steroids, prednisone 40 mg daily. Decrease to 30 mg daily now for another 5 days. Due to continuous drop in hemoglobin and bleeding, discussed with the patient regarding option of transferring to another tertiary care facility for GI evaluation but patient wishes to stay here for now. If further bleeding occurs patient will be transferred to tertiary care facility for GI evaluation. Will discuss with general surgery as well. Patient will be continued on liquid diet and IV hydration. 08/11/2019 Hemoglobin did improve 7.9 today with 1 unit of PRBC yesterday.. Denied any bowel movement today. Due to recurrent dark-colored stools and drop in hemoglo bin general surgery is to repeat EGD. Patient is being continued on Protonix. Patient is PREDNISONE 30 MG DAILY FOR POSSIBLE UNDERLYING INFLAMMATORY BOWEL. Patient was seen by gastroenterology. Denied any complaints of chest pain or shortness of breath. Still having lower abdominal discomfort. No fever no chills. Tolerating oral diet. Current medications reviewed. 08/12/2019 Patient is lying in bed and is having some severe lower left abdominal pain with cramping is being closely monitored. Patient underwent an EGD this morning with Dr. Rm showing no active bleeding or pathology with a normal-appearing stomach, esophagus, and small bowel. Patient will be started on a colon prep and will be undergoing a colonoscopy tomorrow with GI. 08/13/2019 Patient is lying in bed and appears to be in no acute distress. Patient states that he continues to have lower left abdominal pain but is tolerable at this time as he is just received pain medications. Patient completed the GoLYTELY prep and is scheduled to have a colonoscopy this afternoon. Will await report. Patient states that he continue to have bowel movements with blood noted but did not show the nursing staff. Nursing staff reported that he flushed the toilet each time before showing the blood in the stool. Objective - Vital Signs Vital signs: Vital Signs Temp 98.3 F 08/13/19 07:00 Pulse 75 08/13/19 07:00 Resp 18 08/13/19 07:00 BP 128/80 08/13/19 07:00 Pulse Ox 91 L 08/13/19 07:00 Intake & Output 08/12/19 08/13/19 08/13/19 18:59 06:59 18:59 Intake Total 650 3110 300 Balance 650 3110 300 Intake: IV 300 300 Intake, IV Titration 350 410 Amount Sodium Chloride 0.9% 1, 350 410 000 ml @ 50 mls/hr IV . Q20H [facility] Rx#:[id number] Oral 2700 Other: Voiding Method Toilet - Exam Patient is lying in the bed and appears to be in no acute distress. Patient is awake alert and oriented.. HEENT: Normocephalic. Neck is supple. Pupils reactive. Nostrils clear. Oral cavity is moist. Ears reveal no drainage. Neck reveals no JVD, carotid bruits, or thyromegaly. CHEST EXAMINATION: Trachea is central. Symmetrical expansion. Lung calderón clear to auscultation and percussion. CARDIAC: Normal S1, S2 with no gallops. No murmurs ABDOMEN: Soft. Left lower abdominal tenderness upon palpation. No guarding no rigidity. Bowel sounds normal. No organomegaly. No abdominal bruits. Extremities: reveal no edema. No clubbing or cyanosis Neurologically awake, alert, oriented x3 with well-coordinated movements. No focal deficits noted Skin: No rash or skin lesions. Psychiatric: Cooperative. Non-suicidal Musculoskeletal: No joint swelling or deformity. Normal range of motion. - Labs CBC & Chem 7: 08/13/19 06:52 08/13/19 06:52 Labs: Abnormal Lab Results - Last 24 Hours (Table) 08/13/19 08/13/19 Range/Units 06:52 06:52 WBC 12.5 H (3.8-10.6) k/uL RBC 2.65 L (4.30-5.90) m/uL Hgb 8.3 L (13.0-17.5) gm/dL Hct 25.4 L (39.0-53.0) % RDW 15.9 H (11.5-15.5) % Plt Count 487 H (150-450) k/uL Neutrophils # 9.2 H (1.3-7.7) k/uL BUN 25 H (9-20) mg/dL Creatinine 1.46 H (0.66-1.25) mg/dL Calcium 8.3 L (8.4-10.2) mg/dL Assessment and Plan Assessment: 1. Lower Abdominal pain; possible enteritis with thickening of the jejunum and the CT abdomen. - Patient will be continued on antibiotics in the form of Zosyn and was started on steroids. Gastroenterology is following. 2. Acute blood loss anemia; due to GI bleed. status post EGD showed moderate gastritis and duodenitis. Patient is still having dark stools and drop in hemoglobin. Gastroenterology service was reconsulted for further evaluation. Consider tagged RBC scan. Repeat EGD as per general surgery tomorrow. 3. Leukocytosis; resolved now. 4. Acute renal injury; IV fluids normal saline at rate of 75 mL an hour; monitor strict NORBERTO's, daily weights, renal function and electrolytes; avoid nephrotoxins and hypotension 5. Hypertension; we will hold off on LUCHO inhibitor's due to acute renal failure; monitor blood pressure closely and will order IV hydralazine to be used when necessary 6. Hyperlipidemia; hold off on oral statin therapy 7. 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 Hypothyroidism; levothyroxin 125 MCG daily 9. DVT prophylaxis; SCDs only due to anemia 10. CODE STATUS; full code Plan: Patient is scheduled to undergo colonoscopy today with Dr. Nava. Veronica prep has been completed. Patient states he continues to notice blood in his stool. Will repeat a.m. labs. Hemoglobin today was 8.3. Creatinine was 1.46. Surgery and GI are following. Further recommendations to follow.
[2019-08-13] MEDS: HYDROcodone/APAP 5-325MG 1 EACH TAB PO PRN ×2 (19:24→23:09)
[2019-08-14] MEDS: LEVOTHYROXINE 125 MCG TAB PO SCH (06:10)
[2019-08-14] MEDS: SODIUM CHLORIDE 0.9% 1,000 ML IV SCH (07:15)
[2019-08-14] MEDS: predniSONE 20 MG TAB PO SCH (08:33)
[2019-08-14] MEDS: PANTOPRAZOLE 40 MG/10 ML VIAL IVP SCH (08:33)
[2019-08-14 08:59] VITALS: RESP 16
--- NOTE | 2019-08-14 14:52 | P.DS ---
Providers Date of admission: 08/03/19 08:40 Attending physician: Preet Galvez MD Consults: 08/10/19 11:08 Consult Physician Routine Consulting Provider: Marcus Rm Consult Reason/Comments: Anemia Do you want consulting provider notified?: Yes Primary care physician: Candace Yao [facility] Course: 69-year-old male patient admitted to the hospital with abdominal pain ongoing for a week; CT of the abdomen was done which revealed antritis and possible peptic ulcer disease; patient blood work also revealed hemoglobin drop raising concern for possible bleeding peptic ulcer disease in setting of chronic steroid use; patient is admitted to the hospital for GI and surgical evaluation 08/02/2019 Patient is seen and evaluated in room at bedside; continues to complain of right-sided abdominal pain Vital signs are reviewed and remained stable Blood work reveals a white blood count of 13.3, hemoglobin of 10.1 and platelet count of 247; sodium of 134, potassium 4.5, BUN of 25 and creatinine of 1.40 Patient has been evaluated by surgery and is not recommended any surgical intervention; patient will be started on clear liquid diet with a plan to keep patient nothing by mouth at midnight for possible EGD tomorrow with GI 08/03/2019 patient is s/p EGD; 1. No active bleeding or old blood. 2. Moderate gastritis antrum and body biopsied. 3. Mild duodenitis biopsied. 4. LA grade B distal esophagitis.. The findings discussed with the patient. Started regular diet. Suspicion is for esophagitis and Teresita-Jensen tear in the setting of retching. Continue Protonix 40 mg twice daily. No plans for colonoscopy at this time, however if further signs or symptoms develop we'll reevaluate at that time. 08/05/2019 Patient is still complaining of lower abdominal pain and tenderness. CT of the abdominal pelvis showed concerning for enteritis and thickening of the jejunum was noted. Patient is currently being treated for with antibiotics in the form of Zosyn. General surgery is planning to start on prednisone tapering course. Case of a component of inflammatory disease contributing to symptoms. Patient is being continued on Protonix as well. Gastroenterology and general surgery is following. Patient has been afebrile. No nausea or vomiting. No chest pain or shortness of breath.. 08/06/2019 Patient says that his lower abdominal pain is better today. No complaints of nausea vomiting. Patient has been afebrile. Tolerating oral diet. No complaints of chest pain or shortness of breath. Patient is being continued on antibiotics in the form of Zosyn and also on steroids. Continue with PPI.. Continue on gentle hydration. Monitor H&H. Repeat CBC and BMP tomorrow. 08/07/2019 Patient says that his lower abdominal pain is much improved today. Tolerating oral diet with low-fat diet. Patient is afebrile. Clinically improving. Otherwise leukocytosis with WBC count 22.1. Creatinine level increased to 1.79. Patient is being continued on prednisone 40 mg daily. Also on antibiotics in the form of Zosyn. Continued on IV hydration and follow-up labs tomorrow. Anticipate discharge in next 24 hours with more clinical improvement and improvement of creatinine level. 08/08/2019 Patient is complaining of generalized weakness and tiredness. Hemoglobin dropped to 5.3. Repeat hemoglobin is 5.6. Patient did have dark stools this morning. Patient will be transfused with 1 unit of PRBC. Otherwise her abdominal discomfort is much improved. Patient is being continued on IV antibiotics in the form of Zosyn and also on prednisone 40 mg daily. Patient feels nauseated and does not want to eat today. We will increase IV fluids to 75 mL per hour. Gastroenterology was notified. 08/09/2019 Patient is more awake and oriented. Feels better today. Hemoglobin went up to 7.6. Denied any further episodes of dark stools. No nausea vomiting or abdominal pain. Patient is being continued on IV antibiotics. Prednisone tapering dose starting 40 mg daily and decrease by 10 mg every 5 days. Diet will be advanced and monitor H&H tomorrow. Anticipate discharge if hemoglobin is stable tomorrow. 08/10/2019 Patient's hemoglobin dropped down to 6.6 again today. Patient did have bowel movement with dark stools today morning again. Patient will be transfused with 1 unit of PRBC. Patient is being continued on Protonix and is also on steroids, prednisone 40 mg daily. Decrease to 30 mg daily now for another 5 days. Due to continuous drop in hemoglobin and bleeding, discussed with the patient regarding option of transferring to another tertiary care facility for GI evaluation but patient wishes to stay here for now. If further bleeding occurs patient will be transferred to tertiary care facility for GI evaluation. Will discuss with general surgery as well. Patient will be continued on liquid diet and IV hydration. 08/11/2019 Hemoglobin did improve 7.9 today with 1 unit of PRBC yesterday.. Denied any bowel movement today. Due to recurrent dark-colored stools and drop in hemoglobin general surgery is to repeat EGD. Patient is being continued on Protonix. Patient is PREDNISONE 30 MG DAILY FOR POSSIBLE UNDERLYING INFLAMMATORY BOWEL. Patient was seen by gastroenterology. Denied any complaints of chest pain or shortness of breath. Still having lower abdominal discomfort. No fever no chills. Tolerating oral diet. Current medications reviewed. 08/12/2019 Patient is lying in bed and is having some severe lower left abdominal pain with cramping is being closely monitored. Patient underwent an EGD this morning with Dr. Rm showing no active bleeding or pathology with a normal-appearing stomach, esophagus, and small bowel. Patient will be started on a colon prep and will be undergoing a colonoscopy tomorrow with GI. 08/13/2019 Patient is lying in bed and appears to be in no acute distress. Patient states that he continues to have lower left abdominal pain but is tolerable at this time as he is just received pain medications. Patient completed the GoLYTELY prep and is scheduled to have a colonoscopy this afternoon. Will await report. Patient states that he continue to have bowel movements with blood noted but did not show the nursing staff. Nursing staff reported that he flushed the toilet each time before showing the blood in the stool. 08/14/2019 Patient underwent the colonoscopy, and capsule endoscopy considering that the he has a drop in hemoglobin, colonoscopy and capsule endoscopy did not reveal any sources of GI bleed. His abdominal pain although cannot be explained well patient's abdominal pain did improve. Patient is feeling better and will be discharged today patient may have had viral gastroenteritis which shouldn't cause the level of abdominal pain he had. Upper GI endoscopy results as mentioned above patient will be discharged on Protonix. Antibiotics will not be continued upon discharge. I do not believe patient will need systemic steroids considering his duodenitis and gastritis or not continue that is upon discharge eater. PHYSICAL EXAMINATION: GENERAL: The patient is alert and oriented x3, not in any acute distress. Well developed, well nourished. HEENT: Pupils are round and equally reacting to light. EOMI. No scleral icterus. No conjunctival pallor. Normocephalic, atraumatic. No pharyngeal erythema. No thyromegaly. CARDIOVASCULAR: S1 and S2 present. No murmurs, rubs, or gallops. PULMONARY: Chest is clear to auscultation, no wheezing or crackles. ABDOMEN: Soft, nontender, nondistended, normoactive bowel sounds. No palpable organomegaly. MUSCULOSKELETAL: No joint swelling or deformity. EXTREMITIES: No cyanosis, clubbing, or pedal edema. NEUROLOGICAL: Gross neurological examination did not reveal any focal deficits. SKIN: No rashes. 1. Lower Abdominal pain; possible enteritis with thickening of the jejunum and the CT abdomen. 2. Acute blood loss anemia; due to GI bleed. status post EGD showed moderate gastritis and duodenitis. Patient is still having dark stools and drop in hemoglobin. Leukocytosis; resolved now. 4. Acute renal injury; improved with IV fluids 5. Hypertension; we will hold off on LUCHO inhibitor's due to acute renal failure; patient's angiotensin receptor rc is resumed but at a lower dose 6. Hyperlipidemia; 7. CVA/TIA; Rx will be resumed 8. Hypothyroidism; levothyroxin 125 MCG daily Patient Condition at Discharge: Stable Plan - Discharge Summary Discharge Rx Participant: Yes New Discharge Prescriptions: New Pantoprazole [Protonix] 40 mg PO AC-BID #30 tablet. Continue Levothyroxine Sodium [Synthroid] 125 mcg PO DAILY Simvastatin [Zocor] 20 mg PO HS Clopidogrel [Plavix] 75 mg PO DAILY traZODone HCL [Desyrel] 50 mg PO HS PRN PRN Reason: Insomnia predniSONE 1 mg PO BID Ondansetron [Zofran ODT] 4 mg PO TID PRN PRN Reason: Nausea Allopurinol [Zyloprim] 300 mg PO DAILY Promethazine HCl 12.5 mg PO QID PRN PRN Reason: Nausea Acetaminophen-Codeine 300-30mg [Tylenol w/codeine #3] 1 tab PO TID PRN PRN Reason: Pain Lutein (Unknown Dose) 1 tab PO DAILY Losartan Potassium 100 mg PO DAILY Discharge Medication List Clopidogrel [Plavix] 75 mg PO DAILY 05/29/15 [History] Levothyroxine Sodium [Synthroid] 125 mcg PO DAILY 05/29/15 [History] Simvastatin [Zocor] 20 mg PO HS 05/29/15 [History] traZODone HCL [Desyrel] 50 mg PO HS PRN 10/23/15 [History] Allopurinol [Zyloprim] 300 mg PO DAILY 10/20/18 [History] Ondansetron [Zofran ODT] 4 mg PO TID PRN 10/20/18 [History] Promethazine HCl 12.5 mg PO QID PRN 10/20/18 [History] predniSONE 1 mg PO BID 10/20/18 [History] Acetaminophen-Codeine 300-30mg [Tylenol w/codeine #3] 1 tab PO TID PRN 08/01/19 [History] Losartan Potassium 100 mg PO DAILY 08/01/19 [History] Lutein (Unknown Dose) 1 tab PO DAILY 08/01/19 [History] Pantoprazole [Protonix] 40 mg PO AC-BID #30 tablet. 08/04/19 [Rx] Follow up Appointment(s)/Referral(s): Raúl Alves MD [Medical Doctor] - 1 Week Candace Butcher III, MD [Primary Care Provider] - 1-2 days Patient Instructions/Handouts: Low Fiber Diet (ED) Discharge Disposition: HOME SELF-CARE
[2019-08-14 15:18] VITALS: BP 129/79; PULSE 74; TEMP 98.6
== END 2019-08-14 15:56 | disposition home or self-care (01) | DRG 378 ==
LOC: EC 10:08 → 4SSUR 14:21 → OBSVTOIN 08-03 08:40
PROVIDERS: ADMIT Internal Medicine; ATTEND Internal Medicine
PROC: 0DB78ZX Excision of Stomach, Pylorus, Via Natural or Artificial Opening Endoscopic, Diagnostic (ICD-10-PCS; 2019-08-03)
PROC: 0DB68ZX Excision of Stomach, Via Natural or Artificial Opening Endoscopic, Diagnostic (ICD-10-PCS; 2019-08-03)
PROC: 0DB98ZX Excision of Duodenum, Via Natural or Artificial Opening Endoscopic, Diagnostic (ICD-10-PCS; principal; 2019-08-03 12:00)
PROC: 30233N1 Transfusion of Nonautologous Red Blood Cells into Peripheral Vein, Percutaneous Approach (ICD-10-PCS; 2019-08-08)
PROC: 0DJ08ZZ Inspection of Upper Intestinal Tract, Via Natural or Artificial Opening Endoscopic (ICD-10-PCS; 2019-08-12)
PROC: 0DJD8ZZ Inspection of Lower Intestinal Tract, Via Natural or Artificial Opening Endoscopic (ICD-10-PCS; 2019-08-13)
DX: K29.71 Gastritis, unspecified, with bleeding (principal); D62 Acute posthemorrhagic anemia; N17.9 Acute kidney failure, unspecified; K29.81 Duodenitis with bleeding; K81.9 Cholecystitis, unspecified; K76.89 Other specified diseases of liver; N18.3 Chronic kidney disease, stage 3 (moderate); E03.9 Hypothyroidism, unspecified; E78.5 Hyperlipidemia, unspecified; E86.0 Dehydration; G89.29 Other chronic pain; I12.9 Hypertensive chronic kidney disease with stage 1 through stage 4 chronic kidney disease, or unspecified chronic kidney disease; K21.0 Gastro-esophageal reflux disease with esophagitis; K52.9 Noninfective gastroenteritis and colitis, unspecified; K57.30 Diverticulosis of large intestine without perforation or abscess without bleeding; K59.00 Constipation, unspecified; M06.9 Rheumatoid arthritis, unspecified; M19.90 Unspecified osteoarthritis, unspecified site; N28.1 Cyst of kidney, acquired; R13.10 Dysphagia, unspecified; R01.1 Cardiac murmur, unspecified; Z79.02 Long term (current) use of antithrombotics/antiplatelets; Z79.52 Long term (current) use of systemic steroids; Z79.890 Hormone replacement therapy; Z79.899 Other long term (current) drug therapy; Z86.73 Personal history of transient ischemic attack (TIA), and cerebral infarction without residual deficits; Z87.891 Personal history of nicotine dependence; Z90.5 Acquired absence of kidney; Z88.2 Allergy status to sulfonamides; Z85.528 Personal history of other malignant neoplasm of kidney; Z89.021 Acquired absence of right finger(s); Z80.3 Family history of malignant neoplasm of breast; Z82.49 Family history of ischemic heart disease and other diseases of the circulatory system; Z80.8 Family history of malignant neoplasm of other organs or systems
CPT/HCPCS: 36415; 43239; 44360; 45378; 74176; 76705; 76770; 78227; 80048; 80053; 81001; 82150; 82272; 83605; 83690; 85025; 85027; 86850; 86900; 86901; 86920; 87040; 87324; 88305; 91110; 96361; 96374; 96375; 99285

== ENCOUNTER 2019-08-23 09:00 | Day surgery (SDC) | payer MEDICARE ==
[2019-08-21 15:17] VITALS: BMI 21.4
[~2019-08-23 09:00] MED LIST: LACTATED RINGERS 1,000 ML IV SCH; LIDOCAINE 1% 20 ML VIAL (10MG/ML) FOR IV START INTRADERMA PRN
[2019-08-23 09:58] VITALS: TEMP 97.2
[2019-08-23] MEDS ORDERED: LIDOCAINE 1% INJ 10MG/ML (20 ML MDV) ONE (10:24)
[2019-08-23] MEDS ORDERED: GLUCAGON 1 MG/ML VIAL ONE (10:24)
[2019-08-23] MEDS ORDERED: PROPOFOL 10 MG/ML 20 ML VIAL IV ONE (10:24)
--- NOTE | 2019-08-23 10:47 | P.PCN ---
Date of Procedure: 08/23/19 Procedure(s) Performed: BRIEF HISTORY: Patient is a 61-year-old, pleasant, 1, scheduled for an upper endoscopy as a part of evaluation of anemia and intermittent black tarry stools. He recently was admitted to [facility] with acute GI bleed. Hemoglobin was 5.9 g procedure requiring 2 units of blood transfusion. He underwent an upper endoscopy twice with push enteroscopy and no source of bleeding identified. The endoscopy was unremarkable. Subsequently he had a small bowel capsule endoscopy done that showed active oozing in the second and third portion of the duodenum and hence he scheduled for repeat upper endoscopy in outpatient basis today.. PROCEDURE PERFORMED: Esophagogastroduodenoscopy with cautery using a gold probe/small bowel capsule endoscopy showing active bleeding in the third part of the duodenum PREOPERATIVE DIAGNOSIS: Anemia and black tarry stools. IV sedation per anesthesia. PROCEDURE: After informed consent was obtained, the patient was brought into the endoscopy unit. IV sedation was administered by Anesthesia under continuous monitoring. Initially the Olympus GIF-140 video endoscope was inserted into the mouth. Esophagus intubated without any difficulty. It was gradually advanced into the stomach and duodenum and carefully examined. The bulb and the second part of the duodenum appeared normal. Scope was advanced into the third part of the duodenum there were scattered multiple nonbleeding angiectasia identified. There were at least 5 of them all of which were cauterized using the cold probe with good hemostasis. The scope at this time was withdrawn to the stomach, adequately insufflated with air, and upon careful examination, mucosa of the antrum and mild gastritis. Bulb and the, body, cardia and the fundus appeared normal. The scope was then withdrawn into the esophagus. The GE junction was located at 39 cm from the incisors. The esophagus appeared normal. There were no erosions or ulcerations seen and the patient tolerated the procedure well. IMPRESSION: 1. Multiple scattered angiectasia in the third and fourth portion of the duodenum status post cautery using a gold probe. 2. Mild antral Gastritis. RECOMMENDATIONS: The findings of this examination were discussed with the patient as well as his family. We will resume Plavix in 2 days. We will monitor CBC on a daily basis. Continue iron supplements..
[2019-08-23] MEDS ORDERED: IV FLUID CONTINUATION 800 ML IV ONE (10:48)
[2019-08-23 11:23] VITALS: BP 142/80; PULSE 71; RESP 18
== END 2019-08-23 11:42 | disposition home or self-care (01) ==
LOC: ORWHC2ENDO 09:00
PROVIDERS: ATTEND Internal Medicine Gastroenterology
DX: I99.8 Other disorder of circulatory system (principal); K29.71 Gastritis, unspecified, with bleeding; D64.9 Anemia, unspecified; I10 Essential (primary) hypertension; E78.5 Hyperlipidemia, unspecified; E07.9 Disorder of thyroid, unspecified; M19.90 Unspecified osteoarthritis, unspecified site; M06.9 Rheumatoid arthritis, unspecified; K57.90 Diverticulosis of intestine, part unspecified, without perforation or abscess without bleeding; Z79.02 Long term (current) use of antithrombotics/antiplatelets; Z79.899 Other long term (current) drug therapy; Z79.890 Hormone replacement therapy; Z79.52 Long term (current) use of systemic steroids; Z79.891 Long term (current) use of opiate analgesic; Z88.2 Allergy status to sulfonamides; Z87.891 Personal history of nicotine dependence; Z86.73 Personal history of transient ischemic attack (TIA), and cerebral infarction without residual deficits; Z87.81 Personal history of (healed) traumatic fracture; Z98.890 Other specified postprocedural states; Z85.528 Personal history of other malignant neoplasm of kidney; Z90.5 Acquired absence of kidney
CPT/HCPCS: 43255; J1610; J2001; J2704

== ENCOUNTER → 2019-09-18 | Outpatient (CLI) | payer MEDICARE ==
[2019-09-18 15:11] LABS: HCT 28.1 % (39.0-53.0); HGB 8.7 gm/dL (13.0-17.5); Hypochromasia Marked; MCH 30.9 pg (25.0-35.0); MCV 99.8 fL (80.0-100.0); Macrocytosis Slight; Mean Platelet Volume 7.8; Platelet Count 272 k/uL (150-450); RBC 2.82 m/uL (4.30-5.90); RDW 15.7 % (11.5-15.5); WBC 6.6 k/uL (3.8-10.6)
== END | disposition home or self-care (01) ==
LOC: LABWHC1 14:35
PROVIDERS: ATTEND Family Medicine
DX: D62 Acute posthemorrhagic anemia (principal)
CPT/HCPCS: 36415; 85027

== ENCOUNTER 2020-02-05 11:19 | Inpatient (IN) | payer MEDICARE ==
[2020-02-05] MEDS ORDERED: ONDANSETRON 4 MG/2 ML VIAL IVP STA (12:34)
[2020-02-05] MEDS ORDERED: SODIUM CHLORIDE 0.9% 500 ML 500 ML IV ONE (12:34)
[2020-02-05] MEDS: SODIUM CHLORIDE 0.9% 1,000 ML IV SCH ×3 (12:43→22:45)
[2020-02-05 13:02] LABS: Basophils % (A) 0 %; Eosinophils # (A) 0.2 k/uL (0-0.7); Eosinophils % (A) 1 %; HCT 43.1 % (39.0-53.0); HGB 14.3 gm/dL (13.0-17.5); Lymphocytes # (A) 1.4 k/uL (1.0-4.8); Lymphocytes % (A) 9 %; MCH 30.4 pg (25.0-35.0); MCHC 33.2 g/dL (31.0-37.0); MCV 91.4 fL (80.0-100.0); Mean Platelet Volume 7.5; Monocytes # (A) 1.3 k/uL (0-1.0); Monocytes % (A) 9 %; Neutrophils # (A) 11.4 k/uL (1.3-7.7); Neutrophils % (A) 79 %; Platelet Count 308 k/uL (150-450); RBC 4.72 m/uL (4.30-5.90); RDW 13.6 % (11.5-15.5); WBC 14.3 k/uL (3.8-10.6)
[2020-02-05 13:14] LABS: Albumin 4.7 g/dL (3.5-5.0); Calcium 9.9 mg/dL (8.4-10.2); Potassium 4.2 mmol/L (3.5-5.1); Total Bilirubin 0.8 mg/dL (0.2-1.3); Total Protein 7.5 g/dL (6.3-8.2)
--- NOTE | 2020-02-05 13:32 | CT ---
EXAMINATION TYPE: CT brain wo con DATE OF EXAM: 02/05/2020 COMPARISON: 06/06/2017 HISTORY: ARAUJO, nausea, history of arachnoid cyst CT DLP: 1099.4 mGycm Automated exposure control for dose reduction was used. FINDINGS: There is no evidence of acute intracranial hemorrhage, acute ischemic changes, or extra-axial fluid c ollection. There is no effacement of cerebral sulci or basal subarachnoid cisterns. There is no hydro cephalus. There is no midline shift. Amador-white matter distinction is preserved. CSF density lesion along the anterior aspect of the left middle cranial fossa measures 4.2 x 2.0 x 3. 3 cm, unchanged from previous. Mild adjacent mass effect onto the left temporal lobe. No herniation o r midline shift. Mild patchy periventricular white matter hypodensities are unchanged likely relating to chronic small vessel ischemic disease. Leftward nasal septal deviation. Orbits and globes are intact. Mastoid air cells well pneumatized a single calcification in the basal ganglia. Low attenuation in the right thal amus likely related to remote lacunar infarct. Stable from previous. IMPRESSION: 1. Stable 4.2 cm arachnoid cyst in the left middle cranial fossa. Similar slight mass effect onto the adjacent temporal lobe parenchyma. No acute intracranial abnormality seen. 2. NONSPECIFIC WHITE MATTER CHANGES MOST TYPICAL REMOTE MICROVASCULAR ISCHEMIA.
--- NOTE | 2020-02-05 13:37 | CT ---
EXAMINATION TYPE: CT abdomen pelvis wo con DATE OF EXAM: 02/05/2020 COMPARISON: Prior CT 08/01/2019 HISTORY: nausea, vomiting, diarrhea, wt loss CT DLP: 390 mGycm Automated exposure control for dose reduction was used. TECHNIQUE: Helical acquisition of images from the lung bases through the pelvis. FINDINGS: Lack of intravenous contrast could compromise sensitivity. LUNG BASES: No significant abnormality is appreciated. AORTA: No significant abnormality is appreciated LIVER/GB: Multiple low dense foci within the liver are likely to represent cysts. Gallbladder is cont racted. PANCREAS: No significant abnormality is seen. SPLEEN: No significant abnormality is seen. ADRENALS: Left adrenal gland not seen definitively. Right adrenal gland unremarkable as seen.. KIDNEYS: Patient is post left nephrectomy, right kidney shows malrotation, prominent extrarenal pelvi s REPRODUCTIVE ORGANS: No significant abnormality is seen. URINARY BLADDER: Bladder wall thickening may be due to lack of distention, correlate to exclude cyst itis. BOWEL: High dense material within the colon may be due to radiopaque medication.. FREE AIR: No Free Air is visible. ASCITES: None visible. PELVIC ADENOPATHY: None visualized. RETROPERITONEAL ADENOPATHY: No Retroperitoneal Adenopathy visible. OSSEOUS STRUCTURES: Degenerative disc changes, mild spinal curvature noted in the lumbar spine, scle rotic focus in the posterior left ilium, left ischium may represent bone island. Arthropathy present at the sacroiliac joints IMPRESSION: THERE IS NO SIGNIFICANT INTERVAL CHANGE COMPARED TO PRIOR EXAM. POSTOP CHANGES. NONCONTRAST EXAM.
[2020-02-05] MEDS ORDERED: MORPHINE SULFATE 4 MG/ML SYRINGE IVP STA (13:58)
[2020-02-05 14:20] LABS: Appearance,Urine Cloudy (Clear); Bacteria,Urine Rare /hpf; Bilirubin,Urine 1+ (Negative); Blood,Urine Negative (Negative); Color,Urine Yellow; Glucose,Urine (UA) Negative (Negative); Hyaline Casts,Urine 32 /lpf (0-2); Ketones,Urine 1+ (Negative); Leukocyte Esterase,Urine Negative (Negative); Mucus,Urine Occasional /hpf; Nitrite,Urine Negative (Negative); PH, Urine 5.5 (5.0-8.0); Protein,Urine 2+ (Negative); RBC,Urine 1 /hpf (0-5); Specific Gravity,Urine 1.031 (1.001-1.035); Squamous Epithelial Cell,Urine <1 /hpf (0-4); WBC,Urine 2 /hpf (0-5)
[2020-02-05] MEDS ORDERED: NALOXONE 0.4 MG/ML 1 ML VIAL IV PRN (14:51)
[2020-02-05] MEDS ORDERED: METOCLOPRAMIDE 5 MG/ML 2 ML VIAL IVP STA (14:52)
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
[2020-02-05] MEDS: HYDROmorphone 0.5 MG/0.5 ML SYRINGE IVP PRN ×2 (17:07→22:52)
[2020-02-05] MEDS ORDERED: traZODone HCL 50 MG TAB PO PRN (17:41)
[2020-02-05] MEDS ORDERED: FLUTICASONE 50MCG/SPRAY NASAL 16GM EA NOSTRIL PRN (17:41)
[2020-02-06] MEDS: BUTALB/APAP/CAFF 50-325-40MG TAB PO PRN ×3 (00:51→22:59)
[2020-02-06 06:47] LABS: Basophils % (A) 0 %; Eosinophils # (A) 0.3 k/uL (0-0.7); Eosinophils % (A) 4 %; HGB 12.6 gm/dL (13.0-17.5); Lymphocytes # (A) 1.9 k/uL (1.0-4.8); Lymphocytes % (A) 22 %; MCHC 33.2 g/dL (31.0-37.0); MCV 93.5 fL (80.0-100.0); Mean Platelet Volume 7.3; Monocytes # (A) 0.7 k/uL (0-1.0); Monocytes % (A) 8 %; Neutrophils # (A) 5.6 k/uL (1.3-7.7); Neutrophils % (A) 65 %; Platelet Count 224 k/uL (150-450); RBC 4.06 m/uL (4.30-5.90); RDW 13.7 % (11.5-15.5); WBC 8.6 k/uL (3.8-10.6)
[2020-02-06] MEDS: LEVOTHYROXINE 125 MCG TAB PO SCH (06:53)
[2020-02-06] MEDS: SODIUM CHLORIDE 0.9% 1,000 ML IV SCH (06:53)
[2020-02-06 06:57] LABS: Albumin 3.5 g/dL (3.5-5.0); Calcium 8.6 mg/dL (8.4-10.2); Potassium 4.3 mmol/L (3.5-5.1); Total Bilirubin 0.7 mg/dL (0.2-1.3); Total Protein 5.8 g/dL (6.3-8.2)
[2020-02-06] MEDS: HYDROmorphone 0.5 MG/0.5 ML SYRINGE IVP PRN (08:37)
[2020-02-06] MEDS ORDERED: CLOPIDOGREL 75 MG TAB PO SCH (09:00)
[2020-02-06 11:42] LABS: HCT 41.9 % (39.0-53.0); HGB 13.5 gm/dL (13.0-17.5); MCH 30.5 pg (25.0-35.0); MCHC 32.2 g/dL (31.0-37.0); MCV 94.5 fL (80.0-100.0); Mean Platelet Volume 7.4; Platelet Count 299 k/uL (150-450); RBC 4.43 m/uL (4.30-5.90); RDW 13.9 % (11.5-15.5); WBC 13.7 k/uL (3.8-10.6)
[2020-02-06] MEDS ORDERED: PANTOPRAZOLE 40 MG/10 ML VIAL IVP SCH (11:45)
[2020-02-06] MEDS: ONDANSETRON 4 MG/2 ML VIAL IVP PRN (12:39)
[2020-02-06] MEDS: HYDROmorphone 1 MG/ML 1 ML SYRINGE IVP PRN ×2 (12:39→18:58)
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
[2020-02-06] MEDS ORDERED: DICYCLOMINE 20 MG TAB PO PRN (17:19)
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
[2020-02-07] MEDS: SODIUM CHLORIDE 0.9% 1,000 ML IV SCH ×3 (02:03→21:59)
[2020-02-07] MEDS: HYDROmorphone 1 MG/ML 1 ML SYRINGE IVP PRN ×3 (02:03→15:40)
[2020-02-07] MEDS: LEVOTHYROXINE 125 MCG TAB PO SCH (06:57)
[2020-02-07] MEDS ORDERED: IV FLUID CONTINUATION 1,000 ML IV ONE (07:54)
[2020-02-07] MEDS ORDERED: LIDOCAINE 1% INJ 10MG/ML (20 ML MDV) ONE (07:55)
[2020-02-07] MEDS ORDERED: PROPOFOL 10 MG/ML 20 ML VIAL IV ONE (07:55)
--- NOTE | 2020-02-07 08:22 | P.PCN ---
Date of Procedure: 02/07/20 Description of Procedure: BRIEF HISTORY: 70-year-old male with a medical history significant for kidney cancer status post left nephrectomy in the past, hypertension, hyperlipidemia, rheumatoid arthritis, diverticulosis and prior hospitalizations for anemia and acute GI bl eed with findings of small bowel angiectasia on prior video capsule endoscopy and cold probe ablation who presented to the hospital with complaints of nausea, dry heaving and melanotic stool. The patient reports persistent nausea with dry heaving productive only of phlegm with no coffee-ground emesis or hematemesis noted. This is been present for the past 3 days. He had also been having dark-colored stool over the past 2-3 days. He reports significant lower abdominal discomfort described as cramping pain in association with his symptoms. Patient did have a normal hemoglobin on presentation at 13.5. Previous endoscopic evaluation including EGD on 08/03/2019 significant for esophagitis and mild gastritis, push enteroscopy on 08/12/2019 significant for gastritis, colonoscopy on 08/13/2019 significant for a normal-appearing colon from rectum to cecum with normal appearing terminal ileum with mild diverticulosis noted. This was followed by small bowel capsule endoscopy with findings of losing angiectasia in the second and third portion of the duodenum for which patient underwent EGD with cold probe ablation on 08/23/19. The patient is on Plavix therapy but reports that this is been held for approximately 5 days due to him not feeling well. PROCEDURE PERFORMED: Esophagogastroduodenoscopy with gold probe ablation. PREOPERATIVE DIAGNOSIS: Melena, abdominal pain, history of small bowel angioectasia. ESTIMATED BLOOD LOSS: Minimal. IV sedation per anesthesia. PROCEDURE: After informed consent was obtained, the patient was brought into the endoscopy unit. IV sedation was administered by Anesthesia under continuous monitoring. Initially the Olympus GIF-190 video endoscope was inserted into the mouth. Esophagus intubated without any difficulty. It was gradually advanced into the stomach and duodenum and carefully examined. The bulb and the second part of the duodenum were significant for moderate scattered erythema with superficial erosion suggestive of moderate duodenitis. 2 nonbleeding angiectasia were also noted in the second portion of the duodenum which were treated with gold probe ablation. No angiodysplasia noted in the third and fourth portion of the duodenum. The scope at this time was withdrawn to the stomach, adequately insufflated with air, and upon careful examination, mucosa of the antrum, body, cardia and the fundus appeared normal, except for moderate scattered erythema in the antrum and body suggestive of moderate gastritis. The scope was then withdrawn into the esophagus. The GE junction was located at 39 cm from the incisors. The esophagus appeared normal. There were no erosions or ulcerations seen and the patient tolerated the procedure well. IMPRESSION: 1. No active bleeding or old blood noted. 2. Two nonbleeding angioectasia and the second portion of the duodenum treated with gold probe ablation. 3. Moderate gastritis. 4. Moderate duodenitis. RECOMMENDATIONS: The findings of this examination were discussed with the patient. Okay for DIET. Continue to monitor hemoglobin and hematocrit. Patient should continue twice daily Protonix therapy indefinitely. Patient must avoid NSAID therapy. Okay for discharge when otherwise medically stable with improved hemoglobin today at 13.5.
[2020-02-07] MEDS: PANTOPRAZOLE 40 MG TABLET PO SCH ×2 (09:17→15:40)
[2020-02-07] MEDS: ALLOPURINOL 300 MG TAB PO SCH (09:17)
[2020-02-07] MEDS: BUTALB/APAP/CAFF 50-325-40MG TAB PO PRN ×3 (09:17→21:58)
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
[2020-02-07] MEDS: Acetaminophen-Codeine 300-30mg TAB PO PRN (20:35)
[2020-02-07] MEDS: ONDANSETRON 4 MG/2 ML VIAL IVP PRN (20:36)
[2020-02-07] MEDS: HEPARIN SODIUM,PORCINE 5,000 UNIT/ML 1 ML VIAL SQ SCH (20:36)
[2020-02-07] MEDS ORDERED: ATORVASTATIN 10 MG TAB PO SCH (21:00)
[2020-02-08] MEDS: LEVOTHYROXINE 125 MCG TAB PO SCH (06:20)
[2020-02-08 08:08] VITALS: BP 121/78; PULSE 71; RESP 12; TEMP 98.1
[2020-02-08] MEDS: HEPARIN SODIUM,PORCINE 5,000 UNIT/ML 1 ML VIAL SQ SCH (08:08)
[2020-02-08] MEDS: PANTOPRAZOLE 40 MG TABLET PO SCH (08:08)
[2020-02-08] MEDS: Acetaminophen-Codeine 300-30mg TAB PO PRN (08:16)
[2020-02-08 08:29] LABS: Basophils % (A) 1 %; Eosinophils # (A) 0.3 k/uL (0-0.7); Eosinophils % (A) 5 %; HCT 34.7 % (39.0-53.0); HGB 11.3 gm/dL (13.0-17.5); Lymphocytes % (A) 18 %; MCH 30.7 pg (25.0-35.0); MCHC 32.7 g/dL (31.0-37.0); Mean Platelet Volume 7.3; Monocytes # (A) 0.3 k/uL (0-1.0); Monocytes % (A) 6 %; Neutrophils # (A) 3.7 k/uL (1.3-7.7); Neutrophils % (A) 69 %; Platelet Count 184 k/uL (150-450); RBC 3.69 m/uL (4.30-5.90); WBC 5.3 k/uL (3.8-10.6)
[2020-02-08] MEDS: ALLOPURINOL 300 MG TAB PO SCH (08:29)
[2020-02-08 08:38] LABS: Calcium 8.4 mg/dL (8.4-10.2); Potassium 4.4 mmol/L (3.5-5.1)
--- NOTE | 2020-02-08 21:51 | P.PN ---
Subjective Progress Note Date: 02/08/20 Principal diagnosis: Melena, history of GI bleed, small bowel angiectasia, gastritis Patient seen standing bedside reporting that he is doing well. Tolerating diet. No signs or symptoms of GI bleeding. Objective - Vital Signs Vital signs: Vital Signs Temp 98.1 F 02/08/20 07:00 Pulse 71 02/08/20 07:00 Resp 12 02/08/20 07:00 BP 121/78 02/08/20 07:00 Pulse Ox 99 02/08/20 07:00 Intake & Output 02/07/20 02/08/20 02/08/20 18:59 06:59 18:59 Intake Total 2585 780 Balance 2585 780 Intake: IV 100 Intake, IV Titration 1675 Amount Sodium Chloride 0.9% 1, 1675 000 ml @ 75 mls/hr IV . [id number] CHANDU Rx#:[id number] Oral 810 780 Other: Voiding Method Toilet Toilet # Voids 3 1 - Exam On physical examination, patient appears comfortable in no apparent distress. HEAD: Normocephalic, atraumatic. EYES: No scleral icterus. No conjunctival injection. MOUTH: No lesions, tongue midline. NECK: Trachea midline, no gross abnormalities. ABDOMEN: Soft. Bowel sounds are positive. No organomegaly. No guarding or rigidity. EXTREMITIES: No pedal edema. SKIN: No rashes, no jaundice. NEUROLOGIC: Alert and oriented x3. No focal deficits. - Labs CBC & Chem 7: 02/08/20 07:56 02/08/20 07:56 Labs: Abnormal Lab Results - Last 24 Hours (Table) 02/08/20 02/08/20 Range/Units 07:56 07:56 RBC 3.69 L (4.30-5.90) m/uL Hgb 11.3 L (13.0-17.5) gm/dL Hct 34.7 L (39.0-53.0) % Chloride 109 H (98-107) mmol/L Creatinine 1.40 H (0.66-1.25) mg/dL Glucose 115 H (74-99) mg/dL Assessment and Plan (1) Melena Narrative/Plan: 70-year-old male with multiple medical comorbidities including prior GI bleed from small bowel angiectasia who presented with nausea, dry heaving, abdominal pain and dark-colored stools. The symptoms have been occurring over the past 3 days with the patient noting some loose dark bowel movements. He's had lower abdominal pain described as cramping and discomfort in association with the bowel movements. He also had frequent nausea with dry heaving. Previously the patient has had an extensive endoscopic evaluation at the end of 2018 and beginning of 2019 with studies including colonoscopy significant for diverticulosis, EGD is significant for esophagitis and gastritis, video capsule significant for losing angiectasia of the distal duodenum with repeat EGD significant for cauterization of these angiectasia. Currently hemoglobin is stable at 13.5 improved from prior laboratory evaluation. EGD performed with findings of 2 nonbleeding angiectasia treated with cold probe ablation, moderate gastritis and moderate duodenitis Status: Acute Code(s): K92.1 - MELENA SNOMED Code(s): 2466033 (2) Angiodysplasia of small intestine Status: Acute Code(s): K55.20 - ANGIODYSPLASIA OF COLON WITHOUT HEMORRHAGE SNOMED Code(s): 274921458 (3) Nausea vomiting and diarrhea Status: Acute Code(s): R11.2 - NAUSEA WITH VOMITING, UNSPECIFIED; R19.7 - DIARRHEA, UNSPECIFIED SNOMED Code(s): 1040779 (4) Abdominal pain Status: Acute Code(s): R10.9 - UNSPECIFIED ABDOMINAL PAIN SNOMED Code(s): 22881780 Plan: Supportive care Okay for diet Patient instructed to avoid NSAID use, has been using Aleve at home Patient should be discharged on Protonix therapy Thank you for allowing us to participate in the care of the patient
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
== END 2020-02-08 12:33 | disposition home or self-care (01) | DRG 391 ==
LOC: EC 11:19 → 1SOBS 15:19 → OBSVTOIN 02-07 10:38
PROVIDERS: ADMIT Internal Medicine; ATTEND Internal Medicine
PROC: 0D598ZZ Destruction of Duodenum, Via Natural or Artificial Opening Endoscopic (ICD-10-PCS; principal; 2020-02-07 08:00)
DX: K31.819 Angiodysplasia of stomach and duodenum without bleeding (principal); N17.0 Acute kidney failure with tubular necrosis; K85.90 Acute pancreatitis without necrosis or infection, unspecified; E44.1 Mild protein-calorie malnutrition; Z68.1 Body mass index [BMI] 19.9 or less, adult; E87.1 Hypo-osmolality and hyponatremia; E86.0 Dehydration; K29.70 Gastritis, unspecified, without bleeding; E78.5 Hyperlipidemia, unspecified; E03.9 Hypothyroidism, unspecified; F17.200 Nicotine dependence, unspecified, uncomplicated; M06.9 Rheumatoid arthritis, unspecified; N18.3 Chronic kidney disease, stage 3 (moderate); I12.9 Hypertensive chronic kidney disease with stage 1 through stage 4 chronic kidney disease, or unspecified chronic kidney disease; E05.90 Thyrotoxicosis, unspecified without thyrotoxic crisis or storm; F12.90 Cannabis use, unspecified, uncomplicated; M19.90 Unspecified osteoarthritis, unspecified site; K29.80 Duodenitis without bleeding; Z79.52 Long term (current) use of systemic steroids; Z11.59 Encounter for screening for other viral diseases; Z79.890 Hormone replacement therapy; Z79.02 Long term (current) use of antithrombotics/antiplatelets; Z79.899 Other long term (current) drug therapy; Z88.2 Allergy status to sulfonamides; Z80.3 Family history of malignant neoplasm of breast; Z85.528 Personal history of other malignant neoplasm of kidney; Z86.73 Personal history of transient ischemic attack (TIA), and cerebral infarction without residual deficits; Z89.021 Acquired absence of right finger(s); Z98.890 Other specified postprocedural states; Z82.49 Family history of ischemic heart disease and other diseases of the circulatory system; Z80.8 Family history of malignant neoplasm of other organs or systems; Z90.5 Acquired absence of kidney
CPT/HCPCS: 36415; 43270; 70450; 74176; 80048; 80053; 81001; 82150; 83690; 85025; 85027; 93005; 96361; 96374; 96375; 99285

== ENCOUNTER → 2020-07-17 | Outpatient (CLI) | payer MEDICARE ==
--- NOTE | 2020-07-21 07:23 | MR ---
EXAMINATION TYPE: MR shoulder RT wo con DATE OF EXAM: 07/17/2020 COMPARISON: None HISTORY: Right shoulder pain Technique: Multiplanar, multiecho imaging on a 3.0 Flakita magnet is performed through the shoulder. Findings: Long head of the biceps tendon is within the bicipital groove. This is surrounded by fluid. No significant joint effusion is evident. Glenoid labrum as visualized on this noncontrast study appe ars intact. Rotator cuff tendons are evaluated. There is a 1.3 cm tear of the distal supraspinatus tendon. This has retraction of approximately 1.4 cm to lie under the acromion. Mild elevation of the humeral head in relation to the glenoid is present. Musculotendinous increased signals within the supraspinatus te ndon. No fat degeneration of the supraspinatus muscle is evident at this time. Remaining muscular sig nal is normal. The acromioclavicular junction is hypertrophied which can contribute to impingement syndrome. IMPRESSIONS: 1. Supraspinatus tendon tear with retraction. 2. Moderate tendinosis long head biceps tendon.
== END | disposition home or self-care (01) ==
LOC: RADMRIMAIN 21:28
PROVIDERS: ATTEND Nurse Practitioner Family
DX: M75.101 Unspecified rotator cuff tear or rupture of right shoulder, not specified as traumatic (principal); M75.21 Bicipital tendinitis, right shoulder

== ENCOUNTER → 2021-01-08 | Outpatient (CLI) | payer MEDICARE ==
--- NOTE | 2021-01-08 18:53 | ECHOF ---
Referral Reason:I35.0 Nonrheumatic aortic (valve) stenosis MEASUREMENTS -------- HEIGHT: 175.3 cm WEIGHT: 61.2 kg BP: RVIDd: 2.9 cm (< 3.3) IVSd: 1.1 cm (0.6 - 1.1) LVIDd: 4.6 cm (3.9 - 5.3) LVPWd: 0.8 cm (0.6 - 1.1) IVSs: 1.3 cm LVIDs: 3.1 cm LVPWs: 1.3 cm LA Diam: 4.5 cm (2.7 - 3.8) LAESV Index (A-L): 29.45 ml/m Ao Diam: 3.2 cm (2.0 - 3.7) MV EXCURSION: 23.991 mm (> 18.000) MV EF SLOPE: 110 mm/s (70 - 150) EPSS: 0.2 cm MV E Kd: 0.79 m/s MV DecT: 201 ms MV A Kd: 0.82 m/s MV E/A Ratio: 0.96 AV maxP.59 mmHg AV meanP.29 mmHg RAP: 5.00 mmHg RVSP: 31.19 mmHg FINDINGS -------- Sinus rhythm. This was a technically adequate study. The left ventricular size is normal. There is mild concentric left ventricular hypertrophy. Overa ll left ventricular systolic function is normal with, an EF between 55 - 60 %. The diastolic fillin g pattern is normal for the age of the patient 8.34. The right ventricle is normal in size. LA is midly dilated 29-33ml/m2. The right atrial size is normal. There is emonvxmn-ye-bhgwvy aortic stenosis present. Peak/mean gradient across the Aortic Valve is 60.59mmHg / 31.29mmHg. Aortic valve is functionally bicuspid and is moderately thickened. Moderate mitral annular calcification present. Mild mitral regurgitation is present. The tricuspid valve appears structurally normal. Mild tricuspid regurgitation present. Right vent ricular systolic pressure is normal at < 35 mmHg. Trace/mild (physiologic) pulmonic regurgitation. The aortic root size is normal. There is no pericardial effusion. CONCLUSIONS -------- 1. There is mild concentric left ventricular hypertrophy. 2. Overall left ventricular systolic function is normal with, an EF between 55 - 60 %. 3. LA is midly dilated 29-33ml/m2. 4. There is tyulgmck-ib-ezdvay aortic stenosis present. 5. Peak/mean gradient across the Aortic Valve is 60.59mmHg / 31.29mmHg. 6. Aortic valve is functionally bicuspid and is moderately thickened. 7. Moderate mitral annular calcification present. 8. Mild mitral regurgitation is present. 9. Mild tricuspid regurgitation present. 10. Trace/mild (physiologic) pulmonic regurgitation. 11. There is no pericardial effusion. MANAGER BODY: Johanne Shannon RDCS
== END | disposition home or self-care (01) ==
LOC: RADECHMAIN 14:24
PROVIDERS: ATTEND Family Medicine
DX: I08.8 Other rheumatic multiple valve diseases (principal)
CPT/HCPCS: 93306

== ENCOUNTER 2021-05-27 19:05 | Inpatient (IN) | payer MEDICARE ==
[2021-05-27] MEDS ORDERED: HYDROmorphone 1 MG/ML 1 ML SYRINGE IVP STA (22:08)
[2021-05-27] MEDS ORDERED: ONDANSETRON 4 MG/2 ML VIAL IVP STA (22:08)
[2021-05-27] MEDS ORDERED: SODIUM CHLORIDE 0.9% 1,000 ML IV STA ×2 (22:08→23:36)
[2021-05-27 22:45] LABS: Basophils # (A) 0.1 k/uL (0-0.2); Basophils % (A) 0 %; Eosinophils # (A) 0.1 k/uL (0-0.7); Eosinophils % (A) 1 %; HCT 50.1 % (39.0-53.0); HGB 16.5 gm/dL (13.0-17.5); Lymphocytes # (A) 1.4 k/uL (1.0-4.8); Lymphocytes % (A) 10 %; MCH 30.3 pg (25.0-35.0); MCHC 32.9 g/dL (31.0-37.0); MCV 92.1 fL (80.0-100.0); Mean Platelet Volume 7.4; Monocytes % (A) 7 %; Neutrophils # (A) 11.4 k/uL (1.3-7.7); Neutrophils % (A) 81 %; Platelet Count 286 k/uL (150-450); RBC 5.44 m/uL (4.30-5.90); WBC 14.2 k/uL (3.8-10.6)
[2021-05-27 22:49] LABS: Amorphous Sediment,Urine Occasional /hpf; Appearance,Urine Cloudy (Clear); Bilirubin,Urine 1+ (Negative); Blood,Urine Trace (Negative); Color,Urine Yellow; Glucose,Urine (UA) Negative (Negative); Hyaline Casts,Urine 117 /lpf (0-2); Ketones,Urine 1+ (Negative); Leukocyte Esterase,Urine Trace (Negative); Mucus,Urine Occasional /hpf; Nitrite,Urine Negative (Negative); PH, Urine 5.5 (5.0-8.0); Protein,Urine 1+ (Negative); RBC,Urine <1 /hpf (0-5); Specific Gravity,Urine 1.025 (1.001-1.035); Squamous Epithelial Cell,Urine 1 /hpf (0-4); WBC,Urine 3 /hpf (0-5)
[2021-05-27 22:55] LABS: Albumin 4.8 g/dL (3.5-5.0); Calcium 9.5 mg/dL (8.4-10.2); Potassium 5.3 mmol/L (3.5-5.1); Total Bilirubin 0.7 mg/dL (0.2-1.3)
--- NOTE | 2021-05-27 23:03 | CT ---
EXAMINATION TYPE: CT abdomen pelvis wo con DATE OF EXAM: 05/27/2021 COMPARISON: None HISTORY: low anterior abdominal pain CT DLP: 346.7 mGycm Automated exposure control for dose reduction was used. Images obtained from the diaphragm to the floor the pelvis without contrast. Lung bases are clear. There is no pleural effusion. Heart size is normal. There is no pericardial eff usion. There are some cysts in the superior right lobe of the liver that measure up to 4 cm. The bile ducts are not dilated. There is calcified splenic granuloma. Stomach is intact. There is no evidence of pancreatic mass. There are apparent multiple retroperitoneal surgical clips in the upper abdomen. There is left side. Nephrectomy. Right kidney shows no hydronephrosis. Kidney has normal size. There is no ascites or free air. There is no bowel obstruction. Bladder distends smoothly. There is n o free fluid in the pelvis. There is no retroperitoneal adenopathy. Abdominal aorta is atheromatous. The lumbar vertebra have nor mal alignment. There is some degenerative disc space narrowing in the mid and upper lumbar spine. The re is no compression fracture. Sacrum is intact. Bony pelvis is intact. Hip joints are intact. Sacroi liac joints appear normal. Appendix is filled with air and appears normal. There are multiple osteoblastic foci noted in the lower thoracic spine and the lumbar spine. There is also blastic foci in the left side of the sacrum and the left iliac bone. Foci consistent with metas tatic disease. IMPRESSION: There are multiple osteoblastic foci in the spine and pelvis consistent with metastatic disease and a ppear mostly new compared to old exam. There is apparent left side nephrectomy. There are a few hepatic cysts. No acute abnormality within t he abdomen pelvis.
[2021-05-27] MEDS ORDERED: ONDANSETRON 4 MG/2 ML VIAL IVP PRN (23:35)
[2021-05-27] MEDS ORDERED: NALOXONE 0.4 MG/ML 1 ML VIAL IV PRN (23:35)
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
[2021-05-28] MEDS: HYDROmorphone 1 MG/ML 1 ML SYRINGE IVP PRN ×7 (00:14→21:13)
[2021-05-28] MEDS: FAMOTIDINE 20 MG/2 ML VIAL IV SCH (04:01)
[2021-05-28] MEDS ORDERED: FLUTICASONE 50MCG/SPRAY NASAL 16GM EA NOSTRIL PRN (13:28)
[2021-05-28 14:44] LABS: Basophils % (A) 0 %; Eosinophils # (A) 0.2 k/uL (0-0.7); Eosinophils % (A) 2 %; HCT 41.1 % (39.0-53.0); HGB 13.7 gm/dL (13.0-17.5); Lymphocytes % (A) 11 %; MCH 31.7 pg (25.0-35.0); MCHC 33.3 g/dL (31.0-37.0); MCV 95.3 fL (80.0-100.0); Mean Platelet Volume 7.4; Monocytes # (A) 0.7 k/uL (0-1.0); Monocytes % (A) 8 %; Neutrophils # (A) 6.9 k/uL (1.3-7.7); Neutrophils % (A) 77 %; Platelet Count 212 k/uL (150-450); RBC 4.32 m/uL (4.30-5.90); RDW 13.1 % (11.5-15.5); WBC 9.1 k/uL (3.8-10.6)
[2021-05-28] MEDS: SODIUM CHLORIDE 0.9% 1,000 ML IV SCH (15:41)
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
[2021-05-28] MEDS: ONDANSETRON 4 MG/2 ML VIAL IVP PRN (17:49)
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
[2021-05-29] MEDS: ONDANSETRON 4 MG/2 ML VIAL IVP PRN ×4 (00:11→19:21)
[2021-05-29] MEDS: HYDROmorphone 1 MG/ML 1 ML SYRINGE IVP PRN ×7 (00:12→22:26)
[2021-05-29 00:18] LABS: Albumin/Globulin Ratio 1.95 (1.60-3.17); Anion Gap 17.1 mmol/L (4.00-12.00); BUN/Creat Ratio 21.33 Ratio (12.00-20.00); Blood Urea Nitrogen 40.1 mg/dL (9.0-27.0); Calcium 8.1 mg/dL (8.7-10.3); Carbon Dioxide 15.4 mmol/L (21.6-31.8); Globulin 2.1 g/dL (1.6-3.3); Magnesium 1.8 mg/dL (1.5-2.4); Non-African American GFR(CKD) 35.4 (60.0-200.0); Phosphorus 3.8 mg/dL (2.4-5.1); Potassium 3.7 mmol/L (3.5-5.5); Total Bilirubin 0.4 mg/dL (0.30-1.20); Total Protein 6.1 g/dL (6.2-8.2)
--- NOTE | 2021-05-29 00:37 | CT ---
EXAMINATION TYPE: CT chest wo con DATE OF EXAM: 05/28/2021 COMPARISON: 03/10/2017 HISTORY: metastatic CA CT DLP: 201.6 mGycm Automated exposure control for dose reduction was used. Images obtained from the thoracic inlet to the diaphragm without contrast. There is atheromatous change in the thoracic aorta. Aortic arch measures 3.8 cm. There are no hilar m asses. There is no mediastinal adenopathy. The lungs are clear of infiltrate. There is minimal subsegmental atelectasis at the lung bases. There is no pleural effusion. There is no pericardial effusion. Heart size is fairly normal. There is bandar nary artery calcification. There are cysts in the superior lateral right lobe of the liver that measure up to 4.5 cm. There are surgical clips left upper quadrant apparently from left nephrectomy. There are numerous osteoblastic foci in the thoracic spine. There is also involvement of the sternum. There are scattered osteoblastic foci in the ribs. IMPRESSION: Minimal subsegmental atelectasis at the lung bases. No suspicious pulmonary mass. Extensive osteoblastic metastatic disease. Hepatic cysts which are nonsignificantly different than 02/05/2020 CT scan of the abdomen pelvis.
[2021-05-29] MEDS: SODIUM CHLORIDE 0.9% 1,000 ML IV SCH ×2 (03:31→17:38)
[2021-05-29] MEDS: LEVOTHYROXINE 137 MCG TAB PO SCH (05:40)
[2021-05-29 06:44] LABS: Basophils % (A) 0 %; Eosinophils # (A) 0.3 k/uL (0-0.7); Eosinophils % (A) 4 %; HCT 40.6 % (39.0-53.0); HGB 13.1 gm/dL (13.0-17.5); Lymphocytes # (A) 1.3 k/uL (1.0-4.8); Lymphocytes % (A) 18 %; MCH 30.7 pg (25.0-35.0); MCHC 32.3 g/dL (31.0-37.0); MCV 95.1 fL (80.0-100.0); Mean Platelet Volume 7.3; Monocytes # (A) 0.5 k/uL (0-1.0); Monocytes % (A) 7 %; Neutrophils # (A) 4.9 k/uL (1.3-7.7); Neutrophils % (A) 69 %; Platelet Count 214 k/uL (150-450); RBC 4.27 m/uL (4.30-5.90); WBC 7.1 k/uL (3.8-10.6)
[2021-05-29] MEDS: FAMOTIDINE 20 MG/2 ML VIAL IV SCH (08:55)
[2021-05-29] MEDS: CLOPIDOGREL 75 MG TAB PO SCH (08:55)
[2021-05-29] MEDS: predniSONE 1 MG TAB PO SCH (08:55)
[2021-05-29] MEDS: LOSARTAN 50 MG TAB PO SCH (08:55)
[2021-05-29 09:50] LABS: Magnesium 1.8 mg/dL (1.5-2.4); Phosphorus 3.3 mg/dL (2.4-5.1)
[2021-05-29 09:52] VITALS: BMI 17.9
[2021-05-29 10:20] LABS: African American GFR (CKD) 53.9 (60.0-200.0); Albumin 3.9 g/dL (3.8-4.9); Albumin/Globulin Ratio 2.05 (1.60-3.17); Anion Gap 10.4 mmol/L (4.00-12.00); BUN/Creat Ratio 18.8 Ratio (12.00-20.00); Blood Urea Nitrogen 28.2 mg/dL (9.0-27.0); Calcium 8.8 mg/dL (8.7-10.3); Carbon Dioxide 19.6 mmol/L (21.6-31.8); Globulin 1.9 g/dL (1.6-3.3); Non-African American GFR(CKD) 46.5 (60.0-200.0); Potassium 5.9 mmol/L (3.5-5.5); Total Bilirubin 0.4 mg/dL (0.30-1.20); Total Protein 5.8 g/dL (6.2-8.2)
--- NOTE | 2021-05-29 13:38 | MR ---
EXAMINATION TYPE: MR brain wo/w con DATE OF EXAM: 05/29/2021 1:08 PM COMPARISON: NONE HISTORY: Restage CONTRAST: Patient received 5.5 mL intravenous Gadavist gadolinium contrast. Multiplanar and multispin-echo imaging of the brain was performed . Pre and post contrast enhanced i mages are obtained. The ventricles, basal cisterns and sulci overlying the cerebral convexities are mildly enlarged. There is evidence of mild to moderate periventricular white matter ischemic demyelination. Remote deep white matter insults are also noted. No acute edema is seen on diffusion weighted imaging. There is no evidence for midline shift or mass effect. Anterior middle cranial fossa arachnoid cyst on the left measuring 3 x 2.5 cm. Acute intracranial hemorrhage or extra-axial collection is not evident. No enhancing lesions are seen. The paranasal sinuses and mastoid air cells are well-aerated. IMPRESSION: 1. No enhancing lesions seen. 2. Arachnoid cyst anterior left middle cranial fossa. 3. Age-related atrophic and chronic small vessel ischemic change.
[2021-05-29] MEDS ORDERED: ALBUTEROL NEB (CONC) 2.5 MG/0.5 ML INHALATION ONE (15:38)
[2021-05-29] MEDS ORDERED: SODIUM POLYSTYRENE SULFONATE 15 GM/60 ML BOTTLE PO ONE ×2 (15:38→16:30)
[2021-05-29] MEDS ORDERED: CALCIUM GLUCONATE 1 GM in SODIUM CHLORIDE 0.9% 100 ML IVPB ONE (16:30)
[2021-05-29] MEDS ORDERED: INSULIN REGULAR 100 UNIT/ML VIAL (IV) IV ONE (16:30)
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
[2021-05-29] MEDS: traZODone HCL 50 MG TAB PO PRN (22:26)
[2021-05-30] MEDS: HYDROmorphone 1 MG/ML 1 ML SYRINGE IVP PRN ×6 (01:35→23:42)
[2021-05-30] MEDS: ONDANSETRON 4 MG/2 ML VIAL IVP PRN ×4 (01:41→19:38)
[2021-05-30] MEDS: SODIUM CHLORIDE 0.9% 1,000 ML IV SCH ×2 (04:31→19:38)
[2021-05-30] MEDS: LEVOTHYROXINE 137 MCG TAB PO SCH (05:55)
[2021-05-30 06:49] LABS: Basophils % (A) 1 %; Eosinophils # (A) 0.3 k/uL (0-0.7); Eosinophils % (A) 5 %; HCT 40.6 % (39.0-53.0); HGB 13.6 gm/dL (13.0-17.5); Lymphocytes # (A) 1.4 k/uL (1.0-4.8); Lymphocytes % (A) 21 %; MCH 32.3 pg (25.0-35.0); MCHC 33.4 g/dL (31.0-37.0); MCV 96.6 fL (80.0-100.0); Mean Platelet Volume 8.1; Monocytes # (A) 0.4 k/uL (0-1.0); Monocytes % (A) 7 %; Neutrophils # (A) 4.3 k/uL (1.3-7.7); Neutrophils % (A) 65 %; Platelet Count 228 k/uL (150-450); RDW 13.5 % (11.5-15.5); WBC 6.6 k/uL (3.8-10.6)
[2021-05-30] MEDS: FAMOTIDINE 20 MG TAB PO SCH (08:34)
[2021-05-30] MEDS: CLOPIDOGREL 75 MG TAB PO SCH (08:34)
[2021-05-30] MEDS: LOSARTAN 50 MG TAB PO SCH (08:34)
[2021-05-30] MEDS: predniSONE 1 MG TAB PO SCH (08:34)
--- NOTE | 2021-05-30 09:53 | P.PN ---
Subjective Progress Note Date: 05/30/21 Follow-up for acute kidney injury. Feels better today. Denies any abdominal pain or diarrhea. Objective - Vital Signs Vital signs: Vital Signs Temp 97.6 F 05/30/21 05:49 Pulse 64 05/30/21 08:30 Resp 18 05/30/21 05:49 BP 177/95 05/30/21 08:30 Pulse Ox 100 05/30/21 05:49 Intake & Output 05/29/21 05/30/21 05/30/21 18:59 06:59 18:59 Intake Total 900 200 Balance 900 200 Weight 56.88 kg Intake: Intake, IV Titration 900 Amount Sodium Chloride 0.9% 1, 900 000 ml @ 75 mls/hr IV . [id number] [facility] Rx#:[id number] Oral 200 Other: Voiding Method Toilet # Voids 2 - Exam No acute distress S1-S2 heard Lungs clear No edema - Labs CBC & Chem 7: 05/30/21 05:29 05/29/21 15:43 Labs: Abnormal Lab Results - Last 24 Hours (Table) 05/29/21 05/30/21 Range/Units 06:08 05:29 RBC 4.20 L (4.30-5.90) m/uL Potassium 5.9 H (3.5-5.5) mmol/L Carbon Dioxide 19.6 L (21.6-31.8) mmol/L BUN 28.2 H (9.0-27.0) mg/dL Est GFR (CKD-EPI)AfAm 53.9 L (60.0-200.0) Est GFR (CKD-EPI)NonAf 46.5 L (60.0-200.0) AST 71 H (14-35) U/L Alkaline Phosphatase 181 H (41-126) U/L Total Protein 5.8 L (6.2-8.2) g/dL Assessment and Plan Assessment: #1 acute kidney injury secondary to prerenal physiology from diarrhea. 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 #4 diarrhea resolved #5 hypertension with chronic kidney disease Plan: #1 renal function close to baseline. Continue with IV fluids. #2 on losartan for blood pressures as renal function improving continue with losartan for now #3 avoid nephrotoxic agents and hypotensive episodes #4 oncology evaluation
[2021-05-30 10:54] LABS: African American GFR (CKD) 62.3 (60.0-200.0); Anion Gap 10.7 mmol/L (4.00-12.00); BUN/Creat Ratio 12.63 Ratio (12.00-20.00); Blood Urea Nitrogen 16.8 mg/dL (9.0-27.0); Calcium 8.8 mg/dL (8.7-10.3); Carbon Dioxide 21.8 mmol/L (21.6-31.8); Non-African American GFR(CKD) 53.8 (60.0-200.0); Potassium 4.8 mmol/L (3.5-5.5)
--- NOTE | 2021-05-30 11:45 | P.PN ---
Subjective Progress Note Date: 05/29/21 The patient continues to complain of intermittent lower abdominal heaviness and nausea. He denies any headaches or visual complaints. No significant bone pain Objective - Vital Signs Vital signs: Vital Signs Temp 97.6 F 05/30/21 05:49 Pulse 64 05/30/21 08:30 Resp 18 05/30/21 05:49 BP 177/95 05/30/21 08:30 Pulse Ox 100 05/30/21 05:49 Intake & Output 05/29/21 05/30/21 05/30/21 18:59 06:59 18:59 Intake Total 900 200 Balance 900 200 Weight 56.88 kg Intake: Intake, IV Titration 900 Amount Sodium Chloride 0.9% 1, 900 000 ml @ 75 mls/hr IV . [id number] [facility] Rx#:[id number] Oral 200 Other: Voiding Method Toilet # Voids 2 - Constitutional General appearance: Present: no acute distress - EENT Eyes: Present: EOMI ENT: Present: hearing grossly normal, normal oropharynx - Respiratory Respiratory: bilateral: CTA - Cardiovascular Rhythm: regular Heart sounds: normal: S1, S2 - Gastrointestinal General gastrointestinal: Present: soft - Neurologic Neurologic: Present: CNII-XII intact - Musculoskeletal Musculoskeletal: Present: generalized weakness - Psychiatric Psychiatric: Present: A&O x's 3, appropriate affect - Labs CBC & Chem 7: 05/30/21 05:29 05/30/21 05:29 Labs: Abnormal Lab Results - Last 24 Hours (Table) 05/30/21 05/30/21 Range/Units 05:29 05:29 RBC 4.20 L (4.30-5.90) m/uL Est GFR (CKD-EPI)NonAf 53.8 L (60.0-200.0) Assessment and Plan (1) Bone lesion Narrative/Plan: The patient's CT scan of the chest did not show any obvious adenopathy or mass lesion. However it did confirm additional sclerotic lesions in the rib cage and thoracic spine. The results were discussed with the patient. He was advised t hat this definitely increases suspicion for bone metastasis though at this time we do not have an obvious primary. - Await bone scan results - PSA pending - Assuming bone scan confirms bone metastasis, and the PSA is in the normal range, the patient will need a tissue diagnosis to confirm primary though renal cell would be the #1 differential. Current Visit: Yes Status: Acute Code(s): M89.9 - DISORDER OF BONE, UNSPECI FIED SNOMED Code(s): 423142821 (2) Abdominal pain Narrative/Plan: Patient continues to have lower abdominal discomfort and nausea. At this time no definite etiology of the GI symptoms. MRI of the brain is pending to rule out brain metastasis as cause of nausea. If that is negative, it would be reasonable to consider GI workup. Current Visit: No Status: Acute Code(s): R10.9 - UNSPECIFIED ABDOMINAL PAIN SNOMED Code(s): 75241534
[2021-05-30] MEDS ORDERED: hydrALAZINE HCL 25 MG TAB PO PRN (12:00)
--- NOTE | 2021-05-30 17:01 | P.PN ---
Subjective Progress Note Date: 05/29/21 Principal diagnosis: Abdominal pain/nausea/possible acute gastroenteritis Acute renal injury/dehydration Sclerotic bone lesions; metastatic disease; primary not determined yet 71 year-old male patient presenting for evaluation of lower abdominal pain and vomiting for the last five days. States he has also had multiple episodes of diarrhea daily. States the pain is mostly in the mid lower abdomen. Denies radiation to the back. Denies history of similar symptoms. Denies any hematemesis, hematochezia, or melena. Denies fever or chills. Denies any sick contacts or recent travel. Patient has had left sided nephrectomy due to kidney cancer, in 2012. He denies any hematuria or dysuria. Patient denies any recent rash, cough, shortness of breath, chest pain, back pain, numbness, tingling, dizziness, weakness, headache, visual changes, or any other complaints. Labs reviewed and did reveal white blood cell count of 14.2, sodium 129, potassium 5.3, chloride 97, BUN is 50, creatinine 2.2. Mild elevation in liver enzymes, alk phos 233. Urinalysis did show some protein, ketones, mucus. He'll be admitted to the hospital for dehydration possibly related to gastroenteritis. CT abdomen and pelvis without contrast was obtained; shows multiple osteo blastic foci in the spine and pelvis consistent with metastatic disease and appear mostly new compared to old exam. There is apparent left-sided nephrectomy. There are a few hepatic cysts. No acute abnormality within the abdomen and pelvis. 05/29/2021 Patient is seen and evaluated sitting up in bed; continues to report abdominal discomfort, reporting he is unsure if the pain is due to hunger; patient remains a very poor historian Vital signs are reviewed with temperature 97.8, pulse 84, respiration 20 and blood pressure 148/90 Lab review shows WBC 7.1, hemoglobin of 13.1 and hematocrit of 40.6, sodium 137, potassium 5.9 this morning which was treated and redrawn and is at 5.1, BUN/creatinine slightly improved from yesterday at 28.2/1.5 from 40.1/1.9 yesterday Nephrology on board; acute renal injury likely prerenal; nephro recommending to continue with IV fluids; agreeable to continue losartan at this time Oncology is following; MRI of the brain is pending ; CT of the chest did not show any obvious adenopathy or mass but does confirm additional sclerotic l esions and rib cage and thoracic spine; bone metastasis suspected; patient is scheduled for bone scan; PSA is pending; plan is to proceed with biopsy if bone scan confirms metastatic disease and PSAs in normal range Objective - Vital Signs Vital signs: Vital Signs Temp 97.8 F 05/29/21 11:48 Pulse 65 05/29/21 11:48 Resp 20 05/29/21 11:48 BP 148/90 05/29/21 11:48 Pulse Ox 98 05/29/21 11:48 Intake & Output 05/28/21 05/29/21 05/29/21 18:59 06:59 18:59 Intake Total 1400 550 Balance 1400 550 Weight 56.88 kg 56.88 kg Intake: Intake, IV Titration 300 Amount Sodium Chloride 0.9% 1, 300 000 ml @ 75 mls/hr IV . [id number] [facility] Rx#:[id number] Oral 1100 550 Other: Voiding Method Toilet Toilet # Voids 0 2 - Exam - Constitutional General appearance: Present: average body habitus, cooperative, no acute dist ress - EENT Eyes: Present: anicteric sclerae, EOMI, PERRLA, normal appearance ENT: Present: hearing grossly normal, normal oropharynx Ears: bilateral: normal - Neck Neck: Present: normal ROM. Absent: lymphadenopathy, rigidity, thyromegaly Carotids: negative: bruit present Thyroid: bilateral: normal size, negative: enlarged, nodule - Respiratory Respiratory: bilateral: CTA, negative: rales, rhonchi, wheezing - Cardiovascular Rhythm: regular Heart sounds: normal: S1, S2 Abnormal Heart Sounds: Absent: systolic murmur, diastolic murmur - Gastrointestinal General gastrointestinal: Present: normal bowel sounds, soft. Absent: distended, organomegaly, tenderness - Genitourinary Genitourinary Comment(s): deferred - Integumentary Integumentary: Present: normal turgor. Absent: jaundiced, rash, ulcer - Neurologic Neurologic: Present: CNII-XII intact. Absent: focal deficits - Musculoskeletal Musculoskeletal: Present: gait normal, strength equal bilaterally - Psychiatric Psychiatric: Present: A&O x's 3, appropriate affect, intact judgment & insight - Labs CBC & Chem 7: 05/30/21 05:29 05/30/21 05:29 Labs: Abnormal Lab Results - Last 24 Hours (Table) 05/28/21 05/29/21 05/29/21 Range/Units 14:25 06:08 06:08 RBC 4.27 L (4.30-5.90) m/uL Sodium 134 L (135-145) mmol/L Potassium 5.9 H (3.5-5.5) mmol/L Carbon Dioxide 15.4 L 19.6 L (21.6-31.8) mmol/L Anion Gap 17.10 H (4.00-12.00) mmol/L BUN 40.1 H 28.2 H (9.0-27.0) mg/dL Creatinine 1.9 H (0.6-1.5) mg/dL Est GFR (CKD-EPI)AfAm 41.0 L 53.9 L (60.0-200.0) Est GFR (CKD-EPI)NonAf 35.4 L 46.5 L (60.0-200.0) BUN/Creatinine Ratio 21.33 H (12.00-20.00) Ratio Calcium 8.1 L (8.7-10.3) mg/dL AST 70 H 71 H (14-35) U/L Alkaline Phosphatase 190 H 181 H (41-126) U/L Total Protein 6.1 L 5.8 L (6.2-8.2) g/dL Assessment and Plan Assessment: 1. Acute abdominal pain/nausea/; possible acute gastroenteritis 2. Hyponatremia; slightly fluid hydration in form of normal saline at rate of 75 mL an hour; we will monitor electrolytes closely and make further recommendations 3. Hyperkalemia; possibly related to acute renal injury; we will continue with IV fluid hydration as indicated and monitor electrolytes closely 4. Acute renal injury/dehydration; IV fluid hydration as indicated above; monitor strict NORBERTO's and daily weights; monitor renal function and electrolytes; avoid nephrotoxins and hypotension 5. Possible metastases pelvis/lower spine; I did discuss CT findings briefly with the patient and family; oncology has been consulted; await recommendations 6. Hypertension; currently not on any antihypertensive therapy; we will monitor blood pressure closely while inpatient with plans to make recommendations. 7. Hyperlipidemia; continue with home statin therapy in form of Zocor 20 mg by mouth daily at bedtime 8. Hypothyroidism; levothyroxin 137 MCG daily 9. CVA/TIA; continue with Plavix and statin. DVT prophylaxis; SCDs/subcu heparin CODE STATUS; full code
--- NOTE | 2021-05-30 20:50 | P.PN ---
Subjective Progress Note Date: 05/30/21 Principal diagnosis: Abdominal pain/nausea/possible acute gastroenteritis Acute renal injury/dehydration Sclerotic bone lesions; metastatic disease; primary not determined yet 71 year-old male patient presenting for evaluation of lower abdominal pain and vomiting for the last five days. States he has also had multiple episodes of diarrhea daily. States the pain is mostly in the mid lower abdomen. Denies radiation to the back. Denies history of similar symptoms. Denies any hematemesis, hematochezia, or melena. Denies fever or chills. Denies any sick contacts or recent travel. Patient has had left sided nephrectomy due to kidney cancer, in 2012. He denies any hematuria or dysuria. Patient denies any recent rash, cough, shortness of breath, chest pain, back pain, numbness, tingling, dizziness, weakness, headache, visual changes, or any other complaints. Labs reviewed and did reveal white blood cell count of 14.2, sodium 129, potassium 5.3, chloride 97, BUN is 50, creatinine 2.2. Mild elevation in liver enzymes, alk phos 233. Urinalysis did show some protein, ketones, mucus. He'll be admitted to the hospital for dehydration possibly related to gastroenteritis. CT abdomen and pelvis without contrast was obtained; shows multiple osteo blastic foci in the spine and pelvis consistent with metastatic disease and appear mostly new compared to old exam. There is apparent left-sided nephrectomy. There are a few hepatic cysts. No acute abnormality within the abdomen and pelvis. 05/29/2021 Patient is seen and evaluated sitting up in bed; continues to report abdominal discomfort, reporting he is unsure if the pain is due to hunger; patient remains a very poor historian Vital signs are reviewed with temperature 97.8, pulse 84, respiration 20 and blood pressure 148/90 Lab review shows WBC 7.1, hemoglobin of 13.1 and hematocrit of 40.6, sodium 137, potassium 5.9 this morning which was treated and redrawn and is at 5.1, BUN/creatinine slightly improved from yesterday at 28.2/1.5 from 40.1/1.9 yesterday Nephrology on board; acute renal injury likely prerenal; nephro recommending to continue with IV fluids; agreeable to continue losartan at this time Oncology is following; MRI of the brain is pending ; CT of the chest did not show any obvious adenopathy or mass but does confirm additional sclerotic l esions and rib cage and thoracic spine; bone metastasis suspected; patient is scheduled for bone scan; PSA is pending; plan is to proceed with biopsy if bone scan confirms metastatic disease and PSAs in normal range 05/30/2021 Patient is seen and evaluated at bedside; reports improvement in abdominal pain Vital signs are reviewed temperature 97.6 pulse 64 respiration 18 and blood pressure of 177/[address] of the chest done which does not reveal any adenopathy or mass; does confirm sclerotic lesions and rib cage and thoracic spine; oncology on board and workup in process Patient might need bone biopsy if bone scan confirms metastatic disease Objective - Vital Signs Vital signs: Vital Signs Temp 98.1 F 05/30/21 12:15 Pulse 71 05/30/21 16:00 Resp 20 05/30/21 12:15 BP 162/89 05/30/21 16:00 Pulse Ox 98 05/30/21 12:15 Intake & Output 05/29/21 05/30/21 05/30/21 18:59 06:59 18:59 Intake Total 900 200 Balance 900 200 Weight 56.88 kg Intake: Intake, IV Titration 900 Amount Sodium Chloride 0.9% 1, 900 000 ml @ 75 mls/hr IV . [id number] [facility] Rx#:[id number] Oral 200 Other: Voiding Method Toilet # Voids 2 - Exam - Constitutional General appearance: Present: average body habitus, cooperative, no acute distress - EENT Eyes: Present: anicteric sclerae, EOMI, PERRLA, normal appearance ENT: Present: hearing grossly normal, normal oropharynx Ears: bilateral: normal - Neck Neck: Present: normal ROM. Absent: lymphadenopathy, rigidity, thyromegaly Carotids: negative: bruit present Thyroid: bilateral: normal size, negative: enlarged, nodule - Respiratory Respiratory: bilateral: CTA, negative: rales, rhonchi, wheezing - Cardiovascular Rhythm: regular Heart sounds: normal: S1, S2 Abnormal Heart Sounds: Absent: systolic murmur, diastolic murmur - Gastrointestinal General gastrointestinal: Present: normal bowel sounds, soft. Absent: distended, organomegaly, tenderness - Genitourinary Genitourinary Comment(s): deferred - Integumentary Integumentary: Present: normal turgor. Absent: jaundiced, rash, ulcer - Neurologic Neurologic: Present: CNII-XII intact. Absent: focal deficits - Musculoskeletal Musculoskeletal: Present: gait normal, strength equal bilaterally - Psychiatric Psychiatric: Present: A&O x's 3, appropriate affect, intact judgment & insight - Labs CBC & Chem 7: 05/30/21 05:29 05/30/21 05:29 Labs: Abnormal Lab Results - Last 24 Hours (Table) 05/30/21 05/30/21 Range/Units 05:29 05:29 RBC 4.20 L (4.30-5.90) m/uL Est GFR (CKD-EPI)NonAf 53.8 L (60.0-200.0) Assessment and Plan Assessment: 1. Acute abdominal pain/nausea/; possible acute gastroenteritis 2. Hyponatremia; slightly fluid hydration in form of normal saline at rate of 75 mL an hour; we will monitor electrolytes closely and make further recommendations 3. Hyperkalemia; possibly related to acute renal injury; we will continue with IV fluid hydration as indicated and monitor electrolytes closely 4. Acute renal injury/dehydration; IV fluid hydration as indicated above; monitor strict NORBERTO's and daily weights; monitor renal function and electrolytes; avoid nephrotoxins and hypotension 5. Possible metastases pelvis/lower spine; I did discuss CT findings briefly with the patient and family; oncology has been consulted; await recommendations 6. Hypertension; currently not on any antihypertensive therapy; we will monitor blood pressure closely while inpatient with plans to make recommendations. 7. Hyperlipidemia; continue with home statin therapy in form of Zocor 20 mg by mouth daily at bedtime 8. Hypothyroidism; levothyroxin 137 MCG daily 9. CVA/TIA; continue with Plavix and statin. DVT prophylaxis; SCDs/subcu heparin CODE STATUS; full code
[2021-05-31] MEDS: LEVOTHYROXINE 137 MCG TAB PO SCH (05:57)
[2021-05-31] MEDS: HYDROcodone/APAP 5-325MG 1 EACH TAB PO PRN ×3 (07:49→21:21)
[2021-05-31] MEDS: predniSONE 1 MG TAB PO SCH (07:50)
[2021-05-31] MEDS: SODIUM CHLORIDE 0.9% 1,000 ML IV SCH ×2 (07:50→19:36)
[2021-05-31] MEDS: CLOPIDOGREL 75 MG TAB PO SCH (07:50)
[2021-05-31] MEDS: FAMOTIDINE 20 MG TAB PO SCH (07:50)
[2021-05-31] MEDS: LOSARTAN 50 MG TAB PO SCH (07:50)
--- NOTE | 2021-05-31 08:47 | P.PN ---
Subjective Patient is seen in follow-up for acute kidney injury on chronic kidney disease. Renal function improved. No diarrhea. Oral intake fair. On IV fluids. Vital signs are stable. General: The patient appeared well nourished and normally developed. HEENT: Head exam is unremarkable. LUNGS: Breath sounds decreased. HEART: Rate and Rhythm are regular. ABDOMEN: Soft, no distention. EXTREMITITES: No edema. Objective - Vital Signs Vital signs: Vital Signs Temp 98.3 F 05/31/21 04:50 Pulse 64 05/31/21 04:50 Resp 16 05/31/21 04:50 BP 168/95 05/31/21 04:50 Pulse Ox 98 05/31/21 04:50 Intake & Output 05/30/21 05/31/21 05/31/21 18:59 06:59 18:59 Intake Total 900 725 Balance 900 725 Intake: Intake, IV Titration 900 725 Amount Sodium Chloride 0.9% 1, 900 725 000 ml @ 75 mls/hr IV . [id number] [facility] Rx#:[id number] Other: # Voids 1 - Labs CBC & Chem 7: 05/30/21 05:29 05/30/21 05:29 Labs: Abnormal Lab Results - Last 24 Hours (Table) 05/30/21 Range/Units 05:29 Est GFR (CKD-EPI)NonAf 53.8 L (60.0-200.0) Assessment and Plan Plan: Assessment: 1. Acute kidney injury mostly prerenal secondary to hypovolemia from diarrhea. Improved. Creatinine 1.3 yesterday. 2. Chronic kidney disease stage IIIa with baseline creatinine near 1.5 secondary to solitary right kidney. 3. Renal cell carcinoma with metastasis. 4. Status post left nephrectomy. 5. Hypertension with chronic kidney disease. Plan: Decrease normal saline to 50 mL an hour. Increase hydralazine to 50 mg 3 times daily. Avoid nephrotoxins. Continue to monitor renal function and urine output.
[2021-05-31] MEDS: hydrALAZINE HCL 50 MG TAB PO SCH ×3 (08:58→21:17)
[2021-05-31] MEDS: ONDANSETRON 4 MG/2 ML VIAL IVP PRN ×2 (13:14→19:36)
[2021-05-31] MEDS: HYDROmorphone 1 MG/ML 1 ML SYRINGE IVP PRN ×3 (13:16→23:04)
--- NOTE | 2021-05-31 14:05 | NM ---
EXAMINATION TYPE: NM bone scan whole body DATE OF EXAM: 05/31/2021 COMPARISON: CT chest 05/28/2021, CT abdomen and pelvis 05/27/2021 HISTORY: Abnormal CT, metastatic cancer restaging Delayed whole-body scanning was performed following the injection of 25 mCi Tc 99m MDP. Images acqui red 3 hours post injection. FINDINGS: There are too numerous to count foci of increased uptake involving the spine but also the left sixth rib anteriorly, fifth rib anteriorly, posterior right approximate 11th rib, additional posterior ribs on the left, pelvis including the left ischium, posterior ilium, sacrum, right superior and inferior pubic rami, sternum. The left kidney is absent. IMPRESSION: Findings consistent with bony metastatic disease.
--- NOTE | 2021-05-31 19:56 | P.PN ---
Subjective Progress Note Date: 05/31/21 Principal diagnosis: N, abd pain In f/u today pt has persistent nausea but, it is less, abd pain is in the suprapubic area, stable, he states he feels ok today. Objective - Vital Signs Vital signs: Vital Signs Temp 98.3 F 05/31/21 04:50 Pulse 71 05/31/21 08:00 Resp 16 05/31/21 04:50 BP 163/83 05/31/21 08:00 Pulse Ox 98 05/31/21 04:50 Intake & Output 05/30/21 05/31/21 05/31/21 18:59 06:59 18:59 Intake Total 900 725 Balance 900 725 Intake: Intake, IV Titration 900 725 Amount Sodium Chloride 0.9% 1, 900 725 000 ml @ 75 mls/hr IV . [id number] [facility] Rx#:[id number] Other: # Voids 1 - Constitutional General appearance: Present: average body habitus, cooperative, no acute distress - EENT Eyes: Present: anicteric sclerae, edentulous ENT: Present: hearing grossly normal - Respiratory Respiratory: bilateral: CTA - Cardiovascular Heart sounds: normal: S1, S2 - Peripheral edema leg Peripheral Edema: bilateral: None - Gastrointestinal General gastrointestinal: Present: normal bowel sounds, soft, tenderness (suprapubic area, mild discomfort with deep palpation). Absent: absent bowel sounds, decreased bowel sounds, distended, hepatomegaly, hyperactive bowel sounds, organomegaly, rigid, scaphoid, splenomegaly, umbilical hernia, ventral hernia - Integumentary Integumentary: Present: normal - Neurologic Neurologic: Present: CNII-XII intact - Musculoskeletal Musculoskeletal: Present: strength equal bilaterally - Psychiatric Psychiatric: Present: A&O x's 3, appropriate affect, intact judgment & insight - Labs CBC & Chem 7: 05/30/21 05:29 05/30/21 05:29 Assessment and Plan (1) Bone lesion Narrative/Plan: MRI brain neg. CT CAP + osteoblastic lesions, pending NM bone scan and PSA results. Further recs to follow Current Visit: Yes Status: Acute Priority: High Code(s): M89.9 - DISORDER OF BONE, UNSPECIFIED SNOMED Code(s): 268211230 Plan: May have to consider GI f/u for N and abd pain if other testing does not yield a n answer and if no treatments provide relief
[2021-06-01] MEDS: ONDANSETRON 4 MG/2 ML VIAL IVP PRN ×2 (01:57→13:25)
[2021-06-01] MEDS: HYDROcodone/APAP 5-325MG 1 EACH TAB PO PRN ×3 (03:26→16:14)
[2021-06-01] MEDS: LEVOTHYROXINE 137 MCG TAB PO SCH (05:56)
--- NOTE | 2021-06-01 08:59 | P.PN ---
Subjective Patient is seen in follow-up for acute kidney injury on chronic kidney disease. Renal function improved. No diarrhea. Oral intake fair. On IV fluids. No changes overnight. Vital signs are stable. General: The patient appeared well nourished and normally developed. HEENT: Head exam is unremarkable. LUNGS: Breath sounds decreased. HEART: Rate and Rhythm are regular. ABDOMEN: Soft, no distention. EXTREMITITES: No edema. Objective - Vital Signs Vital signs: Vital Signs Temp 97.6 F 06/01/21 06:53 Pulse 76 06/01/21 06:53 Resp 18 06/01/21 06:53 BP 153/80 06/01/21 06:53 Pulse Ox 97 06/01/21 06:53 Intake & Output 05/31/21 06/01/21 06/01/21 18:59 06:59 18:59 Intake Total 600 600 Balance 600 600 Intake: Intake, IV Titration 600 600 Amount Sodium Chloride 0.9% 1, 600 600 000 ml @ 50 mls/hr IV . Q20H [facility] Rx#:[id number] Other: Voiding Method Toilet - Labs CBC & Chem 7: 05/30/21 05:29 05/30/21 05:29 Labs: Abnormal Lab Results - Last 24 Hours (Table) 05/30/21 Range/Units 05:29 PSA Screen 40.100 H (0.000-4.000) ng/mL Assessment and Plan Plan: Assessment: 1. Acute kidney injury mostly prerenal secondary to hypovolemia from diarrhea. Improved. Creatinine 1.3 on May 30. 2. Chronic kidney disease stage IIIa with baseline creatinine near 1.5 secondary to solitary right kidney. 3. Renal cell carcinoma with metastasis. 4. Status post left nephrectomy. 5. Hypertension with chronic kidney disease. Stable. Plan: Maintain normal saline at 50 mL an hour. Avoid nephrotoxins. Continue to monitor renal function and urine output. Morning labs pending.
[2021-06-01] MEDS: predniSONE 1 MG TAB PO SCH (11:19)
[2021-06-01] MEDS: CLOPIDOGREL 75 MG TAB PO SCH (11:20)
[2021-06-01] MEDS: LOSARTAN 50 MG TAB PO SCH (11:21)
[2021-06-01] MEDS: hydrALAZINE HCL 50 MG TAB PO SCH ×3 (11:22→20:56)
[2021-06-01] MEDS: FAMOTIDINE 20 MG TAB PO SCH (11:23)
[2021-06-01 12:52] LABS: African American GFR (CKD) 61.2 (60.0-200.0); Anion Gap 11.7 mmol/L (4.00-12.00); BUN/Creat Ratio 11.19 Ratio (12.00-20.00); Blood Urea Nitrogen 15.1 mg/dL (9.0-27.0); Calcium 8.7 mg/dL (8.7-10.3); Carbon Dioxide 22.3 mmol/L (21.6-31.8); Magnesium 1.5 mg/dL (1.5-2.4); Non-African American GFR(CKD) 52.8 (60.0-200.0); Potassium 4.2 mmol/L (3.5-5.5)
[2021-06-01] MEDS: HYDROmorphone 1 MG/ML 1 ML SYRINGE IVP PRN ×2 (13:25→20:56)
[2021-06-01] MEDS: MAGNESIUM SULFATE-D5W PMX 1 GM in DEXTROSE/WATER 1 100ML.BAG IVPB SCH ×2 (14:13→16:15)
--- NOTE | 2021-06-01 14:44 | P.PN ---
Subjective Progress Note Date: 05/31/21 Principal diagnosis: Abdominal pain/nausea/possible acute gastroenteritis Acute renal injury/dehydration Sclerotic bone lesions; metastatic disease; primary not determined yet 71 year-old male patient presenting for evaluation of lower abdominal pain and vomiting for the last five days. States he has also had multiple episodes of diarrhea daily. States the pain is mostly in the mid lower abdomen. Denies radiation to the back. Denies history of similar symptoms. Denies any hematemesis, hematochezia, or melena. Denies fever or chills. Denies any sick contacts or recent travel. Patient has had left sided nephrectomy due to kidney cancer, in 2012. He denies any hematuria or dysuria. Patient denies any recent rash, cough, shortness of breath, chest pain, back pain, numbness, tingling, dizziness, weakness, headache, visual changes, or any other complaints. Labs reviewed and did reveal white blood cell count of 14.2, sodium 129, potassium 5.3, chloride 97, BUN is 50, creatinine 2.2. Mild elevation in liver enzymes, alk phos 233. Urinalysis did show some protein, ketones, mucus. He'll be admitted to the hospital for dehydration possibly related to gastroenteritis. CT abdomen and pelvis without contrast was obtained; shows multiple ost eoblastic foci in the spine and pelvis consistent with metastatic disease and appear mostly new compared to old exam. There is apparent left-sided nephrectomy. There are a few hepatic cysts. No acute abnormality within the abdomen and pelvis. 05/29/2021 Patient is seen and evaluated sitting up in bed; continues to report abdominal discomfort, reporting he is unsure if the pain is due to hunger; patient remains a very poor historian Vital signs are reviewed with temperature 97.8, pulse 84, respiration 20 and blood pressure 148/90 Lab review shows WBC 7.1, hemoglobin of 13.1 and hematocrit of 40.6, sodium 137, potassium 5.9 this morning which was treated and redrawn and is at 5.1, BUN/creatinine slightly improved from yesterday at 28.2/1.5 from 40.1/1.9 yesterday Nephrology on board; acute renal injury likely prerenal; nephro recommending to continue with IV fluids; agreeable to continue losartan at this time Oncology is following; MRI of the brain is pending ; CT of the chest did not show any obvious adenopathy or mass but does confirm additional sclerotic lesions and rib cage and thoracic spine; bone metastasis suspected; patient is scheduled for bone scan; PSA is pending; plan is to proceed with biopsy if bone scan confirms metastatic disease and PSAs in normal range 05/30/2021 Patient is seen and evaluated at bedside; reports improvement in abdominal pain Vital signs are reviewed temperature 97.6 pulse 64 respiration 18 and blood pressure of 177/[address] of the chest done which does not reveal any adenopathy or mass; does confirm sclerotic lesions and rib cage and thoracic spine; oncology on board and workup in process Patient might need bone biopsy if bone scan confirms metastatic disease. 05/31/2021 Patient is currently sitting in the bed. Still complains of decreased oral intake and nausea and abdominal discomfort. Abdominal discomfort is mainly in the lower abdominal. No ulcers or vomiting. Patient is getting IV hydration and renal function is improving slowly. Due to CT of the abdomen pelvis findings of osteoblastic lesions, bone scan was ordered. Oncology is on board. Continue the pain management with [place] and Dilaudid IV. Denied any complaints of chest pain or shortness of breath. No fever no chills. No headache or dizziness or lightheadedness. No fever no chills. Current medications reviewed. Objective - Vital Signs Vital signs: Vital Signs Temp 98.8 F 05/31/21 20:46 Pulse 84 05/31/21 20:46 Resp 16 05/31/21 20:46 BP 138/80 05/31/21 20:46 Pulse Ox 98 05/31/21 20:46 Intake & Output 05/31/21 05/31/21 06/01/21 06:59 18:59 06:59 Intake Total 725 600 Balance 725 600 Intake: Intake, IV Titration 725 600 Amount Sodium Chloride 0.9% 1, 725 600 000 ml @ 50 mls/hr IV . Q20H [facility] Rx#:[id number] Other: # Voids 1 - Exam - Exam - Constitutional General appearance: Present: average body habitus, cooperative, no acute distress - EENT Eyes: Present: anicteric sclerae, EOMI, PERRLA, normal appearance ENT: Present: hearing grossly normal, normal oropharynx Ears: bilateral: normal - Neck Neck: Present: normal ROM. Absent: lymphadenopathy, rigidity, thyromegaly Carotids: negative: bruit present Thyroid: bilateral: normal size, negative: enlarged, nodule - Respiratory Respiratory: bilateral: CTA, negative: rales, rhonchi, wheezing - Cardiovascular Rhythm: regular Heart sounds: normal: S1, S2 Abnormal Heart Sounds: Absent: systolic murmur, diastolic murmur - Gastrointestinal General gastrointestinal: Present: normal bowel sounds, soft. Absent: distended, organomegaly, tenderness - Genitourinary Genitourinary Comment(s): deferred - Integumentary Integumentary: Present: normal turgor. Absent: jaundiced, rash, ulcer - Neurologic Neurologic: Present: CNII-XII intact. Absent: focal deficits - Musculoskeletal Musculoskeletal: Present: gait normal, strength equal bilaterally - Psychiatric Psychiatric: Present: A&O x's 3, appropriate affect, intact judgment & insight - Labs CBC & Chem 7: 05/30/21 05:29 06/01/21 07:23 Labs: Abnormal Lab Results - Last 24 Hours (Table) 05/30/21 Range/Units 05:29 PSA Screen 40.100 H (0.000-4.000) ng/mL Assessment and Plan Assessment: 1. Acute abdominal pain/nausea/; possible acute gastroenteritis. Improved now. 2. Hyponatremia; hypovolemic. slightly fluid hydration in form of normal sa line at rate of 75 mL an hour; we will monitor electrolytes closely and make further recommendations 3. Acute kidney injury mostly prerenal secondary to hypovolemia and diarrhea. Creatinine level is improving. CK D stage III a Hyperkalemia; possibly related to acute renal injury; we will continue with IV fluid hydration as indicated and monitor electrolytes closely 4. Acute renal injury/dehydration; IV fluid hydration as indicated above; monitor strict NORBERTO's and daily weights; monitor renal function and electrolytes; avoid nephrotoxins and hypotension 5. Possible metastases pelvis/lower spine; discussed CT findings osteoblastic lesions, briefly with the patient and family; oncology has been consulted; bone scan was done today. Patient does have a history of renal cell carcinoma. Elevated PSA Level 6. Hypertension; currently not on any antihypertensive therapy; we will monitor blood pressure closely while inpatient with plans to make recommendations. 7. Hyperlipidemia; continue with home statin therapy in form of Zocor 20 mg by mouth daily at bedtime 8. Hypothyroidism; levothyroxin 137 MCG daily 9. CVA/TIA; continue with Plavix and statin. DVT prophylaxis; SCDs/subcu heparin CODE STATUS; full code Time with Patient: Greater than 30
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
[2021-06-01] MEDS: SODIUM CHLORIDE 0.9% 1,000 ML IV SCH (18:00)
--- NOTE | 2021-06-01 18:26 | P.PN ---
Subjective Progress Note Date: 06/01/21 Principal diagnosis: N, abd pain In f/u today pt has persistent, mid nausea, abd pain in the suprapubic area is stable, he had terrible ARAUJO today, has had before, denies vision loss. Objective - Vital Signs Vital signs: Vital Signs Temp 97.7 F 06/01/21 18:03 Pulse 76 06/01/21 18:03 Resp 17 06/01/21 18:03 BP 136/58 06/01/21 18:03 Pulse Ox 97 06/01/21 18:03 Intake & Output 05/31/21 06/01/21 06/01/21 18:59 06:59 18:59 Intake Total 600 600 200 Balance 600 600 200 Intake: Intake, IV Titration 600 600 200 Amount Magnesium Sulfate-D5w Pmx 200 1 gm In Dextrose/Water 1 100ml.bag @ 100 mls/hr IVPB Q1H [facility] Rx#: [id number] Sodium Chloride 0.9% 1, 600 600 000 ml @ 50 mls/hr IV . Q20H [facility] Rx#:[id number] Other: Voiding Method Toilet - Constitutional General appearance: Present: cooperative, mild distress, thin - EENT Eyes: Present: anicteric sclerae, EOMI ENT: Present: hearing grossly normal - Respiratory Respiratory: bilateral: CTA - Cardiovascular Rhythm: regular Heart sounds: normal: S1, S2 Abnormal Heart Sounds: Absent: systolic murmur, diastolic murmur, rub, S3 Gallop, S4 Gallop, click, other - Peripheral edema leg Peripheral Edema: bilateral: None - Gastrointestinal General gastrointestinal: Present: normal bowel sounds, soft, tenderness - Neurologic Neurologic: Present: CNII-XII intact - Musculoskeletal Musculoskeletal: Present: strength equal bilaterally - Psychiatric Psychiatric: Present: A&O x's 3, appropriate affect, intact judgment & insight - Labs CBC & Chem 7: 05/30/21 05:29 06/01/21 07:23 Labs: Abnormal Lab Results - Last 24 Hours (Table) 06/01/21 Range/Units 07:23 Est GFR (CKD-EPI)NonAf 52.8 L (60.0-200.0) BUN/Creatinine Ratio 11.19 L (12.00-20.00) Ratio - Imaging and Cardiology MRI - head: report reviewed (done 3 days ago, just reviewing 2/2 ARAUJO) NM bone scan report reviewed Assessment and Plan (1) Bone lesion Narrative/Plan: MRI brain neg, reviewed report due to rerpots of ARAUJO. Nursing reports pt has c/o of ARAUJO constantly, he uses a variety of pain meds and reports nothing works. He has been started in Extended release morphine. Ordered sennaS for prevention of narcotic induced constipation. CT CAP + osteoblastic lesions, NM bone scan confirms the same. PSA is 40. Reviewed with pt that bone scan results are most consistent with a cancer diagnosis. Based on his PSA, prostate is the more likely cancer. But, diagnosis has to be confirmed with tissue pathology so, recommending a biopsy. Pt understands. Will review case with IR and see if there is a bone lesion that could be core biopsied. If not, will ask Orthopedic to look at case and see if they can biopsy. Pt blood thinners are on hold for endoscopy on so, timing would be perfect tp get a biopsy. Current Visit: Yes Status: Acute Priority: High Code(s): M89.9 - DISORDER OF BONE, UNSPECIFIED SNOMED Code(s): 100734386 Plan: Endoscopy for N and abd pain planned.
[2021-06-01] MEDS: MORPHINE SULFATE ER 15 MG TABLET PO SCH (19:10)
[2021-06-01] MEDS: SENNOSIDES-DOCUSATE SODIUM 1 EACH TAB PO SCH (20:56)
[2021-06-02] MEDS: HYDROcodone/APAP 5-325MG 1 EACH TAB PO PRN ×4 (00:12→21:09)
[2021-06-02] MEDS: HYDROmorphone 1 MG/ML 1 ML SYRINGE IVP PRN ×4 (00:13→22:04)
[2021-06-02] MEDS: LEVOTHYROXINE 137 MCG TAB PO SCH (05:52)
[2021-06-02] MEDS: MORPHINE SULFATE ER 15 MG TABLET PO SCH ×2 (08:18→19:41)
[2021-06-02] MEDS: LOSARTAN 50 MG TAB PO SCH (08:18)
[2021-06-02] MEDS: SENNOSIDES-DOCUSATE SODIUM 1 EACH TAB PO SCH ×2 (08:18→19:41)
[2021-06-02] MEDS: FAMOTIDINE 20 MG TAB PO SCH (08:18)
[2021-06-02] MEDS: hydrALAZINE HCL 50 MG TAB PO SCH ×3 (08:18→20:25)
[2021-06-02] MEDS: predniSONE 1 MG TAB PO SCH (08:18)
[2021-06-02] MEDS ORDERED: PEG 3350-NA SULF,BICARB,CL/KCL 4,000 ML BOTTLE PO ONE (09:00)
[2021-06-02 09:30] LABS: HCT 41.4 % (39.0-53.0); HGB 12.9 gm/dL (13.0-17.5); MCH 29.8 pg (25.0-35.0); MCHC 31.3 g/dL (31.0-37.0); MCV 95.4 fL (80.0-100.0); Mean Platelet Volume 7.2; Platelet Count 263 k/uL (150-450); RBC 4.34 m/uL (4.30-5.90); RDW 13.2 % (11.5-15.5); WBC 7.9 k/uL (3.8-10.6)
[2021-06-02 09:39] LABS: African American GFR (CKD) 54 (>60 ml/min/1.73 sqM); Anion Gap 8 mmol/L; Blood Urea Nitrogen 19 mg/dL (9-20); Calcium 9.4 mg/dL (8.4-10.2); Carbon Dioxide 29 mmol/L (22-30); Chloride 99 mmol/L (98-107); Glucose 128 mg/dL (74-99); Non-African American GFR(CKD) 47 (>60 ml/min/1.73 sqM); Potassium 4.8 mmol/L (3.5-5.1); Sodium 136 mmol/L (137-145)
--- NOTE | 2021-06-02 11:45 | P.PN ---
Subjective Progress Note Date: 06/02/21 CHIEF COMPLAINT: Abdominal pain with vomiting and diarrhea HISTORY OF PRESENT ILLNESS: Patient denies any abdominal pain. He reports a decrease in his nausea. No vomiting. He is starting the GoLYTELY prep. Plavix placed on hold this morning. Patient followed closely by oncology. He did have elevated PSA level with bony lesions in the pelvis and spine. Patient had prior EGD in 02/24/[address] Rm that had shown angioectasia of the duodenum requiring ablation. Patient denies any blood in his stools. Afebrile WBC 7.9 hemoglobin 12.9 sodium 136 creatinine up at 1.5 PHYSICAL EXAM: VITAL SIGNS: Reviewed. GENERAL: Well-developed in no acute distress. HEENT: No sclera icterus. Extraocular movements grossly intact. Moist buccal mucosa. Head is atraumatic, normocephalic. ABDOMEN: Soft. Nondistended. Nontender. NEUROLOGIC: Alert and oriented. Cranial nerves II through XII grossly intact. ASSESSMENT: 1. Abdominal pain with nausea, vomiting and diarrhea 2. Patient found to have lesions in the spine and pelvis consistent with metastatic disease. Patient undergoing oncology workup. EGD and colonoscopy have been requested by medical service to complete oncology workup. 3. Prior history of renal cancer with left nephrectomy 4. Elevated PSA level PLAN: -Patient scheduled for EGD and colonoscopy for tomorrow, 06/03/[address] bryant -Start GoLYTELY prep -Clear liquids today -Nothing by mouth after midnight Physician Senior Process Analyst note has been reviewed by physician. Signing provider agrees with the documented findings, assessment, and plan of care. Objective - Vital Signs Vital signs: Vital Signs Temp 97.9 F 06/02/21 04:26 Pulse 76 06/02/21 08:20 Resp 16 06/02/21 04:26 BP 144/84 06/02/21 08:20 Pulse Ox 96 06/02/21 04:26 Intake & Output 06/01/21 06/02/21 06/02/21 18:59 06:59 18:59 Intake Total 200 300 Balance 200 300 Intake: Intake, IV Titration 200 300 Amount Magnesium Sulfate-D5w Pmx 200 100 1 gm In Dextrose/Water 1 100ml.bag @ 100 mls/hr IVPB Q1H [facility] Rx#: [id number] Sodium Chloride 0.9% 1, 200 000 ml @ 50 mls/hr IV . Q20H [facility] Rx#:[id number] Other: Voiding Method Toilet # Voids 1 2 # Bowel Movements 1 - Labs CBC & Chem 7: 06/02/21 09:00 06/02/21 09:00 Labs: Abnormal Lab Results - Last 24 Hours (Table) 06/01/21 06/02/21 06/02/21 Range/Units 07:23 09:00 09:00 Hgb 12.9 L (13.0-17.5) gm/dL Sodium 136 L (137-145) mmol/L Creatinine 1.50 H (0.66-1.25) mg/dL Est GFR (CKD-EPI)NonAf 52.8 L (60.0-200.0) BUN/Creatinine Ratio 11.19 L (12.00-20.00) Ratio Glucose 128 H (74-99) mg/dL
--- NOTE | 2021-06-02 12:19 | P.PN ---
Subjective Patient is seen in follow-up for acute kidney injury on chronic kidney disease. Renal function fairly stable. No diarrhea. Oral intake fair. On IV fluids. No changes overnight. Scheduled for endoscopy tomorrow. Vital signs are stable. General: The patient appeared well nourished and normally developed. HEENT: Head exam is unremarkable. LUNGS: Breath sounds decreased. HEART: Rate and Rhythm are regular. ABDOMEN: Soft, no distention. EXTREMITITES: No edema. Objective - Vital Signs Vital signs: Vital Signs Temp 97.9 F 06/02/21 04:26 Pulse 76 06/02/21 08:20 Resp 16 06/02/21 04:26 BP 144/84 06/02/21 08:20 Pulse Ox 96 06/02/21 04:26 Intake & Output 06/01/21 06/02/21 06/02/21 18:59 06:59 18:59 Intake Total 200 300 Balance 200 300 Intake: Intake, IV Titration 200 300 Amount Magnesium Sulfate-D5w Pmx 200 100 1 gm In Dextrose/Water 1 100ml.bag @ 100 mls/hr IVPB Q1H [facility] Rx#: [id number] Sodium Chloride 0.9% 1, 200 000 ml @ 50 mls/hr IV . Q20H [facility] Rx#:[id number] Other: Voiding Method Toilet # Voids 1 2 # Bowel Movements 1 - Labs CBC & Chem 7: 06/02/21 09:00 06/02/21 09:00 Labs: Abnormal Lab Results - Last 24 Hours (Table) 06/01/21 06/02/21 06/02/21 Range/Units 07:23 09:00 09:00 Hgb 12.9 L (13.0-17.5) gm/dL Sodium 136 L (137-145) mmol/L Creatinine 1.50 H (0.66-1.25) mg/dL Est GFR (CKD-EPI)NonAf 52.8 L (60.0-200.0) BUN/Creatinine Ratio 11.19 L (12.00-20.00) Ratio Glucose 128 H (74-99) mg/dL Assessment and Plan Plan: Assessment: 1. Acute kidney injury mostly prerenal secondary to hypovolemia from diarrhea. Improved from admission. Creatinine 1.5 today. 2. Chronic kidney disease stage IIIa with baseline creatinine near 1.5 secondary to solitary right kidney. 3. Renal cell carcinoma with metastasis. 4. Status post left nephrectomy. 5. Hypertension with chronic kidney disease. Stable. Plan: Maintain IV fluids. Avoid nephrotoxins. Continue to monitor renal function and urine output. Endoscopy tomorrow.
--- NOTE | 2021-06-02 13:48 | P.PN ---
Subjective Progress Note Date: 06/02/21 Principal diagnosis: N, abd pain In f/u today pt is at bedside, he appears to be comfortable, denies any acute c/o, all other c/o are stable, persistent, not progressive. Asking if may be able to go home after procedure tomorrow. Objective - Vital Signs Vital signs: Vital Signs Temp 97.9 F 06/02/21 04:26 Pulse 76 06/02/21 08:20 Resp 16 06/02/21 04:26 BP 144/84 06/02/21 08:20 Pulse Ox 96 06/02/21 04:26 Intake & Output 06/01/21 06/02/21 06/02/21 18:59 06:59 18:59 Intake Total 200 300 Balance 200 300 Intake: Intake, IV Titration 200 300 Amount Magnesium Sulfate-D5w Pmx 200 100 1 gm In Dextrose/Water 1 100ml.bag @ 100 mls/hr IVPB Q1H [facility] Rx#: [id number] Sodium Chloride 0.9% 1, 200 000 ml @ 50 mls/hr IV . Q20H [facility] Rx#:[id number] Other: Voiding Method Toilet # Voids 1 2 # Bowel Movements 1 - Constitutional General appearance: Present: cooperative, no acute distress, thin - EENT Eyes: Present: anicteric sclerae, edentulous ENT: Present: hearing grossly normal - Respiratory Respiratory: bilateral: CTA - Cardiovascular Heart sounds: normal: S1, S2 - Peripheral edema leg Peripheral Edema: bilateral: None - Gastrointestinal General gastrointestinal: Present: normal bowel sounds, soft, tenderness - Neurologic Neurologic: Present: CNII-XII intact - Musculoskeletal Musculoskeletal: Present: strength equal bilaterally - Psychiatric Psychiatric: Present: A&O x's 3, appropriate affect, intact judgment & insight - Labs CBC & Chem 7: 06/02/21 09:00 06/02/21 09:00 Labs: Abnormal Lab Results - Last 24 Hours (Table) 06/01/21 06/02/21 06/02/21 Range/Units 07:23 09:00 09:00 Hgb 12.9 L (13.0-17.5) gm/dL Sodium 136 L (137-145) mmol/L Creatinine 1.50 H (0.66-1.25) mg/dL Est GFR (CKD-EPI)NonAf 52.8 L (60.0-200.0) BUN/Creatinine Ratio 11.19 L (12.00-20.00) Ratio Glucose 128 H (74-99) mg/dL - Imaging and Cardiology NM bone scan report reviewed Assessment and Plan (1) Bone lesion Narrative/Plan: CT CAP + osteoblastic lesions, NM bone scan confirms the same. PSA is 40. Reviewed with the same as what was reviewed with pt yesterday. Reviewed bone scan findings are most suggestive of a cancer diagnosis. Based on his PSA, prostate is the more likely cancer. But, diagnosis has to be confirmed with tissue pathology so, recommending a biopsy. Pt and understand. Had IR review case, lt iliac lesion is amenable to bone biopsy. Pt and agree to biopsy. Unfortunately, antiplatelet meds were NOT on hold, just held this AM. Order sent to IR to schedule procedure outpt next week. Told pt and he must hold his plavix until after the biopsy. They verbalized understanding. Will make note in DC plan Current Visit: Yes Status: Acute Priority: High Code(s): M89.9 - DISORDER OF BONE, UNSPECIFIED SNOMED Code(s): 068293683 Plan: Endoscopy for N and abd pain planned.
--- NOTE | 2021-06-02 15:55 | P.PN ---
Subjective Progress Note Date: 06/02/21 71 year-old male patient presenting for evaluation of lower abdominal pain and vomiting for the last five days. States he has also had multiple episodes of diarrhea daily. States the pain is mostly in the mid lower abdomen. Denies radiation to the back. Denies history of similar symptoms. Denies any hem atemesis, hematochezia, or melena. Denies fever or chills. Denies any sick contacts or recent travel. Patient has had left sided nephrectomy due to kidney cancer, in 2012. He denies any hematuria or dysuria. Patient denies any recent rash, cough, shortness of breath, chest pain, back pain, numbness, tingling, dizziness, weakness, headache, visual changes, or any other complaints. Labs reviewed and did reveal white blood cell count of 14.2, sodium 129, potassium 5.3, chloride 97, BUN is 50, creatinine 2.2. Mild elevation in liver enzymes, alk phos 233. Urinalysis did show some protein, ketones, mucus. He'll be admitted to the hospital for dehydration possibly related to gastroenteritis. CT abdomen and pelvis without contrast was obtained; shows multiple osteoblastic foci in the spine and pelvis consistent with metastatic disease and appear mostly new compared to old exam. There is apparent left-sided nephrectomy. There are a few hepatic cysts. No acute abnormality within the ab domen and pelvis. 05/29/2021 Patient is seen and evaluated sitting up in bed; continues to report abdominal discomfort, reporting he is unsure if the pain is due to hunger; patient remains a very poor historian Vital signs are reviewed with temperature 97.8, pulse 84, respiration 20 and blood pressure 148/90 Lab review shows WBC 7.1, hemoglobin of 13.1 and hematocrit of 40.6, sodium 137, potassium 5.9 this morning which was treated and redrawn and is at 5.1, BUN/creatinine slightly improved from yesterday at 28.2/1.5 from 40.1/1.9 yesterday Nephrology on board; acute renal injury likely prerenal; nephro recommending to continue with IV fluids; agreeable to continue losartan at this time Oncology is following; MRI of the brain is pending ; CT of the chest did not s how any obvious adenopathy or mass but does confirm additional sclerotic lesions and rib cage and thoracic spine; bone metastasis suspected; patient is scheduled for bone scan; PSA is pending; plan is to proceed with biopsy if bone scan confirms metastatic disease and PSAs in normal range 05/30/2021 Patient is seen and evaluated at bedside; reports improvement in abdominal pain Vital signs are reviewed temperature 97.6 pulse 64 respiration 18 and blood pressure of 177/[address] of the chest done which does not reveal any adenopathy or mass; does confirm sclerotic lesions and rib cage and thoracic spine; oncology on board and workup in process Patient might need bone biopsy if bone scan confirms metastatic disease. 05/31/2021 Patient is currently sitting in the bed. Still complains of decreased oral intake and nausea and abdominal discomfort. Abdominal discomfort is mainly in the lower abdominal. No ulcers or vomiting. Patient is getting IV hydration and renal function is improving slowly. Due to CT of the abdomen pelvis findings of osteoblastic lesions, bone scan was ordered. Oncology is on board. Continue the pain management with [place] and Dilaudid IV. Denied any complaints of chest pain or shortness of breath. No fever no chills. No headache or dizziness or lightheadedness. No fever no chills. 06/02/2021 Patient is seen and evaluated and follow-up with at the bedside. Patient continues to have some abdominal discomfort and decreased oral intake with nausea although states is no worse. General surgery has been consulted and arranging for EGD/colonoscopy tomorrow and bowel prep will be started. Patient to continue on clear liquids and nothing by mouth at midnight. Per nursing staff patient is extremely anxious and tearful about overall prognosis and current situation as he was recently told his cancer has progressed and is most likely metastatic to the bone as he underwent bone scan. Patient refusing any form of anxiety medication along with at the bedside. Labs: White blood count is 7.9, hemoglobin is 12.9, sodium is 136, potassium is 4.8, BUN is 19, creatinine is 1.5, magnesium is 2.0 Review of systems: Constitutional: No reports of fatigue, fever, or chills Cardiovascular: No reports of chest pain or palpitations Respiratory: No reports of shortness of breath or cough GI: reports of nausea, no reports of vomiting, reports continued abdominal pain : No reports of dysuria or retention Neurovascular: reports generalized weakness All medications have been reviewed Active Medications Hydrocodone Bitart/Acetaminophen (Hydrocodone/Apap 5-325mg 1 Each Tab) 1 each PO Q6HR PRN PRN Reason: Moderate Pain Last Admin: 06/02/21 13:18 Dose: 1 each Documented by: Famotidine (Famotidine 20 Mg Tab) 20 mg PO DAILY [facility] Last Admin: 06/02/21 08:18 Dose: 20 mg Documented by: Fluticasone Propionate (Fluticasone 50mcg/[place]aron Nasal 16gm) 1 spray EA NOSTRIL DAILY PRN PRN Reason: Allergy Symptoms Hydralazine HCl (Hydralazine Hcl 50 Mg Tab) 50 mg PO TID [facility] Last Admin: 06/02/21 08:18 Dose: 50 mg Documented by: Hydromorphone HCl (Hydromorphone 1 Mg/Ml 1 Ml Syringe) 1 mg IVP Q3HR PRN PRN Reason: Severe Pain Last Admin: 06/02/21 04:11 Dose: 1 mg Documented by: Sodium Chloride (Saline 0.9%) 1,000 mls @ 50 mls/hr IV .Q20H [facility] Last Admin: 06/01/21 18:00 Dose: 50 mls/hr Documented by: Levothyroxine Sodium (Levothyroxine 137 Mcg Tab) 137 mcg PO 0630 [facility] Last Admin: 06/02/21 05:52 Dose: 137 mcg Documented by: Losartan Potassium (Losartan 50 Mg Tab) 50 mg PO DAILY [facility] Last Admin: 06/02/21 08:18 Dose: 50 mg Documented by: Morphine Sulfate (Morphine Sulfate Er 15 Mg Tablet) 15 mg PO Q12H [facility]; Protocol Last Admin: 06/02/21 08:18 Dose: 15 mg Documented by: Naloxone HCl (Naloxone 0.4 Mg/Ml 1 Ml Vial) 0.2 mg IV Q2M PRN PRN Reason: Opioid Reversal Ondansetron HCl (Ondansetron 4 Mg/2 Ml Vial) 4 mg IVP Q6HR PRN PRN Reason: Nausea And Vomiting Last Admin: 06/01/21 13:25 Dose: 4 mg Documented by: Prednisone (Prednisone 1 Mg Tab) 2 mg PO DAILY [facility] Last Admin: 06/02/21 08:18 Dose: 2 mg Documented by: Senna/Docusate Sodium (Sennosides-Docusate Sodium 1 Each Tab) 1 each PO BID [facility] Last Admin: 06/02/21 08:18 Dose: 1 each Documented by: Trazodone HCl (Trazodone Hcl 50 Mg Tab) 50 mg PO HS PRN PRN Reason: Insomnia Last Admin: 05/29/21 22:26 Dose: 50 mg Documented by: Physical exam: Gen: This is a 71-year-old male lying in bed awake, alert and oriented 3, thin built, appears to be in no acute distress. HEENT: Head is atraumatic, normocephalic. Pupils equal, round. Sclerae is anicteric. NECK: Supple. No JVD. No lymphadenopathy. No thyromegaly. LUNGS: Clear to auscultation. No wheezes or rhonchi. No intercostal retractions. HEART: Regular rate and rhythm. No murmur. ABDOMEN: Soft. Bowel sounds are present. No masses. Mild tenderness on palpation. EXTREMITIES: No pedal edema. No calf tenderness. NEUROLOGICAL: Patient is awake, alert and oriented x3. Cranial nerves 2 through 12 are grossly intact. Assessment: Acute abdominal pain/nausea, possible acute gastroenteritis, improved Hyponatremia hypovolemic Acute kidney injury most likely prerenal secondary to hypovolemia and diarrhea Chronic kidney disease stage III a Hyperkalemia, possibly related to acute kidney injury Dehydration secondary to nausea and vomiting with diarrhea Possible metastasis in the pelvis and lower spine with osteoblastic lesions noted on CT findings History of renal cell carcinoma Elevated PSA level Hypertension Rheumatoid arthritis Hyperlipidemia Hypothyroidism History of CVA/TIA DVT prophylaxis: Subcutaneous heparin GI prophylaxis Full code Plan: Recommend continue current medications, management, and symptomatic treatment. Oncology following closely and Gen. surgery has been consulted and patient is scheduled for EGD/colonoscopy tomorrow morning and will start GoLYTELY prep and patient will be continued on clear liquids and nothing by mouth at midnight. Will continue to monitor closely and repeat a.m. labs. Further recommendations to follow based on the clinical course of the patient. Prognosis is guarded. Objective - Vital Signs Vital signs: Vital Signs Temp 97.9 F 06/02/21 04:26 Pulse 76 06/02/21 08:20 Resp 16 06/02/21 04:26 BP 144/84 06/02/21 08:20 Pulse Ox 96 06/02/21 04:26 Intake & Output 06/01/21 06/02/21 06/02/21 18:59 06:59 18:59 Intake Total 200 300 Balance 200 300 Intake: Intake, IV Titration 200 300 Amount Magnesium Sulfate-D5w Pmx 200 100 1 gm In Dextrose/Water 1 100ml.bag @ 100 mls/hr IVPB Q1H [facility] Rx#: [id number] Sodium Chloride 0.9% 1, 200 000 ml @ 50 mls/hr IV . Q20H [facility] Rx#:[id number] Other: Voiding Method Toilet # Voids 1 2 # Bowel Movements 1 - Labs CBC & Chem 7: 06/02/21 09:00 06/02/21 09:00 Labs: Abnormal Lab Results - Last 24 Hours (Table) 06/01/21 Range/Units 07:23 Est GFR (CKD-EPI)NonAf 52.8 L (60.0-200.0) BUN/Creatinine Ratio 11.19 L (12.00-20.00) Ratio
[2021-06-02] MEDS: SODIUM CHLORIDE 0.9% 1,000 ML IV SCH ×2 (16:35→20:49)
[2021-06-02] MEDS: traZODone HCL 50 MG TAB PO PRN (21:10)
[2021-06-03] MEDS: HYDROmorphone 1 MG/ML 1 ML SYRINGE IVP PRN ×2 (03:15→06:11)
[2021-06-03] MEDS: SODIUM CHLORIDE 0.9% 1,000 ML IV SCH ×2 (03:16→21:47)
[2021-06-03] MEDS: LEVOTHYROXINE 137 MCG TAB PO SCH (06:11)
[2021-06-03 06:52] LABS: HCT 38.8 % (39.0-53.0); HGB 12.5 gm/dL (13.0-17.5); MCH 30.4 pg (25.0-35.0); MCHC 32.2 g/dL (31.0-37.0); MCV 94.3 fL (80.0-100.0); Mean Platelet Volume 7.3; Platelet Count 257 k/uL (150-450); RBC 4.12 m/uL (4.30-5.90); RDW 13.3 % (11.5-15.5); WBC 7.6 k/uL (3.8-10.6)
[2021-06-03 07:05] LABS: African American GFR (CKD) 65 (>60 ml/min/1.73 sqM); Anion Gap 5 mmol/L; Blood Urea Nitrogen 12 mg/dL (9-20); Carbon Dioxide 30 mmol/L (22-30); Chloride 101 mmol/L (98-107); Glucose 86 mg/dL (74-99); Non-African American GFR(CKD) 56 (>60 ml/min/1.73 sqM); Potassium 4.3 mmol/L (3.5-5.1); Sodium 136 mmol/L (137-145)
[2021-06-03] MEDS: hydrALAZINE HCL 50 MG TAB PO SCH ×3 (07:58→21:45)
[2021-06-03] MEDS: predniSONE 1 MG TAB PO SCH (07:58)
[2021-06-03] MEDS: LOSARTAN 50 MG TAB PO SCH (07:59)
[2021-06-03] MEDS: FAMOTIDINE 20 MG TAB PO SCH (07:59)
[2021-06-03] MEDS: SENNOSIDES-DOCUSATE SODIUM 1 EACH TAB PO SCH ×2 (07:59→21:45)
[2021-06-03] MEDS: MORPHINE SULFATE ER 15 MG TABLET PO SCH ×2 (08:01→22:28)
[2021-06-03] MEDS ORDERED: ACETAMINOPHEN TAB 325 MG TAB PO PRN (10:39)
--- NOTE | 2021-06-03 10:59 | P.PN ---
Subjective Patient is seen in follow-up for acute kidney injury on chronic kidney disease. Renal function better. No diarrhea. Oral intake fair. On IV fluids. No changes overnight. Scheduled for endoscopy today. Vital signs are stable. General: The patient appeared well nourished and normally developed. HEENT: Head exam is unremarkable. LUNGS: Breath sounds decreased. HEART: Rate and Rhythm are regular. ABDOMEN: Soft, no distention. EXTREMITITES: No edema. Objective - Vital Signs Vital signs: Vital Signs Temp 98 F 06/03/21 04:23 Pulse 80 06/03/21 07:57 Resp 16 06/03/21 04:23 BP 132/79 06/03/21 07:57 Pulse Ox 97 06/03/21 04:23 Intake & Output 06/02/21 06/03/21 06/03/21 18:59 06:59 18:59 Intake Total 600 840 Balance 600 840 Weight 56.88 kg Intake: Intake, IV Titration 600 840 Amount Sodium Chloride 0.9% 1, 600 000 ml @ 50 mls/hr IV . Q20H [facility] Rx#:[id number] Sodium Chloride 0.9% 1, 840 000 ml @ 70 mls/hr IV . [id number] [facility] Rx#:[id number] Other: Voiding Method Toilet Toilet # Voids 4 # Bowel Movements 4 - Labs CBC & Chem 7: 06/03/21 06:08 06/03/21 06:08 Labs: Abnormal Lab Results - Last 24 Hours (Table) 06/03/21 06/03/21 Range/Units 06:08 06:08 RBC 4.12 L (4.30-5.90) m/uL Hgb 12.5 L (13.0-17.5) gm/dL Hct 38.8 L (39.0-53.0) % Sodium 136 L (137-145) mmol/L Creatinine 1.28 H (0.66-1.25) mg/dL Assessment and Plan Plan: Assessment: 1. Acute kidney injury mostly prerenal secondary to hypovolemia from diarrhea. Improved from admission. Creatinine 1.28 today. 2. Chronic kidney disease stage IIIa with baseline creatinine near 1.5 secondary to solitary right kidney. 3. Renal cell carcinoma with metastasis. 4. Status post left nephrectomy. 5. Hypertension with chronic kidney disease. Stable. Plan: Maintain IV fluids. Avoid nephrotoxins. Continue to monitor renal function and urine output.
[2021-06-03] MEDS ORDERED: PROPOFOL 10 MG/ML 20 ML VIAL IV ONE (11:24)
[2021-06-03] MEDS ORDERED: LIDOCAINE 1% INJ 10MG/ML (20 ML MDV) ONE (11:24)
[2021-06-03] MEDS ORDERED: SODIUM CHLORIDE 0.9% 1,000 ML IV ONE (11:25)
--- NOTE | 2021-06-03 12:03 | P.OP ---
Date of Procedure: 06/03/21 Preoperative Diagnosis: Nausea, vomiting, abdominal pain Postoperative Diagnosis: Duodenitis. Right Colon polyp Procedure(s) Performed: EGD Colonoscopy Anesthesia: MAC Surgeon: Jalil Mccormick Pathology: other (Duodenum) Condition: stable Disposition: PACU Description of Procedure: Patient's placed on the endoscopy table in the lateral position. He received IV sedation. The gastroscope placed oropharynx passed in the esophagus into the stomach. Scope was placed through the pylorus. The first and second portion of duodenum was examined. There was a primary changes the first and second portion. A biopsies with the cold forcep was performed. Scope was brought back the antrum this appeared normal. Scope was retroflexed remainder stomach appeared normal. The GE junction was at 40 cm. The distal esophagus appeared normal. Proximal esophagus.. Scope was withdrawn for patient. Next digital rectal exam was performed which revealed no abnormalities. The flexible colonoscope was then placed patient anus and passed with colon. The scope could not be placed into the cecum secondary to tortuosity valve. Several times made to maneuver the scope cecum however this impossible. This point scope withdrawn. In the right colon there was a small sessile polyp was removed with the cold forcep. The remainder the ascending colon appeared normal. The transverse colon appeared normal. Descending and; was mild diverticular changes. Scope was then brought back the rectum and this appeared normal. Scope withdrawn from patient.
[2021-06-03] MEDS: PANTOPRAZOLE 40 MG TABLET PO SCH (14:03)
[2021-06-03] MEDS: HYDROcodone/APAP 5-325MG 1 EACH TAB PO PRN ×2 (14:12→21:40)
--- NOTE | 2021-06-03 15:10 | P.PN ---
Subjective Progress Note Date: 06/03/21 71 year-old male patient presenting for evaluation of lower abdominal pain and vomiting for the last five days. States he has also had multiple episodes of diarrhea daily. States the pain is mostly in the mid lower abdomen. Denies radiation to the back. Denies history of similar symptoms. Denies any hem atemesis, hematochezia, or melena. Denies fever or chills. Denies any sick contacts or recent travel. Patient has had left sided nephrectomy due to kidney cancer, in 2012. He denies any hematuria or dysuria. Patient denies any recent rash, cough, shortness of breath, chest pain, back pain, numbness, tingling, dizziness, weakness, headache, visual changes, or any other complaints. Labs reviewed and did reveal white blood cell count of 14.2, sodium 129, potassium 5.3, chloride 97, BUN is 50, creatinine 2.2. Mild elevation in liver enzymes, alk phos 233. Urinalysis did show some protein, ketones, mucus. He'll be admitted to the hospital for dehydration possibly related to gastroenteritis. CT abdomen and pelvis without contrast was obtained; shows multiple osteoblastic foci in the spine and pelvis consistent with metastatic disease and appear mostly new compared to old exam. There is apparent left-sided nephrectomy. There are a few hepatic cysts. No acute abnormality within the ab domen and pelvis. 05/29/2021 Patient is seen and evaluated sitting up in bed; continues to report abdominal discomfort, reporting he is unsure if the pain is due to hunger; patient remains a very poor historian Vital signs are reviewed with temperature 97.8, pulse 84, respiration 20 and blood pressure 148/90 Lab review shows WBC 7.1, hemoglobin of 13.1 and hematocrit of 40.6, sodium 137, potassium 5.9 this morning which was treated and redrawn and is at 5.1, BUN/creatinine slightly improved from yesterday at 28.2/1.5 from 40.1/1.9 yesterday Nephrology on board; acute renal injury likely prerenal; nephro recommending to continue with IV fluids; agreeable to continue losartan at this time Oncology is following; MRI of the brain is pending ; CT of the chest did not s how any obvious adenopathy or mass but does confirm additional sclerotic lesions and rib cage and thoracic spine; bone metastasis suspected; patient is scheduled for bone scan; PSA is pending; plan is to proceed with biopsy if bone scan confirms metastatic disease and PSAs in normal range 05/30/2021 Patient is seen and evaluated at bedside; reports improvement in abdominal pain Vital signs are reviewed temperature 97.6 pulse 64 respiration 18 and blood pressure of 177/[address] of the chest done which does not reveal any adenopathy or mass; does confirm sclerotic lesions and rib cage and thoracic spine; oncology on board and workup in process Patient might need bone biopsy if bone scan confirms metastatic disease. 05/31/2021 Patient is currently sitting in the bed. Still complains of decreased oral intake and nausea and abdominal discomfort. Abdominal discomfort is mainly in the lower abdominal. No ulcers or vomiting. Patient is getting IV hydration and renal function is improving slowly. Due to CT of the abdomen pelvis findings of osteoblastic lesions, bone scan was ordered. Oncology is on board. Continue the pain management with [place] and Dilaudid IV. Denied any complaints of chest pain or shortness of breath. No fever no chills. No headache or dizziness or lightheadedness. No fever no chills. 06/02/2021 Patient is seen and evaluated and follow-up with at the bedside. Patient continues to have some abdominal discomfort and decreased oral intake with nausea although states is no worse. General surgery has been consulted and arranging for EGD/colonoscopy tomorrow and bowel prep will be started. Patient to continue on clear liquids and nothing by mouth at midnight. Per nursing staff patient is extremely anxious and tearful about overall prognosis and current situation as he was recently told his cancer has progressed and is most likely metastatic to the bone as he underwent bone scan. Patient refusing any form of anxiety medication along with at the bedside. 06/03/2021 Patient is seen and evaluated in follow-up this morning underwent GoLYTELY prep and scheduled for colonoscopy with EGD with surgery today and patient is currently nothing by mouth. Patient denies any worsening abdominal pain although still states it is tender and denies any nausea or vomiting. Patient states he is having a headache with a pain scale of 8 out of 10 and will add Tylenol. Will await surgical report on endoscopic intervention today. Diet to be resumed per surgical recommendations. Labs: White blood count is 7.6, hemoglobin is 12.5, platelets are 257, sodium is 136, potassium is 4.3, BUN is 12, creatinine is 1.28 Review of systems: Constitutional: No reports of fatigue, fever, or chills, reports headache Cardiovascular: No reports of chest pain or palpitations Respiratory: No reports of shortness of breath or cough GI: no reports of nausea, no reports of vomiting, reports continued abdominal pain : No reports of dysuria or retention Neurovascular: reports generalized weakness All medications have been reviewed Active Medications Acetaminophen (Acetaminophen Tab 325 Mg Tab) 650 mg PO Q6HR PRN PRN Reason: Fever and/ or Mild Pain Last Admin: 06/03/21 13:00 Dose: 650 mg Documented by: Hydrocodone Bitart/Acetaminophen (Hydrocodone/Apap 5-325mg 1 Each Tab) 1 each PO Q6HR PRN PRN Reason: Moderate Pain Last Admin: 06/03/21 14:12 Dose: 1 each Documented by: Fluticasone Propionate (Fluticasone 50mcg/[place] Nasal 16gm) 1 spray EA NOSTRIL DAILY PRN PRN Reason: Allergy Symptoms Hydralazine HCl (Hydralazine Hcl 50 Mg Tab) 50 mg PO TID [facility] Last Admin: 06/03/21 07:58 Dose: 50 mg Documented by: Hydromorphone HCl (Hydromorphone 1 Mg/Ml 1 Ml Syringe) 1 mg IVP Q3HR PRN PRN Reason: Severe Pain Last Admin: 06/03/21 06:11 Dose: 1 mg Documented by: Sodium Chloride (Saline 0.9%) 1,000 mls @ 70 mls/hr IV .[id number] [facility] Last Admin: 06/03/21 03:16 Dose: 70 mls/hr Documented by: Levothyroxine Sodium (Levothyroxine 137 Mcg Tab) 137 mcg PO 0630 [facility] Last Admin: 06/03/21 06:11 Dose: 137 mcg Documented by: Losartan Potassium (Losartan 50 Mg Tab) 50 mg PO DAILY [facility] Last Admin: 06/03/21 07:59 Dose: 50 mg Documented by: Morphine Sulfate (Morphine Sulfate Er 15 Mg Tablet) 15 mg PO Q12H [facility]; Protocol Last Admin: 06/03/21 08:01 Dose: 15 mg Documented by: Naloxone HCl (Naloxone 0.4 Mg/Ml 1 Ml Vial) 0.2 mg IV Q2M PRN PRN Reason: Opioid Reversal Ondansetron HCl (Ondansetron 4 Mg/2 Ml Vial) 4 mg IVP Q6HR PRN PRN Reason: Nausea And Vomiting Last Admin: 06/01/21 13:25 Dose: 4 mg Documented by: Pantoprazole Sodium (Pantoprazole 40 Mg Tablet) 40 mg PO AC-BRKFST [facility] Last Admin: 06/03/21 14:03 Dose: 40 mg Documented by: Prednisone (Prednisone 1 Mg Tab) 2 mg PO DAILY [facility] Last Admin: 06/03/21 07:58 Dose: 2 mg Documented by: Senna/Docusate Sodium (Sennosides-Docusate Sodium 1 Each Tab) 1 each PO BID [facility] Last Admin: 06/03/21 07:59 Dose: 1 each Documented by: Trazodone HCl (Trazodone Hcl 50 Mg Tab) 50 mg PO HS PRN PRN Reason: Insomnia Last Admin: 06/02/21 21:10 Dose: 50 mg Documented by: Physical exam: Gen: This is a 71-year-old male lying in bed awake, alert and oriented 3, thin built, appears to be in no acute distress. HEENT: Head is atraumatic, normocephalic. Pupils equal, round. Sclerae is anicteric. NECK: Supple. No JVD. No lymphadenopathy. No thyromegaly. LUNGS: Clear to auscultation. No wheezes or rhonchi. No intercostal retractions. HEART: Regular rate and rhythm. No murmur. ABDOMEN: Soft. Bowel sounds are present. No masses. Mild tenderness on palpation. EXTREMITIES: No pedal edema. No calf tenderness. NEUROLOGICAL: Patient is awake, alert and oriented x3. Cranial nerves 2 through 12 are grossly intact. Assessment: Acute abdominal pain/nausea, possible acute gastroenteritis, improved Hyponatremia hypovolemic Acute kidney injury most likely prerenal secondary to hypovolemia and diarrhea, improving Chronic kidney disease stage III a Hyperkalemia, possibly related to acute kidney injury, improved Dehydration secondary to nausea and vomiting with diarrhea, improved Possible metastasis in the pelvis and lower spine with osteoblastic lesions noted on CT findings History of renal cell carcinoma Elevated PSA level Hypertension Rheumatoid arthritis Hyperlipidemia Hypothyroidism History of CVA/TIA DVT prophylaxis: Subcutaneous heparin GI prophylaxis Full code Plan: Recommend continue current medications, management, and symptomatic treatment. Oncology following closely and Gen. surgery to perform EGD/colonoscopy today and awaiting report. Advance diet per surgical recommendations. Will continue to monitor closely and repeat a.m. labs. Further recommendations to follow based on the clinical course of the patient. Prognosis is guarded. Possible discharge in 24 hours. Objective - Vital Signs Vital signs: Vital Signs Temp 98 F 06/03/21 04:23 Pulse 80 06/03/21 07:57 Resp 16 06/03/21 04:23 BP 132/79 06/03/21 07:57 Pulse Ox 97 06/03/21 04:23 Intake & Output 06/02/21 06/03/21 06/03/21 18:59 06:59 18:59 Intake Total 600 840 Balance 600 840 Weight 56.88 kg Intake: Intake, IV Titration 600 840 Amount Sodium Chloride 0.9% 1, 600 000 ml @ 50 mls/hr IV . Q20H [facility] Rx#:[id number] Sodium Chloride 0.9% 1, 840 000 ml @ 70 mls/hr IV . [id number] [facility] Rx#:[id number] Other: Voiding Method Toilet # Voids 4 # Bowel Movements 4 - Labs CBC & Chem 7: 06/03/21 06:08 06/03/21 06:08 Labs: Abnormal Lab Results - Last 24 Hours (Table) 06/02/21 06/02/21 06/03/21 Range/Units 09:00 09:00 06:08 RBC 4.12 L (4.30-5.90) m/uL Hgb 12.9 L 12.5 L (13.0-17.5) gm/dL Hct 38.8 L (39.0-53.0) % Sodium 136 L (137-145) mmol/L Creatinine 1.50 H (0.66-1.25) mg/dL Glucose 128 H (74-99) mg/dL 06/03/21 Range/Units 06:08 RBC (4.30-5.90) m/uL Hgb (13.0-17.5) gm/dL Hct (39.0-53.0) % Sodium 136 L (137-145) mmol/L Creatinine 1.28 H (0.66-1.25) mg/dL Glucose (74-99) mg/dL
[2021-06-04] MEDS: SODIUM CHLORIDE 0.9% 1,000 ML IV SCH (00:46)
[2021-06-04] MEDS: LEVOTHYROXINE 137 MCG TAB PO SCH (06:22)
[2021-06-04] MEDS: SENNOSIDES-DOCUSATE SODIUM 1 EACH TAB PO SCH (07:59)
[2021-06-04] MEDS: MORPHINE SULFATE ER 15 MG TABLET PO SCH (07:59)
[2021-06-04] MEDS: PANTOPRAZOLE 40 MG TABLET PO SCH (08:00)
[2021-06-04] MEDS: predniSONE 1 MG TAB PO SCH (08:00)
[2021-06-04] MEDS: hydrALAZINE HCL 50 MG TAB PO SCH (08:00)
[2021-06-04] MEDS: LOSARTAN 50 MG TAB PO SCH (08:00)
[2021-06-04] MEDS: HYDROcodone/APAP 5-325MG 1 EACH TAB PO PRN (08:02)
--- NOTE | 2021-06-04 11:02 | P.PN ---
Subjective Patient is seen in follow-up for acute kidney injury on chronic kidney disease. Renal function better. No diarrhea. Oral intake fair. On IV fluids. No changes overnight. Wants to go home. Vital signs are stable. General: The patient appeared well nourished and normally developed. HEENT: Head exam is unremarkable. LUNGS: Breath sounds decreased. HEART: Rate and Rhythm are regular. ABDOMEN: Soft, no distention. EXTREMITITES: No edema. Objective - Vital Signs Vital signs: Vital Signs Temp 97.9 F 06/04/21 04:41 Pulse 75 06/04/21 04:41 Resp 17 06/04/21 04:41 BP 147/90 06/04/21 05:22 Pulse Ox 99 06/04/21 04:41 Intake & Output 06/03/21 06/04/21 06/04/21 18:59 06:59 18:59 Intake Total 1540 840 Balance 1540 840 Intake: IV 700 Intake, IV Titration 840 840 Amount Sodium Chloride 0.9% 1, 840 840 000 ml @ 70 mls/hr IV . [id number] [facility] Rx#:[id number] Other: Voiding Method Toilet Toilet # Voids 2 - Labs CBC & Chem 7: 06/03/21 06:08 06/03/21 06:08 Assessment and Plan Plan: Assessment: 1. Acute kidney injury mostly prerenal secondary to hypovolemia from diarrhea. Improved from admission. Creatinine 1.28 yesterday. 2. Chronic kidney disease stage IIIa with baseline creatinine near 1.5 secondary to solitary right kidney. 3. Renal cell carcinoma with metastasis. 4. Status post left nephrectomy. 5. Hypertension with chronic kidney disease. Stable. Plan: Hep-Lock IV fluids. Avoid nephrotoxins. Continue to monitor renal function and urine output. Follow-up outpatient in 1-2 weeks
[2021-06-04 11:27] LABS: African American GFR (CKD) 58 (>60 ml/min/1.73 sqM); Anion Gap 8 mmol/L; Blood Urea Nitrogen 15 mg/dL (9-20); Calcium 8.6 mg/dL (8.4-10.2); Carbon Dioxide 26 mmol/L (22-30); Chloride 103 mmol/L (98-107); Glucose 108 mg/dL (74-99); Non-African American GFR(CKD) 50 (>60 ml/min/1.73 sqM); Potassium 4.7 mmol/L (3.5-5.1); Sodium 137 mmol/L (137-145)
[2021-06-04 13:11] VITALS: BP 151/76; PULSE 84; RESP 16; TEMP 98.5
--- NOTE | 2021-06-04 13:24 | P.PN ---
Subjective Progress Note Date: 06/04/21 CHIEF COMPLAINT: Abdominal pain with vomiting and diarrhea HISTORY OF PRESENT ILLNESS: Patient denies any abdominal pain. He reports a decrease in his nausea. Patient is status post EGD and colonoscopy showing duodenitis and right colon polyp. Patient scheduled for discharge later today. Patient followed closely by oncology. He did have elevated PSA level with bony lesions in the pelvis and spine. Afebrile PHYSICAL EXAM: VITAL SIGNS: Reviewed. GENERAL: Well-developed in no acute distress. HEENT: No sclera icterus. Extraocular movements grossly intact. Moist buccal mucosa. Head is atraumatic, normocephalic. ABDOMEN: Soft. Nondistended. Nontender. NEUROLOGIC: Alert and oriented. Cranial nerves II through XII grossly intact. ASSESSMENT: 1. Abdominal pain with nausea, vomiting and diarrhea 2. Patient found to have lesions in the spine and pelvis consistent with metastatic disease. 3. Prior history of renal cancer with left nephrectomy 4. 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 Signing provider agrees with the documented findings, assessment, and plan of care. Objective - Vital Signs Vital signs: Vital Signs Temp 98.5 F 06/04/21 12:23 Pulse 84 06/04/21 12:23 Resp 16 06/04/21 12:23 BP 151/76 06/04/21 12:23 Pulse Ox 98 06/04/21 12:23 Intake & Output 06/03/21 06/04/21 06/04/21 18:59 06:59 18:59 Intake Total 1540 840 Balance 1540 840 Intake: IV 700 Intake, IV Titration 840 840 Amount Sodium Chloride 0.9% 1, 840 840 000 ml @ 70 mls/hr IV . [id number] [facility] Rx#:[id number] Other: Voiding Method Toilet Toilet # Voids 2 - Labs CBC & Chem 7: 06/03/21 06:08 06/04/21 10:50 Labs: Abnormal Lab Results - Last 24 Hours (Table) 06/04/21 Range/Units 10:50 Creatinine 1.41 H (0.66-1.25) mg/dL Glucose 108 H (74-99) mg/dL
--- NOTE | 2021-06-04 21:49 | P.PN ---
Subjective Progress Note Date: 06/04/21 Likely metastatic Prostate Cancer Objective - Vital Signs Vital signs: Vital Signs Temp 98.5 F 06/04/21 12:23 Pulse 84 06/04/21 12:23 Resp 16 06/04/21 12:23 BP 151/76 06/04/21 12:23 Pulse Ox 98 06/04/21 12:23 Intake & Output 06/03/21 06/04/21 06/04/21 18:59 06:59 18:59 Intake Total 1540 840 Balance 1540 840 Intake: IV 700 Intake, IV Titration 840 840 Amount Sodium Chloride 0.9% 1, 840 840 000 ml @ 70 mls/hr IV . [id number] [facility] Rx#:[id number] Other: Voiding Method Toilet Toilet # Voids 2 - Exam - Constitutional General appearance: Present: cooperative, mild distress, thin - EENT Eyes: Present: anicteric sclerae, EOMI ENT: Present: hearing grossly normal - Respiratory Respiratory: bilateral: CTA - Cardiovascular Rhythm: regular Heart sounds: normal: S1, S2 Abnormal Heart Sounds: Absent: systolic murmur, diastolic murmur, rub, S3 Gallop, S4 Gallop, click, other - Peripheral edema leg Peripheral Edema: bilateral: None - Gastrointestinal General gastrointestinal: Present: normal bowel sounds, soft, tenderness - Neurologic Neurologic: Present: CNII-XII intact - Musculoskeletal Musculoskeletal: Present: strength equal bilaterally - Psychiatric Psychiatric: Present: A&O x's 3, appropriate affect, intact judgment & insight - Labs CBC & Chem 7: 06/03/21 06:08 06/04/21 10:50 Labs: Abnormal Lab Results - Last 24 Hours (Table) 06/04/21 Range/Units 10:50 Creatinine 1.41 H (0.66-1.25) mg/dL Glucose 108 H (74-99) mg/dL Assessment and Plan (1) Acute renal disease Status: Acute Code(s): N28.9 - DISORDER OF KIDNEY AND URETER, UNSPECIFIED SNOMED Code(s): 26746408 (2) Bone lesion Status: Acute Priority: High Code(s): M89.9 - DISORDER OF BONE, UNSPECIFIED SNOMED Code(s): 820472794 (3) Dehydration Status: Acute Code(s): E86.0 - DEHYDRATION SNOMED Code(s): 80820259 (4) Hyponatremia Status: Acute Code(s): E87.1 - HYPO-OSMOLALITY AND HYPONATREMIA SNOMED Cod e(s): 58668488 (5) History of nephrectomy Status: Acute Code(s): Z90.5 - ACQUIRED ABSENCE OF KIDNEY SNOMED Code(s): 23287367419236 (6) History of renal carcinoma Status: Acute Code(s): Z85.528 - PERSONAL HISTORY OF OTHER MALIGNANT NEOPLASM OF KIDNEY SNOMED Code(s): 254686014 Plan: Imaging and Cardiology NM bone scan report reviewed Assessment and Plan (1) Bone lesion likely related to Metastatic Prostate cancer CT CAP + osteoblastic lesions, NM bone scan confirms the same. PSA is 40. Biopsy outpatient due to plavix on board till 06/01 Current Visit: Yes Status: Acute Priority: High Code(s): M89.9 - DISORDER OF BONE, UNSPECIFIED SNOMED Code(s): 187299897 Plan: Follow-up in office after biopsy is performed and resulted They have been reminded no bloodthinner till after biopsy
--- NOTE | 2021-06-07 15:46 | P.DS ---
Providers Date of admission: 05/27/21 23:27 Expected date of discharge: 06/04/21 Attending physician: Preet Galvez MD Consults: 05/27/21 23:36 Consult Physician Routine Consulting Provider: Earnest Taylor Consult Reason/Comments: Metastatic disease Do you want consulting provider notified?: Yes 05/28/21 15:55 Consult Physician Urgent Consulting Provider: Josey Wesley Consult Reason/Comments: syed, needs further imaging for onc workup Do you want consulting provider notified?: Yes 06/01/21 09:44 Consult Physician Urgent Consulting Provider: Jalil Mccormick Consult Reason/Comments: abdominal pain possibly requiring upper and lower endoscopy with biopsies Do you want consulting provider notified?: Yes Primary care physician: Candace Butcher Hospital Course: final diagnosis Acute abdominal pain/nausea, possible acute gastroenteritis, improved Hyponatremia hypovolemic Acute kidney injury most likely prerenal secondary to hypovolemia and diarrhea, improving Chronic kidney disease stage III a Hyperkalemia, possibly related to acute kidney injury, improved Dehydration secondary to nausea and vomiting with diarrhea, improved 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 Patient will follow-up with Dr. Butcher in the outpatient setting upon discharge. Patient will also follow-up with nephrology Dr. Mckay, and oncology in the outpatient setting. Patient was instructed to hold Plavix and aspirin until biopsy is done. Total time taken is greater than 35 minutes. Hospital course 71 year-old male patient presenting for evaluation of lower abdominal pain and vomiting for the last five days. States he has also had multiple episodes of diarrhea daily. States the pain is mostly in the mid lower abdomen. Denies radiation to the back. Denies history of similar symptoms. Denies any hematemesis, hematochezia, or melena. Denies fever or chills. Denies any sick contacts or recent travel. Patient has had left sided nephrectomy due to kidney cancer, in 2012. He denies any hematuria or dysuria. Patient denies any recent rash, cough, shortness of breath, chest pain, back pain, numbness, tingling, dizziness, weakness, headache, visual changes, or any other complaints. Labs reviewed and did reveal white blood cell count of 14.2, sodium 129, potassium 5.3, chloride 97, BUN is 50, creatinine 2.2. Mild elevation in liver enzymes, alk phos 233. Urinalysis did show some protein, ketones, mucus. He'll be admitted to the hospital for dehydration possibly related to gastroenteritis. CT abdomen and pelvis without contrast was obtained; shows multiple osteoblastic foci in the spine and pelvis consistent with metastatic disease and appear mostly new compared to old exam. There is apparent left-sided nephrectomy. There are a few hepatic cysts. No acute abnormality within the abdomen and pelvis. 05/29/2021 Patient is seen and evaluated sitting up in bed; continues to report abdominal discomfort, reporting he is unsure if the pain is due to hunger; patient remains a very poor historian Vital signs are reviewed with temperature 97.8, pulse 84, respiration 20 and blood pressure 148/90 Lab review shows WBC 7.1, hemoglobin of 13.1 and hematocrit of 40.6, sodium 137, potassium 5.9 this morning which was treated and redrawn and is at 5.1, BUN/creatinine slightly improved from yesterday at 28.2/1.5 from 40.1/1.9 yesterday Nephrology on board; acute renal injury likely prerenal; nephro recommending to continue with IV fluids; agreeable to continue losartan at this time Oncology is following; MRI of the brain is pending ; CT of the chest did not show any obvious adenopathy or mass but does confirm additional sclerotic lesions and rib cage and thoracic spine; bone metastasis suspected; patient is scheduled for bone scan; PSA is pending; plan is to proceed with biopsy if bone scan confirms metastatic disease and PSAs in normal range 05/30/2021 Patient is seen and evaluated at bedside; reports improvement in abdominal pain Vital signs are reviewed temperature 97.6 pulse 64 respiration 18 and blood pressure of 177/[address] of the chest done which does not reveal any adenopathy or mass; does confirm sclerotic lesions and rib cage and thoracic spine; oncology on board and workup in process Patient might need bone biopsy if bone scan confirms metastatic disease. 05/31/2021 Patient is currently sitting in the bed. Still complains of decreased oral intake and nausea and abdominal discomfort. Abdominal discomfort is mainly in the lower abdominal. No ulcers or vomiting. Patient is getting IV hydration and renal function is improving slowly. Due to CT of the abdomen pelvis findings of osteoblastic lesions, bone scan was ordered. Oncology is on board. Continue the pain management with [place] and Dilaudid IV. Denied any complaints of chest pain or shortness of breath. No fever no chills. No headache or dizziness or lightheadedness. No fever no chills. 06/02/2021 Patient is seen and evaluated and follow-up with at the bedside. Patient continues to have some abdominal discomfort and decreased oral intake with nausea although states is no worse. General surgery has been consulted and arranging for EGD/colonoscopy tomorrow and bowel prep will be started. Patient to continue on clear liquids and nothing by mouth at midnight. Per nursing staff patient is extremely anxious and tearful about overall prognosis and current situation as he was recently told his cancer has progressed and is most likely metastatic to the bone as he underwent bone scan. Patient refusing any f orm of anxiety medication along with at the bedside. 06/03/2021 Patient is seen and evaluated in follow-up this morning underwent GoLYTELY prep and scheduled for colonoscopy with EGD with surgery today and patient is currently nothing by mouth. Patient denies any worsening abdominal pain although still states it is tender and denies any nausea or vomiting. Patient states he is having a headache with a pain scale of 8 out of 10 and will add Tylenol. Will await surgical report on endoscopic intervention today. Diet to be resumed per surgical recommendations. 06/04/2021 Patient is seen and evaluated in follow-up with no acute overnight issues. Patient tolerated EGD colonoscopy with biopsies obtained and will follow-up in the outpatient setting for results. Plavix and aspirin are on hold and instructed the patient to continue to hold per oncology to undergo biopsy. Oncology office calling to confirm appointment with patient and . Patient denies any further abdominal pain is tolerating diet with no reports of nausea or vomiting noted and is going to bathroom with no difficulty. Patient is asking when he can go home. Currently no reports of chest pain, shortness of br eath, or palpitations. Patient is afebrile. No reports of nausea or vomiting and patient is tolerating diet. Patient will be discharged home today. Gen: This is a 71-year-old male lying in bed awake, alert and oriented 3, thin built, appears to be in no acute distress. HEENT: Head is atraumatic, normocephalic. Pupils equal, round. Sclerae is anicteric. NECK: Supple. No JVD. No lymphadenopathy. No thyromegaly. LUNGS: Clear to auscultation. No wheezes or rhonchi. No intercostal retractions. HEART: Regular rate and rhythm. No murmur. ABDOMEN: Soft. Bowel sounds are present. No masses. Non-tender EXTREMITIES: No pedal edema. No calf tenderness. NEUROLOGICAL: Patient is awake, alert and oriented x3. Cranial nerves 2 through 12 are grossly intact. Please refer to medication reconciliation sheet for a list of medications. Patient Condition at Discharge: Stable Plan - Discharge Summary Discharge Rx Participant: No New Discharge Prescriptions: New hydrALAZINE HCL [Apresoline] 50 mg PO TID 30 Days #90 tab Morphine Sulfate ER [Ms Contin] 15 mg PO Q12H #10 tablet Pantoprazole [Protonix] 40 mg PO AC-BRKFST 30 Days #30 tab Sennosides-Docusate Sodium [Senokot-S] 1 each PO BID 30 Days #60 tab Continue Simvastatin [Zocor] 20 mg PO HS traZODone HCL [Desyrel] 50 mg PO HS PRN PRN Reason: Insomnia predniSONE 2 mg PO DAILY Ondansetron [Zofran ODT] 4 mg PO TID PRN PRN Reason: Nausea Acetaminophen-Codeine 300-30mg [Tylenol w/codeine #3] 1 tab PO BID PRN PRN Reason: Pain Losartan Potassium 50 mg PO DAILY #0 Fluticasone Nasal [place] [Flonase Nasal [place]] 1 spray EA NOSTRIL DAILY PRN PRN Reason: Allergy Symptoms Lutein 10 mg PO DAILY Gabapentin 600 mg PO BID Levothyroxine Sodium [Synthroid] 137 mcg PO DAILY Discontinued Clopidogrel [Plavix] 75 mg PO DAILY Discharge Medication List Simvastatin [Zocor] 20 mg PO HS 05/29/15 [History] traZODone HCL [Desyrel] 50 mg PO HS PRN 10/23/15 [History] Ondansetron [Zofran ODT] 4 mg PO TID PRN 10/20/18 [History] predniSONE 2 mg PO DAILY 10/20/18 [History] Acetaminophen-Codeine 300-30mg [Tylenol w/codeine #3] 1 tab PO BID PRN 08/01/19 [History] Losartan Potassium 50 mg PO DAILY #0 08/14/19 [Rx] Fluticasone Nasal [place] [Flonase Nasal [place]] 1 spray EA NOSTRIL DAILY PRN 02/05/20 [History] Gabapentin 600 mg PO BID 05/27/21 [History] Levothyroxine Sodium [Synthroid] 137 mcg PO DAILY 05/27/21 [History] Lutein 10 mg PO DAILY 05/27/21 [History] Morphine Sulfate ER [Ms Contin] 15 mg PO Q12H #10 tablet 06/04/21 [Rx] Pantoprazole [Protonix] 40 mg PO AC-BRKFST 30 Days #30 tab 06/04/21 [Rx] Sennosides-Docusate Sodium [Senokot-S] 1 each PO BID 30 Days #60 tab 06/04/21 [Rx] hydrALAZINE HCL [Apresoline] 50 mg PO TID 30 Days #90 tab 06/04/21 [Rx] Follow up Appointment(s)/Referral(s): Candace Butcher III, MD [Primary Care Provider] - 06/07/21 7:00 am Alphonse Mckay DO [STAFF PHYSICIAN] - 06/17/21 1:00 pm Jesse Thomas MD [STAFF PHYSICIAN] - 06/14/21 12:00 pm Ambulatory/Diagnostic Orders: Basic Metabolic Panel [LAB.AMB] Time Frame: 3 Days, Location: None Selected Patient Instructions/Handouts: Abdominal Pain (ED), Duodenitis (DC) Activity/Diet/Wound Care/Special Instructions: DO NOT TAKE PLAVIX OR ASPIRIN UNTIL DAY AFTER BONE BIOPSY. INTERVENTIONAL RADIOLOGY WILL CALL WITH APPT DATE AND TIME. Activity Limited until follow-up Follow-up with primary care provider on discharge Follow-up oncology outpatient Follow-up nephrology in 1-2 weeks Recommend repeat labs in 2-3 days Continue current diet Discharge/Stand Alone Forms: Who Do I Call?, Community Resources, Personal Basting Marker Discharge Disposition: HOME SELF-CARE
== END 2021-06-04 16:23 | disposition home or self-care (01) | DRG 543 ==
LOC: EC 19:05 → 5NMEDONC 23:27
PROVIDERS: ADMIT Internal Medicine; ATTEND Internal Medicine
PROC: 0DD98ZX Extraction of Duodenum, Via Natural or Artificial Opening Endoscopic, Diagnostic (ICD-10-PCS; principal; 2021-05-27)
PROC: 0DDM8ZX Extraction of Descending Colon, Via Natural or Artificial Opening Endoscopic, Diagnostic (ICD-10-PCS; 2021-05-27)
DX: C79.51 Secondary malignant neoplasm of bone (principal); E87.1 Hypo-osmolality and hyponatremia; N17.9 Acute kidney failure, unspecified; Z20.822 Contact with and (suspected) exposure to COVID-19; E78.5 Hyperlipidemia, unspecified; M06.9 Rheumatoid arthritis, unspecified; E86.0 Dehydration; K52.9 Noninfective gastroenteritis and colitis, unspecified; K76.89 Other specified diseases of liver; E87.5 Hyperkalemia; E03.9 Hypothyroidism, unspecified; I12.9 Hypertensive chronic kidney disease with stage 1 through stage 4 chronic kidney disease, or unspecified chronic kidney disease; I10 Essential (primary) hypertension; N18.31 Chronic kidney disease, stage 3a; E86.1 Hypovolemia; R74.8 Abnormal levels of other serum enzymes; G31.89 Other specified degenerative diseases of nervous system; G93.0 Cerebral cysts; K29.80 Duodenitis without bleeding; K63.5 Polyp of colon; R97.20 Elevated prostate specific antigen [PSA]; Z90.5 Acquired absence of kidney; Z85.528 Personal history of other malignant neoplasm of kidney; Z79.02 Long term (current) use of antithrombotics/antiplatelets; Z79.899 Other long term (current) drug therapy; Z79.890 Hormone replacement therapy; Z86.73 Personal history of transient ischemic attack (TIA), and cerebral infarction without residual deficits; Z87.19 Personal history of other diseases of the digestive system; Z88.2 Allergy status to sulfonamides; Z89.021 Acquired absence of right finger(s); Z87.81 Personal history of (healed) traumatic fracture
CPT/HCPCS: 36415; 43239; 45380; 70553; 71250; 74176; 78306; 80048; 80053; 81001; 83605; 83690; 83735; 84100; 84132; 85025; 85027; 87635; 88305; 94640; 96361; 96374; 96375; 99285

== ENCOUNTER → 2021-06-07 | Outpatient (CLI) | payer MEDICARE ==
[2021-06-07 15:41] LABS: African American GFR (CKD) 57.6 (60.0-200.0); Albumin 4.3 g/dL (3.8-4.9); Albumin/Globulin Ratio 2.28 (1.60-3.17); BUN/Creat Ratio 15.56 Ratio (12.00-20.00); Blood Urea Nitrogen 22.1 mg/dL (9.0-27.0); Calcium 8.4 mg/dL (8.7-10.3); Carbon Dioxide 22.5 mmol/L (21.6-31.8); Globulin 1.9 g/dL (1.6-3.3); Non-African American GFR(CKD) 49.7 (60.0-200.0); Potassium 4.4 mmol/L (3.5-5.5); Prostate Specific Antigen 17.9 ng/mL (0.00-6.50); Total Bilirubin 0.4 mg/dL (0.30-1.20); Total Protein 6.2 g/dL (6.2-8.2)
[2021-06-07 16:00] LABS: Basophils # (A) 0.02 X 10*3/uL (0.00-0.10); Basophils % (A) 0.2 %; Eosinophils # (A) 0.24 X 10*3/uL (0.04-0.35); Eosinophils % (A) 2.4 %; HCT 35.2 % (39.6-50.0); Lymphocytes # (A) 1.41 X 10*3/uL (0.90-5.00); Lymphocytes % (A) 14.1 %; MCH 30.3 pg (27.0-32.0); MCHC 31.3 g/dL (32.0-37.0); Mean Platelet Volume 9.9 fL (9.5-12.2); Monocytes # (A) 1.19 X 10*3/uL (0.20-1.00); Monocytes % (A) 11.9 %; Neutrophils # (A) 7.08 X 10*3/uL (1.80-7.70); Neutrophils % (A) 70.8 %; Platelet Count 260 X 10*3/uL (140-440); RBC 3.63 X 10*6/uL (4.40-5.60)
== END | disposition home or self-care (01) ==
LOC: LABWHC1 08:43
PROVIDERS: ATTEND Family Medicine
DX: C79.51 Secondary malignant neoplasm of bone (principal); R97.20 Elevated prostate specific antigen [PSA]; D64.9 Anemia, unspecified; Z90.5 Acquired absence of kidney; Z85.528 Personal history of other malignant neoplasm of kidney
CPT/HCPCS: 36415; 80053; 84153; 85025

== ENCOUNTER 2021-06-10 09:22 | Day surgery (SDC) | payer MEDICARE ==
[~2021-06-10 09:22] MED LIST changes: -LIDOCAINE 1% 20 ML VIAL (10MG/ML) FOR IV START INTRADERMA PRN
[2021-06-10 10:10] LABS: Mean Platelet Volume 7.2; Platelet Count 283 k/uL (150-450)
[2021-06-10 10:19] VITALS: TEMP 98.1
[2021-06-10 10:19] LABS: INR 0.9 (<1.2); Prothrombin Time 10.1 sec (9.0-12.0)
[2021-06-10] MEDS ORDERED: MIDAZOLAM 2 MG/2 ML VIAL ONE (11:00)
[2021-06-10] MEDS ORDERED: fentaNYL (PF) 50 MCG/ML 2 ML AMP ONE ×2 (11:00→12:28)
[2021-06-10] MEDS ORDERED: KETAMINE 10 MG/ML 20 ML VIAL ONE (11:00)
[2021-06-10] MEDS ORDERED: PROPOFOL 10 MG/ML 20 ML VIAL IV ONE (11:00)
[2021-06-10] MEDS ORDERED: GLYCOPYRROLATE 0.2 MG/ML 2 ML VIAL ONE (11:00)
[2021-06-10] MEDS ORDERED: Acetaminophen-Codeine 300-30mg TAB PO PRN (11:53)
--- NOTE | 2021-06-10 12:04 | CT ---
EXAMINATION TYPE: CT biopsy bone marrow DATE OF EXAM: 06/10/2021 COMPARISON: 05/31/2021 HISTORY: Iliac sclerotic bone lesion CT DLP: 342.80 mGycm The procedure is discussed with the patient, the risks, complications, benefits and alternatives, wer e discussed and any questions were answered. Informed consent was obtained. The patient is placed p isaac on the CT table, prepped and draped in the usual sterile fashion. The Department of anesthesiol [facility] provided anesthesia. Utilizing a 11-gauge core biopsy needle to samples were obtained from the left iliac sclerotic bone l esion. All elements of maximal barrier and sterile technique were utilized. No immediate postprocedural comp lication. IMPRESSION: 1. Successful CT guided core biopsy left iliac lesion
[2021-06-10] MEDS ORDERED: fentaNYL (PF) 50 MCG/ML 2 ML AMP IVP STA (12:22)
[2021-06-10 13:57] VITALS: PULSE 62; RESP 16
[2021-06-10 13:58] VITALS: BP 166/87
== END 2021-06-10 14:32 | disposition home or self-care (01) ==
LOC: RADPROMAIN 09:22
PROVIDERS: ATTEND Registered Nurse Oncology
DX: M89.9 Disorder of bone, unspecified (principal); I10 Essential (primary) hypertension; E78.5 Hyperlipidemia, unspecified; E07.9 Disorder of thyroid, unspecified; I35.0 Nonrheumatic aortic (valve) stenosis; Z86.73 Personal history of transient ischemic attack (TIA), and cerebral infarction without residual deficits; M06.9 Rheumatoid arthritis, unspecified; Z90.5 Acquired absence of kidney; Z98.890 Other specified postprocedural states; Z85.528 Personal history of other malignant neoplasm of kidney; Z79.890 Hormone replacement therapy; Z79.891 Long term (current) use of opiate analgesic; Z79.52 Long term (current) use of systemic steroids; Z79.899 Other long term (current) drug therapy; Z88.2 Allergy status to sulfonamides
CPT/HCPCS: 85049; 85610; 88342; 88307; 88311; 88341; 36415; 77012; 38221; J2250; J3010; J2704; 38222

== ENCOUNTER → 2021-11-18 | Outpatient (CLI) | payer MEDICARE | END | disposition home or self-care (01) | LOC: LABWHC1 11:06 | PROVIDERS: ATTEND Radiology Radiation Oncology | DX: C61 Malignant neoplasm of prostate (principal) | CPT/HCPCS: 36415; 84153 ==

== ENCOUNTER → 2021-12-06 | Outpatient (CLI) | payer MEDICARE ==
--- NOTE | 2021-12-06 16:29 | NM ---
EXAMINATION TYPE: NM bone scan whole body DATE OF EXAM: 12/06/2021 COMPARISON: 05/31/2022 HISTORY: Metastatic cancer Delayed whole-body scanning was performed following the injection of 22.2 mCi Tc 99m MDP. Images acq uired 3.25 hours post injection. FINDINGS: Abnormal uptake is again noted in the calvarium, throughout the vertebral column, bilateral rib cage, bilateral femur, and pelvis compatible with widespread metastasis. Relative to the prior exam there does appear to be mild progression. The right posterior calvarial region appears to be increased in s ize. There appears to be increasing uptake along the right acetabulum. New uptake is seen in the bila teral proximal femur. IMPRESSION: 1. Widespread bony metastasis with mild progression suspected.
== END | disposition home or self-care (01) ==
LOC: RADNMMAIN 10:48
PROVIDERS: ATTEND Radiology Radiation Oncology
DX: C61 Malignant neoplasm of prostate (principal)
CPT/HCPCS: 78306; A9503

== ENCOUNTER → 2021-12-07 | Outpatient (CLI) | payer MEDICARE ==
--- NOTE | 2021-12-07 14:32 | CT ---
EXAMINATION TYPE: CT ChestAbdPelvis wo con DATE OF EXAM: 12/07/2021 COMPARISON: 05/28/2022, 05/27/2022 HISTORY: flank pain, hx of prostate ca CT DLP: 1088 mGycm. Automated Exposure Control for Dose Reduction was Utilized. TECHNIQUE: CT scan of the thorax, abdomen and pelvis is performed without IV contrast. FINDINGS: LUNGS: The lungs are grossly clear, there is no concerning parenchymal mass or nodule identified. T here is no pleural effusion or pneumothorax seen. The tracheobronchial tree is patent. Emphysematous changes are noted. Subsegmental changes involving the lung bases most typical of atelectasis. No pne umothorax. No focal pulmonary nodule. MEDIASTINUM: There are no greater than 1 cm hilar or mediastinal lymph nodes. No pericardial effusi on is seen. Heart size is normal but there is calcification along the aortic valve and dense coronar y artery calcification. Aorta of normal caliber with atherosclerotic changes. OTHER: No additional significant abnormality is seen. LIVER/GB: Multiple hepatic lesions with the largest measuring 6.2 cm near the dome of the liver are a gain noted and suggestive of simple cysts with a Hounsfield unit measurement of 2. Findings stable.. PANCREAS: No significant abnormality is seen. SPLEEN: Splenic calcification incidentally noted. ADRENALS: No significant abnormality is seen. KIDNEYS: Correlate clinically. A left nephrectomy changes are noted. Right kidney remains malrotated without evidence of hydronephrosis or nephrolithiasis.. 4 mm hypodensity within the kidney is too sma ll to characterize. Along the medial margin of the right mid kidney is a 4 mm hypodensity too small t o characterize BOWEL: Bowel gas pattern is nonspecific. Stomach is well is distended which may be transient. LYMPH NODES: No greater than 1cm abdominal or pelvic lymph nodes are appreciated. OSSEOUS STRUCTURES: There is widespread osteoblastic metastases again noted involving virtually all o f the visualized osseous structures. A chronic appearing deformity of the pubic symphysis on the righ t noted. OTHER: Atherosclerotic change of the aorta and its branch vessels. No evidence of aneurysm. IMPRESSION: 1. Diffuse osteoblastic metastasis. 2. No sizable pulmonary nodule or pathologic adenopathy. Deformity involving the pubic rami and symph ysis appears chronic. 3. Post left nephrectomy changes. Note is made that the right kidney is malrotated without evidence o f overt hydronephrosis or nephrolithiasis. 4. COPD with coronary artery calcification and dense aortic valve calcification. Subsegmental linear changes involving the lungs are most typical of scar or atelectasis.
== END | disposition home or self-care (01) ==
LOC: RADCTMAIN 13:54
PROVIDERS: ATTEND Radiology Radiation Oncology
DX: C79.51 Secondary malignant neoplasm of bone (principal); J44.9 Chronic obstructive pulmonary disease, unspecified; I25.10 Atherosclerotic heart disease of native coronary artery without angina pectoris; Q63.2 Ectopic kidney; Z85.46 Personal history of malignant neoplasm of prostate; Z90.5 Acquired absence of kidney; J98.11 Atelectasis
CPT/HCPCS: 71250; 74176

== ENCOUNTER → 2022-06-22 | Outpatient (CLI) | payer MEDICARE | END | disposition home or self-care (01) | LOC: LABWHC1 13:28 | PROVIDERS: ATTEND Radiology Radiation Oncology | DX: C79.51 Secondary malignant neoplasm of bone (principal); C61 Malignant neoplasm of prostate; Z92.3 Personal history of irradiation | CPT/HCPCS: 36415; 84153 ==

== ENCOUNTER → 2022-10-24 | Outpatient (CLI) | payer MEDICARE ==
--- NOTE | 2022-10-24 15:19 | NM ---
EXAMINATION TYPE: NM bone scan whole body DATE OF EXAM: 10/24/2022 COMPARISON: 12/06/2021 HISTORY: History of malignancy Delayed whole-body scanning was performed following the injection of 23.3 mCi Tc 99m MDP. Images acq uired 3 hours post injection. FINDINGS: Findings suggest right-sided hydronephrosis. Abnormal uptake involving sternoclavicular joints, shoul ders, and wrist most typical of post arthritic change. There is interval marked reduction in the amou nt of abnormal uptake seen throughout both the calvarium, vertebral column, rib cage and pelvis. IMPRESSION: 1. Marked interval improvement with marked reduced uptake seen throughout the vertebral column, rib c age and pelvis. Correlate for response to therapy. 2. Right-sided hydronephrosis suspected.
== END | disposition home or self-care (01) ==
LOC: RADNMMAIN 10:46
PROVIDERS: ATTEND Urology
DX: C61 Malignant neoplasm of prostate (principal)
CPT/HCPCS: 78306; A9503

== ENCOUNTER 2022-11-28 10:52 | Emergency (ER) | payer MEDICARE ==
[2022-11-28 11:58] VITALS: RESP 18; TEMP 98.6
[2022-11-28] MEDS ORDERED: HYDROmorphone 0.5 MG/0.5 ML SYRINGE IVP STA (12:28)
[2022-11-28] MEDS ORDERED: ONDANSETRON 4 MG/2 ML VIAL IVP STA ×2 (12:28→14:40)
[2022-11-28] MEDS ORDERED: SODIUM CHLORIDE 0.9% 1,000 ML IV ONE (12:29)
[2022-11-28 12:47] LABS: Basophils % (A) 0 %; Eosinophils # (A) 0.1 k/uL (0-0.7); Eosinophils % (A) 1 %; HCT 45.2 % (39.0-53.0); HGB 14.5 gm/dL (13.0-17.5); Lymphocytes # (A) 0.7 k/uL (1.0-4.8); Lymphocytes % (A) 6 %; MCH 30.2 pg (25.0-35.0); MCHC 32.1 g/dL (31.0-37.0); MCV 94.2 fL (80.0-100.0); Mean Platelet Volume 7.3; Monocytes # (A) 0.8 k/uL (0-1.0); Monocytes % (A) 7 %; Neutrophils # (A) 9.6 k/uL (1.3-7.7); Neutrophils % (A) 85 %; Platelet Count 288 k/uL (150-450); RDW 12.9 % (11.5-15.5); WBC 11.3 k/uL (3.8-10.6)
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
[2022-11-28 13:32] LABS: Albumin 4.4 g/dL (3.5-5.0); Calcium 7.5 mg/dL (8.4-10.2); Total Bilirubin 0.7 mg/dL (0.2-1.3); Total Protein 7.4 g/dL (6.3-8.2)
--- NOTE | 2022-11-28 13:36 | CT ---
EXAMINATION TYPE: CT abdomen pelvis wo con CT DLP: 386.6 mGycm, Automated exposure control for dose reduction was used. DATE OF EXAM: 11/28/2022 1:16 PM COMPARISON: CT abdomen pelvis most recent from 12/07/2021 CLINICAL INDICATION:Male, 72 years old with history of pain; Abdominal pain with loose stools TECHNIQUE: Axial CT of the abdomen and pelvis. Sagittal and coronal reformats were created on a [employer] workstation. Contrast used: None Oral contrast used: without Oral Contrast FINDINGS: LOWER CHEST: Unremarkable ABDOMEN LIVER: Unremarkable GALLBLADDER AND BILE DUCTS: Extra hepatic biliary system is dilated up to 9 mm which is mildly increa sed from prior on 12/07/2021. PANCREAS: Unremarkable. SPLEEN: Unremarkable. ADRENAL GLANDS: Unremarkable. KIDNEYS AND URETERS: Higher density material seen within the right collecting system. The left kidney surgically absent. No evidence for recurrence. PELVIS BLADDER: Unremarkable REPRODUCTIVE: Unremarkable. ABDOMEN & PELVIS STOMACH AND BOWEL: No evidence of bowel obstruction. The appendix is normal. Scattered colonic divert icula are present. PERITONEUM/RETROPERITONEUM: No evidence of pneumoperitoneum or free fluid. VASCULATURE: Mild atherosclerotic calcifications are present throughout the abdominal aorta and its b ranches. No evidence of aortic aneurysm. MUSCULOSKELETAL: No acute osseous abnormalities. Mild disc degeneration changes are present throughou t the thoracolumbar spine., diffuse sclerotic foci are seen throughout the osseous structures. Scolio sis changes spine. LYMPH NODES: No gross evidence for lymphadenopathy. SOFT TISSUE/ABDOMINAL WALL: Unremarkable IMPRESSION: 1. Mild increase in extra hepatic dilation in the setting of a nondistended gallbladder. Correlate f or biliary obstruction with lead markers and consideration for MRCP for choledocholithiasis. 2. Right renal collecting system with increased density correlate with urinalysis. 3. Scattered colonic diverticula. 4. Surgically absent left kidney without evidence of recurrence. 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
[2022-11-28 13:55] VITALS: BP 152/94
--- NOTE | 2022-11-28 14:29 | US ---
EXAMINATION TYPE: US liver DATE OF EXAM: 11/28/2022 COMPARISON: Same day CT CLINICAL INDICATION: Male, 72 years old with history of pain; Pt sates ABD pain TECHNIQUE: Multiple sonographic images of the right upper quadrant are obtained. FINDINGS: EXAM MEASUREMENTS: Liver Length: 17.2 cm Gallbladder Wall: 0.3 cm CBD: 1.0 cm Right Kidney: 12.3 x 4.5 x 4.9 cm CARBURETOR MECHANIC NOTES: Pancreas: Head wnl, CBD dilated at head Liver: Multiple cystic/complex lesions with debris, largest right lobe near dome= 3.0 x 2.7 x 3.8 cm Gallbladder: Lumen clear, appeared distended Evidence for sonographic Zamora's sign: No CBD: Dilated as visualized on same day CT Right Kidney: no evidence of hydro, lower pole anechoic lesion= 1.0 x 0.9 x 0.9 cm IMPRESSION: 1. There are multiple cystic lesions within the liver the largest near the dome of the liver measurin g 3 cm. Some complexity to the lesion noted this could be correlated with MRI. 2. Common bile duct is dilated at 1 cm and the gallbladder is distended. CBD is dilated to level the pancreatic head. Recommend ERCP or MRCP for further evaluation to assess for biliary obstruction\ampu llary lesion.
[2022-11-28 15:26] VITALS: PULSE 82
== END 2022-11-28 15:26 | disposition home or self-care (01) ==
LOC: EC 10:52
DX: K57.30 Diverticulosis of large intestine without perforation or abscess without bleeding (principal); E78.5 Hyperlipidemia, unspecified; I10 Essential (primary) hypertension; E07.9 Disorder of thyroid, unspecified; F12.90 Cannabis use, unspecified, uncomplicated; Z86.73 Personal history of transient ischemic attack (TIA), and cerebral infarction without residual deficits; Z79.890 Hormone replacement therapy; Z79.899 Other long term (current) drug therapy; Z79.01 Long term (current) use of anticoagulants; Z88.2 Allergy status to sulfonamides
CPT/HCPCS: 99285 ×2; 96374 ×2; 96375 ×2; 96376 ×2; 96361 ×2; 36415; 93005; 80053; 83605; 83690; 84484; 85025; 76705; 74176; J2405; J1170

== ENCOUNTER → 2022-12-02 | Outpatient (CLI) | payer MEDICARE ==
--- NOTE | 2022-12-04 23:11 | US ---
EXAMINATION TYPE: US kidneys/renal and bladder DATE OF EXAM: 12/02/2022 COMPARISON: NONE CLINICAL INDICATION: Male, 72 years old with history of N13.30 UNSPECIFIED HYDRONEPHROSIS; left nephr ectomy EXAM MEASUREMENTS: Right Kidney: 13.3 x 5.7 x 4.6 cm Left Kidney: Surgically absent Right Kidney: Benign 1 cm cyst at the lower pole. There is prominent pelviectasis noted. However, no calyceal dilatation to suggest hydronephrosis. Left Kidney: Surgically absent Bladder: not fully distended, wall = 0.6cm. The partial distention limits evaluation. Bilateral Jets seen: no IMPRESSION: Chronic pelviectasis/extrarenal pelvis on the right. No calyceal dilatation to suggest rohit hydronep hrosis. Patient is status post left nephrectomy. Underdistention of the bladder limits its evaluation .
== END | disposition home or self-care (01) ==
LOC: RADUSWWP 15:23
PROVIDERS: ATTEND Urology
DX: N28.89 Other specified disorders of kidney and ureter (principal); N13.30 Unspecified hydronephrosis; Z90.5 Acquired absence of kidney
CPT/HCPCS: 76770

== ENCOUNTER 2022-12-28 15:19 | Inpatient (IN) | payer MEDICARE ==
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
[2022-12-28 17:28] LABS: Basophils % (A) 0 %; Eosinophils # (A) 0.2 k/uL (0-0.7); Eosinophils % (A) 2 %; HCT 43.3 % (39.0-53.0); HGB 14.1 gm/dL (13.0-17.5); Lymphocytes # (A) 0.9 k/uL (1.0-4.8); Lymphocytes % (A) 9 %; MCH 30.3 pg (25.0-35.0); MCHC 32.5 g/dL (31.0-37.0); MCV 93.3 fL (80.0-100.0); Mean Platelet Volume 7.6; Monocytes # (A) 0.8 k/uL (0-1.0); Monocytes % (A) 8 %; Neutrophils # (A) 7.6 k/uL (1.3-7.7); Neutrophils % (A) 79 %; Platelet Count 297 k/uL (150-450); RBC 4.65 m/uL (4.30-5.90); RDW 13.3 % (11.5-15.5); WBC 9.6 k/uL (3.8-10.6)
[2022-12-28 17:41] LABS: INR 0.9 (<1.2); Partial Thromboplastin Time 24.7 sec (22.0-30.0)
[2022-12-28 17:49] LABS: Albumin 4.6 g/dL (3.5-5.0); Calcium 8.1 mg/dL (8.4-10.2); Potassium 4.9 mmol/L (3.5-5.1); Total Bilirubin 0.7 mg/dL (0.2-1.3); Total Protein 7.7 g/dL (6.3-8.2)
[2022-12-28 18:21] LABS: Appearance,Urine Clear (Clear); Bilirubin,Urine Negative (Negative); Blood,Urine Negative (Negative); Color,Urine Yellow; Glucose,Urine (UA) Negative (Negative); Ketones,Urine 1+ (Negative); Leukocyte Esterase,Urine Negative (Negative); Mucus,Urine Occasional /hpf; Nitrite,Urine Negative (Negative); PH, Urine 5.5 (5.0-8.0); Protein,Urine 1+ (Negative); RBC,Urine 1 /hpf (0-5); Squamous Epithelial Cell,Urine <1 /hpf (0-4); Urobilinogen,Urine <2.0 mg/dL (<2.0); WBC,Urine 1 /hpf (0-5)
[2022-12-28] MEDS ORDERED: SODIUM CHLORIDE 0.9% 1,000 ML IV ONE (20:14)
[2022-12-28] MEDS ORDERED: MORPHINE SULFATE 2 MG/ML SYRINGE IVP STA (20:14)
--- NOTE | 2022-12-28 20:55 | CT ---
EXAMINATION TYPE: CT abdomen pelvis wo con DATE OF EXAM: 12/28/2022 COMPARISON: 11/28/2022 INDICATION: lower abd pain, dark stools DLP: 404.8 mGycm, Automated exposure control for dose reduction was used. CONTRAST: 0 mL of Isovue 300. Study performed without Oral Contrast TECHNIQUE: Axial images were obtained from above the diaphragm to the pubic rami in the axial plane a t 5 mm thick sections. Reconstructed images are reviewed on the computer in the coronal plane. FINDINGS: Limited CT sections are obtained the lung bases. The lung bases are clear. CT ABDOMEN: Liver: There is a 2.6 cm cyst within the right lobe liver. There is an adjacent hypodensity with some what less distinct borders. Smaller cysts could be considered. Other etiologies including mass should be considered. Follow-up is recommended. This area measures 1.4 cm. Series 201 image 9. Spleen: Normal Pancreas: Normal Adrenal glands: The adrenal glands are normal. Gallbladder: Normal Kidneys: There is a prior left nephrectomy. There is some malrotation of malpositioning of the right kidney.. No hydronephrosis is present. 0.9 cm cortical renal cysts on the posterior inferior right kidney. No renal stones are identified. Aorta: Vascular calcification is within the aorta. Inferior vena cava: Normal. CT PELVIS: Some wall thickening within the distal sigmoid colon may be present. This is diffuse. Consider coliti s. Some mild thickening may be in the proximal ascending colon. A diverticulum is within the region o f the cecum. Small bowel loops are nonspecific. The studies lateral contrast limiting bowel evaluatio n. Appendix: Not identified. Urinary bladder: The urinary bladder is nondistended. Some thick wall may be present which could be r elated to nondistention. Follow-up however is recommended. Genitourinary structures: Prostate appears unremarkable. Osseous structures: There is some sclerotic change through the left sacroiliac joint. Multiple scatte red sclerotic lesions are within the pelvis. Sclerotic lesions are through the lumbar spine. Findings are suspicious for metastasis. IMPRESSIONS: 1. Mild diffuse wall thickening within the colon. Correlate for colitis. 2. Multiple sclerotic lesions suspicious for metastasis. Workup for prostate cancer. 3. Hypodense lesion may be near the suspected hepatic cyst. Workup for metastasis is recommended
[2022-12-28] MEDS ORDERED: NALOXONE 0.4 MG/ML 1 ML VIAL IV PRN (21:58)
[2022-12-28] MEDS ORDERED: Acetaminophen-Codeine 300-30mg TAB PO PRN (21:58)
[2022-12-28] MEDS ORDERED: ACETAMINOPHEN TAB 325 MG TAB PO PRN (21:58)
[2022-12-28] MEDS ORDERED: cefTRIAXone IN SWFI 1,000 MG/10 ML SYRINGE IVP SCH (22:00)
[2022-12-28] MEDS: SODIUM CHLORIDE 0.9% 1,000 ML IV SCH (22:54)
[2022-12-28] MEDS: metroNIDAZOLE-NS PMX 500 MG in SALINE 1 100ML.BAG IVPB SCH (22:57)
[2022-12-29] MEDS ORDERED: SODIUM CHLORIDE 0.9% 500 ML 500 ML IV ONE (01:32)
[2022-12-29 02:07] LABS: Basophils % (A) 0 %; Eosinophils # (A) 0.2 k/uL (0-0.7); Eosinophils % (A) 2 %; HCT 25.4 % (39.0-53.0); Lymphocytes # (A) 1.2 k/uL (1.0-4.8); Lymphocytes % (A) 16 %; MCH 31.1 pg (25.0-35.0); MCHC 33.2 g/dL (31.0-37.0); MCV 93.4 fL (80.0-100.0); Mean Platelet Volume 7.9; Monocytes # (A) 0.6 k/uL (0-1.0); Monocytes % (A) 8 %; Neutrophils # (A) 4.9 k/uL (1.3-7.7); Neutrophils % (A) 69 %; Platelet Count 251 k/uL (150-450); RBC 2.72 m/uL (4.30-5.90); RDW 13.8 % (11.5-15.5)
[2022-12-29 02:12] LABS: HGB 8.4 gm/dL (13.0-17.5)
[2022-12-29] MEDS: HYDROmorphone 1 MG/ML 1 ML SYRINGE IVP PRN ×6 (02:51→23:27)
[2022-12-29] MEDS: SODIUM CHLORIDE 0.9% 1,000 ML IV SCH (05:27)
[2022-12-29] MEDS: metroNIDAZOLE-NS PMX 500 MG in SALINE 1 100ML.BAG IVPB SCH ×3 (05:55→23:29)
[2022-12-29 06:01] LABS: Basophils % (A) 0 %; Eosinophils # (A) 0.1 k/uL (0-0.7); Eosinophils % (A) 2 %; HCT 23.7 % (39.0-53.0); HGB 7.7 gm/dL (13.0-17.5); Lymphocytes # (A) 0.7 k/uL (1.0-4.8); Lymphocytes % (A) 11 %; MCHC 32.5 g/dL (31.0-37.0); MCV 95.5 fL (80.0-100.0); Mean Platelet Volume 9.9; Monocytes # (A) 0.5 k/uL (0-1.0); Monocytes % (A) 8 %; Neutrophils # (A) 4.7 k/uL (1.3-7.7); Neutrophils % (A) 77 %; Platelet Count 195 k/uL (150-450); RBC 2.48 m/uL (4.30-5.90); RDW 13.4 % (11.5-15.5); WBC 6.2 k/uL (3.8-10.6)
[2022-12-29 08:33] LABS: Basophils % (A) 0 %; Eosinophils # (A) 0.1 k/uL (0-0.7); Eosinophils % (A) 3 %; HCT 22.1 % (39.0-53.0); HGB 7.3 gm/dL (13.0-17.5); Lymphocytes # (A) 0.8 k/uL (1.0-4.8); Lymphocytes % (A) 16 %; MCH 31.3 pg (25.0-35.0); MCHC 32.8 g/dL (31.0-37.0); MCV 95.3 fL (80.0-100.0); Mean Platelet Volume 7.5; Monocytes # (A) 0.5 k/uL (0-1.0); Monocytes % (A) 10 %; Neutrophils # (A) 3.4 k/uL (1.3-7.7); Neutrophils % (A) 70 %; Platelet Count 212 k/uL (150-450); RBC 2.32 m/uL (4.30-5.90); RDW 13.4 % (11.5-15.5); WBC 4.8 k/uL (3.8-10.6)
[2022-12-29] MEDS ORDERED: PANTOPRAZOLE 40 MG/10 ML VIAL IVP SCH (09:00)
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
[2022-12-29 11:45] LABS: Glucose,Whole Blood 91 mg/dL (70-110)
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
[2022-12-29 15:31] LABS: Basophils % (A) 0 %; Eosinophils # (A) 0.2 k/uL (0-0.7); Eosinophils % (A) 4 %; HCT 23.2 % (39.0-53.0); HGB 7.8 gm/dL (13.0-17.5); Lymphocytes # (A) 0.7 k/uL (1.0-4.8); Lymphocytes % (A) 15 %; MCHC 33.6 g/dL (31.0-37.0); MCV 95.2 fL (80.0-100.0); Mean Platelet Volume 7.6; Monocytes # (A) 0.4 k/uL (0-1.0); Monocytes % (A) 8 %; Neutrophils # (A) 3.6 k/uL (1.3-7.7); Neutrophils % (A) 71 %; Platelet Count 174 k/uL (150-450); RBC 2.44 m/uL (4.30-5.90); RDW 13.4 % (11.5-15.5); WBC 5.1 k/uL (3.8-10.6)
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
[2022-12-29] MEDS: PANTOPRAZOLE 40 MG/10 ML VIAL IVP SCH (20:05)
[2022-12-30 00:49] LABS: Basophils % (A) 0 %; Eosinophils # (A) 0.2 k/uL (0-0.7); Eosinophils % (A) 6 %; HCT 22.3 % (39.0-53.0); HGB 7.3 gm/dL (13.0-17.5); Lymphocytes # (A) 0.6 k/uL (1.0-4.8); Lymphocytes % (A) 14 %; MCH 31.3 pg (25.0-35.0); MCHC 32.8 g/dL (31.0-37.0); MCV 95.5 fL (80.0-100.0); Mean Platelet Volume 8.3; Monocytes # (A) 0.3 k/uL (0-1.0); Monocytes % (A) 6 %; Neutrophils % (A) 71 %; Platelet Count 150 k/uL (150-450); RBC 2.33 m/uL (4.30-5.90); RDW 13.6 % (11.5-15.5); WBC 4.2 k/uL (3.8-10.6)
[2022-12-30] MEDS: SODIUM CHLORIDE 0.9% 1,000 ML IV SCH ×3 (01:17→12:32)
[2022-12-30 04:56] LABS: Basophils % (A) 1 %; Eosinophils # (A) 0.2 k/uL (0-0.7); Eosinophils % (A) 6 %; HCT 21.9 % (39.0-53.0); HGB 7.2 gm/dL (13.0-17.5); Lymphocytes # (A) 0.6 k/uL (1.0-4.8); Lymphocytes % (A) 15 %; MCH 30.6 pg (25.0-35.0); Mean Platelet Volume 7.8; Monocytes # (A) 0.2 k/uL (0-1.0); Monocytes % (A) 6 %; Neutrophils # (A) 2.7 k/uL (1.3-7.7); Neutrophils % (A) 70 %; Platelet Count 151 k/uL (150-450); RBC 2.36 m/uL (4.30-5.90); RDW 13.9 % (11.5-15.5); WBC 3.8 k/uL (3.8-10.6)
[2022-12-30 05:08] LABS: Calcium 6.5 mg/dL (8.4-10.2); Potassium 4.5 mmol/L (3.5-5.1)
[2022-12-30] MEDS: HYDROmorphone 1 MG/ML 1 ML SYRINGE IVP PRN ×7 (05:26→23:53)
[2022-12-30] MEDS: metroNIDAZOLE-NS PMX 500 MG in SALINE 1 100ML.BAG IVPB SCH ×3 (06:30→22:02)
[2022-12-30 06:37] LABS: Glucose,Whole Blood 85 mg/dL (70-110)
[2022-12-30] MEDS: PANTOPRAZOLE 40 MG/10 ML VIAL IVP SCH ×2 (08:31→20:53)
[2022-12-30] MEDS: ONDANSETRON 4 MG/2 ML VIAL IVP PRN (09:45)
--- NOTE | 2022-12-30 09:50 | P.PN ---
Progress Note - Text Progress Note Date: 12/30/22 The patient still has complaints of lower quadrant pain. His hemoglobin is stable in the low 7 range. On exam vital signs appear stable. Abdomen is soft. There is tenderness in the right and left lower quadrants. Colitis. Patient will continue to receive medical management. He will have c olonoscopy performed once his colon has healed more. We will follow with you.
--- NOTE | 2022-12-30 10:48 | P.PN ---
Subjective Progress Note Date: 12/30/22 This is a very pleasant 72-year-old male patient with a history of kidney cancer status post radical left nephrectomy, GI bleed, hypertension, hyperlipidemia, rheumatoid arthritis, hypothyroidism, metastatic prostate cancer to the bone. Most recent bone scan from 10/24/2022 revealed markedly interval improvement with markedly reduced uptake seen throughout the vertebral column, rib cage and pelvis. He presented here to the emergency room yesterday after 4 day history of black tarry stools and increasing abdominal pain. Computed tomography scan of the abdomen revealed mild diffuse wall thickening within the colon with possible colitis. Multiple sclerotic lesions suspicious for metastases. Hypodense lesion in the liver near the suspected hepatic cysts. The patient's stool for occult blood was positive. Initial hemoglobin 14.1. White count 9.6. Platelets 297. Sodium 139. Potassium 4.9. Bicarb 22. BUN 43. Creatinine 1.49. Glucose 111. The patient was noted to have dark tarry stools this morning however he had a bright red bowel movement. His hemoglobin dropped to 7.3. Also having a drop in blood pressure currently in the 90s over 60s. We're consulted for transfer to the intensive care unit. Patient was seen and evaluated. He remains awake and alert. Maintaining O2 saturations in the 90s on room air. He's afebrile. Most recent blood pressure 106/69 with a mean of 81. Heart rate stable in the 70s and 80s. He's been initiated on ceftriaxone and Flagyl. IV Protonix. Normal saline at 75 ML's per hour. The patient is seen today in 12/30/2022 in follow-up in the intensive care unit. He is awake and alert in no acute distress. Resting fairly comfortably in bed. Maintaining good O2 saturations in the mid 90s on room air. Afebrile. Hemodynamically stable. He is still having some ongoing abdominal discomfort mostly in the lower quadrants. The plan is for EGD/colonoscopy early next week. He is receiving his second unit of packed red blood cells for a hemoglobin of 7.2 this morning. White count 3.8. Platelets 151. Sodium 137. Potassium 4.5. Bicarb 17. BUN 58. Creatinine 1.62. Glucose 73. He is continued on ceftriaxone and metronidazole. 0.9 percent normal saline at 75 mL's per hour. Remains on IV Protonix. Objective - Vital Signs Vital signs: Vital Signs Temp 97.8 F 12/30/22 09:00 Pulse 71 12/30/22 10:00 Resp 9 L 12/30/22 10:00 BP 146/82 12/30/22 10:00 Pulse Ox 96 12/30/22 10:00 FiO2 Intake & Output 12/29/22 12/30/22 12/30/22 18:59 06:59 18:59 Intake Total 761 1000 450 Output Total 250 0 Balance 761 750 450 Weight 64.7 kg Intake: IV 375 1000 450 Sodium Chloride 0.9% 1, 375 900 300 000 ml @ 75 mls/hr IV . [id number] [facility] Rx#:[id number] cefTRIAXone 1 gm In 50 Sodium Chloride 0.9% 50 ml @ 100 mls/hr IVPB Q24HR [facility] Rx#:[id number] metroNIDAZOLE-NS PMX 500 100 100 mg In Saline 1 100ml.bag @ 100 mls/hr IVPB Q8H [facility] Rx#:[id number] Intake, IV Titration 100 Amount metroNIDAZOLE-NS PMX 500 100 mg In Saline 1 100ml.bag @ 100 mls/hr IVPB Q8H [facility] Rx#:[id number] Blood Product 286 0 Unit 0 Rc Pheresis 2 As3 Unit 286 [id number] Output: Urine 250 0 Other: Voiding Method Toilet Toilet Urinal # Voids 1 1 # Bowel Movements 1 - Exam GENERAL EXAM: Alert 72-year-old male patient, on room air, fairly comfortable in no apparent distress. HEAD: Normocephalic. EYES: Normal reaction of pupils, equal size. NOSE: Clear with pink turbinates. THROAT: No erythema or exudates. NECK: No masses, no JVD. CHEST: No chest wall deformity. LUNGS: Equal air entry with no crackles, wheeze, rhonchi or dullness. CVS: S1 and S2 normal with no audible murmur, regular rhythm. ABDOMEN: Tenderness. No hepatosplenomegaly, normal bowel sounds, no guarding or rigidity. SPINE: No scoliosis or deformity SKIN: No rashes CENTRAL NERVOUS SYSTEM: No focal deficits, tone is normal in all 4 extremities. EXTREMITIES: There is no peripheral edema. No clubbing, no cyanosis. Peripheral pulses are intact. - Labs CBC & Chem 7: 12/30/22 04:27 12/30/22 04:27 Labs: Abnormal Lab Results - Last 24 Hours (Table) 12/29/22 12/29/22 12/30/22 Range/Units 08:10 14:58 00:33 RBC 2.44 L 2.33 L (4.30-5.90) m/uL Hgb 7.8 L 7.3 L (13.0-17.5) gm/dL Hct 23.2 L 22.3 L (39.0-53.0) % Lymphocytes # 0.7 L 0.6 L (1.0-4.8) k/uL Chloride (98-107) mmol/L Carbon Dioxide (22-30) mmol/L BUN (9-20) mg/dL Creatinine (0.66-1.25) mg/dL Glucose (74-99) mg/dL Calcium (8.4-10.2) mg/dL Crossmatch See Detail 12/30/22 12/30/22 Range/Units 04:27 04:27 RBC 2.36 L (4.30-5.90) m/uL Hgb 7.2 L (13.0-17.5) gm/dL Hct 21.9 L (39.0-53.0) % Lymphocytes # 0.6 L (1.0-4.8) k/uL Chloride 112 H (98-107) mmol/L Carbon Dioxide 17 L (22-30) mmol/L BUN 58 H (9-20) mg/dL Creatinine 1.62 H (0.66-1.25) mg/dL Glucose 73 L (74-99) mg/dL Calcium 6.5 L (8.4-10.2) mg/dL Crossmatch Microbiology - Last 24 Hours (Table) 12/28/22 22:48 Blood Culture - Preliminary Blood Assessment and Plan Assessment: Abdominal pain with black tarry stools and then with 1 red bloody stool Acute anemia with a drop in hemoglobin from 14 to 7.3, has received 2 units of packed blood cells so far Hypotension secondary to above improve currently stable Previous history of GI bleed History of metastatic prostate cancer Rheumatoid arthritis maintained on prednisone 5 mg daily History of CVA/TIA, on Plavix in the outpatient setting Hypothyroidism Hyperlipidemia History of hypertension History of left kidney cancer status post radical nephrectomy 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 Number of minutes spent on the visit: 10.
[2022-12-30 11:40] LABS: Glucose,Whole Blood 85 mg/dL (70-110)
[2022-12-30 12:39] LABS: HGB 8.6 gm/dL (13.0-17.5); MCHC 33.2 g/dL (31.0-37.0); MCV 93.2 fL (80.0-100.0); Mean Platelet Volume 7.6; Platelet Count 159 k/uL (150-450); RBC 2.79 m/uL (4.30-5.90); WBC 4.7 k/uL (3.8-10.6)
[2022-12-30 15:35] LABS: HCT 24.4 % (39.0-53.0); HGB 8.1 gm/dL (13.0-17.5); MCH 31.1 pg (25.0-35.0); MCHC 33.3 g/dL (31.0-37.0); MCV 93.4 fL (80.0-100.0); Mean Platelet Volume 7.5; Platelet Count 158 k/uL (150-450); RBC 2.61 m/uL (4.30-5.90); RDW 14.1 % (11.5-15.5); WBC 3.8 k/uL (3.8-10.6)
[2022-12-30] MEDS ORDERED: LIDOCAINE 1% (10MG/ML) FOR IV START INTRADERMA PRN (17:18)
[2022-12-30] MEDS: LACTATED RINGERS 1,000 ML IV SCH (17:59)
[2022-12-30 18:10] LABS: Glucose,Whole Blood 95 mg/dL (70-110)
[2022-12-30 22:29] LABS: HCT 27.2 % (39.0-53.0); HGB 8.9 gm/dL (13.0-17.5); MCH 30.6 pg (25.0-35.0); MCHC 32.7 g/dL (31.0-37.0); MCV 93.7 fL (80.0-100.0); Mean Platelet Volume 7.8; Platelet Count 177 k/uL (150-450); RDW 14.3 % (11.5-15.5); WBC 4.2 k/uL (3.8-10.6)
[2022-12-30 23:13] LABS: Glucose,Whole Blood 84 mg/dL (70-110)
[2022-12-30] MEDS: VANCOMYCIN 125 MG CAPSULE PO SCH (23:53)
[2022-12-31] MEDS: HYDROmorphone 1 MG/ML 1 ML SYRINGE IVP PRN ×7 (04:04→21:33)
[2022-12-31] MEDS: metroNIDAZOLE-NS PMX 500 MG in SALINE 1 100ML.BAG IVPB SCH ×3 (06:42→21:38)
[2022-12-31 06:44] LABS: Glucose,Whole Blood 86 mg/dL (70-110)
[2022-12-31 06:50] LABS: Basophils % (A) 0 %; Eosinophils # (A) 0.3 k/uL (0-0.7); Eosinophils % (A) 6 %; HGB 8.2 gm/dL (13.0-17.5); Lymphocytes # (A) 0.6 k/uL (1.0-4.8); Lymphocytes % (A) 13 %; MCH 30.9 pg (25.0-35.0); MCHC 32.9 g/dL (31.0-37.0); Mean Platelet Volume 7.6; Monocytes # (A) 0.3 k/uL (0-1.0); Monocytes % (A) 7 %; Neutrophils # (A) 3.1 k/uL (1.3-7.7); Neutrophils % (A) 72 %; Platelet Count 172 k/uL (150-450); RBC 2.66 m/uL (4.30-5.90); RDW 14.3 % (11.5-15.5); WBC 4.3 k/uL (3.8-10.6)
[2022-12-31 07:02] LABS: Calcium 6.7 mg/dL (8.4-10.2)
[2022-12-31 07:10] LABS: Potassium 4.5 mmol/L (3.5-5.1)
[2022-12-31] MEDS: PANTOPRAZOLE 40 MG/10 ML VIAL IVP SCH ×2 (08:28→20:05)
[2022-12-31] MEDS: VANCOMYCIN 125 MG CAPSULE PO SCH ×4 (08:28→21:34)
--- NOTE | 2022-12-31 09:48 | P.PN ---
Progress Note - Text Progress Note Date: 12/31/22 Patient remains in the ICU. He still has complaints of left lower quadrant pain. He is still having some dark diarrhea. His hemoglobin is 8.2 Signs are stable. Abdomen soft. There is tenderness left lower quadrant. GI bleed related to colitis. Patient will undergo endoscopy once his colitis has improved.
--- NOTE | 2022-12-31 10:57 | P.PN ---
Subjective Progress Note Date: 12/31/22 This is a very pleasant 72-year-old male patient with a history of kidney cancer status post radical left nephrectomy, GI bleed, hypertension, hyperlipidemia, rheumatoid arthritis, hypothyroidism, metastatic prostate cancer to the bone. Most recent bone scan from 10/24/2022 revealed markedly interval improvement with markedly reduced uptake seen throughout the vertebral column, rib cage and pelvis. He presented here to the emergency room yesterday after 4 day history of black tarry stools and increasing abdominal pain. Computed tomography scan of the abdomen revealed mild diffuse wall thickening within the colon with possible colitis. Multiple sclerotic lesions suspicious for metastases. Hypodense lesion in the liver near the suspected hepatic cysts. The patient's stool for occult blood was positive. Initial hemoglobin 14.1. White count 9.6. Platelets 297. Sodium 139. Potassium 4.9. Bicarb 22. BUN 43. Creatinine 1.49. Glucose 111. The patient was noted to have dark tarry stools this morning however he had a bright red bowel movement. His hemoglobin dropped to 7.3. Also having a drop in blood pressure currently in the 90s over 60s. We're consulted for transfer to the intensive care unit. Patient was seen and evaluated. He remains awake and alert. Maintaining O2 saturations in the 90s on room air. He's afebrile. Most recent blood pressure 106/69 with a mean of 81. Heart rate stable in the 70s and 80s. He's been initiated on ceftriaxone and Flagyl. IV Protonix. Normal saline at 75 ML's per hour. The patient is seen today in 12/30/2022 in follow-up in the intensive care unit. He is awake and alert in no acute distress. Resting fairly comfortably in bed. Maintaining good O2 saturations in the mid 90s on room air. Afebrile. Hemodynamically stable. He is still having some ongoing abdominal discomfort mostly in the lower quadrants. The plan is for EGD/colonoscopy early next week. He is receiving his second unit of packed red blood cells for a hemoglobin of 7.2 this morning. White count 3.8. Platelets 151. Sodium 137. Potassium 4.5. Bicarb 17. BUN 58. Creatinine 1.62. Glucose 73. He is continued on ceftriaxone and metronidazole. 0.9 percent normal saline at 75 mL's per hour. Remains on IV Protonix. The patient is seen today 12/31/2022 in follow-up in the intensive care unit. He is resting comfortably in bed. Awake and alert in no acute distress. Maintaining O2 saturations in the 90s on 2 L/m per nasal cannula. He has normal saline at 75 ML's per hour. He is status post 2 units of packed red blood cells. Current hemoglobin 8.2. He has had some dark stool. No bright red blood. C. diff screen was positive. White count 4.3. Platelets 172. Sodium 1:30. Potassium 4.5. Bicarb 18. BUN 33. Creatinine 1.13. Glucose 86. He is on oral vancomycin, Flagyl. Remains on IV Protonix. Objective - Vital Signs Vital signs: Vital Signs Temp 97.8 F 12/31/22 08:00 Pulse 61 12/31/22 10:00 Resp 15 12/31/22 10:00 BP 130/89 12/31/22 10:00 Pulse Ox 100 12/31/22 10:00 FiO2 Intake & Output 12/30/22 12/31/22 12/31/22 18:59 06:59 18:59 Intake Total 2455 1000 1025 Output Total 1400 2 0 Balance 1572 524 1487 Weight 64.8 kg Intake: IV 1225 1000 Sodium Chloride 0.9% 1, 975 900 000 ml @ 75 mls/hr IV . [id number] [facility] Rx#:[id number] cefTRIAXone 1 gm In 50 Sodium Chloride 0.9% 50 ml @ 100 mls/hr IVPB Q24HR [facility] Rx#:[id number] metroNIDAZOLE-NS PMX 500 200 100 mg In Saline 1 100ml.bag @ 100 mls/hr IVPB Q8H [facility] Rx#:[id number] Intake, IV Titration 225 Amount Sodium Chloride 0.9% 1, 225 000 ml @ 75 mls/hr IV . [id number] [facility] Rx#:[id number] Oral 920 800 Blood Product 310 Rc As-1 Unit 310 [id number] Output: Urine 1400 0 0 Stool 2 Other: Voiding Method Toilet Toilet Urinal # Voids 1 - Exam GENERAL EXAM: Alert, pleasant 72-year-old male patient, on room air, comfortable in no apparent distress. HEAD: Normocephalic. EYES: Normal reaction of pupils, equal size. NOSE: Clear with pink turbinates. THROAT: No erythema or exudates. NECK: No masses, no JVD. CHEST: No chest wall deformity. LUNGS: Equal air entry with no crackles, wheeze, rhonchi or dullness. CVS: S1 and S2 normal with no audible murmur, regular rhythm. ABDOMEN: Tenderness. No hepatosplenomegaly, normal bowel sounds, no guarding or rigidity. SPINE: No scoliosis or deformity SKIN: No rashes CENTRAL NERVOUS SYSTEM: No focal deficits, tone is normal in all 4 extremities. EXTREMITIES: There is no peripheral edema. No clubbing, no cyanosis. Peripheral pulses are intact. - Labs CBC & Chem 7: 12/31/22 06:25 12/31/22 06:25 Labs: Abnormal Lab Results - Last 24 Hours (Table) 12/29/22 12/30/22 12/30/22 Range/Units 08:10 02:36 11:16 RBC 2.79 L (4.30-5.90) m/uL Hgb 8.6 L (13.0-17.5) gm/dL Hct 26.0 L (39.0-53.0) % Lymphocytes # (1.0-4.8) k/uL Chloride (98-107) mmol/L Carbon Dioxide (22-30) mmol/L BUN (9-20) mg/dL Calcium (8.4-10.2) mg/dL C. difficile (EIA) Intrp Positive A (Negative) Crossmatch See Detail 12/30/22 12/30/22 12/31/22 Range/Units 14:50 20:42 06:25 RBC 2.61 L 2.90 L 2.66 L (4.30-5.90) m/uL Hgb 8.1 L 8.9 L 8.2 L (13.0-17.5) gm/dL Hct 24.4 L 27.2 L 25.0 L (39.0-53.0) % Lymphocytes # 0.6 L (1.0-4.8) k/uL Chloride (98-107) mmol/L Carbon Dioxide (22-30) mmol/L BUN (9-20) mg/dL Calcium (8.4-10.2) mg/dL C. difficile (EIA) Intrp (Negative) Crossmatch 12/31/22 Range/Units 06:25 RBC (4.30-5.90) m/uL Hgb (13.0-17.5) gm/dL Hct (39.0-53.0) % Lymphocytes # (1.0-4.8) k/uL Chloride 111 H (98-107) mmol/L Carbon Dioxide 18 L (22-30) mmol/L BUN 33 H (9-20) mg/dL Calcium 6.7 L (8.4-10.2) mg/dL C. difficile (EIA) Intrp (Negative) Crossmatch Microbiology - Last 24 Hours (Table) 12/28/22 22:48 Blood Culture - Preliminary Blood Assessment and Plan Assessment: Abdominal pain with black tarry stools and then with 1 red bloody stool, positive for C difficile C. difficile infection. 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 Current hemoglobin 8.2 Continue to monitor hemoglobin closely Continue oral vancomycin and Flagyl Continue IV Protonix Plan is for EGD/colonoscopy early next week Stable and could be transferred out of the ICU today We will continue to follow I have personally seen and examined the patient, performed the documentation and the assessment and plan as written. Number of minutes spent on the visit: 10.
[2022-12-31 11:49] LABS: Glucose,Whole Blood 93 mg/dL (70-110)
[2022-12-31 17:51] LABS: Glucose,Whole Blood 130 mg/dL (70-110)
[2022-12-31] MEDS: LACTATED RINGERS 1,000 ML IV SCH (20:05)
[2022-12-31] MEDS: SODIUM CHLORIDE 0.9% 1,000 ML IV SCH (20:05)
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
[2023-01-01] MEDS: HYDROmorphone 1 MG/ML 1 ML SYRINGE IVP PRN ×6 (00:30→19:44)
[2023-01-01 00:35] LABS: Glucose,Whole Blood 91 mg/dL (70-110)
[2023-01-01 03:42] LABS: HCT 22.5 % (39.0-53.0); HGB 7.7 gm/dL (13.0-17.5); MCHC 34.1 g/dL (31.0-37.0); MCV 90.9 fL (80.0-100.0); Mean Platelet Volume 8.4; Platelet Count 167 k/uL (150-450); RBC 2.48 m/uL (4.30-5.90); RDW 14.8 % (11.5-15.5); WBC 4.3 k/uL (3.8-10.6)
[2023-01-01 03:54] LABS: Calcium 6.8 mg/dL (8.4-10.2); Potassium 4.9 mmol/L (3.5-5.1)
[2023-01-01] MEDS: ONDANSETRON 4 MG/2 ML VIAL IVP PRN (05:20)
[2023-01-01] MEDS: metroNIDAZOLE-NS PMX 500 MG in SALINE 1 100ML.BAG IVPB SCH ×3 (06:12→22:50)
[2023-01-01] MEDS: SODIUM CHLORIDE 0.9% 1,000 ML IV SCH ×2 (06:18→19:45)
[2023-01-01 06:19] LABS: Glucose,Whole Blood 115 mg/dL (70-110)
[2023-01-01] MEDS: VANCOMYCIN 125 MG CAPSULE PO SCH ×4 (08:03→20:57)
[2023-01-01] MEDS: PANTOPRAZOLE 40 MG/10 ML VIAL IVP SCH ×2 (08:03→19:44)
--- NOTE | 2023-01-01 09:48 | P.PN ---
Subjective Progress Note Date: 01/01/23 This is a very pleasant 72-year-old male patient with a history of kidney cancer status post radical left nephrectomy, GI bleed, hypertension, hyperlipidemia, rheumatoid arthritis, hypothyroidism, metastatic prostate cancer to the bone. Most recent bone scan from 10/24/2022 revealed markedly interval improvement with markedly reduced uptake seen throughout the vertebral column, rib cage and pelvis. He presented here to the emergency room yesterday after 4 day history of black tarry stools and increasing abdominal pain. Computed tomography scan of the abdomen revealed mild diffuse wall thickening within the colon with possible colitis. Multiple sclerotic lesions suspicious for metastases. Hypodense lesion in the liver near the suspected hepatic cysts. The patient's stool for occult blood was positive. Initial hemoglobin 14.1. White count 9.6. Platelets 297. Sodium 139. Potassium 4.9. Bicarb 22. BUN 43. Creatinine 1.49. Glucose 111. The patient was noted to have dark tarry stools this morning however he had a bright red bowel movement. His hemoglobin dropped to 7.3. Also having a drop in blood pressure currently in the 90s over 60s. We're consulted for transfer to the intensive care unit. Patient was seen and evaluated. He remains awake and alert. Maintaining O2 saturations in the 90s on room air. He's afebrile. Most recent blood pressure 106/69 with a mean of 81. Heart rate stable in the 70s and 80s. He's been initiated on ceftriaxone and Flagyl. IV Protonix. Normal saline at 75 ML's per hour. The patient is seen today in 12/30/2022 in follow-up in the intensive care unit. He is awake and alert in no acute distress. Resting fairly comfortably in bed. Maintaining good O2 saturations in the mid 90s on room air. Afebrile. Hemodynamically stable. He is still having some ongoing abdominal discomfort mostly in the lower quadrants. The plan is for EGD/colonoscopy early next week. He is receiving his second unit of packed red blood cells for a hemoglobin of 7.2 this morning. White count 3.8. Platelets 151. Sodium 137. Potassium 4.5. Bicarb 17. BUN 58. Creatinine 1.62. Glucose 73. He is continued on ceftriaxone and metronidazole. 0.9 percent normal saline at 75 mL's per hour. Remains on IV Protonix. The patient is seen today 12/31/2022 in follow-up in the intensive care unit. He is resting comfortably in bed. Awake and alert in no acute distress. Maintaining O2 saturations in the 90s on 2 L/m per nasal cannula. He has normal saline at 75 ML's per hour. He is status post 2 units of packed red blood cells. Current hemoglobin 8.2. He has had some dark stool. No bright red blood. C. diff screen was positive. White count 4.3. Platelets 172. Sodium 1:30. Potassium 4.5. Bicarb 18. BUN 33. Creatinine 1.13. Glucose 86. He is on oral vancomycin, Flagyl. Remains on IV Protonix. The patient is seen today 01/01/2023 in follow-up in the intensive care unit. He is a [facility] overflow patient. He is awake and alert in no acute distress. He is maintaining good O2 saturations in the mid 90s on 2 L/m per nasal cannula. Afebrile. Hemodynamically stable. He is status post 2 units of packed red blood cells this admission. Current hemoglobin 7.7. White count 4.3. Platelets 167. Sodium 136. Potassium 4.9. Bicarb 21. BUN 17. Creatinine 1.06. He remains on saline at 75 ML's per hour. Continued on vancomycin and Flagyl. Objective - Vital Signs Vital signs: Vital Signs Temp 98 F 01/01/23 08:00 Pulse 67 01/01/23 09:00 Resp 10 L 01/01/23 09:00 BP 145/107 01/01/23 09:00 Pulse Ox 95 01/01/23 08:00 FiO2 Intake & Output 12/31/22 01/01/23 01/01/23 18:59 06:59 18:59 Intake Total 3025 1025 Output Total 675 1350 Balance 2350 -325 Intake: IV 950 Lactated Ringers 1,000 ml 200 @ 20 mls/hr IV .Q24H [facility] Rx#:[id number] Sodium Chloride 0.9% 1, 750 000 ml @ 75 mls/hr IV . [id number] [facility] Rx#:[id number] Intake, IV Titration 925 75 Amount Sodium Chloride 0.9% 1, 825 75 000 ml @ 75 mls/hr IV . [id number] [facility] Rx#:[id number] metroNIDAZOLE-NS PMX 500 100 mg In Saline 1 100ml.bag @ 100 mls/hr IVPB Q8H [facility] Rx#:[id number] Oral 2100 0 Output: Urine 675 1350 Other: Voiding Method Toilet Toilet Urinal Urinal # Voids 1 # Bowel Movements 1 - Exam GENERAL EXAM: Alert, oriented 72-year-old male patient, resting comfortably in bed, comfortable in no apparent distress. HEAD: Normocephalic. EYES: Normal reaction of pupils, equal size. NOSE: Clear with pink turbinates. THROAT: No erythema or exudates. NECK: No masses, no JVD. CHEST: No chest wall deformity. LUNGS: Equal air entry with no crackles, wheeze, rhonchi or dullness. On 2 L nasal cannula CVS: S1 and S2 normal with no audible murmur, regular rhythm. ABDOMEN: Tenderness. No hepatosplenomegaly, normal bowel sounds, no guarding or rigidity. SPINE: No scoliosis or deformity SKIN: No rashes CENTRAL NERVOUS SYSTEM: No focal deficits, tone is normal in all 4 extremities. EXTREMITIES: There is no peripheral edema. No clubbing, no cyanosis. Periphera l pulses are intact. - Labs CBC & Chem 7: 01/01/23 03:26 01/01/23 03:26 Labs: Abnormal Lab Results - Last 24 Hours (Table) 12/31/22 01/01/23 01/01/23 Range/Units 17:49 03:26 03:26 RBC 2.48 L (4.30-5.90) m/uL Hgb 7.7 L (13.0-17.5) gm/dL Hct 22.5 L (39.0-53.0) % Sodium 136 L (137-145) mmol/L Chloride 110 H (98-107) mmol/L Carbon Dioxide 21 L (22-30) mmol/L POC Glucose (mg/dL) 130 H (70-110) mg/dL Calcium 6.8 L (8.4-10.2) mg/dL 01/01/23 Range/Units 06:16 RBC (4.30-5.90) m/uL Hgb (13.0-17.5) gm/dL Hct (39.0-53.0) % Sodium (137-145) mmol/L Chloride (98-107) mmol/L Carbon Dioxide (22-30) mmol/L POC Glucose (mg/dL) 115 H (70-110) mg/dL Calcium (8.4-10.2) mg/dL Microbiology - Last 24 Hours (Table) 12/28/22 22:48 Blood Culture - Preliminary Blood Assessment and Plan Assessment: Abdominal pain with black tarry stools and then with 1 red bloody stool, positive for C difficile C. difficile infection. 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 Number of minutes spent on the visit: 10.
--- NOTE | 2023-01-01 10:26 | P.PN ---
Progress Note - Text Progress Note Date: 01/01/23 Patient remains stable. He complaints of some left and right lower quadrant abdominal pain. His stool. He still had some diarrhea. On exam vital signs are stable. Abdomen soft there is some mild tenderness in the right and left lower quadrant. There is no rebound or guarding. C. diff colitis. Patient will be medically managed. We will remain on surgical standby.
[2023-01-01 13:46] VITALS: BMI 21.1
[2023-01-01 18:15] LABS: Glucose,Whole Blood 153 mg/dL (70-110)
[2023-01-01] MEDS: LACTATED RINGERS 1,000 ML IV SCH (19:02)
--- NOTE | 2023-01-01 21:05 | P.PN ---
Subjective Progress Note Date: 01/01/23 Principal diagnosis: C diff colitis patient is a 72-year old male presented to hospital with abdominal pain black tarry stool CT abdominal pelvis with evidence of diffuse wall thickening concerning for colitis stool for C. difficile subsequently came back positive. On today's evaluation that is 01/01/2023, the patient denies having any fever or any chills still complaining of lower abdominal pain no worsening patient diarrhea however has improved and did have a semiformed bowel movement still black denies any nausea vomiting or chest pain shortness of breath or cough Objective - Vital Signs Vital signs: Vital Signs Temp 98 F 01/01/23 08:00 Pulse 78 01/01/23 10:30 Resp 21 01/01/23 10:30 BP 117/71 01/01/23 11:00 Pulse Ox 95 01/01/23 08:00 FiO2 Intake & Output 12/31/22 01/01/23 01/01/23 18:59 06:59 18:59 Intake Total 3025 1025 Output Total 675 1350 Balance 2350 -325 Intake: IV 950 Lactated Ringers 1,000 ml 200 @ 20 mls/hr IV .Q24H [facility] Rx#:[id number] Sodium Chloride 0.9% 1, 750 000 ml @ 75 mls/hr IV . [id number] [facility] Rx#:[id number] Intake, IV Titration 925 75 Amount Sodium Chloride 0.9% 1, 825 75 000 ml @ 75 mls/hr IV . [id number] [facility] Rx#:[id number] metroNIDAZOLE-NS PMX 500 100 mg In Saline 1 100ml.bag @ 100 mls/hr IVPB Q8H [facility] Rx#:[id number] Oral 2100 0 Output: Urine 675 1350 Other: Voiding Method Toilet Toilet Urinal Urinal # Voids 1 # Bowel Movements 1 - Exam An elderly male lying in bed in no distress lungs clear to auscultation Abdomen soft Exam compared with the help of [employer] - Labs CBC & Chem 7: 01/02/23 04:20 01/01/23 03:26 Labs: Abnormal Lab Results - Last 24 Hours (Table) 12/31/22 01/01/23 01/01/23 Range/Units 17:49 03:26 03:26 RBC 2.48 L (4.30-5.90) m/uL Hgb 7.7 L (13.0-17.5) gm/dL Hct 22.5 L (39.0-53.0) % Sodium 136 L (137-145) mmol/L Chloride 110 H (98-107) mmol/L Carbon Dioxide 21 L (22-30) mmol/L POC Glucose (mg/dL) 130 H (70-110) mg/dL Calcium 6.8 L (8.4-10.2) mg/dL 01/01/23 Range/Units 06:16 RBC (4.30-5.90) m/uL Hgb (13.0-17.5) gm/dL Hct (39.0-53.0) % Sodium (137-145) mmol/L Chloride (98-107) mmol/L Carbon Dioxide (22-30) mmol/L POC Glucose (mg/dL) 115 H (70-110) mg/dL Calcium (8.4-10.2) mg/dL Microbiology - Last 24 Hours (Table) 12/28/22 22:48 Blood Culture - Preliminary Blood Assessment and Plan (1) C. difficile colitis Current Visit: Yes Status: Acute Code(s): A04.72 - ENTEROCOLITIS D/T CLOSTRIDIUM DIFFICILE, NOT SPCF RECUR SNOMED Code(s): 424121900 Plan: 1patient present hospital abdominal pain diarrhea and black stools with evidence of colitis on CT and stool for C. difficile is positive likely related to C. difficile colitis 2-Pt seems to have shown clinical improvement and will continue patient on vancomycin 250 mg p.o. every 6 hours 3--encourage probiotic and yogurt intake This was a telehealth visit Time with Patient: Less than 30
[2023-01-01 23:46] LABS: Glucose,Whole Blood 84 mg/dL (70-110)
[2023-01-02] MEDS: HYDROmorphone 1 MG/ML 1 ML SYRINGE IVP PRN ×6 (00:10→21:48)
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
[2023-01-02 05:57] LABS: Basophils % (A) 0 %; Eosinophils # (A) 0.3 k/uL (0-0.7); Eosinophils % (A) 7 %; HCT 20.9 % (39.0-53.0); Lymphocytes # (A) 0.6 k/uL (1.0-4.8); Lymphocytes % (A) 16 %; MCH 30.1 pg (25.0-35.0); MCHC 33.1 g/dL (31.0-37.0); Mean Platelet Volume 7.9; Monocytes # (A) 0.2 k/uL (0-1.0); Monocytes % (A) 6 %; Neutrophils # (A) 2.5 k/uL (1.3-7.7); Neutrophils % (A) 69 %; Platelet Count 205 k/uL (150-450); RBC 2.29 m/uL (4.30-5.90); RDW 15.3 % (11.5-15.5); WBC 3.7 k/uL (3.8-10.6)
[2023-01-02 06:14] LABS: HGB 6.9 gm/dL (13.0-17.5)
[2023-01-02 06:20] LABS: Glucose,Whole Blood 84 mg/dL (70-110)
[2023-01-02] MEDS: metroNIDAZOLE-NS PMX 500 MG in SALINE 1 100ML.BAG IVPB SCH ×3 (06:20→22:20)
[2023-01-02] MEDS: SODIUM CHLORIDE 0.9% 1,000 ML IV SCH ×2 (08:32→21:35)
[2023-01-02] MEDS: VANCOMYCIN 125 MG CAPSULE PO SCH ×4 (08:32→21:48)
[2023-01-02] MEDS: PANTOPRAZOLE 40 MG/10 ML VIAL IVP SCH ×2 (08:32→20:51)
--- NOTE | 2023-01-02 09:25 | P.PN ---
Progress Note - Text Progress Note Date: 01/02/23 Patient's resting comfortably in the bed. The patient states he has pain in the right left lower quadrants. He states his pain is a 7 out of 10. His hemoglobin was 6.9 this morning. He is currently receiving 1 unit of packed red cells. On exam vital signs appear stable. Abdomen soft. There is some mild tenderness in the right and left lower quadrants. Resolving C. diff colitis. Patient can receive medical management.
--- NOTE | 2023-01-02 11:12 | P.PN ---
Subjective Progress Note Date: 01/02/23 This is a very pleasant 72-year-old male patient with a history of kidney cancer status post radical left nephrectomy, GI bleed, hypertension, hyperlipidemia, rheumatoid arthritis, hypothyroidism, metastatic prostate cancer to the bone. Most recent bone scan from 10/24/2022 revealed markedly interval improvement with markedly reduced uptake seen throughout the vertebral column, rib cage and pelvis. He presented here to the emergency room yesterday after 4 day history of black tarry stools and increasing abdominal pain. Computed tomography scan of the abdomen revealed mild diffuse wall thickening within the colon with possible colitis. Multiple sclerotic lesions suspicious for metastases. Hypodense lesion in the liver near the suspected hepatic cysts. The patient's stool for occult blood was positive. Initial hemoglobin 14.1. White count 9.6. Platelets 297. Sodium 139. Potassium 4.9. Bicarb 22. BUN 43. Creatinine 1.49. Glucose 111. The patient was noted to have dark tarry stools this morning however he had a bright red bowel movement. His hemoglobin dropped to 7.3. Also having a drop in blood pressure currently in the 90s over 60s. We're consulted for transfer to the intensive care unit. Patient was seen and evaluated. He remains awake and alert. Maintaining O2 saturations in the 90s on room air. He's afebrile. Most recent blood pressure 106/69 with a mean of 81. Heart rate stable in the 70s and 80s. He's been initiated on ceftriaxone and Flagyl. IV Protonix. Normal saline at 75 ML's per hour. The patient is seen today in 12/30/2022 in follow-up in the intensive care unit. He is awake and alert in no acute distress. Resting fairly comfortably in bed. Maintaining good O2 saturations in the mid 90s on room air. Afebrile. Hemodynamically stable. He is still having some ongoing abdominal discomfort mostly in the lower quadrants. The plan is for EGD/colonoscopy early next week. He is receiving his second unit of packed red blood cells for a hemoglobin of 7.2 this morning. White count 3.8. Platelets 151. Sodium 137. Potassium 4.5. Bicarb 17. BUN 58. Creatinine 1.62. Glucose 73. He is continued on ceftriaxone and metronidazole. 0.9 percent normal saline at 75 mL's per hour. Remains on IV Protonix. The patient is seen today 12/31/2022 in follow-up in the intensive care unit. He is resting comfortably in bed. Awake and alert in no acute distress. Maintaining O2 saturations in the 90s on 2 L/m per nasal cannula. He has normal saline at 75 ML's per hour. He is status post 2 units of packed red blood cells. Current hemoglobin 8.2. He has had some dark stool. No bright red blood. C. diff screen was positive. White count 4.3. Platelets 172. Sodium 1:30. Potassium 4.5. Bicarb 18. BUN 33. Creatinine 1.13. Glucose 86. He is on oral vancomycin, Flagyl. Remains on IV Protonix. The patient is seen today 01/01/2023 in follow-up in the intensive care unit. He is a MedSurg overflow patient. He is awake and alert in no acute distress. He is maintaining good O2 saturations in the mid 90s on 2 L/m per nasal cannula. Afebrile. Hemodynamically stable. He is status post 2 units of packed red blood cells this admission. Current hemoglobin 7.7. White count 4.3. Platelets 167. Sodium 136. Potassium 4.9. Bicarb 21. BUN 17. Creatinine 1.06. He remains on saline at 75 ML's per hour. Continued on vancomycin and Flagyl. The patient is seen today 01/02/2023 in follow-up in the intensive care unit. He remains a MedSurg overflow. He is awake and alert in no acute distress. Maintaining good O2 saturations up to 100% on room air. Hemodynamically stable. He has had ongoing issues with some dark tarry stools 3 more through the night. He has some ongoing tenderness in the lower quadrants. He received a third unit of packed red blood cells. His hemoglobin was 6.9. Platelets 205. White count 3.7. He remains on oral vancomycin and Flagyl. Normal saline at 75 ML's per hour. Objective - Vital Signs Vital signs: Vital Signs Temp 98.2 F 01/02/23 10:35 Pulse 71 01/02/23 10:35 Resp 15 01/02/23 10:35 BP 147/88 01/02/23 10:35 Pulse Ox 100 01/02/23 10:35 FiO2 Intake & Output 0501/02/23 01/02/23 18:59 06:59 18:59 Intake Total 1615 1235 310 Output Total 750 0 Balance 865 1235 310 Weight 64.8 kg Intake: IV 340 1235 Lactated Ringers 1,000 ml 240 260 @ 20 mls/hr IV .Q24H [facility] Rx#:[id number] Sodium Chloride 0.9% 1, 975 000 ml @ 75 mls/hr IV . [id number] [facility] Rx#:[id number] metroNIDAZOLE-NS PMX 500 100 mg In Saline 1 100ml.bag @ 100 mls/hr IVPB Q8H [facility] Rx#:[id number] Intake, IV Titration 675 Amount Sodium Chloride 0.9% 1, 675 000 ml @ 75 mls/hr IV . [id number] [facility] Rx#:[id number] Oral 600 Blood Product 310 Rc As-1 Unit 310 [id number] Output: Urine 750 0 Other: Voiding Method Toilet Urinal # Voids 1 # Bowel Movements 1 1 - Exam GENERAL EXAM: Alert, pleasant, pale 72-year-old male patient, comfortable in no apparent distress. HEAD: Normocephalic. EYES: Normal reaction of pupils, equal size. NOSE: Clear with pink turbinates. THROAT: No erythema or exudates. NECK: No masses, no JVD. CHEST: No chest wall deformity. LUNGS: Equal air entry with no crackles, wheeze, rhonchi or dullness. On room air CVS: S1 and S2 normal with no audible murmur, regular rhythm. ABDOMEN: Tenderness in the lower quadrants. No hepatosplenomegaly, normal bowel sounds, no guarding or rigidity. SPINE: No scoliosis or deformity SKIN: No rashes CENTRAL NERVOUS SYSTEM: No focal deficits, tone is normal in all 4 extremities. EXTREMITIES: There is no peripheral edema. No clubbing, no cyanosis. Peripheral pulses are intact. - Labs CBC & Chem 7: 01/02/23 04:20 01/01/23 03:26 Labs: Abnormal Lab Results - Last 24 Hours (Table) 01/01/23 01/02/23 01/02/23 Range/Units 18:13 04:20 06:40 WBC 3.7 L (3.8-10.6) k/uL RBC 2.29 L (4.30-5.90) m/uL Hgb 6.9 L* (13.0-17.5) gm/dL Hct 20.9 L (39.0-53.0) % Lymphocytes # 0.6 L (1.0-4.8) k/uL POC Glucose (mg/dL) 153 H (70-110) mg/dL Crossmatch See Detail Microbiology - Last 24 Hours (Table) 12/28/22 22:48 Blood Culture - Preliminary Blood Assessment and Plan Assessment: Abdominal pain with black tarry stools and then with 1 red bloody stool, positive for C difficile C. difficile infection. 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 Number of minutes spent on the visit: 10.
[2023-01-02 11:50] LABS: Glucose,Whole Blood 72 mg/dL (70-110)
--- NOTE | 2023-01-02 12:45 | P.PN ---
Subjective Progress Note Date: 01/02/23 Principal diagnosis: C diff colitis patient is a 72-year old male presented to hospital with abdominal pain black tarry stool CT abdominal pelvis with evidence of diffuse wall thickening concerning for colitis stool for C. difficile subsequently came back positive. On today's evaluation that is 01/02/2023, the patient remains to be afebrile, the patient lower abdominal pain has decreased in intensity the patient diarrhea has resolved mention did have a more former brown stools, the patient denies any nausea vomiting or chest pain shortness of breath or cough Objective - Vital Signs Vital signs: Vital Signs Temp 98.2 F 01/02/23 10:35 Pulse 71 01/02/23 10:35 Resp 15 01/02/23 10:35 BP 147/88 01/02/23 10:35 Pulse Ox 100 01/02/23 10:35 FiO2 Intake & Output 01/01/23 01/02/23 01/02/23 18:59 06:59 18:59 Intake Total 1615 1235 310 Output Total 750 0 Balance 865 1235 310 Weight 64.8 kg Intake: IV 340 1235 Lactated Ringers 1,000 ml 240 260 @ 20 mls/hr IV .Q24H [facility] Rx#:[id number] Sodium Chloride 0.9% 1, 975 000 ml @ 75 mls/hr IV . [id number] [facility] Rx#:[id number] metroNIDAZOLE-NS PMX 500 100 mg In Saline 1 100ml.bag @ 100 mls/hr IVPB Q8H [facility] Rx#:[id number] Intake, IV Titration 675 Amount Sodium Chloride 0.9% 1, 675 000 ml @ 75 mls/hr IV . [id number] [facility] Rx#:[id number] Oral 600 Blood Product 310 Rc As-1 Unit 310 [id number] Output: Urine 750 0 Other: Voiding Method Toilet Urinal # Voids 1 # Bowel Movements 1 1 - Exam GENERAL DESCRIPTION: An elderly male lying in bed in no distress RESPIRATORY SYSTEM: Unlabored breathing , decreased breath sounds at bases HEART: S1 S2 regular rate and rhythm , ABDOMEN: Soft , no tenderness EXTREMITIES: No edema feet - Labs CBC & Chem 7: 01/02/23 04:20 01/01/23 03:26 Labs: Abnormal Lab Results - Last 24 Hours (Table) 01/01/23 01/02/23 01/02/23 Range/Units 18:13 04:20 06:40 WBC 3.7 L (3.8-10.6) k/uL RBC 2.29 L (4.30-5.90) m/uL Hgb 6.9 L* (13.0-17.5) gm/dL Hct 20.9 L (39.0-53.0) % Lymphocytes # 0.6 L (1.0-4.8) k/uL POC Glucose (mg/dL) 153 H (70-110) mg/dL Crossmatch See Detail Microbiology - Last 24 Hours (Table) 12/28/22 22:48 Blood Culture - Preliminary Blood Assessment and Plan (1) C. difficile colitis Current Visit: Yes Status: Acute Code(s): A04.72 - ENTEROCOLITIS D/T CLOSTRIDIUM DIFFICILE, NOT SPCF RECUR SNOMED Code(s): 827509015 Plan: 1patient present hospital abdominal pain diarrhea and black stools with evidence of colitis on CT and stool for C. difficile is positive likely related to C. difficile colitis 2-the patient has shown clinical improvement with resolution of his diarrhea, the patient will continue patient on vancomycin 250 mg p.o. every 6 hours, the patient has been encouraged to increase his probiotic and yogurt intake Time with Patient: Less than 30
[2023-01-02] MEDS: ONDANSETRON 4 MG/2 ML VIAL IVP PRN (12:54)
[2023-01-02] MEDS ORDERED: PROMETHAZINE 25 MG TAB PO PRN (15:45)
[2023-01-02] MEDS: LACTATED RINGERS 1,000 ML IV SCH (17:25)
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
[2023-01-03] MEDS: HYDROmorphone 1 MG/ML 1 ML SYRINGE IVP PRN ×5 (00:37→22:01)
[2023-01-03] MEDS: ONDANSETRON 4 MG/2 ML VIAL IVP PRN ×3 (00:41→22:01)
[2023-01-03] MEDS: metroNIDAZOLE-NS PMX 500 MG in SALINE 1 100ML.BAG IVPB SCH (06:40)
[2023-01-03] MEDS: PANTOPRAZOLE 40 MG/10 ML VIAL IVP SCH ×2 (10:17→21:55)
[2023-01-03] MEDS: VANCOMYCIN 125 MG CAPSULE PO SCH ×4 (10:18→21:55)
[2023-01-03 10:50] LABS: Basophils # (A) 0.03 X 10*3/uL (0.00-0.10); Basophils % (A) 0.6 %; Eosinophils # (A) 0.37 X 10*3/uL (0.04-0.35); HCT 24.2 % (39.6-50.0); HGB 7.8 g/dL (13.0-17.0); Immature Grans, Automated 3.9 %; Lymphocytes # (A) 0.52 X 10*3/uL (0.90-5.00); Lymphocytes % (A) 11.3 %; MCH 30.2 pg (27.0-32.0); MCHC 32.2 g/dL (32.0-37.0); MCV 93.8 fL (80.0-97.0); Monocytes # (A) 0.42 X 10*3/uL (0.20-1.00); Monocytes % (A) 9.1 %; NRBC Per 100 WBC 0 /100 WBCS (0.0-0.0); Neutrophils % (A) 67.1 %; Platelet Count 220 X 10*3/uL (140-440); RBC 2.58 X 10*6/uL (4.40-5.60); RDW 15.2 % (11.5-14.5); WBC 4.62 X 10*3/uL (4.50-10.00)
[2023-01-03 11:15] LABS: African American GFR (CKD) 70.1 (60.0-200.0); Anion Gap 8.8 mmol/L (10.00-18.00); BUN/Creat Ratio 7.25 Ratio (12.00-20.00); Blood Urea Nitrogen 8.7 mg/dL (9.0-27.0); Calcium 6.9 mg/dL (8.7-10.3); Carbon Dioxide 20.2 mmol/L (20.0-27.5); Non-African American GFR(CKD) 60.5 (60.0-200.0); Potassium 4.7 mmol/L (3.5-5.5)
--- NOTE | 2023-01-03 12:28 | P.PN ---
Subjective Progress Note Date: 01/03/23 Principal diagnosis: C diff colitis patient is a 72-year old male presented to hospital with abdominal pain black tarry stool CT abdominal pelvis with evidence of diffuse wall thickening concerning for colitis stool for C. difficile subsequently came back positive. On today's evaluation that is 01/03/2023, the patient denies having any fever or any chills, the patient abdominal pain has decreased in intensity and the patient diarrhea slowing down, still managed to having dark stools, no chest pain shortness of breath or cough Objective - Vital Signs Vital signs: Vital Signs Temp 98.3 F 01/03/23 07:35 Pulse 70 01/03/23 07:35 Resp 18 01/03/23 07:35 BP 123/80 01/03/23 07:35 Pulse Ox 98 01/03/23 08:59 FiO2 21 01/03/23 08:59 Intake & Output 01/02/23 01/03/23 01/03/23 18:59 06:59 18:59 Intake Total 2230 Output Total 800 Balance 1430 Intake: IV 120 Lactated Ringers 1,000 ml 120 @ 20 mls/hr IV .Q24H [facility] Rx#:[id number] Intake, IV Titration 900 Amount Sodium Chloride 0.9% 1, 900 000 ml @ 50 mls/hr IV . 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 difficile colitis Current Visit: Yes Status: Acute Code(s): A04.72 - ENTEROCOLITIS D/T CLOSTRIDIUM DIFFICILE, NOT SPCF RECUR SNOMED Code(s): 238399461 Plan: 1patient present hospital abdominal pain diarrhea and black stools with evidence of colitis on CT and stool for C. difficile is positive likely related to C. difficile colitis 2-patient has shown shown clinical improvement and will continue patient on vancomycin 250 mg p.o. every 6 hours, however discontinue IV Flagyl Time with Patient: Less than 30
--- NOTE | 2023-01-03 12:57 | P.PN ---
Subjective Progress Note Date: 01/03/23 This is a very pleasant 72-year-old male patient with a history of kidney cancer status post radical left nephrectomy, GI bleed, hypertension, hyperlipidemia, rheumatoid arthritis, hypothyroidism, metastatic prostate cancer to the bone. Most recent bone scan from 10/24/2022 revealed markedly interval improvement with markedly reduced uptake seen throughout the vertebral column, rib cage and pelvis. He presented here to the emergency room yesterday after 4 day history of black tarry stools and increasing abdominal pain. Computed tomography scan of the abdomen revealed mild diffuse wall thickening within the colon with possible colitis. Multiple sclerotic lesions suspicious for metastases. Hypodense lesion in the liver near the suspected hepatic cysts. The patient's stool for occult blood was positive. Initial hemoglobin 14.1. White count 9.6. Platelets 297. Sodium 139. Potassium 4.9. Bicarb 22. BUN 43. Creatinine 1.49. Glucose 111. The patient was noted to have dark tarry stools this morning however he had a bright red bowel movement. His hemoglobin dropped to 7.3. Also having a drop in blood pressure currently in the 90s over 60s. We're consulted for transfer to the intensive care unit. Patient was seen and evaluated. He remains awake and alert. Maintaining O2 saturations in the 90s on room air. He's afebrile. Most recent blood pressure 106/69 with a mean of 8 1. Heart rate stable in the 70s and 80s. He's been initiated on ceftriaxone and Flagyl. IV Protonix. Normal saline at 75 ML's per hour. The patient is seen today in 12/30/2022 in follow-up in the intensive care unit. He is awake and alert in no acute distress. Resting fairly comfortably in bed. Maintaining good O2 saturations in the mid 90s on room air. Afebrile. Hemodynamically stable. He is still having some ongoing abdominal discomfort mostly in the lower quadrants. The plan is for EGD/colonoscopy early next week. He is receiving his second unit of packed red blood cells for a hemoglobin of 7.2 this morning. White count 3.8. Platelets 151. Sodium 137. Potassium 4.5. Bicarb 17. BUN 58. Creatinine 1.62. Glucose 73. He is continued on ceftriaxone and metronidazole. 0.9 percent normal saline at 75 mL's per hour. Remains on IV Protonix. The patient is seen today 12/31/2022 in follow-up in the intensive care unit. He is resting comfortably in bed. Awake and alert in no acute distress. Maintaining O2 saturations in the 90s on 2 L/m per nasal cannula. He has normal saline at 75 ML's per hour. He is status post 2 units of packed red blood cells. Current hemoglobin 8.2. He has had some dark stool. No bright red blood. C. diff screen was positive. White count 4.3. Platelets 172. Sodium 1:30. Potassium 4.5. Bicarb 18. BUN 33. Creatinine 1.13. Glucose 86. He is on oral vancomycin, Flagyl. Remains on IV Protonix. The patient is seen today 01/01/2023 in follow-up in the intensive care unit. He is a MedSurg overflow patient. He is awake and alert in no acute distress. He is maintaining good O2 saturations in the mid 90s on 2 L/m per nasal cannula. Afebrile. Hemodynamically stable. He is status post 2 units of packed red blood cells this admission. Current hemoglobin 7.7. White count 4.3. Platelets 167. Sodium 136. Potassium 4.9. Bicarb 21. BUN 17. Creatinine 1.06. He remains on saline at 75 ML's per hour. Continued on vancomycin and Flagyl. The patient is seen today 01/02/2023 in follow-up in the intensive care unit. He remains a MedSurg overflow. He is awake and alert in no acute distress. Maintaining good O2 saturations up to 100% on room air. Hemodynamically stable. He has had ongoing issues with some dark tarry stools 3 more through the night. He has some ongoing tenderness in the lower quadrants. He received a third unit of packed red blood cells. His hemoglobin was 6.9. Platelets 205. White count 3.7. He remains on oral vancomycin and Flagyl. Normal saline at 75 ML's per hour. On 01/03/2023, seeing the patient for a follow-up. The patient is doing well. No specific complaints and the patient is currently on room air oxygen. Still having some melanotic stools and diarrhea. The patient was transfused with packed RBC and hemoglobin has dropped down to 6.9 and then came up to 7.8. The echoes at 4.6 with a hemoglobin of 7.8 and a platelet count of 220. The BUN is at 8.7 with a creatinine of 1.2 and a sodium level is at 138. No nausea. No altered mentation. No other new complaints. The patient is on oral vancomycin. The patient is also on lactated Ringer at the rate of 20 mL an hour. The patient is receiving IV Protonix 40 mg every 12 hours. Objective - Vital Signs Vital signs: Vital Signs Temp 98.3 F 01/03/23 07:35 Pulse 70 01/03/23 07:35 Resp 18 01/03/23 07:35 BP 123/80 01/03/23 07:35 Pulse Ox 98 01/03/23 08:59 FiO2 21 01/03/23 08:59 Intake & Output 01/02/23 01/03/23 01/03/23 18:59 06:59 18:59 Intake Total 2230 Output Total 800 Balance 1430 Intake: IV 120 Lactated Ringers 1,000 ml 120 @ 20 mls/hr IV .Q24H [facility] Rx#:[id number] Intake, IV Titration 900 Amount Sodium Chloride 0.9% 1, 900 000 ml @ 50 mls/hr IV . Q20H [facility] Rx#:[id number] Oral 900 Blood Product 310 Rc As-1 Unit 310 [id number] Output: Urine 800 Other: Voiding Method Toilet Urinal # Voids 1 1 # Bowel Movements 1 2 - Exam GENERAL EXAM: Alert, pleasant, pale 72-year-old male patient, comfortable in no apparent distress. HEAD: Normocephalic. EYES: Normal reaction of pupils, equal size. NOSE: Clear with pink turbinates. THROAT: No erythema or exudates. NECK: No masses, no JVD. CHEST: No chest wall deformity. LUNGS: Equal air entry with no crackles, wheeze, rhonchi or dullness. On room air CVS: S1 and S2 normal with no audible murmur, regular rhythm. ABDOMEN: Tenderness in the lower quadrants. No hepatosplenomegaly, normal bowel sounds, no guarding or rigidity. SPINE: No scoliosis or deformity SKIN: No rashes CENTRAL NERVOUS SYSTEM: No focal deficits, tone is normal in all 4 extremities. EXTREMITIES: There is no peripheral edema. No clubbing, no cyanosis. Peripheral pulses are intact. - Labs CBC & Chem 7: 01/03/23 05:55 01/03/23 05:55 Labs: Abnormal Lab Results - Last 24 Hours (Table) 01/03/23 Range/Units 05:55 RBC 2.58 L (4.40-5.60) X 10*6/uL Hgb 7.8 L (13.0-17.0) g/dL Hct 24.2 L (39.6-50.0) % RDW 15.2 H (11.5-14.5) % Immature Gran # 0.18 H (0.00-0.04) X 10*3/uL Lymphocytes # 0.52 L (0.90-5.00) X 10*3/uL Eosinophils # 0.37 H (0.04-0.35) X 10*3/uL Microbiology - Last 24 Hours (Table) 12/28/22 22:48 Blood Culture - Final Blood Assessment and Plan Plan: Abdominal pain with black tarry stools and then with 1 red bloody stool, positive for C difficile , still on vancomycin. The patient was transfused with a unit of packed RBC C. difficile infection. 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
[2023-01-03 13:15] LABS: % Iron Saturation 12.85 (15.00-50.00); Ferritin 82.5 ng/mL (22.0-322.0)
[2023-01-03] MEDS: SODIUM CHLORIDE 0.9% 1,000 ML IV SCH (13:52)
--- NOTE | 2023-01-03 14:10 | P.PN ---
Subjective Progress Note Date: 01/03/23 CHIEF COMPLAINT: GI bleed and C. diff colitis HISTORY OF PRESENT ILLNESS: Patient transferred out of the ICU to regular medical floor. Patient does complain of some suprapubic pain. He had 2 liquidy, black, tarry stools this afternoon. Patient denies any nausea or vomiting. He did receive 1 unit of blood for hemoglobin of 6.9. Repeat hemoglobin today is 7.8. Afebrile. Vitals stable. He is on oral vancomycin for his C. diff. Patient has received a total of 3 units of blood during this admission. Patient seen and examined with Dr. bryant PHYSICAL EXAM: VITAL SIGNS: Reviewed. GENERAL: Well-developed in no acute distress. HEENT: No sclera icterus. Extraocular movements grossly intact. Moist buccal mucosa. Head is atraumatic, normocephalic. ABDOMEN: Soft. Nondistended. Suprapubic tenderness NEUROLOGIC: Alert and oriented. Cranial nerves II through XII grossly intact. ASSESSMENT: 1. C. diff colitis 2. Acute GI bleed with black tarry stools and one red bloody stool 3. Acute blood loss anemia due to GI bleed requiring blood transfusion 4. History of metastatic prostate cancer PLAN: -Continue to monitor -Continue to monitor hemoglobin -Continue to monitor for any signs or symptoms of bleeding -Transfuse as needed -Continue antibiotics for C. diff -Continue IV fluids -Continue IV Protonix Physician Brim Curler note has been reviewed by physician. Signing provider agrees with the documented findings, assessment, and plan of care. Objective - Vital Signs Vital signs: Vital Signs Temp 98.3 F 01/03/23 07:35 Pulse 70 01/03/23 07:35 Resp 18 01/03/23 07:35 BP 123/80 01/03/23 07:35 Pulse Ox 98 01/03/23 08:59 FiO2 21 01/03/23 08:59 Intake & Output 01/02/23 01/03/23 01/03/23 18:59 06:59 18:59 Intake Total 2230 Output Total 800 Balance 1430 Intake: IV 120 Lactated Ringers 1,000 ml 120 @ 20 mls/hr IV .Q24H [facility] Rx#:[id number] Intake, IV Titration 900 Amount Sodium Chloride 0.9% 1, 900 000 ml @ 50 mls/hr IV . Q20H [facility] Rx#:[id number] Oral 900 Blood Product 310 Rc As-1 Unit 310 [id number] Output: Urine 800 Other: Voiding Method Toilet Urinal # Voids 1 1 # Bowel Movements 1 2 - Labs CBC & Chem 7: 01/03/23 05:55 01/03/23 05:55 Labs: Abnormal Lab Results - Last 24 Hours (Table) 01/03/23 01/03/23 Range/Units 05:55 05:55 RBC 2.58 L (4.40-5.60) X 10*6/uL Hgb 7.8 L (13.0-17.0) g/dL Hct 24.2 L (39.6-50.0) % RDW 15.2 H (11.5-14.5) % Immature Gran # 0.18 H (0.00-0.04) X 10*3/uL Lymphocytes # 0.52 L (0.90-5.00) X 10*3/uL Eosinophils # 0.37 H (0.04-0.35) X 10*3/uL Anion Gap 8.80 L (10.00-18.00) mmol/L BUN 8.7 L (9.0-27.0) mg/dL BUN/Creatinine Ratio 7.25 L (12.00-20.00) Ratio Calcium 6.9 L (8.7-10.3) mg/dL Microbiology - Last 24 Hours (Table) 12/28/22 22:48 Blood Culture - Final Blood
[2023-01-03] MEDS: LACTATED RINGERS 1,000 ML IV SCH (17:56)
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
[2023-01-04] MEDS: PANTOPRAZOLE 40 MG/10 ML VIAL IVP SCH ×2 (08:10→22:37)
[2023-01-04] MEDS: HYDROmorphone 1 MG/ML 1 ML SYRINGE IVP PRN ×2 (08:10→22:38)
[2023-01-04] MEDS: VANCOMYCIN 125 MG CAPSULE PO SCH ×4 (08:10→22:37)
[2023-01-04] MEDS: SODIUM CHLORIDE 0.9% 1,000 ML IV SCH (08:10)
[2023-01-04] MEDS ORDERED: HYDROmorphone 0.5 MG/0.5 ML SYRINGE IVP PRN (10:05)
--- NOTE | 2023-01-04 12:35 | P.PN ---
Subjective Progress Note Date: 01/04/23 This is a very pleasant 72-year-old male patient with a history of kidney cancer status post radical left nephrectomy, GI bleed, hypertension, hyperlipidemia, rheumatoid arthritis, hypothyroidism, metastatic prostate cancer to the bone. Most recent bone scan from 10/24/2022 revealed markedly interval improvement with markedly reduced uptake seen throughout the vertebral column, rib cage and pelvis. He presented here to the emergency room yesterday after 4 day history of black tarry stools and increasing abdominal pain. Computed tomography scan of the abdomen revealed mild diffuse wall thickening within the colon with possible colitis. Multiple sclerotic lesions suspicious for metastases. Hypodense lesion in the liver near the suspected hepatic cysts. The patient's stool for occult blood was positive. Initial hemoglobin 14.1. White count 9.6. Platelets 297. Sodium 139. Potassium 4.9. Bicarb 22. BUN 43. Creatinine 1.49. Glucose 111. The patient was noted to have dark tarry stools this morning however he had a bright red bowel movement. His hemoglobin dropped to 7.3. Also having a drop in blood pressure currently in the 90s over 60s. We're consulted for transfer to the intensive care unit. Patient was seen and evaluated. He remains awake and alert. Maintaining O2 saturations in the 90s on room air. He's afebrile. Most recent blood pressure 106/69 with a mean of 8 1. Heart rate stable in the 70s and 80s. He's been initiated on ceftriaxone and Flagyl. IV Protonix. Normal saline at 75 ML's per hour. The patient is seen today in 12/30/2022 in follow-up in the intensive care unit. He is awake and alert in no acute distress. Resting fairly comfortably in bed. Maintaining good O2 saturations in the mid 90s on room air. Afebrile. Hemodynamically stable. He is still having some ongoing abdominal discomfort mostly in the lower quadrants. The plan is for EGD/colonoscopy early next week. He is receiving his second unit of packed red blood cells for a hemoglobin of 7.2 this morning. White count 3.8. Platelets 151. Sodium 137. Potassium 4.5. Bicarb 17. BUN 58. Creatinine 1.62. Glucose 73. He is continued on ceftriaxone and metronidazole. 0.9 percent normal saline at 75 mL's per hour. Remains on IV Protonix. The patient is seen today 12/31/2022 in follow-up in the intensive care unit. He is resting comfortably in bed. Awake and alert in no acute distress. Maintaining O2 saturations in the 90s on 2 L/m per nasal cannula. He has normal saline at 75 ML's per hour. He is status post 2 units of packed red blood cells. Current hemoglobin 8.2. He has had some dark stool. No bright red blood. C. diff screen was positive. White count 4.3. Platelets 172. Sodium 1:30. Potassium 4.5. Bicarb 18. BUN 33. Creatinine 1.13. Glucose 86. He is on oral vancomycin, Flagyl. Remains on IV Protonix. The patient is seen today 01/01/2023 in follow-up in the intensive care unit. He is a MedSurg overflow patient. He is awake and alert in no acute distress. He is maintaining good O2 saturations in the mid 90s on 2 L/m per nasal cannula. Afebrile. Hemodynamically stable. He is status post 2 units of packed red blood cells this admission. Current hemoglobin 7.7. White count 4.3. Platelets 167. Sodium 136. Potassium 4.9. Bicarb 21. BUN 17. Creatinine 1.06. He remains on saline at 75 ML's per hour. Continued on vancomycin and Flagyl. The patient is seen today 01/02/2023 in follow-up in the intensive care unit. He remains a MedSurg overflow. He is awake and alert in no acute distress. Maintaining good O2 saturations up to 100% on room air. Hemodynamically stable. He has had ongoing issues with some dark tarry stools 3 more through the night. He has some ongoing tenderness in the lower quadrants. He received a third unit of packed red blood cells. His hemoglobin was 6.9. Platelets 205. White count 3.7. He remains on oral vancomycin and Flagyl. Normal saline at 75 ML's per hour. On 01/03/2023, seeing the patient for a follow-up. The patient is doing well. No specific complaints and the patient is currently on room air oxygen. Still having some melanotic stools and diarrhea. The patient was transfused with packed RBC and hemoglobin has dropped down to 6.9 and then came up to 7.8. The echoes at 4.6 with a hemoglobin of 7.8 and a platelet count of 220. The BUN is at 8.7 with a creatinine of 1.2 and a sodium level is at 138. No nausea. No altered mentation. No other new complaints. The patient is on oral vancomycin. The patient is also on lactated Ringer at the rate of 20 mL an hour. The patient is receiving IV Protonix 40 mg every 12 hours. On 01/04/2023, the patient's diarrhea subsided. No evidence of any GI bleeding. Hemodynamically stable on room air oxygen. Remains on oral vancomycin. No fever or chills. No nausea or vomiting or abdominal pain. Most recent hemoglobin from yesterday was at 7.8. Objective - Vital Signs Vital signs: Vital Signs Temp 99.2 F 01/04/23 07:37 Pulse 75 01/04/23 07:37 Resp 15 01/04/23 07:37 BP 139/90 01/04/23 07:37 Pulse Ox 95 01/04/23 07:37 FiO2 21 01/03/23 08:59 Intake & Output 01/03/23 01/04/23 01/04/23 18:59 06:59 18:59 Other: # Voids 4 2 # Bowel Movements 2 - Exam GENERAL EXAM: Alert, pleasant, pale 72-year-old male patient, comfortable in no apparent distress. HEAD: Normocephalic. EYES: Normal reaction of pupils, equal size. NOSE: Clear with pink turbinates. THROAT: No erythema or exudates. NECK: No masses, no JVD. CHEST: No chest wall deformity. LUNGS: Equal air entry with no crackles, wheeze, rhonchi or dullness. On room air CVS: S1 and S2 normal with no audible murmur, regular rhythm. ABDOMEN: Tenderness in the lower quadrants. No hepatosplenomegaly, normal bowel sounds, no guarding or rigidity. SPINE: No scoliosis or deformity SKIN: No rashes CENTRAL NERVOUS SYSTEM: No focal deficits, tone is normal in all 4 extremities. EXTREMITIES: There is no peripheral edema. No clubbing, no cyanosis. Peripheral pulses are intact. - Labs CBC & Chem 7: 01/03/23 05:55 01/03/23 05:55 Labs: Abnormal Lab Results - Last 24 Hours (Table) 01/03/23 01/03/23 Range/Units 05:55 05:55 RBC 2.58 L (4.40-5.60) X 10*6/uL Hgb 7.8 L (13.0-17.0) g/dL Hct 24.2 L (39.6-50.0) % RDW 15.2 H (11.5-14.5) % Immature Gran # 0.18 H (0.00-0.04) X 10*3/uL Lymphocytes # 0.52 L (0.90-5.00) X 10*3/uL Eosinophils # 0.37 H (0.04-0.35) X 10*3/uL Anion Gap 8.80 L (10.00-18.00) mmol/L BUN 8.7 L (9.0-27.0) mg/dL BUN/Creatinine Ratio 7.25 L (12.00-20.00) Ratio Calcium 6.9 L (8.7-10.3) mg/dL Iron 36 L (65-175) ug/dL % Saturation 12.85 L (15.00-50.00) Transferrin 199.0 L (204.0-354.0) mg/dL Microbiology - Last 24 Hours (Table) 12/28/22 22:48 Blood Culture - Final Blood Assessment and Plan Plan: Abdominal pain with black tarry stools and then with 1 red bloody stool, positive for C difficile , still on vancomycin. The patient was transfused with a unit of packed RBC, clinically improving and there is no evidence of GI bleed and the diarrhea is subsiding C. difficile infection. 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
[2023-01-04 13:59] LABS: Basophils # (A) 0.03 X 10*3/uL (0.00-0.10); Basophils % (A) 0.5 %; Eosinophils # (A) 0.34 X 10*3/uL (0.04-0.35); Eosinophils % (A) 6.2 %; HGB 7.7 g/dL (13.0-17.0); Immature Grans, Automated 3.7 %; Lymphocytes # (A) 0.69 X 10*3/uL (0.90-5.00); Lymphocytes % (A) 12.6 %; MCHC 32.1 g/dL (32.0-37.0); MCV 93.4 fL (80.0-97.0); Mean Platelet Volume 10.1 fL (9.5-12.2); Monocytes # (A) 0.55 X 10*3/uL (0.20-1.00); Monocytes % (A) 10.1 %; NRBC Per 100 WBC 0 /100 WBCS (0.0-0.0); Neutrophils # (A) 3.66 X 10*3/uL (1.80-7.70); Neutrophils % (A) 66.9 %; Platelet Count 198 X 10*3/uL (140-440); RBC 2.57 X 10*6/uL (4.40-5.60); RDW 15.2 % (11.5-14.5); WBC 5.47 X 10*3/uL (4.50-10.00)
[2023-01-04] MEDS ORDERED: CYANOCOBALAMIN 1,000 MCG/ML 1 ML VIAL IM ONE (14:04)
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
--- NOTE | 2023-01-04 14:19 | P.PN ---
Subjective Progress Note Date: 01/04/23 Principal diagnosis: C diff colitis patient is a 72-year old male presented to hospital with abdominal pain black tarry stool CT abdominal pelvis with evidence of diffuse wall thickening concerning for colitis stool for C. difficile subsequently came back positive. On today's evaluation that is 01/04/2023, the patient remains to be afebrile, the patient abdominal pain has decreased in intensity and the patient diarrhea slowing down and stools are forming up denies having any dark stools, no chest pain shortness of breath or cough Objective - Vital Signs Vital signs: Vital Signs Temp 99.2 F 01/04/23 07:37 Pulse 75 01/04/23 07:37 Resp 15 01/04/23 07:37 BP 139/90 01/04/23 07:37 Pulse Ox 95 01/04/23 07:37 FiO2 21 01/03/23 08:59 Intake & Output 01/03/23 01/04/23 01/04/23 18:59 06:59 18:59 Other: # Voids 4 2 # Bowel Movements 2 - Exam An elderly male lying in bed in no distress lungs clear to auscultation Abdomen soft Exam compared with the help of ROTARY ROCK DRILLING MACHINE OPERATOR - Labs CBC & Chem 7: 01/04/23 06:02 01/03/23 05:55 Labs: Abnormal Lab Results - Last 24 Hours (Table) 01/03/23 Range/Units 05:55 Iron 36 L (65-175) ug/dL % Saturation 12.85 L (15.00-50.00) Transferrin 199.0 L (204.0-354.0) mg/dL Microbiology - Last 24 Hours (Table) 12/28/22 22:48 Blood Culture - Final Blood Assessment and Plan (1) C. difficile colitis Current Visit: Yes Status: Acute Code(s): A04.72 - ENTEROCOLITIS D/T CLOSTRIDIUM DIFFICILE, NOT SPCF RECUR SNOMED Code(s): 044465651 Plan: 1patient present hospital abdominal pain diarrhea and black stools with evidence of colitis on CT and stool for C. difficile is positive likely related to C. difficile colitis 2-patient has shown shown clinical improvement and will continue patient on vancomycin 250 mg p.o. every 6 hours for another 10 days of discharge and close outpatient follow-up Time with Patient: Less than 30
--- NOTE | 2023-01-04 14:47 | P.PN ---
Subjective Progress Note Date: 01/04/23 CHIEF COMPLAINT: GI bleed and C. diff colitis HISTORY OF PRESENT ILLNESS: Patient being treated for C. diff colitis. He had no bowel movement this morning. He had 4 loose black stools yesterday. Hemoglo bin is staying stable at 7.7 patient has required a total of 3 units of blood during this admission. He is still complaining of abdominal pain and requiring IV pain medication Patient seen and examined with Dr. bryant PHYSICAL EXAM: VITAL SIGNS: Reviewed. GENERAL: Well-developed in no acute distress. HEENT: No sclera icterus. Extraocular movements grossly intact. Moist buccal mucosa. Head is atraumatic, normocephalic. ABDOMEN: Soft. Nondistended. NEUROLOGIC: Alert and oriented. Cranial nerves II through XII grossly intact. ASSESSMENT: 1. C. diff colitis 2. Acute GI bleed with black tarry stools and one red bloody stool 3. Acute blood loss anemia due to GI bleed requiring blood transfusion 4. History of metastatic prostate cancer PLAN: -Patient scheduled for EGD tomorrow with Dr. bryant -Continue to monitor hemoglobin -Continue to monitor for any signs or symptoms of bleeding -Transfuse as needed -Continue antibiotics for C. diff -Continue IV Protonix Physician Graphic Engineer note has been reviewed by physician. Signing provider agrees with the documented findings, assessment, and plan of care. Objective - Vital Signs Vital signs: Vital Signs Temp 99.2 F 01/04/23 07:37 Pulse 75 01/04/23 07:37 Resp 15 01/04/23 07:37 BP 139/90 01/04/23 07:37 Pulse Ox 95 01/04/23 07:37 FiO2 21 01/03/23 08:59 Intake & Output 01/03/23 01/04/23 01/04/23 18:59 06:59 18:59 Weight 64.8 kg Other: # Voids 4 2 # Bowel Movements 2 - Labs CBC & Chem 7: 01/04/23 06:02 01/03/23 05:55 Labs: Abnormal Lab Results - Last 24 Hours (Table) 01/04/23 Range/Units 06:02 RBC 2.57 L (4.40-5.60) X 10*6/uL Hgb 7.7 L (13.0-17.0) g/dL Hct 24.0 L (39.6-50.0) % RDW 15.2 H (11.5-14.5) % Immature Gran # 0.20 H (0.00-0.04) X 10*3/uL Lymphocytes # 0.69 L (0.90-5.00) X 10*3/uL
[2023-01-04] MEDS: LACTATED RINGERS 1,000 ML IV SCH (15:31)
[2023-01-04] MEDS: FERROUS SULFATE 325 MG TAB PO SCH (16:51)
[2023-01-04] MEDS: HYDROcodone/APAP 5-325MG 1 EACH TAB PO PRN (18:37)
[2023-01-04] MEDS ORDERED: HYDROmorphone 0.5 MG/0.5 ML SYRINGE IVP STA (19:31)
[2023-01-04] MEDS: SUCRALFATE 1 GM TAB PO SCH (22:37)
[2023-01-05] MEDS: FERROUS SULFATE 325 MG TAB PO SCH ×2 (05:35→16:55)
[2023-01-05] MEDS: SUCRALFATE 1 GM TAB PO SCH ×4 (05:36→21:26)
[2023-01-05] MEDS: HYDROmorphone 1 MG/ML 1 ML SYRINGE IVP PRN ×3 (05:37→12:34)
[2023-01-05] MEDS: LACTATED RINGERS 1,000 ML IV SCH (05:38)
[2023-01-05 06:05] LABS: Glucose,Whole Blood 89 mg/dL (70-110)
[2023-01-05] MEDS: PANTOPRAZOLE 40 MG/10 ML VIAL IVP SCH ×2 (08:37→21:26)
[2023-01-05] MEDS: CYANOCOBALAMIN 1,000 MCG/ML 1 ML VIAL IM SCH (08:37)
[2023-01-05] MEDS: VANCOMYCIN 125 MG CAPSULE PO SCH ×4 (08:38→21:26)
[2023-01-05 10:54] LABS: Basophils # (A) 0.02 X 10*3/uL (0.00-0.10); Basophils % (A) 0.4 %; Eosinophils # (A) 0.31 X 10*3/uL (0.04-0.35); HCT 24.9 % (39.6-50.0); HGB 7.8 g/dL (13.0-17.0); Immature Grans, Automated 3.8 %; Lymphocytes # (A) 0.66 X 10*3/uL (0.90-5.00); Lymphocytes % (A) 14.8 %; MCH 29.9 pg (27.0-32.0); MCHC 31.3 g/dL (32.0-37.0); MCV 95.4 fL (80.0-97.0); Monocytes # (A) 0.48 X 10*3/uL (0.20-1.00); Monocytes % (A) 10.8 %; NRBC Per 100 WBC 0 /100 WBCS (0.0-0.0); Neutrophils # (A) 2.81 X 10*3/uL (1.80-7.70); Neutrophils % (A) 63.2 %; Platelet Count 200 X 10*3/uL (140-440); RBC 2.61 X 10*6/uL (4.40-5.60); RDW 15.6 % (11.5-14.5); WBC 4.45 X 10*3/uL (4.50-10.00)
[2023-01-05 11:04] LABS: Glucose,Whole Blood 95 mg/dL (70-110)
[2023-01-05 11:06] LABS: African American GFR (CKD) 65.6 (60.0-200.0); Anion Gap 9.1 mmol/L (10.00-18.00); BUN/Creat Ratio 9.05 Ratio (12.00-20.00); Blood Urea Nitrogen 11.4 mg/dL (9.0-27.0); Calcium 7.2 mg/dL (8.7-10.3); Carbon Dioxide 21.4 mmol/L (20.0-27.5); Non-African American GFR(CKD) 56.6 (60.0-200.0)
[2023-01-05] MEDS ORDERED: IV FLUID CONTINUATION 900 ML IV ONE (11:38)
[2023-01-05] MEDS ORDERED: LIDOCAINE 2% INJ 20 MG/ML (2 ML VIAL) ONE (11:39)
[2023-01-05] MEDS ORDERED: PROPOFOL 10 MG/ML 20 ML VIAL IV ONE (11:39)
--- NOTE | 2023-01-05 11:53 | P.OP ---
Date of Procedure: 01/05/23 Preoperative Diagnosis: Melanotic stool Postoperative Diagnosis: Duodenitis Procedure(s) Performed: EGD Anesthesia: MAC Surgeon: Jalil Mccormick Pathology: other (Duodenum) Condition: stable Disposition: PACU Description of Procedure: The patient's placed on the endoscopy table in the lateral position. He received IV sedation. The gastro-/oropharynx passed in the esophagus and stomach. Scope was placed through the pylorus. The first and second portion of the duodenum appeared inflamed. There is no active bleeding. However the mucosa appeared to be inflamed. A biopsies performed. Scope was then brought back into the antrum this appeared minimally inflamed. A biopsies performed. The scope was then retroflexed and remainder the stomach appeared normal. The GE junction was at 40 cm.. The distal esophagus appeared minimally inflamed. A biopsies performed. The proximal esophagus appeared normal. Scope withdrawn for patient. Presumed the patient may have had duodenitis is a source was melanotic stool.
--- NOTE | 2023-01-05 14:28 | P.PN ---
Subjective Progress Note Date: 01/05/23 Principal diagnosis: C diff colitis patient is a 72-year old male presented to hospital with abdominal pain black tarry stool CT abdominal pelvis with evidence of diffuse wall thickening concerning for colitis stool for C. difficile subsequently came back positive. Patient is status post EGD this morning with evidence of duodenitis but no active bleeding On today's evaluation that is 01/05/2023, the patient continues to be afebrile, the patient abdominal pain has decreased in intensity and the patient diarrhea has slowed down, the patient denies having any dark stools, no chest pain shortness of breath or cough Objective - Vital Signs Vital signs: Vital Signs Temp 98.0 F 01/05/23 07:27 Pulse 53 L 01/05/23 07:27 Resp 15 01/05/23 07:27 BP 135/81 01/05/23 07:27 Pulse Ox 98 01/05/23 08:30 FiO2 21 01/05/23 08:30 Intake & Output 01/04/23 01/05/23 01/05/23 18:59 06:59 18:59 Intake Total 100 Output Total 1 Balance -1 100 Weight 64.8 kg Intake: IV 100 Output: Stool 1 Other: Voiding Method Toilet Urinal # Voids 4 2 - Exam An elderly male lying in bed in no distress lungs clear to auscultation Abdomen soft Exam compared with the help of VANSTONE MACHINE OPERATOR - Labs CBC & Chem 7: 01/05/23 07:28 01/05/23 07:28 Labs: Abnormal Lab Results - Last 24 Hours (Table) 01/04/23 01/05/23 01/05/23 Range/Units 06:02 07:28 07:28 WBC 4.45 L (4.50-10.00) X 10*3/uL RBC 2.57 L 2.61 L (4.40-5.60) X 10*6/uL Hgb 7.7 L 7.8 L (13.0-17.0) g/dL Hct 24.0 L 24.9 L (39.6-50.0) % MCHC 31.3 L (32.0-37.0) g/dL RDW 15.2 H 15.6 H (11.5-14.5) % Immature Gran # 0.20 H 0.17 H (0.00-0.04) X 10*3/uL Lymphocytes # 0.69 L 0.66 L (0.90-5.00) X 10*3/uL Anion Gap 9.10 L (10.00-18.00) mmol/L Est GFR (CKD-EPI)NonAf 56.6 L (60.0-200.0) BUN/Creatinine Ratio 9.05 L (12.00-20.00) Ratio Calcium 7.2 L (8.7-10.3) mg/dL Assessment and Plan (1) C. difficile colitis Current Visit: Yes Status: Acute Code(s): A04.72 - ENTEROCOLITIS D/T CLOSTRIDIUM DIFFICILE, NOT SPCF RECUR SNOMED Code(s): 953115804 Plan: 1patient present hospital abdominal pain diarrhea and black stools with evidence of colitis on CT and stool for C. difficile is positive likely related to C. difficile colitis 2-patient has shown shown clinical improvement with vancomycin 250 mg p.o. every 6 hours which will be continued for another 10 days on discharge, encouraged to increase his probiotic and yogurt intake Time with Patient: Less than 30
--- NOTE | 2023-01-05 15:52 | P.PN ---
Subjective Progress Note Date: 01/05/23 This is a very pleasant 72-year-old male patient with a history of kidney cancer status post radical left nephrectomy, GI bleed, hypertension, hyperlipidemia, rheumatoid arthritis, hypothyroidism, metastatic prostate cancer to the bone. Most recent bone scan from 10/24/2022 revealed markedly interval improvement with markedly reduced uptake seen throughout the vertebral column, rib cage and pelvis. He presented here to the emergency room yesterday after 4 day history of black tarry stools and increasing abdominal pain. Computed tomography scan of the abdomen revealed mild diffuse wall thickening within the colon with possible colitis. Multiple sclerotic lesions suspicious for metastases. Hypodense lesion in the liver near the suspected hepatic cysts. The patient's stool for occult blood was positive. Initial hemoglobin 14.1. White count 9.6. Platelets 297. Sodium 139. Potassium 4.9. Bicarb 22. BUN 43. Creatinine 1.49. Glucose 111. The patient was noted to have dark tarry stools this morning however he had a bright red bowel movement. His hemoglobin dropped to 7.3. Also having a drop in blood pressure currently in the 90s over 60s. We're consulted for transfer to the intensive care unit. Patient was seen and evaluated. He remains awake and alert. Maintaining O2 saturations in the 90s on room air. He's afebrile. Most recent blood pressure 106/69 with a mean of 8 1. Heart rate stable in the 70s and 80s. He's been initiated on ceftriaxone and Flagyl. IV Protonix. Normal saline at 75 ML's per hour. The patient is seen today in 12/30/2022 in follow-up in the intensive care unit. He is awake and alert in no acute distress. Resting fairly comfortably in bed. Maintaining good O2 saturations in the mid 90s on room air. Afebrile. Hemodynamically stable. He is still having some ongoing abdominal discomfort mostly in the lower quadrants. The plan is for EGD/colonoscopy early next week. He is receiving his second unit of packed red blood cells for a hemoglobin of 7.2 this morning. White count 3.8. Platelets 151. Sodium 137. Potassium 4.5. Bicarb 17. BUN 58. Creatinine 1.62. Glucose 73. He is continued on ceftriaxone and metronidazole. 0.9 percent normal saline at 75 mL's per hour. Remains on IV Protonix. The patient is seen today 12/31/2022 in follow-up in the intensive care unit. He is resting comfortably in bed. Awake and alert in no acute distress. Maintaining O2 saturations in the 90s on 2 L/m per nasal cannula. He has normal saline at 75 ML's per hour. He is status post 2 units of packed red blood cells. Current hemoglobin 8.2. He has had some dark stool. No bright red blood. C. diff screen was positive. White count 4.3. Platelets 172. Sodium 1:30. Potassium 4.5. Bicarb 18. BUN 33. Creatinine 1.13. Glucose 86. He is on oral vancomycin, Flagyl. Remains on IV Protonix. The patient is seen today 01/01/2023 in follow-up in the intensive care unit. He is a MedSurg overflow patient. He is awake and alert in no acute distress. He is maintaining good O2 saturations in the mid 90s on 2 L/m per nasal cannula. Afebrile. Hemodynamically stable. He is status post 2 units of packed red blood cells this admission. Current hemoglobin 7.7. White count 4.3. Platelets 167. Sodium 136. Potassium 4.9. Bicarb 21. BUN 17. Creatinine 1.06. He remains on saline at 75 ML's per hour. Continued on vancomycin and Flagyl. The patient is seen today 01/02/2023 in follow-up in the intensive care unit. He remains a MedSurg overflow. He is awake and alert in no acute distress. Maintaining good O2 saturations up to 100% on room air. Hemodynamically stable. He has had ongoing issues with some dark tarry stools 3 more through the night. He has some ongoing tenderness in the lower quadrants. He received a third unit of packed red blood cells. His hemoglobin was 6.9. Platelets 205. White count 3.7. He remains on oral vancomycin and Flagyl. Normal saline at 75 ML's per hour. On 01/03/2023, seeing the patient for a follow-up. The patient is doing well. No specific complaints and the patient is currently on room air oxygen. Still having some melanotic stools and diarrhea. The patient was transfused with packed RBC and hemoglobin has dropped down to 6.9 and then came up to 7.8. The echoes at 4.6 with a hemoglobin of 7.8 and a platelet count of 220. The BUN is at 8.7 with a creatinine of 1.2 and a sodium level is at 138. No nausea. No altered mentation. No other new complaints. The patient is on oral vancomycin. The patient is also on lactated Ringer at the rate of 20 mL an hour. The patient is receiving IV Protonix 40 mg every 12 hours. On 01/04/2023, the patient's diarrhea subsided. No evidence of any GI bleeding. Hemodynamically stable on room air oxygen. Remains on oral vancomycin. No fever or chills. No nausea or vomiting or abdominal pain. Most recent hemoglobin from yesterday was at 7.8. 01/05/2023, the patient is supposed to undergo an EGD. No GI bleeding. No diarrhea. Hemoglobin stable at 7.8. White cell count of 4.4. Creatinine is at 1.3. BUN is at 11. Objective - Vital Signs Vital signs: Vital Signs Temp 98.0 F 01/05/23 07:27 Pulse 53 L 01/05/23 07:27 Resp 15 01/05/23 07:27 BP 135/81 01/05/23 07:27 Pulse Ox 98 01/05/23 08:30 FiO2 21 01/05/23 08:30 Intake & Output 01/04/23 01/05/23 01/05/23 18:59 06:59 18:59 Output Total 1 Balance -1 Weight 64.8 kg Output: Stool 1 Other: Voiding Method Toilet Urinal # Voids 4 2 - Exam GENERAL EXAM: Alert, pleasant, pale 72-year-old male patient, comfortable in no apparent distress. HEAD: Normocephalic. EYES: Normal reaction of pupils, equal size. NOSE: Clear with pink turbinates. THROAT: No erythema or exudates. NECK: No masses, no JVD. CHEST: No chest wall deformity. LUNGS: Equal air entry with no crackles, wheeze, rhonchi or dullness. On room air CVS: S1 and S2 normal with no audible murmur, regular rhythm. ABDOMEN: Tenderness in the lower quadrants. No hepatosplenomegaly, normal bowel sounds, no guarding or rigidity. SPINE: No scoliosis or deformity SKIN: No rashes CENTRAL NERVOUS SYSTEM: No focal deficits, tone is normal in all 4 extremities. EXTREMITIES: There is no peripheral edema. No clubbing, no cyanosis. Peripheral pulses are intact. - Labs CBC & Chem 7: 01/05/23 07:28 01/05/23 07:28 Labs: Abnormal Lab Results - Last 24 Hours (Table) 01/04/23 01/05/23 01/05/23 Range/Units 06:02 07:28 07:28 WBC 4.45 L (4.50-10.00) X 10*3/uL RBC 2.57 L 2.61 L (4.40-5.60) X 10*6/uL Hgb 7.7 L 7.8 L (13.0-17.0) g/dL Hct 24.0 L 24.9 L (39.6-50.0) % MCHC 31.3 L (32.0-37.0) g/dL RDW 15.2 H 15.6 H (11.5-14.5) % Immature Gran # 0.20 H 0.17 H (0.00-0.04) X 10*3/uL Lymphocytes # 0.69 L 0.66 L (0.90-5.00) X 10*3/uL Anion Gap 9.10 L (10.00-18.00) mmol/L Est GFR (CKD-EPI)NonAf 56.6 L (60.0-200.0) BUN/Creatinine Ratio 9.05 L (12.00-20.00) Ratio Calcium 7.2 L (8.7-10.3) mg/dL Assessment and Plan Plan: Abdominal pain with black tarry stools and then with 1 red bloody stool, positive for C difficile , still on vancomycin. The patient was transfused with a unit of packed RBC, clinically improving and there is no evidence of GI bleed and the diarrhea is subsiding C. difficile infection. 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 If negative, we'll sign off the case Clinically improving and there is no active diarrhea for now and the stool is more formed Continue oral vancomycin Follow-up hemoglobin is stable Monitor hemoglobin Monitor GI bleeding Transfuse if there is any drop in hemoglobin Continue oral vancomycin We'll continue to follow
[2023-01-05 16:26] LABS: Glucose,Whole Blood 90 mg/dL (70-110)
[2023-01-05] MEDS ORDERED: HYDROmorphone 0.5 MG/0.5 ML SYRINGE IM PRN (16:56)
[2023-01-05] MEDS ORDERED: HYDROmorphone 0.5 MG/0.5 ML SYRINGE IVP PRN (17:06)
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
[2023-01-05] MEDS: HYDROmorphone 0.5 MG/0.5 ML SYRINGE IVP PRN (21:27)
[2023-01-05 21:46] LABS: Glucose,Whole Blood 107 mg/dL (70-110)
[2023-01-06] MEDS: HYDROcodone/APAP 5-325MG 1 EACH TAB PO PRN (02:36)
[2023-01-06 03:11] VITALS: PULSE 62
[2023-01-06] MEDS: SUCRALFATE 1 GM TAB PO SCH (05:18)
[2023-01-06] MEDS: FERROUS SULFATE 325 MG TAB PO SCH (05:18)
[2023-01-06 06:28] LABS: Glucose,Whole Blood 86 mg/dL (70-110)
[2023-01-06] MEDS: PANTOPRAZOLE 40 MG/10 ML VIAL IVP SCH (07:57)
[2023-01-06] MEDS: VANCOMYCIN 125 MG CAPSULE PO SCH (07:58)
[2023-01-06] MEDS: HYDROmorphone 0.5 MG/0.5 ML SYRINGE IVP PRN (07:58)
[2023-01-06] MEDS: CYANOCOBALAMIN 1,000 MCG/ML 1 ML VIAL IM SCH (07:58)
[2023-01-06 08:12] VITALS: BP 162/96; RESP 18; TEMP 98.6
--- NOTE | 2023-01-06 13:45 | P.PN ---
Subjective Progress Note Date: 01/06/23 CHIEF COMPLAINT: GI bleed and C. diff colitis HISTORY OF PRESENT ILLNESS: Patient status post EGD which revealed duodenitis. His resume the patient may have had duodenitis as a source of the melanotic sto ol. His diarrhea has improved. He is scheduled for discharge today. Afebrile. No new labs. Hemoglobin stable at 7.8. Patient seen and examined with Dr. bryant PHYSICAL EXAM: VITAL SIGNS: Reviewed. GENERAL: Well-developed in no acute distress. HEENT: No sclera icterus. Extraocular movements grossly intact. Moist buccal mucosa. Head is atraumatic, normocephalic. ABDOMEN: Soft. Nondistended. NEUROLOGIC: Alert and oriented. Cranial nerves II through XII grossly intact. ASSESSMENT: 1. C. diff colitis 2. Acute GI bleed status post EGD that revealed duodenitis 3. Acute blood loss anemia due to GI bleed requiring blood transfusion 4. History of metastatic prostate cancer PLAN: -Patient can be discharged from surgical standpoint -Continue PPI for duodenitis -Okay to resume Plavix -Continue treatment for C. diff Physician Venereal Disease Investigator note has been reviewed by physician. Signing provider agrees with the documented findings, assessment, and plan of care. Objective - Vital Signs Vital signs: Vital Signs Temp 98.6 F 01/06/23 06:55 Pulse 62 01/06/23 06:55 Resp 18 01/06/23 06:55 BP 162/96 01/06/23 06:55 Pulse Ox 99 01/06/23 06:55 FiO2 21 01/05/23 08:30 Intake & Output 01/05/23 01/06/23 01/06/23 18:59 06:59 18:59 Intake Total 100 Output Total 1 Balance 100 -1 Intake: IV 100 Output: Stool 1 Other: Voiding Method Toilet Urinal # Voids 2 2 - Labs CBC & Chem 7: 01/05/23 07:28 01/05/23 07:28 Labs: Abnormal Lab Results - Last 24 Hours (Table) 01/05/23 01/05/23 Range/Units 07:28 07:28 WBC 4.45 L (4.50-10.00) X 10*3/uL RBC 2.61 L (4.40-5.60) X 10*6/uL Hgb 7.8 L (13.0-17.0) g/dL Hct 24.9 L (39.6-50.0) % MCHC 31.3 L (32.0-37.0) g/dL RDW 15.6 H (11.5-14.5) % Immature Gran # 0.17 H (0.00-0.04) X 10*3/uL Lymphocytes # 0.66 L (0.90-5.00) X 10*3/uL Anion Gap 9.10 L (10.00-18.00) mmol/L Est GFR (CKD-EPI)NonAf 56.6 L (60.0-200.0) BUN/Creatinine Ratio 9.05 L (12.00-20.00) Ratio Calcium 7.2 L (8.7-10.3) mg/dL
--- NOTE | 2023-01-06 14:56 | P.PN ---
Subjective Progress Note Date: 01/06/23 Principal diagnosis: C diff colitis patient is a 72-year old male presented to hospital with abdominal pain black tarry stool CT abdominal pelvis with evidence of diffuse wall thickening concerning for colitis stool for C. difficile subsequently came back positive. Patient is status post EGD this morning with evidence of duodenitis but no active bleeding On today's evaluation that is 01/06/2023, the patient remains to be afebrile, the patient abdominal pain has decreased in intensity and the patient diarrhea has slowed down, the patient denies chest pain shortness of breath or cough Objective - Vital Signs Vital signs: Vital Signs Temp 98.6 F 01/06/23 06:55 Pulse 62 01/06/23 07:58 Resp 18 01/06/23 07:58 BP 162/96 01/06/23 06:55 Pulse Ox 99 01/06/23 06:55 FiO2 21 01/05/23 08:30 Intake & Output 01/05/23 01/06/23 01/06/23 18:59 06:59 18:59 Intake Total 100 Output Total 1 Balance 100 -1 Weight 64.8 kg Intake: IV 100 Output: Stool 1 Other: Voiding Method Toilet Toilet Urinal # Voids 2 2 - Exam An elderly male lying in bed in no distress lungs clear to auscultation Abdomen soft Exam compared with the help of PAPER MACHINE BACKTENDER - Labs CBC & Chem 7: 01/05/23 07:28 01/05/23 07:28 Assessment and Plan (1) C. difficile colitis Status: Acute Code(s): A04.72 - ENTEROCOLITIS D/T CLOSTRIDIUM DIFFICILE, NOT SPCF RECUR SNOMED Code(s): 533664724 Plan: 1patient present hospital abdominal pain diarrhea and black stools with evidence of colitis on CT and stool for C. difficile is positive likely related to C. difficile colitis 2-patient has shown shown clinical improvement , plan is to continue with vancomycin 250 mg p.o. every 6 hours x 10 days on discharge, and close outpatient follow-up Time with Patient: Less than 30
== END 2023-01-06 13:27 | disposition home health service (06) | DRG 371 ==
LOC: EC 15:19 → 5NMEDONC 21:28 → 2SICU 12-29 11:51 → 4SSUR 01-02 22:10
PROVIDERS: ADMIT Internal Medicine; ATTEND Internal Medicine
PROC: 30233N1 Transfusion of Nonautologous Red Blood Cells into Peripheral Vein, Percutaneous Approach (ICD-10-PCS; 2022-12-29)
PROC: 0DB78ZX Excision of Stomach, Pylorus, Via Natural or Artificial Opening Endoscopic, Diagnostic (ICD-10-PCS; principal; 2023-01-05 11:50)
PROC: 0DB58ZX Excision of Esophagus, Via Natural or Artificial Opening Endoscopic, Diagnostic (ICD-10-PCS; principal; 2023-01-05 11:50)
DX: A04.72 Enterocolitis due to Clostridium difficile, not specified as recurrent (principal); K29.81 Duodenitis with bleeding; C79.51 Secondary malignant neoplasm of bone; D62 Acute posthemorrhagic anemia; C61 Malignant neoplasm of prostate; D50.9 Iron deficiency anemia, unspecified; E03.9 Hypothyroidism, unspecified; E78.5 Hyperlipidemia, unspecified; I10 Essential (primary) hypertension; Z86.010 Personal history of colon polyps; M06.9 Rheumatoid arthritis, unspecified; Z79.02 Long term (current) use of antithrombotics/antiplatelets; Z79.52 Long term (current) use of systemic steroids; Z79.890 Hormone replacement therapy; Z79.899 Other long term (current) drug therapy; Z82.49 Family history of ischemic heart disease and other diseases of the circulatory system; Z85.528 Personal history of other malignant neoplasm of kidney; Z86.73 Personal history of transient ischemic attack (TIA), and cerebral infarction without residual deficits; Z90.5 Acquired absence of kidney; Z92.3 Personal history of irradiation; K76.89 Other specified diseases of liver; Z71.3 Dietary counseling and surveillance; Z88.2 Allergy status to sulfonamides; Z87.81 Personal history of (healed) traumatic fracture
CPT/HCPCS: 36415; 43239; 74176; 80048; 80053; 81001; 82272; 82607; 82728; 82746; 83540; 83550; 83605; 83690; 85025; 85027; 85610; 85730; 86850; 86900; 86901; 86920; 87040; 87324; 88305; 88312; 94760; 96361; 96374; 99285

== ENCOUNTER → 2023-02-02 | Outpatient (CLI) | payer MEDICARE ==
--- NOTE | 2023-02-02 09:10 | FL ---
EXAMINATION TYPE: FL UGI air w esophagus DATE OF EXAM: 02/02/2023 COMPARISON: 10 pelvis 12/28/2022 HISTORY: Gastroesophageal reflux disease, dysphagia TECHNIQUE: A double contrast UGI study is performed. A total of 40 seconds of fluoroscopic time was utilized during procedure and 352 images obtained. Total dose area product (DAP) in uGy*m?, mGy*cm? (or similar): 3296.79. FINDINGS: The esophagus shows normal primary and secondary contractions with tertiary contractions identified. No evidence of hiatal hernia or stricture noted. The stomach shows normal distensibility, peristalsis, and mucosal folds. No evidence of any mass or ulcer disease. No significant gastroesophageal reflux was seen during real time performance of this study. The duodenal bulb, sweep, and proximal small bowel loops are unremarkable. IMPRESSION: 1. No evidence for stricture or mucosal abnormality. 2. Mild esophageal dysmotility.
== END | disposition home or self-care (01) ==
LOC: RADUSWWP 07:40
PROVIDERS: ATTEND Surgery
DX: K22.4 Dyskinesia of esophagus (principal); K21.9 Gastro-esophageal reflux disease without esophagitis; R13.10 Dysphagia, unspecified
CPT/HCPCS: 74246

== ENCOUNTER 2023-09-11 13:14 | Emergency (ER) | payer MEDICARE ==
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
[2023-09-11 14:25] LABS: Basophils % (A) 0 %; Eosinophils # (A) 0.2 k/uL (0-0.7); Eosinophils % (A) 2 %; HCT 43.1 % (39.0-53.0); Lymphocytes # (A) 0.4 k/uL (1.0-4.8); Lymphocytes % (A) 4 %; MCH 32.1 pg (25.0-35.0); MCHC 34.7 g/dL (31.0-37.0); MCV 92.7 fL (80.0-100.0); Mean Platelet Volume 7.2; Monocytes # (A) 0.8 k/uL (0-1.0); Monocytes % (A) 9 %; Neutrophils # (A) 7.9 k/uL (1.3-7.7); Neutrophils % (A) 84 %; Platelet Count 223 k/uL (150-450); RBC 4.65 m/uL (4.30-5.90); RDW 12.3 % (11.5-15.5); WBC 9.4 k/uL (3.8-10.6)
[2023-09-11 14:40] LABS: ALT 19 U/L (4-49); AST 39 U/L (17-59); African American GFR (CKD) 51 (>60 ml/min/1.73 sqM); Albumin 5.1 g/dL (3.5-5.0); Alkaline Phosphatase 73 U/L (38-126); Anion Gap 16 mmol/L; Blood Urea Nitrogen 39 mg/dL (9-20); Calcium 8.4 mg/dL (8.4-10.2); Carbon Dioxide 18 mmol/L (22-30); Chloride 103 mmol/L (98-107); Glucose 109 mg/dL (74-99); Non-African American GFR(CKD) 44 (>60 ml/min/1.73 sqM); Potassium 4.4 mmol/L (3.5-5.1); Sodium 137 mmol/L (137-145); Total Bilirubin 0.8 mg/dL (0.2-1.3); Total Protein 8.5 g/dL (6.3-8.2)
[2023-09-11 14:41] LABS: INR 0.9 (<1.2); Partial Thromboplastin Time 26.5 sec (22.0-30.0); Prothrombin Time 10.3 sec (10.0-12.5)
[2023-09-11] MEDS: ONDANSETRON 4 MG/2 ML VIAL IVP STA (15:33)
[2023-09-11] MEDS: SODIUM CHLORIDE 0.9% 1,000 ML IV ONE (15:33)
[2023-09-11] MEDS: MORPHINE SULFATE 4 MG/ML SYRINGE IVP STA (15:34)
[2023-09-11 15:37] VITALS: RESP 16; TEMP 99.1
[2023-09-11] MEDS: METOCLOPRAMIDE 5 MG/ML 2 ML VIAL IVP STA (16:45)
--- NOTE | 2023-09-11 17:45 | CT ---
EXAMINATION TYPE: CT abdomen pelvis wo con CT DLP: 380.9 mGycm, Automated exposure control for dose reduction was used. DATE OF EXAM: 09/11/2023 5:14 PM COMPARISON: CT abdomen pelvis most recent from most recent 12/28/2022. CLINICAL INDICATION:Male, 73 years old with history of abdominal pain, GI bleed; rectal bleeding TECHNIQUE: Axial CT abdomen pelvis wo con;Sagittal and coronal reformats were created on a separate workstation. Contrast used:, (none if empty) Oral contrast used: without Oral Contrast (none if empty) FINDINGS: LOWER CHEST: Stable right lower lobe pulmonary nodule measuring 5 mm. ABDOMEN LIVER: Multiple low-density probable hepatic cysts. GALLBLADDER AND BILE DUCTS: Unremarkable. PANCREAS: Unremarkable. SPLEEN: Unremarkable. ADRENAL GLANDS: Unremarkable. KIDNEYS AND URETERS: Left kidney is not visualized and may be surgically absent. The right kidney is positioned more medial and is enlarged. No evidence of hydronephrosis or renal calculus. Surgical cli ps are seen in the left renal fossa. No abnormal soft tissue PELVIS BLADDER: Unremarkable REPRODUCTIVE: Unremarkable. ABDOMEN & PELVIS STOMACH AND BOWEL: No evidence of bowel obstruction. Scattered colonic diverticula. No evidence for g astrointestinal hemorrhage. PERITONEUM/RETROPERITONEUM: No evidence of pneumoperitoneum or free fluid . VASCULATURE: No evidence of aortic aneurysm. MUSCULOSKELETAL: Scattered sclerotic lesions are seen throughout the osseous structures some which ar e lucent. Remote fracture of the right superior pubic ramus. LYMPH NODES: No gross evidence for lymphadenopathy. SOFT TISSUE/ABDOMINAL WALL: Unremarkable IMPRESSION: 1. No evidence for gastrojejunostomy hemorrhage in this limited noncontrast study. 2. Innumerable sclerotic lesions throughout the osseous structures compatible with metastatic diseas e. Findings not significantly changed from 12/28/2022. 3. Surgically absent left kidney. 4. Scattered colonic diverticulosis.
[2023-09-11] MEDS: HYDROcodone/APAP 10-325MG 1 EACH TAB PO ONE (18:42)
[2023-09-11 19:08] VITALS: BP 149/102; PULSE 83
== END 2023-09-11 19:06 | disposition home or self-care (01) ==
LOC: EC 13:14
DX: K57.30 Diverticulosis of large intestine without perforation or abscess without bleeding (principal); I10 Essential (primary) hypertension; R79.89 Other specified abnormal findings of blood chemistry; E07.9 Disorder of thyroid, unspecified; E78.5 Hyperlipidemia, unspecified; F12.90 Cannabis use, unspecified, uncomplicated; Z79.02 Long term (current) use of antithrombotics/antiplatelets; Z79.890 Hormone replacement therapy; Z79.899 Other long term (current) drug therapy; Z86.73 Personal history of transient ischemic attack (TIA), and cerebral infarction without residual deficits; Z87.891 Personal history of nicotine dependence; Z88.2 Allergy status to sulfonamides
CPT/HCPCS: 36415; 93005; 80053; 83605; 84484; 85025; 85610; 85730; 74176; 99285; 96374; 96375 ×2; 96361; J2270; J2765; J2405

== ENCOUNTER 2024-03-14 09:30 | Inpatient (IN) | payer MEDICARE ==
[2024-03-14] MEDS ORDERED: HEPARIN SODIUM 1,000 UN/ML (10ML VL) ONE (10:30)
[2024-03-14] MEDS ORDERED: VERAPAMIL 2.5 MG/ML 2 ML AMP ONE (10:30)
[2024-03-14] MEDS ORDERED: LIDOCAINE 1% INJ 10MG/ML (20 ML MDV) ONE (10:30)
[2024-03-14] MEDS ORDERED: MIDAZOLAM 2 MG/2 ML VIAL ONE (10:30)
[2024-03-14] MEDS ORDERED: CLOPIDOGREL 75 MG TAB ONE (11:09)
[2024-03-14] MEDS: IOPAMIDOL-370 100ML BTL INJ ONE ×2 (11:42)
[2024-03-14] MEDS ORDERED: ACETAMINOPHEN TAB 325 MG TAB ONE ×3 (13:42→20:29)
[2024-03-14] MEDS ORDERED: GABAPENTIN 300 MG CAP ONE ×2 (15:28→20:29)
[2024-03-14] MEDS ORDERED: predniSONE 5 MG TAB ONE (21:00)
[2024-03-14] MEDS ORDERED: SODIUM CHLORIDE 0.9% 1,000 ML BAG ONE (21:00)
[2024-03-14] MEDS ORDERED: HYDROcodone/APAP 5-325MG 1 EACH TAB ONE ×2 (22:00)
[2024-03-15] MEDS ORDERED: predniSONE 5 MG TAB ONE (00:01)
[2024-03-15] MEDS ORDERED: HYDROcodone/APAP 5-325MG 1 EACH TAB ONE ×2 (02:50)
[2024-03-15] MEDS ORDERED: CLOPIDOGREL 75 MG TAB ONE (08:26)
[2024-03-15] MEDS ORDERED: ASPIRIN 81 MG ONE ×2 (08:26)
[2024-03-15] MEDS ORDERED: GABAPENTIN 300 MG CAP ONE (09:01)
== END 2024-03-15 11:10 | disposition home or self-care (01) | DRG 287 ==
LOC: CATHCVL 09:30 → UNDOADMIN 10:30 → 6NMEDSUR 10:30 → UNDODISIN 03-15 11:10
PROVIDERS: ADMIT Internal Medicine Interventional Cardiology; ATTEND Internal Medicine Interventional Cardiology
PROC: 4A023N7 Measurement of Cardiac Sampling and Pressure, Left Heart, Percutaneous Approach (ICD-10-PCS; principal; 2024-03-14 10:30)
PROC: B2151ZZ Fluoroscopy of Left Heart using Low Osmolar Contrast (ICD-10-PCS; 2024-03-14 10:30)
DX: I25.10 Atherosclerotic heart disease of native coronary artery without angina pectoris (principal); I35.0 Nonrheumatic aortic (valve) stenosis; E78.5 Hyperlipidemia, unspecified; D64.9 Anemia, unspecified; F17.210 Nicotine dependence, cigarettes, uncomplicated; I10 Essential (primary) hypertension; Z86.73 Personal history of transient ischemic attack (TIA), and cerebral infarction without residual deficits; Z88.2 Allergy status to sulfonamides
CPT/HCPCS: 92978; 93458

== ENCOUNTER → 2024-10-21 | Outpatient (CLI) | payer MEDICARE ==
--- NOTE | 2024-10-21 10:45 | CT ---
EXAMINATION TYPE: CT ChestAbdPelvis wo con DATE OF EXAM: 10/21/2024 10:16 AM COMPARISON: CT chest abdomen and pelvis 12/07/[address] abdomen and pelvis 09/11/2023 CLINICAL INDICATION: Male, 74 years old with history of C61 PROSTATE, Prostate cancer. TECHNIQUE: CT imaging performed with sagittal coronal reformats. Unenhanced CT of the chest ,abdomen and pelvis is performed. The lack of intravenous contrast limits evaluation of the solid and hollow viscera. CT DLP: 383.8 mGycm, Automated exposure control for dose reduction was used. Oral contrast: No FINDINGS: CT Chest: LUNGS: New Pulmonary nodules identified. 8.4 mm left upper lobe pulmonary nodule image 40. Left lower lobe p ulmonary nodule 6.4 mm image 52 3 mm right upper lobe pulmonary nodule image 45. Right lower lobe pul monary nodule 6.5 mm image 51. The lungs are otherwise clear. Hyperinflation compatible with COPD. Mi ld basilar parenchymal scarring. MEDIASTINUM: Thoracic aorta is of normal caliber. The heart is not enlarged. No evidence for media stinal mass or adenopathy. HEART: Size within normal limits. Coronary artery calcifications with possible stents. Correlate clin ically. HILAR STRUCTURES: No evidence for mass. No hilar adenopathy is appreciated. OTHER: No significant abnormality. CONTRAST CT ABDOMEN AND PELVIS: LIVER/GB: No calcified gallstones. Hepatic cysts redemonstrated. Biliary tree is of normal caliber. PANCREAS: No inflammation. No distinct mass. SPLEEN: No splenic enlargement. No lesion seen. ADRENALS: No nodule. No thickening. KIDNEYS/BLADDER: Absence of the left kidney with malrotation of the right kidney on its vertical axi s. No hydronephrosis. No nephrolithiasis. No disctinct renal mass. BOWEL: Normal appendix. Normal bowel caliber. No inflammation. GENITAL ORGANS: No gross abnormality. LYMPH NODES: No greater than 1cm abdominal or pelvic lymph nodes areappreciated. AORTA: No significant abnormality. OSSEOUS STRUCTURES: Diffuse bony sclerotic metastases are again noted and appear to be slightly impro jorje. OTHER: No significant additional abnormality is seen. IMPRESSION: 1. Diffuse bony sclerotic metastases are again noted and appear to be slightly improved. 2. New pulmonary nodules suspicious for metastatic disease. [facility], , 10/21/2024 10:43 AM
== END | disposition home or self-care (01) ==
LOC: RADCTMAIN 09:54
PROVIDERS: ATTEND Internal Medicine Hematology & Oncology
DX: C61 Malignant neoplasm of prostate (principal); C64.2 Malignant neoplasm of left kidney, except renal pelvis; C79.51 Secondary malignant neoplasm of bone; D64.89 Other specified anemias; R94.4 Abnormal results of kidney function studies; R91.8 Other nonspecific abnormal finding of lung field
CPT/HCPCS: 71250; 74176